=== PATIENT | male | born 1940 | race Caucasian/White ===

== ENCOUNTER 2023-01-20 12:44 | Inpatient (IN) ==
[2023-01-20] MEDS ORDERED: SODIUM CHLORIDE 0.9% 1000ML 1,000 ML IV SCH (13:30)
--- NOTE | 2023-01-20 13:36 | Emergency Department Note ---
Impression & Plan AMS (altered mental status), Hypothermia, Bilateral pleural effusion, Pulmonary edema, Thrombocytopenia ED Provider Note HISTORY OF PRESENT ILLNESS: Patient is an 82-year-old male presenting with altered mental status and hypothermia. Patient reportedly has had progressively worsening confusion over the last 2 to 3 days per family. He reportedly was found very confused today at his facility. Given his profound confusion today, they called 911. Patient was found to be hypothermic. Patient is alert to self. He has no complaints on arrival to the ER. No potential ingestions, as the facility gives him his medications. Per the medication list, he is not on any rate control medications. No reported falls or recent head injuries. ROS: as above PHYSICAL EXAM: Constitutional: Patient appears in no acute distress. Morbily obese HENT: Head: Normocephalic and atraumatic. Eyes: EOMI, PERRL Mouth/Throat: Mucous membranes moist. Neck: Trachea midline. Neck supple. Cardiovascular: Bradycardic with irregular rhythm. No murmurs, rubs or gallops. Intact distal pulses. Pulmonary/Chest: No respiratory distress. Breath sounds clear and equal bilaterally. No wheezes or rales Abdominal: Abdomen soft, no tenderness, rebound or guarding. Skin: Cool and dry. Neurological: Alert to self.. CN II-XII grossly intact MDM: - Vitals signs showed hypothermia and bradycardia. Patient was placed in a bear hugger and a temperature sensing Forbes catheter was placed. Transcutaneous pacing pads were placed on the patient prophylactically - History obtained via family, given patient's confusion. Patient presents with altered mental status. Patient reportedly has been having progressively worsening confusion over the last 2 to 3 days per family. He reportedly was significantly more altered today and the facility called 911. Family was alerted to patient's rapid decline and presented to the ER after him. Patient has no complaints on arrival to the ER. No potential ingestions, as the facility gives him his medications - Chronic conditions affecting care: AFib - Differential diagnoses include, but are not limited to: UTI; pneumonia; CVA; intracranial hemorrhage; electrolyte abnormality; ACS; overdose - Order placed for continuous cardiac monitoring. At this time, monitor showed rate of 61 bpm with irregular rhythm, per my interpretation. - External medical records reviewed. EMS run sheet reviewed. Patient was bradycardic in route. No medications were given prehospital. - EKG reviewed by myself showed atrial fibrillation. Noted to be bradycardic at a rate of 51 bpm. QTc 492. No acute ischemic changes. - Laboratory workup interpreted by myself showed leukopenia (WBC 2.92); thrombocytopenia (plt 125); slight hypernatremia (Na 146); elevated BUN (41); normal troponin; normal procalcitonin; negative salicylate/acetaminophen levels - UA negative for infection - VBG shows slight hypercarbia. - CXR shows pulmonary edema, per my interpretation. Noted to have layering pleural effusions with bibasilar consolidation - Blood cultures obtained. - CT head wo contrast negative for acute intracranial hemorrhage. - Patient initially given 1L NS in ER. - Empirically started on IV vancomycin and cefepime. - Discussion was had with social media editor about patient's case and need for admission - Hospitalist consulted for admission - Patient admitted to [facility] Hospitalist service for further evaluation and management. I provided 33 minutes of critical care time to this patient's care outside of billable procedures. ASSESSMENT AND PLAN: Diagnosis: altered mental status; hypothermia; pulmonary edema; bilateral pleural effusions; thrombocytopenia Plan: admit Past Med/Surg History Social History Smoking Status: Unknown if ever smoked Feels Safe at Home: Yes Allergies Allergies Allergy/AdvReac Type Severity Reaction Status Date / Time ceftriaxone Allergy Mild rash Verified 02/16/13 09:42 ertapenem AdvReac Intermediate hallucinati Unverified 02/16/13 10:42 ons Home Meds Home Medications Medication Instructions Recorded Confirmed ACETAMINOPHEN (TYLENOL) 1 - 2 tabs PO PRN #0 tabs 02/16/13 ATORVASTATIN (LIPITOR) 20 mg PO DAILY #0 tabs 02/16/13 DRONEDARONE HCL (MULTAQ) 400 mg PO BID ##0 02/16/13 NIFEDIPINE (NIFEDIPINE ER) 30 mg PO DAILY ##0 02/16/13 OXYCODONE/ACETAMINOPHEN 5MG/325MG 1 tab PO Q6 PRN ##0 02/16/13 (ROXICET 5MG/325MG) TARKA ER 2 - 240 mg PO DAILY ##0 02/16/13 TRIAMCINOLONE ACETONIDE (TOPIC 1 applic topical BID PRN ##0 02/16/13 (TRIAMCINOLONE ACET 0.025%) Previous Rx's Medication Instructions Recorded CIPRO 750 mg PO Q12 ##14 02/19/13 Results & Data (ED) Vital Signs Vital Signs - 24 hr 01/20/23 13:01 01/20/23 12:40 01/20/23 13:28 Temperature 30.9 C L Temperature Source Core Pulse Rate 46 L 45 L Pulse Rate [Finger] 62 Respiratory Rate 14 16 Respiratory Depth Normal Blood Pressure 116/64 Blood Pressure [Right Arm] 124/64 Blood Pressure Mean 81 Blood Pressure Mean [Right Arm] 84 Pulse Oximetry 94 94 Oxygen Delivery Method Room Air Room Air Sepsis Recent Fever Within 48 Hours No Sepsis New/Unexplained Change in Mental Status Yes Sepsis Action Taken by Nursing Physician Notified 01/20/23 13:39 01/20/23 13:46 01/20/23 14:18 Temperature Temperature Source Pulse Rate 52 L Pulse Rate [Finger] 40 L 48 L Respiratory Rate 16 16 20 Respiratory Depth Blood Pressure Blood Pressure [Right Arm] 116/55 L 120/66 Blood Pressure Mean Blood Pressure Mean [Right Arm] 75 84 Pulse Oximetry 93 93 94 Oxygen Delivery Method Sepsis Recent Fever Within 48 Hours Sepsis New/Unexplained Change in Mental Status Sepsis Action Taken by Nursing Laboratory Data 01/20/23 13:20 01/20/23 13:20 Lab Results 01/20/23 01/20/23 01/20/23 Range/Units 13:06 13:20 13:20 WBC 2.92 L (4.8-10.8) K/ul RBC 3.55 L (4.70-6.10) M/uL Hgb 11.0 L (14.0-18.0) g/dl Hct 34.3 L (42.0-52.0) % MCV 96.6 (80.0-100.0) fL MCH 31.0 (25.0-34.0) pg MCHC 32.1 (32.0-36.0) g/dL RDW Std Deviation 45.8 (36.4-46.3) fL RDW Coeff of Juanita 13.2 (11.5-14.5) % Plt Count 125 L (130-400) K/uL MPV 10.3 (9.4-12.4) fL Immature Gran % (Auto) 1.4 % Neut % (Auto) 65.7 % Lymph % (Auto) 20.9 % Gladwin % (Auto) 7.9 % Eos % (Auto) 3.4 % Baso % (Auto) 0.7 % Neut # (Auto) 1.92 (1.40-6.50) K/uL Lymph # (Auto) 0.61 L (1.2-3.4) K/uL Gladwin # (Auto) 0.23 (0.11-0.59) K/uL Eos # (Auto) 0.10 (0-0.50) K/uL Baso # (Auto) 0.02 (0-0.2) K/uL Immature Gran # (Auto) 0.04 (0.01-0.20) K/uL VBG pH (7.36-7.41) VBG pCO2 (38-50) mmHg VBG pO2 mmHg VBG HCO3 mmol/L VBG O2 Saturation % VBG Base Excess mEq/L Sodium (136-145) mmol/L Potassium (3.5-5.1) mmol/L Chloride (98-107) mmol/L Carbon Dioxide (21-32) mmol/L Anion Gap (3-11) BUN (6-23) mg/dl Creatinine (0.6-1.4) mg/dl Est Cr Clr Drug Dosing ml/min Est GFR ( Amer) ml/min Est GFR (Non-Af Amer) ml/min BUN/Creatinine Ratio (10-20) Glucose (70-99(Fasting)) mg/dl Lactate (0.4-2.0) mmol/L Calcium (8.6-10.3) mg/dl Magnesium (1.7-2.4) mg/dl Total Bilirubin (0.2-1.0) mg/dl Direct Bilirubin (0-0.2) mg/dl AST (13-39) U/L ALT (7-52) U/L Alkaline Phosphatase (34-104) U/L Troponin I High Sens (0-20) pg/ml Total Protein (6.0-8.3) gm/dl Albumin (3.4-5.0) gm/dl Procalcitonin (0-0.5) ng/ml Urine Color Yellow Urine Appearance Clear (Clear) Urine pH 5.0 (4.5-7.5) Ur Specific [place] 1.015 (1.000-1.030) Urine Protein Negative (Negative) Urine Glucose (UA) Negative (Negative) Urine Ketones Negative (Negative) Urine Blood Negative (Negative) Urine Nitrite Negative (Negative) Urine Bilirubin Negative (Negative) Urine Urobilinogen Negative (Negative) Ur Leukocyte Esterase Negative (Negative) Salicylates < 3.0 L (3.0-30) mg/dl Acetaminophen < 3 L (10-30) ug/ml 01/20/23 01/20/23 01/20/23 Range/Units 13:20 13:20 13:20 WBC (4.8-10.8) K/ul RBC (4.70-6.10) M/uL Hgb (14.0-18.0) g/dl Hct (42.0-52.0) % MCV (80.0-100.0) fL MCH (25.0-34.0) pg MCHC (32.0-36.0) g/dL RDW Std Deviation (36.4-46.3) fL RDW Coeff of Juanita (11.5-14.5) % Plt Count (130-400) K/uL MPV (9.4-12.4) fL Immature Gran % (Auto) % Neut % (Auto) % Lymph % (Auto) % Gladwin % (Auto) % Eos % (Auto) % Baso % (Auto) % Neut # (Auto) (1.40-6.50) K/uL Lymph # (Auto) (1.2-3.4) K/uL Gladwin # (Auto) (0.11-0.59) K/uL Eos # (Auto) (0-0.50) K/uL Baso # (Auto) (0-0.2) K/uL Immature Gran # (Auto) (0.01-0.20) K/uL VBG pH (7.36-7.41) VBG pCO2 (38-50) mmHg VBG pO2 mmHg VBG HCO3 mmol/L VBG O2 Saturation % VBG Base Excess mEq/L Sodium 146 H (136-145) mmol/L Potassium 3.7 (3.5-5.1) mmol/L Chloride 110 H (98-107) mmol/L Carbon Dioxide 30 (21-32) mmol/L Anion Gap 6 (3-11) BUN 41 H (6-23) mg/dl Creatinine 1.05 (0.6-1.4) mg/dl Est Cr Clr Drug Dosing 74.0 ml/min Est GFR ( Amer) 75.2 ml/min Est GFR (Non-Af Amer) 64.9 ml/min BUN/Creatinine Ratio 39.0 H (10-20) Glucose 73 (70-99(Fasting)) mg/dl Lactate 0.7 (0.4-2.0) mmol/L Calcium 9.5 (8.6-10.3) mg/dl Magnesium 2.0 (1.7-2.4) mg/dl Total Bilirubin 0.6 (0.2-1.0) mg/dl Direct Bilirubin 0.1 (0-0.2) mg/dl AST 29 (13-39) U/L ALT 22 (7-52) U/L Alkaline Phosphatase 83 (34-104) U/L Troponin I High Sens 6.3 (0-20) pg/ml Total Protein 6.6 (6.0-8.3) gm/dl Albumin 3.6 (3.4-5.0) gm/dl Procalcitonin < 0.05 (0-0.5) ng/ml Urine Color Urine Appearance (Clear) Urine pH (4.5-7.5) Ur Specific [place] (1.000-1.030) Urine Protein (Negative) Urine Glucose (UA) (Negative) Urine Ketones (Negative) Urine Blood (Negative) Urine Nitrite (Negative) Urine Bilirubin (Negative) Urine Urobilinogen (Negative) Ur Leukocyte Esterase (Negative) Salicylates (3.0-30) mg/dl Acetaminophen (10-30) ug/ml 01/20/23 Range/Units 14:49 WBC (4.8-10.8) K/ul RBC (4.70-6.10) M/uL Hgb (14.0-18.0) g/dl Hct (42.0-52.0) % MCV (80.0-100.0) fL MCH (25.0-34.0) pg MCHC (32.0-36.0) g/dL RDW Std Deviation (36.4-46.3) fL RDW Coeff of Juanita (11.5-14.5) % Plt Count (130-400) K/uL MPV (9.4-12.4) fL Immature Gran % (Auto) % Neut % (Auto) % Lymph % (Auto) % Gladwin % (Auto) % Eos % (Auto) % Baso % (Auto) % Neut # (Auto) (1.40-6.50) K/uL Lymph # (Auto) (1.2-3.4) K/uL Gladwin # (Auto) (0.11-0.59) K/uL Eos # (Auto) (0-0.50) K/uL Baso # (Auto) (0-0.2) K/uL Immature Gran # (Auto) (0.01-0.20) K/uL VBG pH 7.38 (7.36-7.41) VBG pCO2 51 H (38-50) mmHg VBG pO2 48 mmHg VBG HCO3 30 mmol/L VBG O2 Saturation 78.0 % VBG Base Excess 3.9 mEq/L Sodium (136-145) mmol/L Potassium (3.5-5.1) mmol/L Chloride (98-107) mmol/L Carbon Dioxide (21-32) mmol/L Anion Gap (3-11) BUN (6-23) mg/dl Creatinine (0.6-1.4) mg/dl Est Cr Clr Drug Dosing ml/min Est GFR ( Amer) ml/min Est GFR (Non-Af Amer) ml/min BUN/Creatinine Ratio (10-20) Glucose (70-99(Fasting)) mg/dl Lactate (0.4-2.0) mmol/L Calcium (8.6-10.3) mg/dl Magnesium (1.7-2.4) mg/dl Total Bilirubin (0.2-1.0) mg/dl Direct Bilirubin (0-0.2) mg/dl AST (13-39) U/L ALT (7-52) U/L Alkaline Phosphatase (34-104) U/L Troponin I High Sens (0-20) pg/ml Total Protein (6.0-8.3) gm/dl Albumin (3.4-5.0) gm/dl Procalcitonin (0-0.5) ng/ml Urine Color Urine Appearance (Clear) Urine pH (4.5-7.5) Ur Specific [place] (1.000-1.030) Urine Protein (Negative) Urine Glucose (UA) (Negative) Urine Ketones (Negative) Urine Blood (Negative) Urine Nitrite (Negative) Urine Bilirubin (Negative) Urine Urobilinogen (Negative) Ur Leukocyte Esterase (Negative) Salicylates (3.0-30) mg/dl Acetaminophen (10-30) ug/ml Administered Medications Discontinued Medications Sodium Chloride (Nss 1000ml) 1,000 mls @ 999 mls/hr IV .Q1H1M LISA Stop: 01/20/23 14:30 Last Infusion: 01/20/23 14:32 Dose: 0 mls/hr Documented By: Admin: 01/20/23 13:26 Dose: 999 mls/hr Documented By: KATHERIN Cefepime HCl (Maxipime) 2,000 mg in 20 mls @ 5 mls/min IV NOW STA; Protocol Stop: 01/20/23 14:54 Last Admin: 01/20/23 15:03 Dose: 5 mls/min Documented By: ASHLEY Imaging Data Radiologist's Impression: Chest X-Ray 01/20/23 13:23 XR chest 1V portable HISTORY: 82 years-old Male Sepsis acute sepsis COMPARISON: 02/16/2013 TECHNIQUE: AP view the chest FINDINGS: Cardiac silhouette is enlarged. Right IJ Bcxjrs-p-Losn catheter is unchanged. No pneumothorax. Pulmonary vascular congestion with interstitial coarsening. Right greater left layering pleural effusions with bibasilar consolidation. Bones appear grossly intact. IMPRESSION: 1. Cardiomegaly with pulmonary edema. 2. Layering pleural effusions with bibasilar consolidation. ACT 112: Negative or not required by law. The above report was generated using voice recognition software. It may contain grammatical, syntax or spelling errors. Electronically signed by: Kishan Brennan M.D. 01/20/2023 1:[address] 01/20/23 13:36 CT head/brain wo con CLINICAL HISTORY: 82 years-old Male with AMS. Acutely altered mental status TECHNIQUE: Multiple axial CT images of the head were obtained without contrast. A dose lowering technique was utilized adhering to the principles of ALARA. CT DOSE: 625.80 mGy.cm COMPARISON: None. FINDINGS: No acute intracranial hemorrhage, midline shift, intracranial mass, hydrocephalus, territorial ischemia or abnormal extra-axial collection. Involutional changes with chronic microvascular ischemic disease. The calvarium is intact. Prior bilateral lens repair. The paranasal sinuses, mastoid air cells, and middle ear cavities are clear. IMPRESSION: No acute intracranial abnormality. ACT 112: Negative or not required by law. The above report was generated using voice recognition software. It may contain grammatical, syntax or spelling errors. Electronically signed by: Kishan Brennan M.D. 01/20/2023 2:22 PM Discharge Plan Visit Data Chief Complaint: Illness Stated Complaint: FLUID RETENTION ED Provider: Shiloh Elizondo Discharge Problem: AMS (altered mental status), Hypothermia, Bilateral pleural effusion, Pulmonary edema, Thrombocytopenia Forms Stand Alone Forms: [facility] Prescriptions Prescriptions: No Action ACETAMINOPHEN (TYLENOL) 500 MG tablet 1 - 2 tabs PO PRN Qty: 0 ATORVASTATIN (LIPITOR) 20 MG tablet 20 mg PO DAILY Qty: 0 DRONEDARONE HCL (MULTAQ) 400 MG tablet 400 mg PO BID Qty: 0 NIFEDIPINE (NIFEDIPINE ER) 30 MG tablet 30 mg PO DAILY Qty: 0 OXYCODONE/ACETAMINOPHEN 5MG/325MG (ROXICET 5MG/325MG) 1 TAB tablet 1 tab PO Q6 PRNQty: 0 TARKA ER 2 - 240 mg PO DAILY Qty: 0 TRIAMCINOLONE ACETONIDE (TOPIC (TRIAMCINOLONE ACET 0.025%) 0.025 % LOT 1 applic Topical BID PRNQty: 0 CIPRO 750 mg PO Q12 Qty: 14 0RF [facility] -
[2023-01-20 13:41] LABS: Basophils # (auto) 0.02 K/uL (0-0.2); Basophils % (auto) 0.7 %; Eosinophils % (auto) 3.4 %; Hematocrit (blood only) 34.3 % (42.0-52.0); Immature Granulocytes # (auto) 0.04 K/uL (0.01-0.20); Immature Granulocytes % (auto) 1.4 %; Lymphocytes # (auto) 0.61 K/uL (1.2-3.4); Lymphocytes % (auto) 20.9 %; Mean Corpuscular Hgb Conc 32.1 g/dL (32.0-36.0); Mean Corpuscular Volume 96.6 fL (80.0-100.0); Mean Platelet Volume 10.3 fL (9.4-12.4); Monocytes # (auto) 0.23 K/uL (0.11-0.59); Monocytes % (auto) 7.9 %; Neutrophils # (auto) 1.92 K/uL (1.40-6.50); Neutrophils % (auto) 65.7 %; Platelet Count 125 K/uL (130-400); RDW Coefficient of Variation 13.2 % (11.5-14.5); RDW Standard Deviation 45.8 fL (36.4-46.3); Red Blood Count 3.55 M/uL (4.70-6.10); White Blood Count 2.92 K/ul (4.8-10.8)
--- NOTE | 2023-01-20 13:48 | XRay Report ---
XR chest 1V portable HISTORY: 82 years-old Male Sepsis acute sepsis COMPARISON: 02/16/2013 TECHNIQUE: AP view the chest FINDINGS: Cardiac silhouette is enlarged. Right IJ Lhtrqv-[id number]-Lwkt catheter is unchanged. No pneumothorax. Pulmon reyna vascular congestion with interstitial coarsening. Right greater left layering pleural effusions w ith bibasilar consolidation. Bones appear grossly intact. IMPRESSION: 1. Cardiomegaly with pulmonary edema. 2. Layering pleural effusions with bibasilar consolidation. ACT 112: Negative or not required by law. The above report was generated using voice recognition software. It may contain grammatical, syntax o r spelling errors. Electronically signed by: Kishan Brennan M.D. 01/20/2023 1:47 PM
[2023-01-20 13:52] LABS: Appearance Urine Clear (Clear); Bilirubin Urine Negative (Negative); Blood Urine Negative (Negative); Color Urine Yellow; Glucose Urine UA Negative (Negative); Ketones Urine Negative (Negative); Leukocyte Esterase Urine Negative (Negative); Nitrite Urine Negative (Negative); Protein Urine Negative (Negative); Specific Gravity Urine 1.015 (1.000-1.030); Urobilinogen Urine Negative (Negative)
[2023-01-20 13:54] LABS: Albumin Level 3.6 gm/dl (3.4-5.0); Bilirubin Direct 0.1 mg/dl (0-0.2); Bilirubin,Total 0.6 mg/dl (0.2-1.0); Calcium 9.5 mg/dl (8.6-10.3); Est GFR (African American) 75.2 ml/min; Est GFR (Non-African American) 64.9 ml/min; Potassium 3.7 mmol/L (3.5-5.1); Total Protein 6.6 gm/dl (6.0-8.3)
[2023-01-20 14:00] LABS: Troponin I High Sensitivity 6.3 pg/ml (0-20)
[2023-01-20 14:02] LABS: Acetaminophen < 3 ug/ml (10-30); Salicylate < 3.0 mg/dl (3.0-30)
--- NOTE | 2023-01-20 14:24 | CT Scan Report ---
CT head/brain wo con CLINICAL HISTORY: 82 years-old Male with AMS. Acutely altered mental status TECHNIQUE: Multiple axial CT images of the head were obtained without contrast. A dose lowering tech nique was utilized adhering to the principles of ALARA. CT DOSE: 625.80 mGy.cm COMPARISON: None. FINDINGS: No acute intracranial hemorrhage, midline shift, intracranial mass, hydrocephalus, territorial ischem ia or abnormal extra-axial collection. Involutional changes with chronic microvascular ischemic disea se. The calvarium is intact. Prior bilateral lens repair. The paranasal sinuses, mastoid air cells, and m iddle ear cavities are clear. IMPRESSION: No acute intracranial abnormality. ACT 112: Negative or not required by law. The above report was generated using voice recognition software. It may contain grammatical, syntax o r spelling errors. Electronically signed by: Kishan Brennan M.D. 01/20/2023 2:22 PM
[2023-01-20] MEDS ORDERED: VANCOMYCIN CONSULT ACTIVE PRN (14:51)
[2023-01-20] MEDS ORDERED: VANCOMYCIN HCL 2,750 MG in SODIUM CHLORIDE 0.9% 500 ML IV ONE (14:51)
[2023-01-20] MEDS ORDERED: CEFEPIME 2,000 MG/20 ML VIAL IV STA (14:51)
[2023-01-20 15:12] LABS: Base Excess VBG 3.9 mEq/L; HCO3 VBG 30 mmol/L; PCO2 VBG 51 mmHg (38-50); PO2 VBG 48 mmHg; pH VBG 7.38 (7.36-7.41)
--- NOTE | 2023-01-20 15:18 | History & Physical Report ---
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 Acute metabolic encephalopathy Hypothermia Possible Sepsis in setting of profound hypothermia, confusion and leukopenia admit to PCU continue jazzmine hugger warming system, anticipate HR will improve with re warming Biofire, urine negative CXR: pulm edema/pleural effusions ? 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/revision > 2 years ago Chronic lower ext lymphedema but does not appear overtly infected obtain CT a/p with IV contrast r/o intra abdominal infection hold on further IVF for now 2/2 volume overload obtain tsh, random cortisol Acute Heart failure, unknown EF Pulmonary edema reported weight gain, worsened lower ext edema, SOB pt with significant volume overload he does have chronic lymphedema but family states worsening and increased weight gain CXR: pulm edema, pleural effusions O2 saturations in low 90s will give 40mg IV lasix x 1 now, monitor response cautious diuresis in setting of sepsis concern, will re evaluate obtain echo, consult cardiology Chronic atrial fib chronic, on xarelto for stroke prophylaxis not on rate controlling agents, prior HR in 60s possible bradycardia in setting of hypothermia Cognitive impairment per family baseline is A and O x 3, oriented to family typically ambulates with walker with assistance but mostly in wheel chair per OP epic records appears pt may be looking at changing to SNF due to difficulty with mobility will need to get PT/OT when approp he is on donepezil and Namenda as OP, will hold for now NPO for now except meds til mental status improves FULL CODE confirmed by son at bedside DVT ppx: Xarelto PCP: Jon, pt at [facility] Dispo: Admit to PCU, consult PT/OT when appropriate, pt may not be candidate to return to [facility] and may need SNF Pt was seen and examined in collaboration with Dr. Whitley, please see addendum A total of 120 minutes was spent coordinating, documenting, and providing care for this patient excluding time spent in the performance of separately billed services. This included personally viewing all current laboratories and imaging studies, medication reconciliation, outpatient chart review, and discussion with specialists. Pt Medical Providers in [place] Rei Frank (PCP) [phone] [address], [address] Vamsi Chan [phone] [facility] Heme/Onc Pt from [place] and recently moved 2 months ago. Limited records available for review in [facility], will obtain from PCP in am.. History of Present Illness Chief Complaint: Worsening mental status x 3 days. 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 Son and [id number] are at bedside. They provide most of history. Patient is initially from [place] and moved to [facility] approximately 2 months ago. He currently resides in assisted living facility. Per family at bedside at baseline patient is alert and oriented x3, oriented to current events and family members. He is mostly in a wheelchair but can ambulate with assist with a walker. He does have chronic lower extremity lymphedema and swelling however this has worsened over the last month. Family at bedside notes significant increase in lower extremity swelling as well as weight gain. He has not yet established with cardiology in the area and they deny any prior history of congestive heart failure. He does have known chronic atrial fibrillation and is anticoagulated with Xarelto. Patient is hard of hearing and he does report that he is short of breath but otherwise ROS is not difficult. He does complain that he is in pain all over. 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 He currently has a port in his right chest wall secondary to requiring frequent antibiotics and this infection has since been cleared for approximately 2 years. Report from nursing facility is that he has had increased confusion over the last 3 days and today was unable to get patient out of bed. There is no reported fever. In ED patient was significantly hypothermic with a temp of 30.9 and bradycardic with a heart rate in the 40s. He is in atrial fibrillation. Lab work notable for slight neutropenia with a WBC at 2.92k which is lower from November when he had a reported white blood cell count of 7k in epic. He also has a new thrombocytopenia. Lab work does reveal elevated BUN and creatinine of 41 and 1.05. Urinalysis is negative. Bio fire is negative for any respiratory infection. Head CT negative for any acute abnormality. Chest x-ray positive for cardiomegaly with pulmonary edema along with layering pleural effusions and bibasilar consolidation. Allergies Allergy/AdvReac Type Severity Reaction Status Date / Time ceftriaxone Allergy Mild rash Verified 01/20/23 15:23 doxycycline Allergy Unknown ON Verified 01/20/23 15:23 [facility] LIST rifampin Allergy Unknown ON Verified 01/20/23 15[facility] Sulfa (Sulfonamide Allergy Unknown ON Verified 01/20/23 15:23 Antibiotics) [facility] ertapenem AdvReac Intermediate hallucinati Verified 01/20/23 15:23 ons Home Medications Medication Instructions Recorded Confirmed Type acetaminophen 325 mg tablet 650 mg PO Q4H PRN Pain 01/20/23 01/20/23 History (Tylenol) atorvastatin 20 mg tablet 20 mg PO DAILY 01/20/23 01/20/23 History cholecalciferol (vitamin D3) 50 50 mcg PO DAILY 01/20/23 01/20/23 History mcg (2,000 unit) capsule (Vitamin D3) cyclosporine 0.05 % eye drops 1 drp OPB Q12H 01/20/23 01/20/23 History donepezil 10 mg tablet 10 mg PO DAILY 01/20/23 01/20/23 History furosemide 20 mg tablet (Lasix) 20 mg PO DAILY 01/20/23 01/20/23 History furosemide 40 mg tablet (Lasix) 40 mg PO ONCE 01/20/23 01/20/23 History memantine 10 mg tablet 10 mg PO BID 01/20/23 01/20/23 History rivaroxaban 15 mg tablet (Xarelto) 15 mg PO DAILY 01/20/23 01/20/23 History silodosin 8 mg capsule 8 mg PO HS 01/20/23 01/20/23 History Past Med/Surg History Medical History (Updated 01/20/23 @ 17:10 by Delma Murdock PA-C) BPH (benign prostatic hyperplasia) Chronic atrial fibrillation CKD (chronic kidney disease) stage 3, GFR 30-59 ml/min Hx of long-term (current) use of anticoagulants Lymphedema MGUS (monoclonal gammopathy of unknown significance) Port-A-Cath in place Surgical History (Updated 01/20/23 @ 16:15 by Delma Murdock PA-C) 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 Family History (Updated 01/20/23 @ 16:15 by Delma Murdock PA-C) Other Family history non-contributory Social History (Updated 01/20/23 @ 16:16 by Delma Murdock PA-C) Smoking Status: Former smoker Hx Alcohol Use: Yes Hx Substance Use: No Preferred Language: Algerian Communication Ability Comment: TUSCARORA marital status: Single Current Living Situation: Personal Care Facility Feels Safe at Home: Yes Review of Systems Review of Systems: Unobtainable due to cognitive status Physical Exam Physical Exam: Constitutional: Elderly, morbidly obese M, A and O x 1, lethargic, appears acutely ill, vitals as above, NAD, sitting up in bed Head: Normocephalic, Atraumatic Eyes: PERRL, conjunctivae normal, anicteric sclerae ENMT: external ear and nose normal, oropharynx normal Neck: trachea midline, no thyromegaly normal visual inspection Respiratory: normal respiratory effort, diminished bs at bases, poor insp effort, no wheeze, rales, rhonchi. Normal insp/exp effort, no accessory muscle use Cardiovascular:wisam rate, irr rhythm, no murmur, b/l +2 pitted edema with Chronic venous stasis changes, no acute infectious appearance Vessels: no JVD or carotid bruit Chest: normal inspection of chest RACW medi port Abdomen: obese abd, normal bowel sounds, soft, nontender, no hepatosplenomegaly Musculoskeletal: no cyanosis or clubbing, AROM x 4 Skin: no rashes, warm and dry normal turgor Neurologic: PERRL, EOMI, accommodation nl, no face palsy, no dysarthria CN's II-XI intact bilaterally and moves all extremities Psychiatric: A+Ox1 self, euthymic affect Lymphatic: no cervical or axillary lymphadenopathy : deferred Results & Data Results & Data Vital Signs (Past 12 Hours) Vital Signs Temp Pulse Pulse Resp BP BP Pulse Ox 01/20/23 14:18 48 L 20 120/66 94 01/20/23 13:46 40 L 16 116/55 L 93 01/20/23 13:39 52 L 16 93 01/20/23 13:28 62 16 124/64 94 01/20/23 12:40 30.9 C L 45 L 14 116/64 94 01/20/23 13:01 46 L O2 Del Method 01/20/23 14:18 01/20/23 13:46 01/20/23 13:39 01/20/23 13:28 Room Air 01/20/23 12:40 Room Air 01/20/23 13:01 Diagnostic Findings Chest X-Ray 01/20/23 13:23 XR chest 1V portable HISTORY: 82 years-old Male Sepsis acute sepsis COMPARISON: 02/16/2013 TECHNIQUE: AP view the chest FINDINGS: Cardiac silhouette is enlarged. Right IJ Wbqhgr-i-Lrmi catheter is unchanged. No pneumothorax. Pulmonary vascular congestion with interstitial coarsening. Right greater left layering pleural effusions with bibasilar consolidation. Bones appear grossly intact. IMPRESSION: 1. Cardiomegaly with pulmonary edema. 2. Layering pleural effusions with bibasilar consolidation. ACT 112: Negative or not required by law. The above report was generated using voice recognition software. It may contain grammatical, syntax or spelling errors. Electronically signed by: Kishan Brennan M.D. 01/20/2023 1:[address] 01/20/23 13:36 CT head/brain wo con CLINICAL HISTORY: 82 years-old Male with AMS. Acutely altered mental status TECHNIQUE: Multiple axial CT images of the head were obtained without contrast. A dose lowering technique was utilized adhering to the principles of ALARA. CT DOSE: 625.80 mGy.cm COMPARISON: None. FINDINGS: No acute intracranial hemorrhage, midline shift, intracranial mass, hydrocephalus, territorial ischemia or abnormal extra-axial collection. Involutional changes with chronic microvascular ischemic disease. The calvarium is intact. Prior bilateral lens repair. The paranasal sinuses, mastoid air cells, and middle ear cavities are clear. IMPRESSION: No acute intracranial abnormality. ACT 112: Negative or not required by law. The above report was generated using voice recognition software. It may contain grammatical, syntax or spelling errors. Electronically signed by: Kishan Brennan M.D. 01/20/2023 2:22 PM Medications Administered Medication List Discontinued Medications Furosemide (Furosemide 40 Mg/4 Ml Vial) 40 mg IV NOW STA Stop: 01/20/23 15:42 Last Admin: 01/20/23 16:07 Dose: 40 mg Documented By: KATHERIN Sodium Chloride (Nss 1000ml) 1,000 mls @ 999 mls/hr IV .Q1H1M LISA Stop: 01/20/23 14:30 Last Infusion: 01/20/23 14:32 Dose: 0 mls/hr Documented By: Admin: 01/20/23 13:26 Dose: 999 mls/hr Documented By: KATHERIN Cefepime HCl (Maxipime) 2,000 mg in 20 mls @ 5 mls/min IV NOW STA; Protocol Stop: 01/20/23 14:54 Last Admin: 01/20/23 15:03 Dose: 5 mls/min Documented By: ASHLEY Ioversol (Ioversol 350 Mg 125ml Prefilled Syringe) 112 ml IV ONCE ONE Stop: 01/20/23 17:10 Last Admin: 01/20/23 17:10 Dose: 112 ml Documented By: BIA COVID-19 Results Results COVID-19 Adm Lab Results: RBC 3.55 M/uL (4.70-6.10) L 01/20/23 WBC 2.92 K/ul (4.8-10.8) L 01/20/23 Hgb 11.0 g/dl (14.0-18.0) L 01/20/23 Hct 34.3 % (42.0-52.0) L 01/20/23 Plt Count 125 K/uL (130-400) L 01/20/23 Neutrophils (%) (Auto) 65.7 % 01/20/23 Lymphocytes (%) (Auto) 20.9 % 01/20/23 Monocytes # (Auto) 0.23 K/uL (0.11-0.59) 01/20/23 Eosinophils # (Auto) 0.10 K/uL (0-0.50) 01/20/23 Immature Granulocyte % (Auto) 1.4 % 01/20/23 Neutrophils # (Auto) 1.92 K/uL (1.40-6.50) 01/20/23 Lymphocytes # (Auto) 0.61 K/uL (1.2-3.4) L 01/20/23 Monocytes # (Auto) 0.23 K/uL (0.11-0.59) 01/20/23 Eosinophils # (Auto) 0.10 K/uL (0-0.50) 01/20/23 Basophils # (Auto) 0.02 K/uL (0-0.2) 01/20/23 Immature Granulocyte # (Auto) 0.04 K/uL (0.01-0.20) 3 Na 146 mmol/L (136-145) H 01/20/23 K 3.7 mmol/L (3.5-5.1) 01/20/23 Cl 110 mmol/L (98-107) H 01/20/23 CO2 30 mmol/L (21-32) 01/20/23 Anion Gap 6 (3-11) 01/20/23 BUN 41 mg/dl (6-23) H 01/20/23 Creatinine 1.05 mg/dl (0.6-1.4) 01/20/23 BUN/Creatinine Ratio 39.0 (10-20) H 01/20/23 Glucose Level 73 mg/dl (70-99(Fasting)) 01/20/23 Ca 9.5 mg/dl (8.6-10.3) 01/20/23 Total Bilirubin 0.6 mg/dl (0.2-1.0) 01/20/23 Direct Bilirubin 0.1 mg/dl (0-0.2) 01/20/23 AST/SGOT 29 U/L (13-39) 01/20/23 ALT/SGPT 22 U/L (7-52) 01/20/23 Alkaline Phosphatase 83 U/L (34-104) 01/20/23 Total Protein 6.6 gm/dl (6.0-8.3) 01/20/23 Albumin 3.6 gm/dl (3.4-5.0) 01/20/23 Procalcitonin < 0.05 ng/ml (0-0.5) 01/20/23 Adenovirus (PCR) Pending 01/20/23 B. parapertussis DNA (PCR) Pending 01/20/23 B. pertussis DNA (PCR) Pending 01/20/23 C. pneumoniae DNA (PCR) Pending 01/20/23 Coronavirus Type OC43 (PCR) Pending 01/20/23 Coronavirus Type HKU1 (PCR) Pending 01/20/23 Coronavirus Type 229E (PCR) Pending 01/20/23 COVID-19 PCR Pending 01/20/23 Coronavirus Type NL63 (PCR) Pending 01/20/23 Human Metapneumovirus (PCR) Pending 01/20/23 Influenza Virus Type B (PCR) Pending 01/20/23 M. pneumoniae (PCR) Pending 01/20/23 Parainfluenza Type 1 (PCR) Pending 01/20/23 Parainfluenza Type 2 (PCR) Pending 01/20/23 Parainfluenza Type 3 (PCR) Pending 01/20/23 Parainfluenza Type 4 (PCR) Pending 01/20/23 RSV (PCR) Pending 01/20/23 Enterovirus/Rhinovirus (PCR) Pending 01/20/23 Chest X-Ray 01/20/23 Code Status & VTE Plan Code Status FULL CODE Supervising Physician Co-Signing Physician Notes I have seen and examined the patient and have discussed the case with the provider above. I agree with the assessment and plan as stated with the following exceptions. 82 yo M with a possible history of CHF presents with worsening confusion, weakness, hypothermia, bradycardia and confusion for the past several days. Poor PO intake reported by his son who is at bedside. Patient recently moved here from [place] and no records are available for review except for a recent PCP visit where he was establishing care with new provider. He lives at [facility]. Currently, he appears resuscitated after 1L IVF and temperature is improving. He is still bradycardic in the 50s with a baseline HR 66 from this outpatient visit. On exam he is morbidly obese and is lethargic but able to speak and tell me his name. He is able to follow commands but is generally weak. ROS is not able to be obtained 2/2 altered mental status. Cardiac exam reveals wisam rate and irregular rhythm. S1/2 heard without murmurs. There is 2+ pitting edema in his lower extremities throughout. There is erythema, scaliness and multiple areas of injury to his lower extremities but no evidence of pushpa infection or drainage. It was difficult to get him to take deep breaths or roll over so only anterior lung campos were evaluated and these were clear. Port to anterior chest wall. Jazzmine hugger in place. Family reports weight gain and swelling. Labwork reveals WBC 2.92 (normal WBC on outpatient labwork from November), anemia that is at his baseline. He appears to be dehydrated on labwork today. Renal function is at baseline. Procalcitonin negative. TSH WNL. Random cortisol pending. UA is negative. CT head reveals no acute intracranial abnormality. CXR reveals fluid overload with pulmonary layering pleural effusions with bibasilar consolidation. 1. Acute metabolic encephalopathy 2/2 sepsis 2. Possible pneumonia 3. Acute heart failure with bilateral pleural effusions on imaging 4. Morbid obesity 5. Hypothyroidism, chronic, stable. Hypothermia and bradycardia are likely related and possibly from sepsis picture. No clear respiratory symptoms reported but pneumonia is very possible. Doubt meningitis at this point without headache and mental status improving with initial resuscitation efforts. Hypothyroidism ruled out with normal TSH and adrenal insufficiency ruled out wtih normal cortisol level. Exposure not likely contributing as patient is elderly and in a SNF with warm summer temperatures outside. Not on betablockers and heart rate is improving as his temperature is returning to normal. No evidence of shock as no evidence of end organ damage (neg trop, normal renal function, normal BP). Cont broad spectrum antibiotics for sepsis pending culture results and clinical improvement. Volume status is difficult to determine at this point. He has not been eating and drinking well and appears dehydrated on labwork. He is typically on Lasix daily, also. However, there are signs and symptoms of progressive heart failure exacerbation over the past few weeks. He does have effusions but there is no hypoxia or evidence that he is working to breathe. Lasix 40mg IV was given in the ER when he reported starting to feel short of breath. For now will hold off on further Lasix or IVF until he improves more clinically, heart rate and temperature i mprove, and BP is stable without evidence of hypotension. Echo pending as no record of echo exists in our system. Appreciate cardiology consultation. I did receive history from his son at bedside who also gave me the names and numbers of his doc in [place]: Dr. Rei Frank, [place], [place] [phone] (PCP). Gutierrez,
[2023-01-20 15:31] LABS: Adenovirus PCR Not Detected (NotDetected); Bordetella parapertussis PCR Not Detected (NotDetected); Bordetella pertussis PCR Not Detected (NotDetected); Chlamydia pneumoniae PCR Not Detected (NotDetected); Coronavirus 229E PCR Not Detected (NotDetected); Coronavirus CoV-2 (COVID19)PCR Not Detected (NotDetected); Coronavirus HKU1 PCR Not Detected (NotDetected); Coronavirus NL63 PCR Not Detected (NotDetected); Coronavirus OC43PCR Not Detected (NotDetected); Human Metapneumovirus PCR Not Detected (NotDetected); Influenza A PCR Not Detected (NotDetected); Influenza B PCR Not Detected (NotDetected); Mycoplasma pneumoniae PCR Not Detected (NotDetected); Parainfluenza Virus 1 PCR Not Detected (NotDetected); Parainfluenza Virus 2 PCR Not Detected (NotDetected); Parainfluenza Virus 3 PCR Not Detected (NotDetected); Parainfluenza Virus 4 PCR Not Detected (NotDetected); Respiratory Syncytial VirusPCR Not Detected (NotDetected); Rhinovirus/Enterovirus PCR Not Detected (NotDetected)
[2023-01-20] MEDS ORDERED: FUROSEMIDE 40 MG/4 ML VIAL IV STA (15:41)
[2023-01-20 16:08] LABS: Lyme Ab IgG w/WB Rflx Negative (Negative); Lyme Ab IgM w/WB Rflx Negative (Negative)
[2023-01-20 16:11] LABS: Echinocytes 1+
[2023-01-20 16:15] LABS: Thyroid Stimulating Hormone 4.635 uIu/ml (0.300-4.500)
--- NOTE | 2023-01-20 16:25 | Communication Note ---
Date of Service: January 20, 2023 ATTENDING ADDENDUM TO H&P: 82 yo M with a possible history of CHF presents with worsening confusion, weakness, hypothermia, bradycardia and confusion for the past several days. Poor PO intake reported by his son who is at bedside. Patient recently moved here from [place] and no records are available for review except for a recent PCP visit where he was establishing care with new provider. He lives at [facility]. Currently, he appears resuscitated after 1L IVF and temperature is improving. He is still bradycardic in the 50s with a baseline HR 66 from this outpatient visit. On exam he is morbidly obese and is lethargic but able to speak and tell me his name. He is able to follow commands but is generally weak. ROS is not able to be obtained 2/2 altered mental status. Cardiac exam reveals wisam rate and irregular rhythm. S1/2 heard without murmurs. There is 2+ pitting edema in his lower extremities throughout. There is erythema, scaliness and multiple areas of injury to his lower extremities but no evidence of pushpa infection or drainage. It was difficult to get him to take deep breaths or roll over so only anterior lung campos were evaluated and these were clear. Port to anterior chest wall. Luana hugger in place. Family reports weight gain and swelling. Labwork reveals WBC 2.92 (normal WBC on outpatient labwork from November), anemia that is at his baseline. He appears to be dehydrated on labwork today. Renal function is at baseline. Procalcitonin negative. TSH WNL. Random cortisol pending. UA is negative. CT head reveals no acute intracranial abnormality. CXR reveals fluid overload with pulmonary layering pleural effusions with bibasilar consolidation. 1. Acute metabolic encephalopathy 2/2 sepsis 2. Possible pneumonia 3. Acute heart failure with bilateral pleural effusions on imaging 4. morbid obesity Hypothermia and bradycardia are likely related and possibly from sepsis picture. No clear respiratory symptoms reported but pneumonia is very possible. Doubt meningitis at this point without headache and mental status improving with initial resuscitation efforts. Hypothyroidism ruled out with normal TSH and adrenal insufficiency ruled out wtih normal cortisol level. Exposure not likely contributing as patient is elderly and in a SNF with warm summer temperatures outside. Not on betablockers and heart rate is improving as his temperature is returning to normal. No evidence of shock as no evidence of end organ damage (neg trop, normal renal function, normal BP). Cont broad spectrum antibiotics for sepsis pending culture results and clinical improvement. Volume status is difficult to determine at this point. He has not been eating and drinking well and appears dehydrated on labwork. He is typically on Lasix daily, also. However, there are signs and symptoms of progressive heart failure exacerbation over the past few weeks. He does have effusions but there is no hypoxia or evidence that he is working to breathe. Lasix 40mg IV was given in the ER when he reported starting to feel short of breath. For now will hold off on further Lasix or IVF until he improves more clinically, heart rate and temperature improve, and BP is stable without evidence of hypotension. Echo pending as no record of echo exists in our system. Appreciate cardiology consultation. I did receive history from his son at bedside who also gave me the names and numbers of his doc in [place]: Dr. Rei Frank, [place], [place] [phone] (PCP). Gutierrez,
[2023-01-20] MEDS ORDERED: IOVERSOL 350 MG 125mL Prefilled Syringe IV ONE (17:09)
--- NOTE | 2023-01-20 17:34 | CT Scan Report ---
CT SCAN OF THE ABDOMEN AND PELVIS WITH IV CONTRAST CLINICAL HISTORY: Sepsis. COMPARISON STUDY: No priors. TECHNIQUE: Following the IV administration of 112 cc of Optiray 350, CT scan of the abdomen and pelv is is performed from the lung bases to the proximal femora. Images are reviewed in the axial, sagitta l, and coronal planes. IV contrast was administered without complication. A dose lowering technique w as utilized adhering to the principles of ALARA. The examination is degraded by motion artifact, as w ell as by streak artifact from the arms which could not be elevated above the abdomen. There is also streak artifact in the body wall abutting the CT gantry. CT DOSE: 1778.26 mGy.cm FINDINGS: Lung bases: The heart is enlarged and without pericardial effusion. The coronary arteries are densely calcified. There are right larger than left pleural effusions with dependent consolidation. Liver: The contrast-enhanced liver is normal in size and heterogeneous in attenuation. Nodularity of the surface contour suggests early morphologic changes of cirrhosis. There is no intrahepatic biliary ductal dilatation. The hepatic veins and portal veins are patent. Gallbladder: Surgically absent noting clips in the gallbladder fossa. Spleen: Normal in size and attenuation. Pancreas: Atrophic and grossly unremarkable. Adrenal glands: Unremarkable. Kidneys: The contrast enhanced kidneys demonstrate cortical atrophy and/or without hydronephrosis. Th e kidneys enhance symmetrically. There are at least 2 nonobstructing right renal calculi which measur e up to 5 mm. No left renal calculi are clearly seen on this contrast-enhanced examination. Bilateral renal cysts measure up to 3.7 cm. Abdominal vasculature: The abdominal aorta is normal in course and caliber noting moderate atheroscle rotic calcification. Bowel: A large left internal hernia contains a segment of the sigmoid colon and a large right inguina l hernia contains the cecum and the distal ileum. No bowel obstruction is seen. A portion of the norm al appendix is seen in the right inguinal hernia on image #[id number]. This is incompletely visualized. Ther e is moderate colonic fecal retention. There is mild colonic diverticulosis without CT evidence of ac [place] diverticulitis. Peritoneum: There is trace perihepatic ascites. No intraperitoneal free air is seen. Lymphadenopathy: None. Pelvic viscera: The bladder is decompressed around a Forbes catheter and not well evaluated. The prost ate gland is grossly unremarkable. There are large bilateral inguinal hernias which contain bowel. Skeletal structures: The skeletal structures are osteopenic. There is moderate to advanced the sacral spondylosis as well as scoliosis. No lytic or blastic lesions are seen. Soft tissues: There is body wall edema. Small thick-walled fluid collections are seen in subcutaneous fat lateral to the right hip joint. These measure 3.2 cm and 2.3 cm as seen on images #294 and #290. IMPRESSION: 1. Streak and motion compromised examination. 2. Cardiomegaly. 3. Right larger than left pleural effusions with dependent consolidation. 4. Cirrhotic liver morphology and trace perihepatic ascites. 5. There are large bilateral inguinal hernias which contain nonobstructed segments of bowel. No bowel obstruction is seen. 6. Body wall edema. 7. There are 2 small thick-walled fluid collections in the subcutaneous fat lateral to the right hip. These measure up to 3.2 cm and are indeterminant, possibly presenting small hematomas or seromas. Th e sterility of this fluid cannot be assessed by imaging and clinical correlation will be required. 8. Right-sided nephrolithiasis. 9. Additional findings as above. ACT 112: Negative or not required by law. Electronically signed by: Walt Avila M.D. 01/20/2023 5:32 PM
[2023-01-20 17:35] LABS: T4 Free Thyroxine 0.91 ng/dl (0.61-1.60)
[2023-01-20] MEDS ORDERED: ALUMINUM/MAGNESIUM SUSP 30 ML UDC PO PRN (20:09)
[2023-01-20] MEDS ORDERED: ACETAMINOPHEN 325 MG TAB PO PRN (20:09)
[2023-01-20] MEDS ORDERED: MAGNESIUM HYDROXIDE SUSP 30 ML UDC PO PRN (20:09)
[2023-01-20] MEDS ORDERED: POLYETHYLENE (MIRALAX) 17 GM PACK PO PRN (20:09)
[2023-01-20] MEDS ORDERED: ARTIFICIAL TEARS OP PRN (20:30)
[2023-01-20] MEDS ORDERED: PIPERACILLIN/TAZOBACTAM 4.5 GM (over 30 mins) IV ONE (20:30)
[2023-01-21] MEDS: PIPERACILLIN/TAZOBACTAM 4.5 GM in DEXTROSE 5% 100 ML IV SCH ×3 (00:54→17:04)
[2023-01-21 08:04] LABS: Basophils # (auto) 0.02 K/uL (0-0.2); Basophils % (auto) 0.5 %; Eosinophils # (auto) 0.06 K/uL (0-0.50); Eosinophils % (auto) 1.5 %; Hematocrit (blood only) 32.5 % (42.0-52.0); Hemoglobin 10.4 g/dl (14.0-18.0); Immature Granulocytes # (auto) 0.05 K/uL (0.01-0.20); Immature Granulocytes % (auto) 1.2 %; Lymphocytes # (auto) 0.44 K/uL (1.2-3.4); Mean Corpuscular Volume 96.7 fL (80.0-100.0); Mean Platelet Volume 11.1 fL (9.4-12.4); Monocytes % (auto) 7.5 %; Neutrophils # (auto) 3.14 K/uL (1.40-6.50); Neutrophils % (auto) 78.3 %; Platelet Count 117 K/uL (130-400); RDW Coefficient of Variation 13.4 % (11.5-14.5); Red Blood Count 3.36 M/uL (4.70-6.10); White Blood Count 4.01 K/ul (4.8-10.8)
[2023-01-21 08:17] LABS: Albumin Globulin Ratio 1.1 (0.9-2); Albumin Level 3.3 gm/dl (3.4-5.0); Bilirubin,Total 0.8 mg/dl (0.2-1.0); Calcium 9.2 mg/dl (8.6-10.3); Creatinine Clr Calc Pharmacy 65.9 ml/min; Est GFR (Non-African American) 56.9 ml/min; Globulin 2.9 gm/dl (2.5-4.0); Magnesium 1.9 mg/dl (1.7-2.4); Potassium 3.8 mmol/L (3.5-5.1); Total Protein 6.2 gm/dl (6.0-8.3)
--- NOTE | 2023-01-21 11:10 | Cardiology Consultation ---
Date of Consultation January 21, 2023 Assessment & Plan (1) Volume overload: (2) Sepsis: (3) Acute metabolic encephalopathy: (4) Chronic atrial fibrillation: (5) Bradycardia: (6) Thrombocytopenia: (7) Pulmonary edema: (8) Bilateral pleural effusion: (9) Hypothermia: (10) AMS (altered mental status): Plan Complex 82-year-old male admitted with acute metabolic encephalopathy, marked hypothermia, probable sepsis. Cardiology consultation requested due to concern for acute congestive heart failure with volume overload appearing to be multifactorial in etiology -chronic lymphedema, hypoalbuminemia, anemia, and ? element of diastolic congestive heart failure though laboratory work and examination suggest intravascular volume depletion. Resting echocardiography with preserved LV systolic function. Patient with chronic atrial fibrillation; bradycardia heart rates have improved with improvement in hypothermia. Would hold off on administration of additional IV diuretic therapy at this point. Avoid AV kong blockers. No urgent indication for permanent pacemaker imp lantation which presently contraindicated noting probable infection. ? Need for A-Port removal? Supervising Physician Co-Signing Physician Notes Patient seen and examined at the bedside. Poor historian. Initial blood cultures suggesting gram-positive cocci in clusters. Initial presentation with metabolic encephalopathy, hypothermia, and bradycardia. Heart rate improved with warming. PE: VSS. Gen: NAD, AAO x3. Heart: Irregular rhythm, normal S1-S2. No murmur. Lungs: Diminished breath sounds at the bases bilateral. Abdomen: Soft, nontender. Extremities: 2+ edema. A/P: Agree with above PA-C history, physical exam, assessment and plan. 82-year-old patient presenting with sepsis, hypothermia, bradycardia. Initial blood cultures demonstrating gram-positive cocci in clusters. Source not well- defined at this time. ? related to A-port. Follow cultures. CT and x-ray demonstrating bilateral pleural effusions. Dilated IVC per echocardiogram. Recommend cautious diuresis, Lasix 20 mg IV now. Documented allergy to spironolactone. Monitor daily weight, fluid balance, electrolytes, and GFR. Antibiotics per internal medicine. Continue warming as per protocol. History of Present Illness Reason for Consultation: Acute congestive heart failure Requesting Physician: Mathieu Attending Physician: Dr. Jacobson History of Present Illness Patient seen and examined at approximately 9:15 this morning. History obtained from chart review. Patient unable to provide history due to mental status. Moved from [place] 1-2 months ago. Patient is currently a resident at [facility]. Increased confusion noted over the last 2-3 days. Patient referred to the ER via EMS on 01/20/2023 with altered mental status and hypothermia. Temperature on presentation was 30.9. Patient placed in a bear hugger, temperature sensing Forbes catheter inserted. Patient received 1 L normal saline in the ER and was empirically started on IV vancomycin and cefepime. EKG on presentation revealed atrial fibrillation with a ventricular rate of 51 bpm with patient notably markedly hypothermic on presentation. AV kong ruben therapy, previously prescribed calcium channel ruben therapy according to the limited documentation available from [place]. High-sensitivity troponin I normal at 6.3 pg/mL. Resting echocardiography revealed preserved LV systolic function, ejection fraction 55 to 60% without wall motion abnormality. The right ventricle was described as mildly dilated with normal function. Mild aortic and mitral insufficiency, moderate tricuspid regurgitation reported. Doppler findings do not suggest pulmonary hypertension. Head CT showed no acute intracranial abnormality. Chest x-ray was interpreted by the radiologist as revealing cardiomegaly with pulmonary edema, layering pleural effusions with bibasilar consolidation. Abdomen/pelvis CT as summarized below. Cardiology consultation requested by Delma Murdock, RE: acute congestive heart failure. Continuous monitoring manager reveals atrial fibrillation with rates in the 50s and 60s. Past Medical and Surgical History (as per chart review) Alzheimer disease Chart history of frequent falls History of recurrent cellulitis chronic atrial fibrillation Hypertension Hyperlipidemia History of CVA History of MRSA infection Stage III chronic kidney disease Anemia MGUS BPH History of tobacco abuse, reformed Obesity Lymphedema Neuropathy Detached retina, right eye Osteoarthritis Lumbar disc disease Tonsillectomy Left knee replacement Left knee I&D Status post left knee revision Status post right knee replacement Status post rotator cuff repair Status post resection of seroma Cholecystectomy Family History: Mother, father, maternal grandmother, maternal grandfather with heart disease, maternal grandfather with cancer. Social History: Reformed smoker having quit in 1980. No significant alcohol. No illegal drug use. . 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 Allergies Allergy/AdvReac Type Severity Reaction Status Date / Time ceftriaxone Allergy Mild rash Verified 01/20/23 15:23 doxycycline Allergy Unknown ON Verified 01/20/23 15:23 [facility] rifampin Allergy Unknown ON Verified 01/20/23 15:23 [facility] Sulfa (Sulfonamide Allergy Unknown ON Verified 01/20/23 15:23 Antibiotics) [facility] MED LIST ertapenem AdvReac Intermediate hallucinati Verified 01/20/23 15:23 ons Home Medications Medication Instructions Recorded Confirmed Type acetaminophen 325 mg tablet 650 mg PO Q4H PRN Pain 01/20/23 01/20/23 History (Tylenol) atorvastatin 20 mg tablet 20 mg PO DAILY 01/20/23 01/20/23 History cholecalciferol (vitamin D3) 50 50 mcg PO DAILY 01/20/23 01/20/23 History mcg (2,000 unit) capsule (Vitamin D3) cyclosporine 0.05 % eye drops 1 drp OPB Q12H 01/20/23 01/20/23 History donepezil 10 mg tablet 10 mg PO DAILY 01/20/23 01/20/23 History furosemide 20 mg tablet (Lasix) 20 mg PO DAILY 01/20/23 01/20/23 History furosemide 40 mg tablet (Lasix) 40 mg PO ONCE 01/20/23 01/20/23 History memantine 10 mg tablet 10 mg PO BID 01/20/23 01/20/23 History rivaroxaban 15 mg tablet (Xarelto) 15 mg PO DAILY 01/20/23 01/20/23 History silodosin 8 mg capsule 8 mg PO HS 01/20/23 01/20/23 History Patient History Medical History BPH (benign prostatic hyperplasia) Chronic atrial fibrillation CKD (chronic kidney disease) stage 3, GFR 30-59 ml/min Hx of long-term (current) use of anticoagulants Lymphedema MGUS (monoclonal gammopathy of unknown significance) Port-A-Cath in place Surgical History 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 Family History Other Family history non-contributory Social History Smoking Status: Former smoker Hx Alcohol Use: No Hx Substance Use: No Preferred Language: Amharic Communication Ability: Impaired Communication Ability Comment: [facility] Visual Aid Expert Required: No Beliefs That Will Affect Care: None marital status: Single Current Living Situation: Alone Other Information That Helps Us Care for You: No Feels Safe at Home: Yes Safety Concerns: Feels Safe At This Time Assistive Devices: Walker and Wheelchair Review of Systems Review of Systems: Chart history of Alzheimer disease A complete and accurate review of systems was unable to be obtained due to the patient's status. Physical Exam Physical Exam: General: Alert to person but not to place or time. NAD. HENT: Normocephalic. Atraumatic. Eyes: PER. Conjunctiva pink, sclera clear. Neck: No carotid bruits. Flat neck veins. No HJR. Heart: Irregular at 60 bpm. No murmur appreciated. No rub. Lungs: Clear to auscultation anteriorly. No wheeze. Abdomen: +BS. Soft. Nontender. No masses or organomegaly. Extremities: 2+ edema. Stasis changes. No clubbing. No cyanosis. Limited neurological examination is without focal deficits. Pulses: radial=1-2/4, posterior tibial=0/4. Results & Data Vital Signs (Past 12 Hours) Vital Signs Temp Pulse Pulse Resp BP Pulse Ox O2 Del Method 01/21/23 07:00 56 L 01/21/23 07:35 36.4 C L 94 H 19 110/58 L 92 Nasal Cannula 01/21/23 03:00 36.7 C 97 H 16 119/72 97 Nasal Cannula 01/20/23 23:20 34.8 C L 56 L 19 120/71 96 Nasal Cannula O2 Flow Rate 01/21/23 07:00 01/21/23 07:35 2 01/21/23 03:00 01/20/23 23:20 Laboratory Results Cardiac Enzymes 01/20/23 01/20/23 01/21/23 Range/Units 13:20 16:31 06:51 AST 29 30 (13-39) U/L Troponin I High Sens 6.3 (0-20) pg/ml B-Natriuretic Peptide 158 H (0-100) pg/ml Coagulation 01/20/23 Range/Units 16:31 B-Natriuretic Peptide 158 H (0-100) pg/ml CBC 01/20/23 01/21/23 Range/Units 13:20 06:51 WBC 2.92 L 4.01 L (4.8-10.8) K/ul RBC 3.55 L 3.36 L (4.70-6.10) M/uL Hgb 11.0 L 10.4 L (14.0-18.0) g/dl Hct 34.3 L 32.5 L (42.0-52.0) % Plt Count 125 L 117 L (130-400) K/uL Neut # (Auto) 1.92 3.14 (1.40-6.50) K/uL Lymph # (Auto) 0.61 L 0.44 L (1.2-3.4) K/uL [place] # (Auto) 0.23 0.30 (0.11-0.59) K/uL Eos # (Auto) 0.10 0.06 (0-0.50) K/uL Baso # (Auto) 0.02 0.02 (0-0.2) K/uL Comprehensive Metabolic Panel 01/20/23 01/21/23 Range/Units 13:20 06:51 Sodium 146 H 147 H (136-145) mmol/L Potassium 3.7 3.8 (3.5-5.1) mmol/L Chloride 110 H 110 H (98-107) mmol/L Carbon Dioxide 30 29 (21-32) mmol/L BUN 41 H 41 H (6-23) mg/dl Creatinine 1.05 1.17 (0.6-1.4) mg/dl Glucose 73 68 L (70-99(Fasting)) mg/dl Calcium 9.5 9.2 (8.6-10.3) mg/dl Direct Bilirubin 0.1 (0-0.2) mg/dl AST 29 30 (13-39) U/L ALT 22 23 (7-52) U/L Alkaline Phosphatase 83 74 (34-104) U/L Total Protein 6.6 6.2 (6.0-8.3) gm/dl Albumin 3.6 3.3 L (3.4-5.0) gm/dl Intake and Output 01/20/23 01/21/23 01/21/23 22:59 06:59 14:59 Intake Total 120 / 1240 120 / 1240 Output Total 1375 / 2125 750 / 2125 Balance -1255 / -885 -630 / -885 Intake: IV 120 / 1240 120 / 1240 Piperacillin/Tazobactam 4.5 gm 120 / 240 120 / 240 In Dextrose 5% 100 ml @ 30 mls/ hr IV Q8H [facility] Rx#:[id number] Output: Urine 900 / 900 Urine Amount (Catheter) 475 / 1225 750 / 1225 Forbes/Indwelling 475 / 1225 750 / 1225 Other: Weight 138.2 kg 138.3 kg Weight Measurement Method [facility] Diagnostic Findings EKG on presentation revealed atrial fibrillation with a slow ventricular response (51 bpm). Low voltage QRS. Cannot rule out Anterior infarct. QTc 492 ms. EKG in the AM of 01/21/2023 revealed atrial fibrillation at 64 bpm with a low voltage QRS and nonspecific T wave abnormality Telemetry: Atrial fibrillation in the 50's and 60's. January 21, 2023 TTE Interpretation Summary ([facility], Dr. Cespedes): Normal LV systolic function. EF 55-60%. Mildly dilated RV, with normal RV systolic function by tricuspid annular plan systolic excursion. Mild aortic regurgitation. Mild mitral regurgitation. Moderate tricuspid regurgitation. Doppler findings do not suggest pulmonary hypertension. Dilated IVC with normal inspiratory variation suggesting a right atrial pressure of 8 mmHg. January 20, 2023 CT Abdomen and Pelvis Lung bases: The heart is enlarged and without pericardial effusion. The coronary arteries are densely calcified. There are right larger than left pleural effusions with dependent consolidation. Liver: The contrast-enhanced liver is normal in size and heterogeneous in attenuation. Nodularity of the surface contour suggests early morphologic changes of cirrhosis. There is no intrahepatic biliary ductal dilatation. The hepatic veins and portal veins are patent. Gallbladder: Surgically absent noting clips in the gallbladder fossa. Spleen: Normal in size and attenuation. Pancreas: Atrophic and grossly unremarkable. Adrenal glands: Unremarkable. Kidneys: The contrast enhanced kidneys demonstrate cortical atrophy and/or without hydronephrosis. The kidneys enhance symmetrically. There are at least 2 nonobstructing right renal calculi which measure up to 5 mm. No left renal calculi are clearly seen on this contrast-enhanced examination. Bilateral renal cysts measure up to 3.7 cm. Abdominal vasculature: The abdominal aorta is normal in course and caliber noting moderate atherosclerotic calcification. Bowel: A large left internal hernia contains a segment of the sigmoid colon and a large right inguinal hernia contains the cecum and the distal ileum. No bowel obstruction is seen. A portion of the normal appendix is seen in the right inguinal hernia on image #[id number]. This is incompletely visualized. There is moderate colonic fecal retention. There is mild colonic diverticulosis without CT evidence of acute diverticulitis. Peritoneum: There is trace perihepatic ascites. No intraperitoneal free air is seen. Lymphadenopathy: None. Pelvic viscera: The bladder is decompressed around a Forbes catheter and not well evaluated. The prostate gland is grossly unremarkable. There are large bilateral inguinal hernias which contain bowel. Skeletal structures: The skeletal structures are osteopenic. There is moderate to advanced the sacral spondylosis as well as scoliosis. No lytic or blastic lesions are seen. Soft tissues: There is body wall edema. Small thick-walled fluid collections are seen in subcutaneous fat lateral to the right hip joint. These measure 3.2 cm and 2.3 cm as seen on images #294 and #290.
[2023-01-21 11:36] LABS: A calco-baum cmplx NotReported Not Detected (NotDetected); Bact fragilis Not Reported Not Detected (NotDetected); C auris Not Reported Not Detected (NotDetected); Calbicans Not Reported Not Detected (NotDetected); Candida glabrata Not Reported Not Detected (NotDetected); Candida krusei Not Reported Not Detected (NotDetected); Cneoformans/gatti Not Reported Not Detected (NotDetected); Cparapsilosis Not Reported Not Detected (NotDetected); Ctropicalis Not Reported Not Detected (NotDetected); E cloacae compx Not Reported Not Detected (NotDetected); Efaecalis Not Reported Not Detected (NotDetected); Efaecium Not Reported Not Detected (NotDetected); Enterobacterales Not Reported Not Detected (NotDetected); Escherichia coli Not Reported Not Detected (NotDetected); H influenzae Not Reported Not Detected (NotDetected); K aerogenes Not Reported Not Detected (NotDetected); Koxytoca Not Reported Not Detected (NotDetected); Kpneumoniae grp Not Reported Not Detected (NotDetected); Lmonocyt Not Reported Not Detected (NotDetected); N meningitidis Not Reported Not Detected (NotDetected); P aeruginosa Not Reported Not Detected (NotDetected); Proteus spp Not Reported Not Detected (NotDetected); Salmonella spp Not Reported Not Detected (NotDetected); Smarcescens Not Reported Not Detected (NotDetected); Staph lugdunensis Not Reported Not Detected (NotDetected); Staph spp. Not Reported DETECTED (NotDetected); Staphaureus Not Reported Not Detected (NotDetected); Staphepi Not Reported DETECTED (NotDetected); Staphylococcus epidermidis DETECTED (NotDetected); Stenmaltophilia Not Reported Not Detected (NotDetected); Strep agal(GrpB) Not Reported Not Detected (NotDetected); Strep pneum Not Reported Not Detected (NotDetected); Strep pyog (GrpA) Not Reported Not Detected (NotDetected); Strep spp Not Reported Not Detected (NotDetected); mecAC Resistant Gene Not Detected (NotDetected)
[2023-01-21 11:58] LABS: Staphylococcus spp. DETECTED (NotDetected)
[2023-01-21] MEDS ORDERED: VANCOMYCIN CONSULT ACTIVE PRN (12:08)
[2023-01-21] MEDS ORDERED: VANCOMYCIN HCL 2,750 MG in SODIUM CHLORIDE 0.9% 500 ML IV ONE (12:15)
--- NOTE | 2023-01-21 12:40 | Surgery Consultation ---
Date of Consultation January 21, 2023 Assessment & Plan (1) Acute metabolic encephalopathy: (2) Port-A-Cath in place: (3) Sepsis: + blood culture gram + cocci Port of right chest wall without any signs of infection externally Plan 82 year-old male presented to ED with increasing confusion for three days and hypothermia. Found to be neutropenic and CT scan of abdomen and pelvis showing small fluid collections just lateral to right hip in subcutaneous tissues. Positive blood culture today gram + cocci. No signs of right chest wall a-port infection externally. Plan: No evidence of drainable abscess on examination of the right lateral hip subcutaneous tissues. Would continue IV antibiotics. As for port removal given bacteremia. Can consider removing port once Xarelto held for 72 hours continue current medical management Dr. Gillespie was present during my examination and agrees with above. Supervising Physician Co-Signing Physician Notes Patient seen and examined. Agree with above documentation and plan. No abscess appreciated. Available to remove port if medicine deems necessary. History of Present Illness Reason for Consultation: Right hip abscesses, need for port removal, Bactermia Requesting Physician: Kyaw Jacobson MD Attending Physician: Kyaw Jacobson MD History of Present Illness History unable to be obtained from patient due to mental status. History obtained from chart. 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 Patient is initially from [place] and moved to [facility] approximately 2 months ago. He is mostly in a wheelchair but can ambulate with assist with a walker. He does have chronic lower extremity lymphedema and swelling however this has worsened over the last month. Family at bedside notes significant increase in lower extremity swelling as well as weight gain. He has not yet established with cardiology in the area and they deny any prior history of congestive heart failure. He does have known chronic atrial fibrillation and is anticoagulated with Xarelto. 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 He currently has a port in his right chest wall secondary to requiring frequent antibiotics and this infection has since been cleared for approximately 2 years. Report from nursing facility is that he has had increased confusion over the last 3 days and today was unable to get patient out of bed. There is no reported fever. In ED patient was significantly hypothermic with a temp of 30.9 and bradycardic with a heart rate in the 40s. He is in atrial fibrillation. Lab work notable for slight neutropenia with a WBC at 2.92k . CT scan of abdomen and pelvis obtained which showed 2 small thick-walled fluid collections in the subcutaneous fat lateral to the right hip. These measure up to 3.2 cm and are indeterminant, possibly presenting small hematomas or seromas. The sterility of this fluid cannot be assessed by imaging and clinical correlation will be required. Our services consulted for evaluation of right hip fluid collections as well as possible need for port removal given positive blood culture (gram positive cocci) Allergies Allergy/AdvReac Type Severity Reaction Status Date / Time ceftriaxone Allergy Mild rash Verified 01/20/23 15:23 doxycycline Allergy Unknown ON Verified 01/20/23 15:23 [facility]BR[facility] MED LIST rifampin Allergy Unknown ON Verified 01/20/23 15:23 CELEBR[facility] MED LIST Sulfa (Sulfonamide Allergy Unknown ON Verified 01/20/23 15:23 Antibiotics) CELEBRATION [facility] MED LIST ertapenem AdvReac Intermediate hallucinati Verified 01/20/23 15:23 ons Home Medications Medication Instructions Recorded Confirmed Type acetaminophen 325 mg tablet 650 mg PO Q4H PRN Pain 01/20/23 01/20/23 History (Tylenol) atorvastatin 20 mg tablet 20 mg PO DAILY 01/20/23 01/20/23 History cholecalciferol (vitamin D3) 50 50 mcg PO DAILY 01/20/23 01/20/23 History mcg (2,000 unit) capsule (Vitamin D3) cyclosporine 0.05 % eye drops 1 drp OPB Q12H 01/20/23 01/20/23 History donepezil 10 mg tablet 10 mg PO DAILY 01/20/23 01/20/23 History furosemide 20 mg tablet (Lasix) 20 mg PO DAILY 01/20/23 01/20/23 History furosemide 40 mg tablet (Lasix) 40 mg PO ONCE 01/20/23 01/20/23 History memantine 10 mg tablet 10 mg PO BID 01/20/23 01/20/23 History rivaroxaban 15 mg tablet (Xarelto) 15 mg PO DAILY 01/20/23 01/20/23 History silodosin 8 mg capsule 8 mg PO HS 01/20/23 01/20/23 History Patient History Medical History BPH (benign prostatic hyperplasia) Chronic atrial fibrillation CKD (chronic kidney disease) stage 3, GFR 30-59 ml/min Hx of long-term (current) use of anticoagulants Lymphedema MGUS (monoclonal gammopathy of unknown significance) Port-A-Cath in place Surgical History 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 Family History Other Family history non-contributory Social History Smoking Status: Former smoker Hx Alcohol Use: No Hx Substance Use: No Preferred Language: Nepalese Communication Ability: Impaired Communication Ability Comment: [facility] Health Services Information Specialist Required: No Beliefs That Will Affect Care: None marital status: Single Current Living Situation: Alone Other Information That Helps Us Care for You: No Feels Safe at Home: Yes Safety Concerns: Feels Safe At This Time Assistive Devices: Walker and Wheelchair Physical Exam Constitutional: + ill appearing, + morbidly obese, + altered mental status and + lethargic; no acute distress, not in distress and not diaphoretic Respiratory: normal respiratory effort; no respiratory distress Chest (Breasts): Chest: normal inspection of chest and + vascular access device or port (no surrounding/overlying erythema of right chest port, no induration) Musculoskeletal: Lower extremities: There is generalized lymphedema of the bilateral lower extremities from hips down. There is no evidence of focal erythema/induration or flucutance of the lateral right hip subcutaneous tissues. unable to palpate discrete fluid collections given lymphedema. Skin: no rashes, warm and dry Psychiatric: Orientation: alert and oriented to person; + not oriented x 3, + not oriented to place and + not oriented to time Results & Data Vital Signs (Past 12 Hours) Vital Signs Temp Pulse Pulse Resp BP Pulse Ox O2 Del Method 01/21/23 11:34 36.5 C 62 20 127/69 97 Nasal Cannula 01/21/23 07:00 56 L 08/04/23 07:35 36.4 C L 94 H 19 110/58 L 92 Nasal Cannula 01/21/23 03:00 36.7 C 97 H 16 119/72 97 Nasal Cannula O2 Flow Rate 01/21/23 11:34 2 01/21/23 07:00 01/21/23 07:35 2 01/21/23 03:00 Laboratory Results 01/21/23 01/21/23 01/21/23 Range/Units 11:33 06:51 06:51 WBC 4.01 L (4.8-10.8) K/ul RBC 3.36 L (4.70-6.10) M/uL Hgb 10.4 L (14.0-18.0) g/dl Hct 32.5 L (42.0-52.0) % MCV 96.7 (80.0-100.0) fL MCH 31.0 (25.0-34.0) pg MCHC 32.0 (32.0-36.0) g/dL RDW Std Deviation 47.0 H (36.4-46.3) fL RDW Coeff of Juanita 13.4 (11.5-14.5) % Plt Count 117 L (130-400) K/uL MPV 11.1 (9.4-12.4) fL Immature Gran % (Auto) 1.2 % Neut % (Auto) 78.3 % Lymph % (Auto) 11.0 % [place] % (Auto) 7.5 % Eos % (Auto) 1.5 % Baso % (Auto) 0.5 % Neut # (Auto) 3.14 (1.40-6.50) K/uL Lymph # (Auto) 0.44 L (1.2-3.4) K/uL [place] # (Auto) 0.30 (0.11-0.59) K/uL Eos # (Auto) 0.06 (0-0.50) K/uL Baso # (Auto) 0.02 (0-0.2) K/uL Immature Gran # (Auto) 0.05 (0.01-0.20) K/uL Echinocytes VBG pH (7.36-7.41) VBG pCO2 (38-50) mmHg VBG pO2 mmHg VBG HCO3 mmol/L VBG O2 Saturation % VBG Base Excess mEq/L Sodium 147 H (136-145) mmol/L Potassium 3.8 (3.5-5.1) mmol/L Chloride 110 H (98-107) mmol/L Carbon Dioxide 29 (21-32) mmol/L Anion Gap 8 (3-11) BUN 41 H (6-23) mg/dl Creatinine 1.17 (0.6-1.4) mg/dl Est Cr Clr Drug Dosing 65.9 ml/min Est GFR ( Amer) 66.0 ml/min Est GFR (Non-Af Amer) 56.9 ml/min BUN/Creatinine Ratio 35.0 H (10-20) Glucose 68 L (70-99(Fasting)) mg/dl POC Glucose 78 (70-99) mg/dl Lactate (0.4-2.0) mmol/L Calcium 9.2 (8.6-10.3) mg/dl Magnesium 1.9 (1.7-2.4) mg/dl Total Bilirubin 0.8 (0.2-1.0) mg/dl Direct Bilirubin (0-0.2) mg/dl AST 30 (13-39) U/L ALT 23 (7-52) U/L Alkaline Phosphatase 74 (34-104) U/L Troponin I High Sens (0-20) pg/ml B-Natriuretic Peptide (0-100) pg/ml Total Protein 6.2 (6.0-8.3) gm/dl Albumin 3.3 L (3.4-5.0) gm/dl Globulin 2.9 (2.5-4.0) gm/dl Albumin/Globulin Ratio 1.1 (0.9-2) Procalcitonin (0-0.5) ng/ml TSH (0.300-4.500) uIu/ml Free T4 (0.61-1.60) ng/dl Random Cortisol mcg/dl Urine Color Urine Appearance (Clear) Urine pH (4.5-7.5) Ur Specific [place] (1.000-1.030) Urine Protein (Negative) Urine Glucose (UA) (Negative) Urine Ketones (Negative) Urine Blood (Negative) Urine Nitrite (Negative) Urine Bilirubin (Negative) Urine Urobilinogen (Negative) Ur Leukocyte Esterase (Negative) Nasal Screen MRSA (PCR) (Negative) Salicylates (3.0-30) mg/dl Acetaminophen (10-30) ug/ml Adenovirus (PCR) (NotDetected) Anaplasma Smear A. phagocytophilum DNA B. pertussis DNA (PCR) (NotDetected) B.parapertussis DNA PCR (NotDetected) Lyme Disease IgG Ab (Negative) Lyme Disease IgM Ab (Negative) C. pneumoniae DNA (PCR) (NotDetected) Coronavirus OC43 (PCR) (NotDetected) Coronavirus HKU1 (PCR) (NotDetected) Coronavirus 229E (PCR) (NotDetected) SARS-CoV-2 (PCR) (NotDetected) Coronavirus NL63 (PCR) (NotDetected) Human Metapneumovir PCR (NotDetected) Influenza Type A (PCR) (NotDetected) Influenza Type B (PCR) (NotDetected) M. pneumoniae (PCR) (NotDetected) Parainfluenza 1 (PCR) (NotDetected) Parainfluenza 2 (PCR) (NotDetected) Parainfluenza 3 (PCR) (NotDetected) Parainfluenza 4 (PCR) (NotDetected) RSV (PCR) (NotDetected) Entero/Rhino (PCR) (NotDetected) Staphylococcus sp PCR (NotDetected) mecA/C-Methicil Resis Gene (NotDetected) Staph epidermidis (PCR) (NotDetected) Bld Cult ID Panel PCR (NotDetected) 01/21/23 01/20/23 01/20/23 Range/Units 05:35 Unknown 16:50 WBC (4.8-10.8) K/ul RBC (4.70-6.10) M/uL Hgb (14.0-18.0) g/dl Hct (42.0-52.0) % MCV (80.0-100.0) fL MCH (25.0-34.0) pg MCHC (32.0-36.0) g/dL RDW Std Deviation (36.4-46.3) fL RDW Coeff of Juanita (11.5-14.5) % Plt Count (130-400) K/uL MPV (9.4-12.4) fL Immature Gran % (Auto) % Neut % (Auto) % Lymph % (Auto) % [place] % (Auto) % Eos % (Auto) % Baso % (Auto) % Neut # (Auto) (1.40-6.50) K/uL Lymph # (Auto) (1.2-3.4) K/uL [place] # (Auto) (0.11-0.59) K/uL Eos # (Auto) (0-0.50) K/uL Baso # (Auto) (0-0.2) K/uL Immature Gran # (Auto) (0.01-0.20) K/uL Echinocytes VBG pH (7.36-7.41) VBG pCO2 (38-50) mmHg VBG pO2 mmHg VBG HCO3 mmol/L VBG O2 Saturation % VBG Base Excess mEq/L Sodium (136-145) mmol/L Potassium (3.5-5.1) mmol/L Chloride (98-107) mmol/L Carbon Dioxide (21-32) mmol/L Anion Gap (3-11) BUN (6-23) mg/dl Creatinine (0.6-1.4) mg/dl Est Cr Clr Drug Dosing ml/min Est GFR ( Amer) ml/min Est GFR (Non-Af Amer) ml/min BUN/Creatinine Ratio (10-20) Glucose (70-99(Fasting)) mg/dl POC Glucose 74 (70-99) mg/dl Lactate (0.4-2.0) mmol/L Calcium (8.6-10.3) mg/dl Magnesium (1.7-2.4) mg/dl Total Bilirubin (0.2-1.0) mg/dl Direct Bilirubin (0-0.2) mg/dl AST (13-39) U/L ALT (7-52) U/L Alkaline Phosphatase (34-104) U/L Troponin I High Sens (0-20) pg/ml B-Natriuretic Peptide (0-100) pg/ml Total Protein (6.0-8.3) gm/dl Albumin (3.4-5.0) gm/dl Globulin (2.5-4.0) gm/dl Albumin/Globulin Ratio (0.9-2) Procalcitonin (0-0.5) ng/ml TSH (0.300-4.500) uIu/ml Free T4 (0.61-1.60) ng/dl Random Cortisol mcg/dl Urine Color Urine Appearance (Clear) Urine pH (4.5-7.5) Ur Specific [place] (1.000-1.030) Urine Protein (Negative) Urine Glucose (UA) (Negative) Urine Ketones (Negative) Urine Blood (Negative) Urine Nitrite (Negative) Urine Bilirubin (Negative) Urine Urobilinogen (Negative) Ur Leukocyte Esterase (Negative) Nasal Screen MRSA (PCR) Negative Negative (Negative) Salicylates (3.0-30) mg/dl Acetaminophen (10-30) ug/ml Adenovirus (PCR) (NotDetected) Anaplasma Smear A. phagocytophilum DNA B. pertussis DNA (PCR) (NotDetected) B.parapertussis DNA PCR (NotDetected) Lyme Disease IgG Ab (Negative) Lyme Disease IgM Ab (Negative) C. pneumoniae DNA (PCR) (NotDetected) Coronavirus OC43 (PCR) (NotDetected) Coronavirus HKU1 (PCR) (NotDetected) Coronavirus 229E (PCR) (NotDetected) SARS-CoV-2 (PCR) (NotDetected) Coronavirus NL63 (PCR) (NotDetected) Human Metapneumovir PCR (NotDetected) Influenza Type A (PCR) (NotDetected) Influenza Type B (PCR) (NotDetected) M. pneumoniae (PCR) (NotDetected) Parainfluenza 1 (PCR) (NotDetected) Parainfluenza 2 (PCR) (NotDetected) Parainfluenza 3 (PCR) (NotDetected) Parainfluenza 4 (PCR) (NotDetected) RSV (PCR) (NotDetected) Entero/Rhino (PCR) (NotDetected) Staphylococcus sp PCR (NotDetected) mecA/C-Methicil Resis Gene (NotDetected) Staph epidermidis (PCR) (NotDetected) Bld Cult ID Panel PCR (NotDetected) 01/20/23 01/20/23 01/20/23 Range/Units 16:31 14:49 13:48 WBC (4.8-10.8) K/ul RBC (4.70-6.10) M/uL Hgb (14.0-18.0) g/dl Hct (42.0-52.0) % MCV (80.0-100.0) fL MCH (25.0-34.0) pg MCHC (32.0-36.0) g/dL RDW Std Deviation (36.4-46.3) fL RDW Coeff of Juanita (11.5-14.5) % Plt Count (130-400) K/uL MPV (9.4-12.4) fL Immature Gran % (Auto) % Neut % (Auto) % Lymph % (Auto) % [place] % (Auto) % Eos % (Auto) % Baso % (Auto) % Neut # (Auto) (1.40-6.50) K/uL Lymph # (Auto) (1.2-3.4) K/uL [place] # (Auto) (0.11-0.59) K/uL Eos # (Auto) (0-0.50) K/uL Baso # (Auto) (0-0.2) K/uL Immature Gran # (Auto) (0.01-0.20) K/uL Echinocytes VBG pH 7.38 (7.36-7.41) VBG pCO2 51 H (38-50) mmHg VBG pO2 48 mmHg VBG HCO3 30 mmol/L VBG O2 Saturation 78.0 % VBG Base Excess 3.9 mEq/L Sodium (136-145) mmol/L Potassium (3.5-5.1) mmol/L Chloride (98-107) mmol/L Carbon Dioxide (21-32) mmol/L Anion Gap (3-11) BUN (6-23) mg/dl Creatinine (0.6-1.4) mg/dl Est Cr Clr Drug Dosing ml/min Est GFR ( Amer) ml/min Est GFR (Non-Af Amer) ml/min BUN/Creatinine Ratio (10-20) Glucose (70-99(Fasting)) mg/dl POC Glucose (70-99) mg/dl Lactate (0.4-2.0) mmol/L Calcium (8.6-10.3) mg/dl Magnesium (1.7-2.4) mg/dl Total Bilirubin (0.2-1.0) mg/dl Direct Bilirubin (0-0.2) mg/dl AST (13-39) U/L ALT (7-52) U/L Alkaline Phosphatase (34-104) U/L Troponin I High Sens (0-20) pg/ml B-Natriuretic Peptide 158 H (0-100) pg/ml Total Protein (6.0-8.3) gm/dl Albumin (3.4-5.0) gm/dl Globulin (2.5-4.0) gm/dl Albumin/Globulin Ratio (0.9-2) Procalcitonin (0-0.5) ng/ml TSH (0.300-4.500) uIu/ml Free T4 (0.61-1.60) ng/dl Random Cortisol mcg/dl Urine Color Urine Appearance (Clear) Urine pH (4.5-7.5) Ur Specific [place] (1.000-1.030) Urine Protein (Negative) Urine Glucose (UA) (Negative) Urine Ketones (Negative) Urine Blood (Negative) Urine Nitrite (Negative) Urine Bilirubin (Negative) Urine Urobilinogen (Negative) Ur Leukocyte Esterase (Negative) Nasal Screen MRSA (PCR) (Negative) Salicylates (3.0-30) mg/dl Acetaminophen (10-30) ug/ml Adenovirus (PCR) Not Detected (NotDetected) Anaplasma Smear A. phagocytophilum DNA B. pertussis DNA (PCR) Not Detected (NotDetected) B.parapertussis DNA PCR Not Detected (NotDetected) Lyme Disease IgG Ab (Negative) Lyme Disease IgM Ab (Negative) C. pneumoniae DNA (PCR) Not Detected (NotDetected) Coronavirus OC43 (PCR) Not Detected (NotDetected) Coronavirus HKU1 (PCR) Not Detected (NotDetected) Coronavirus 229E (PCR) Not Detected (NotDetected) SARS-CoV-2 (PCR) Not Detected (NotDetected) Coronavirus NL63 (PCR) Not Detected (NotDetected) Human Metapneumovir PCR Not Detected (NotDetected) Influenza Type A (PCR) Not Detected (NotDetected) Influenza Type B (PCR) Not Detected (NotDetected) M. pneumoniae (PCR) Not Detected (NotDetected) Parainfluenza 1 (PCR) Not Detected (NotDetected) Parainfluenza 2 (PCR) Not Detected (NotDetected) Parainfluenza 3 (PCR) Not Detected (NotDetected) Parainfluenza 4 (PCR) Not Detected (NotDetected) RSV (PCR) Not Detected (NotDetected) Entero/Rhino (PCR) Not Detected (NotDetected) Staphylococcus sp PCR (NotDetected) mecA/C-Methicil Resis Gene (NotDetected) Staph epidermidis (PCR) (NotDetected) Bld Cult ID Panel PCR (NotDetected) 01/20/23 01/20/23 01/20/23 Range/Units 13:20 13:20 13:20 WBC (4.8-10.8) K/ul RBC (4.70-6.10) M/uL Hgb (14.0-18.0) g/dl Hct (42.0-52.0) % MCV (80.0-100.0) fL MCH (25.0-34.0) pg MCHC (32.0-36.0) g/dL RDW Std Deviation (36.4-46.3) fL RDW Coeff of Juanita (11.5-14.5) % Plt Count (130-400) K/uL MPV (9.4-12.4) fL Immature Gran % (Auto) % Neut % (Auto) % Lymph % (Auto) % [place] % (Auto) % Eos % (Auto) % Baso % (Auto) % Neut # (Auto) (1.40-6.50) K/uL Lymph # (Auto) (1.2-3.4) K/uL [place] # (Auto) (0.11-0.59) K/uL Eos # (Auto) (0-0.50) K/uL Baso # (Auto) (0-0.2) K/uL Immature Gran # (Auto) (0.01-0.20) K/uL Echinocytes VBG pH (7.36-7.41) VBG pCO2 (38-50) mmHg VBG pO2 mmHg VBG HCO3 mmol/L VBG O2 Saturation % VBG Base Excess mEq/L Sodium (136-145) mmol/L Potassium (3.5-5.1) mmol/L Chloride (98-107) mmol/L Carbon Dioxide (21-32) mmol/L Anion Gap (3-11) BUN (6-23) mg/dl Creatinine (0.6-1.4) mg/dl Est Cr Clr Drug Dosing ml/min Est GFR ( Amer) ml/min Est GFR (Non-Af Amer) ml/min BUN/Creatinine Ratio (10-20) Glucose (70-99(Fasting)) mg/dl POC Glucose (70-99) mg/dl Lactate (0.4-2.0) mmol/L Calcium (8.6-10.3) mg/dl Magnesium (1.7-2.4) mg/dl Total Bilirubin (0.2-1.0) mg/dl Direct Bilirubin (0-0.2) mg/dl AST (13-39) U/L ALT (7-52) U/L Alkaline Phosphatase (34-104) U/L Troponin I High Sens (0-20) pg/ml B-Natriuretic Peptide (0-100) pg/ml Total Protein (6.0-8.3) gm/dl Albumin (3.4-5.0) gm/dl Globulin (2.5-4.0) gm/dl Albumin/Globulin Ratio (0.9-2) Procalcitonin (0-0.5) ng/ml TSH 4.635 H (0.300-4.500) uIu/ml Free T4 0.91 (0.61-1.60) ng/dl Random Cortisol 18.06 mcg/dl Urine Color Urine Appearance (Clear) Urine pH (4.5-7.5) Ur Specific [place] (1.000-1.030) Urine Protein (Negative) Urine Glucose (UA) (Negative) Urine Ketones (Negative) Urine Blood (Negative) Urine Nitrite (Negative) Urine Bilirubin (Negative) Urine Urobilinogen (Negative) Ur Leukocyte Esterase (Negative) Nasal Screen MRSA (PCR) (Negative) Salicylates (3.0-30) mg/dl Acetaminophen (10-30) ug/ml Adenovirus (PCR) (NotDetected) Anaplasma Smear A. phagocytophilum DNA B. pertussis DNA (PCR) (NotDetected) B.parapertussis DNA PCR (NotDetected) Lyme Disease IgG Ab (Negative) Lyme Disease IgM Ab (Negative) C. pneumoniae DNA (PCR) (NotDetected) Coronavirus OC43 (PCR) (NotDetected) Coronavirus HKU1 (PCR) (NotDetected) Coronavirus 229E (PCR) (NotDetected) SARS-CoV-2 (PCR) (NotDetected) Coronavirus NL63 (PCR) (NotDetected) Human Metapneumovir PCR (NotDetected) Influenza Type A (PCR) (NotDetected) Influenza Type B (PCR) (NotDetected) M. pneumoniae (PCR) (NotDetected) Parainfluenza 1 (PCR) (NotDetected) Parainfluenza 2 (PCR) (NotDetected) Parainfluenza 3 (PCR) (NotDetected) Parainfluenza 4 (PCR) (NotDetected) RSV (PCR) (NotDetected) Entero/Rhino (PCR) (NotDetected) Staphylococcus sp PCR DETECTED A (NotDetected) mecA/C-Methicil Resis Gene Not Detected (NotDetected) Staph epidermidis (PCR) DETECTED A (NotDetected) Bld Cult ID Panel PCR See PCR Comment (NotDetected) 01/20/23 01/20/23 01/20/23 Range/Units 13:20 13:20 13:20 WBC (4.8-10.8) K/ul RBC (4.70-6.10) M/uL Hgb (14.0-18.0) g/dl Hct (42.0-52.0) % MCV (80.0-100.0) fL MCH (25.0-34.0) pg MCHC (32.0-36.0) g/dL RDW Std Deviation (36.4-46.3) fL RDW Coeff of Juanita (11.5-14.5) % Plt Count (130-400) K/uL MPV (9.4-12.4) fL Immature Gran % (Auto) % Neut % (Auto) % Lymph % (Auto) % [place] % (Auto) % Eos % (Auto) % Baso % (Auto) % Neut # (Auto) (1.40-6.50) K/uL Lymph # (Auto) (1.2-3.4) K/uL [place] # (Auto) (0.11-0.59) K/uL Eos # (Auto) (0-0.50) K/uL Baso # (Auto) (0-0.2) K/uL Immature Gran # (Auto) (0.01-0.20) K/uL Echinocytes VBG pH (7.36-7.41) VBG pCO2 (38-50) mmHg VBG pO2 mmHg VBG HCO3 mmol/L VBG O2 Saturation % VBG Base Excess mEq/L Sodium (136-145) mmol/L Potassium (3.5-5.1) mmol/L Chloride (98-107) mmol/L Carbon Dioxide (21-32) mmol/L Anion Gap (3-11) BUN (6-23) mg/dl Creatinine (0.6-1.4) mg/dl Est Cr Clr Drug Dosing ml/min Est GFR ( Amer) ml/min Est GFR (Non-Af Amer) ml/min BUN/Creatinine Ratio (10-20) Glucose (70-99(Fasting)) mg/dl POC Glucose (70-99) mg/dl Lactate (0.4-2.0) mmol/L Calcium (8.6-10.3) mg/dl Magnesium (1.7-2.4) mg/dl Total Bilirubin (0.2-1.0) mg/dl Direct Bilirubin (0-0.2) mg/dl AST (13-39) U/L ALT (7-52) U/L Alkaline Phosphatase (34-104) U/L Troponin I High Sens (0-20) pg/ml B-Natriuretic Peptide (0-100) pg/ml Total Protein (6.0-8.3) gm/dl Albumin (3.4-5.0) gm/dl Globulin (2.5-4.0) gm/dl Albumin/Globulin Ratio (0.9-2) Procalcitonin < 0.05 (0-0.5) ng/ml TSH (0.300-4.500) uIu/ml Free T4 (0.61-1.60) ng/dl Random Cortisol mcg/dl Urine Color Urine Appearance (Clear) Urine pH (4.5-7.5) Ur Specific [place] (1.000-1.030) Urine Protein (Negative) Urine Glucose (UA) (Negative) Urine Ketones (Negative) Urine Blood (Negative) Urine Nitrite (Negative) Urine Bilirubin (Negative) Urine Urobilinogen (Negative) Ur Leukocyte Esterase (Negative) Nasal Screen MRSA (PCR) (Negative) Salicylates (3.0-30) mg/dl Acetaminophen (10-30) ug/ml Adenovirus (PCR) (NotDetected) Anaplasma Smear A. phagocytophilum DNA Pending B. pertussis DNA (PCR) (NotDetected) B.parapertussis DNA PCR (NotDetected) Lyme Disease IgG Ab Negative (Negative) Lyme Disease IgM Ab Negative (Negative) C. pneumoniae DNA (PCR) (NotDetected) Coronavirus OC43 (PCR) (NotDetected) Coronavirus HKU1 (PCR) (NotDetected) Coronavirus 229E (PCR) (NotDetected) SARS-CoV-2 (PCR) (NotDetected) Coronavirus NL63 (PCR) (NotDetected) Human Metapneumovir PCR (NotDetected) Influenza Type A (PCR) (NotDetected) Influenza Type B (PCR) (NotDetected) M. pneumoniae (PCR) (NotDetected) Parainfluenza 1 (PCR) (NotDetected) Parainfluenza 2 (PCR) (NotDetected) Parainfluenza 3 (PCR) (NotDetected) Parainfluenza 4 (PCR) (NotDetected) RSV (PCR) (NotDetected) Entero/Rhino (PCR) (NotDetected) Staphylococcus sp PCR (NotDetected) mecA/C-Methicil Resis Gene (NotDetected) Staph epidermidis (PCR) (NotDetected) Bld Cult ID Panel PCR (NotDetected) 01/20/23 01/20/23 01/20/23 Range/Units 13:20 13:20 13:20 WBC 2.92 L (4.8-10.8) K/ul RBC 3.55 L (4.70-6.10) M/uL Hgb 11.0 L (14.0-18.0) g/dl Hct 34.3 L (42.0-52.0) % MCV 96.6 (80.0-100.0) fL MCH 31.0 (25.0-34.0) pg MCHC 32.1 (32.0-36.0) g/dL RDW Std Deviation 45.8 (36.4-46.3) fL RDW Coeff of Juanita 13.2 (11.5-14.5) % Plt Count 125 L (130-400) K/uL MPV 10.3 (9.4-12.4) fL Immature Gran % (Auto) 1.4 % Neut % (Auto) 65.7 % Lymph % (Auto) 20.9 % [place] % (Auto) 7.9 % Eos % (Auto) 3.4 % Baso % (Auto) 0.7 % Neut # (Auto) 1.92 (1.40-6.50) K/uL Lymph # (Auto) 0.61 L (1.2-3.4) K/uL [place] # (Auto) 0.23 (0.11-0.59) K/uL Eos # (Auto) 0.10 (0-0.50) K/uL Baso # (Auto) 0.02 (0-0.2) K/uL Immature Gran # (Auto) 0.04 (0.01-0.20) K/uL Echinocytes 1+ VBG pH (7.36-7.41) VBG pCO2 (38-50) mmHg VBG pO2 mmHg VBG HCO3 mmol/L VBG O2 Saturation % VBG Base Excess mEq/L Sodium 146 H (136-145) mmol/L Potassium 3.7 (3.5-5.1) mmol/L Chloride 110 H (98-107) mmol/L Carbon Dioxide 30 (21-32) mmol/L Anion Gap 6 (3-11) BUN 41 H (6-23) mg/dl Creatinine 1.05 (0.6-1.4) mg/dl Est Cr Clr Drug Dosing 74.0 ml/min Est GFR ( Amer) 75.2 ml/min Est GFR (Non-Af Amer) 64.9 ml/min BUN/Creatinine Ratio 39.0 H (10-20) Glucose 73 (70-99(Fasting)) mg/dl POC Glucose (70-99) mg/dl Lactate 0.7 (0.4-2.0) mmol/L Calcium 9.5 (8.6-10.3) mg/dl Magnesium 2.0 (1.7-2.4) mg/dl Total Bilirubin 0.6 (0.2-1.0) mg/dl Direct Bilirubin 0.1 (0-0.2) mg/dl AST 29 (13-39) U/L ALT 22 (7-52) U/L Alkaline Phosphatase 83 (34-104) U/L Troponin I High Sens 6.3 (0-20) pg/ml B-Natriuretic Peptide (0-100) pg/ml Total Protein 6.6 (6.0-8.3) gm/dl Albumin 3.6 (3.4-5.0) gm/dl Globulin (2.5-4.0) gm/dl Albumin/Globulin Ratio (0.9-2) Procalcitonin (0-0.5) ng/ml TSH (0.300-4.500) uIu/ml Free T4 (0.61-1.60) ng/dl Random Cortisol mcg/dl Urine Color Urine Appearance (Clear) Urine pH (4.5-7.5) Ur Specific [place] (1.000-1.030) Urine Protein (Negative) Urine Glucose (UA) (Negative) Urine Ketones (Negative) Urine Blood (Negative) Urine Nitrite (Negative) Urine Bilirubin (Negative) Urine Urobilinogen (Negative) Ur Leukocyte Esterase (Negative) Nasal Screen MRSA (PCR) (Negative) Salicylates (3.0-30) mg/dl Acetaminophen (10-30) ug/ml Adenovirus (PCR) (NotDetected) Anaplasma Smear See Comment A. phagocytophilum DNA B. pertussis DNA (PCR) (NotDetected) B.parapertussis DNA PCR (NotDetected) Lyme Disease IgG Ab (Negative) Lyme Disease IgM Ab (Negative) C. pneumoniae DNA (PCR) (NotDetected) Coronavirus OC43 (PCR) (NotDetected) Coronavirus HKU1 (PCR) (NotDetected) Coronavirus 229E (PCR) (NotDetected) SARS-CoV-2 (PCR) (NotDetected) Coronavirus NL63 (PCR) (NotDetected) Human Metapneumovir PCR (NotDetected) Influenza Type A (PCR) (NotDetected) Influenza Type B (PCR) (NotDetected) M. pneumoniae (PCR) (NotDetected) Parainfluenza 1 (PCR) (NotDetected) Parainfluenza 2 (PCR) (NotDetected) Parainfluenza 3 (PCR) (NotDetected) Parainfluenza 4 (PCR) (NotDetected) RSV (PCR) (NotDetected) Entero/Rhino (PCR) (NotDetected) Staphylococcus sp PCR (NotDetected) mecA/C-Methicil Resis Gene (NotDetected) Staph epidermidis (PCR) (NotDetected) Bld Cult ID Panel PCR (NotDetected) 01/20/23 01/20/23 Range/Units 13:20 13:06 WBC (4.8-10.8) K/ul RBC (4.70-6.10) M/uL Hgb (14.0-18.0) g/dl Hct (42.0-52.0) % MCV (80.0-100.0) fL MCH (25.0-34.0) pg MCHC (32.0-36.0) g/dL RDW Std Deviation (36.4-46.3) fL RDW Coeff of Juanita (11.5-14.5) % Plt Count (130-400) K/uL MPV (9.4-12.4) fL Immature Gran % (Auto) % Neut % (Auto) % Lymph % (Auto) % [place] % (Auto) % Eos % (Auto) % Baso % (Auto) % Neut # (Auto) (1.40-6.50) K/uL Lymph # (Auto) (1.2-3.4) K/uL [place] # (Auto) (0.11-0.59) K/uL Eos # (Auto) (0-0.50) K/uL Baso # (Auto) (0-0.2) K/uL Immature Gran # (Auto) (0.01-0.20) K/uL Echinocytes VBG pH (7.36-7.41) VBG pCO2 (38-50) mmHg VBG pO2 mmHg VBG HCO3 mmol/L VBG O2 Saturation % VBG Base Excess mEq/L Sodium (136-145) mmol/L Potassium (3.5-5.1) mmol/L Chloride (98-107) mmol/L Carbon Dioxide (21-32) mmol/L Anion Gap (3-11) BUN (6-23) mg/dl Creatinine (0.6-1.4) mg/dl Est Cr Clr Drug Dosing ml/min Est GFR ( Amer) ml/min Est GFR (Non-Af Amer) ml/min BUN/Creatinine Ratio (10-20) Glucose (70-99(Fasting)) mg/dl POC Glucose (70-99) mg/dl Lactate (0.4-2.0) mmol/L Calcium (8.6-10.3) mg/dl Magnesium (1.7-2.4) mg/dl Total Bilirubin (0.2-1.0) mg/dl Direct Bilirubin (0-0.2) mg/dl AST (13-39) U/L ALT (7-52) U/L Alkaline Phosphatase (34-104) U/L Troponin I High Sens (0-20) pg/ml B-Natriuretic Peptide (0-100) pg/ml Total Protein (6.0-8.3) gm/dl Albumin (3.4-5.0) gm/dl Globulin (2.5-4.0) gm/dl Albumin/Globulin Ratio (0.9-2) Procalcitonin (0-0.5) ng/ml TSH (0.300-4.500) uIu/ml Free T4 (0.61-1.60) ng/dl Random Cortisol mcg/dl Urine Color Yellow Urine Appearance Clear (Clear) Urine pH 5.0 (4.5-7.5) Ur Specific [place] 1.015 (1.000-1.030) Urine Protein Negative (Negative) Urine Glucose (UA) Negative (Negative) Urine Ketones Negative (Negative) Urine Blood Negative (Negative) Urine Nitrite Negative (Negative) Urine Bilirubin Negative (Negative) Urine Urobilinogen Negative (Negative) Ur Leukocyte Esterase Negative (Negative) Nasal Screen MRSA (PCR) (Negative) Salicylates < 3.0 L (3.0-30) mg/dl Acetaminophen < 3 L (10-30) ug/ml Adenovirus (PCR) (NotDetected) Anaplasma Smear A. phagocytophilum DNA B. pertussis DNA (PCR) (NotDetected) B.parapertussis DNA PCR (NotDetected) Lyme Disease IgG Ab (Negative) Lyme Disease IgM Ab (Negative) C. pneumoniae DNA (PCR) (NotDetected) Coronavirus OC43 (PCR) (NotDetected) Coronavirus HKU1 (PCR) (NotDetected) Coronavirus 229E (PCR) (NotDetected) SARS-CoV-2 (PCR) (NotDetected) Coronavirus NL63 (PCR) (NotDetected) Human Metapneumovir PCR (NotDetected) Influenza Type A (PCR) (NotDetected) Influenza Type B (PCR) (NotDetected) M. pneumoniae (PCR) (NotDetected) Parainfluenza 1 (PCR) (NotDetected) Parainfluenza 2 (PCR) (NotDetected) Parainfluenza 3 (PCR) (NotDetected) Parainfluenza 4 (PCR) (NotDetected) RSV (PCR) (NotDetected) Entero/Rhino (PCR) (NotDetected) Staphylococcus sp PCR (NotDetected) mecA/C-Methicil Resis Gene (NotDetected) Staph epidermidis (PCR) (NotDetected) Bld Cult ID Panel PCR (NotDetected) Diagnostic Findings CT SCAN OF THE ABDOMEN AND PELVIS WITH IV CONTRAST CLINICAL HISTORY: Sepsis. COMPARISON STUDY: No priors. TECHNIQUE: Following the IV administration of 112 cc of Optiray 350, CT scan of the abdomen and pelvis is performed from the lung bases to the proximal femora. Images are reviewed in the axial, sagittal, and coronal planes. IV contrast was administered without complication. A dose lowering technique was utilized adhering to the principles of ALARA. The examination is degraded by motion artifact, as well as by streak artifact from the arms which could not be elevated above the abdomen. There is also streak artifact in the body wall abutting the CT gantry. CT DOSE: 1778.26 mGy.cm FINDINGS: Lung bases: The heart is enlarged and without pericardial effusion. The coronary arteries are densely calcified. There are right larger than left pleural effusions with dependent consolidation. Liver: The contrast-enhanced liver is normal in size and heterogeneous in attenuation. Nodularity of the surface contour suggests early morphologic changes of cirrhosis. There is no intrahepatic biliary ductal dilatation. The hepatic veins and portal veins are patent. Gallbladder: Surgically absent noting clips in the gallbladder fossa. Spleen: Normal in size and attenuation. Pancreas: Atrophic and grossly unremarkable. Adrenal glands: Unremarkable. Kidneys: The contrast enhanced kidneys demonstrate cortical atrophy and/or without hydronephrosis. The kidneys enhance symmetrically. There are at least 2 nonobstructing right renal calculi which measure up to 5 mm. No left renal calculi are clearly seen on this contrast-enhanced examination. Bilateral renal cysts measure up to 3.7 cm. Abdominal vasculature: The abdominal aorta is normal in course and caliber noting moderate atherosclerotic calcification. Bowel: A large left internal hernia contains a segment of the sigmoid colon and a large right inguinal hernia contains the cecum and the distal ileum. No bowel obstruction is seen. A portion of the normal appendix is seen in the right inguinal hernia on image #[id number]. This is incompletely visualized. There is moderate colonic fecal retention. There is mild colonic diverticulosis without CT evidence of acute diverticulitis. Peritoneum: There is trace perihepatic ascites. No intraperitoneal free air is seen. Lymphadenopathy: None. Pelvic viscera: The bladder is decompressed around a Forbes catheter and not well evaluated. The prostate gland is grossly unremarkable. There are large bilateral inguinal hernias which contain bowel. Skeletal structures: The skeletal structures are osteopenic. There is moderate to advanced the sacral spondylosis as well as scoliosis. No lytic or blastic lesions are seen. Soft tissues: There is body wall edema. Small thick-walled fluid collections are seen in subcutaneous fat lateral to the right hip joint. These measure 3.2 cm and 2.3 cm as seen on images #294 and #290. IMPRESSION: 1. Streak and motion compromised examination. 2. Cardiomegaly. 3. Right larger than left pleural effusions with dependent consolidation. 4. Cirrhotic liver morphology and trace perihepatic ascites. 5. There are large bilateral inguinal hernias which contain nonobstructed segments of bowel. No bowel obstruction is seen. 6. Body wall edema. 7. There are 2 small thick-walled fluid collections in the subcutaneous fat lateral to the right hip. These measure up to 3.2 cm and are indeterminant, possibly presenting small hematomas or seromas. The sterility of this fluid cannot be assessed by imaging and clinical correlation will be required. 8. Right-sided nephrolithiasis. 9. Additional findings as above.
--- NOTE | 2023-01-21 14:23 | Hospitalist Progress Note ---
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 Acute metabolic encephalopathy Hypothermia Possible Sepsis in setting of profound hypothermia, confusion and leukopenia admitted to PCU continued jazzmine hugger warming system -> now temp normal and warming stopped , HR improved Biofire, urine negative CXR: pulm edema/pleural effusions ? underlying PNA received Cefepime 2g and 1L of IVF in ED MRSA - if positive with add vanco blood cultures - posit. 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 Streak and motion compromised examination. 2. Cardiomegaly. 3. Right larger than left pleural effusions with dependent consolidation. 4. Cirrhotic liver morphology and trace perihepatic ascites. 5. There are large bilateral inguinal hernias which contain nonobstructed segments of bowel. No bowel obstruction is seen. 6. Body wall edema. 7. There are 2 small thick-walled fluid collections in the subcutaneous fat lateral to the right hip. These measure up to 3.2 cm and are indeterminant, possibly presenting small hematomas or seromas. The sterility of this fluid cannot be assessed by imaging and clinical correlation will be required. 8. Right-sided nephrolithiasis. 9. Additional findings as above. 2 small thick-walled fluid collections in the subcutaneous fat lateral to the right hip - surgery consulted , as poss. abscess ? - appreciate their input - surgery also consulted for poss. port removal as blood cultx positive and port is not in active use -discussed w/ surgery - will need to hold xarelto if needed removed hold on further IVF for now 2/2 volume overload TSH 4.6, random cortisol 18.6 Acute Heart failure, unknown EF Pulmonary edema reported weight gain, worsened lower ext edema, SOB pt with significant volume overload he does have chronic lymphedema but family states worsening and increased weight gain CXR: pulm edema, pleural effusions O2 saturations in low 90s Received 40mg IV lasix x 1 on admission cautious diuresis in setting of sepsis concern, will re evaluate obtained echo -LV systolic function is normal. EF 55 to 60%. RV is mildly dilated. RV systolic function is normal. Mild aortic regurg. There is mild mitral regurg. There is moderate tricuspid regurg. Doppler findings do not suggest pulmonary hypertension. Dilated IVC with normal inspiratory variation suggesting right atrial pressure of 8 mmHg. Cardiology consulted Chronic atrial fib chronic, on xarelto for stroke prophylaxis not on rate controlling agents, prior HR in 60s possible bradycardia in setting of hypothermia, HR now improved Cognitive impairment Metabolic encephalopathy per family baseline is A and O x 3, oriented to family typically ambulates with walker with assistance but mostly in wheel chair per OP [facility] records appears pt may be looking at changing to SNF due to difficulty with mobility will need to get PT/OT when approp he is on donepezil and Namenda as OP, will hold for now NPO for now except meds til mental status improves FULL CODE confirmed by son at bedside DVT ppx: Xarelto PCP: Jon, pt at [facility] Dispo: Admit to PCU, consult PT/OT when appropriate, pt may not be candidate to return to [facility] and may need SNF Pt [facility] in [place] Rei Frank (PCP) [phone] [id number], [address] Vamsi Chan [phone] [facility] Heme/On[facility] Pt from [place] and recently moved 2 months ago. Limited records available for review in [facility], will obtain from PCP - HIM consulted. Admission and Anticipated Discharge Date Admission Date: January 20, 2023 Subjective Pt seen in follow up of altered mental status, secondary to sepsis (poss. pna, pl. effusion), acute CHF Today blood cultx posit. for staph epi Currently pt is laying in bed in NAD, however he is only able to answer some questions, he is quite lethargic Denies any discomfort or pain Denies chest pain or abd. pain Pt's son present at the bedside Discussed also w/ RN at the bedside Discussed w/ surgery - as abnormal CT (subcut poss. abscess lat to r hip). also blood cultx posit and pt w/ port which he is not currently using but which as accessed as outpt Cardiology also consulted - for CHF, pls. effusion Review of Systems Review of Systems: All systems reviewed & are unremarkable except as noted in Subjective and Unobtainable due to cognitive status Physical Exam Physical Exam: Constitutional: Elderly, morbidly obese M, lethargic, appears acutely ill, in NAD Head: Normocephalic, Atraumatic Eyes: PERRL, conjunctivae normal, anicteric sclerae ENMT: external ear and nose normal, oropharynx normal Neck: thick neck Respiratory: normal respiratory effort, diminished bs at bases, poor insp effort, no wheeze, rales, rhonchi.no accessory muscle use Cardiovascular: irr rhythm, no murmur, b/l +2 pitted edema with Chronic venous stasis changes, no acute infectious appearance Chest: normal inspection of chest RACW medi port Abdomen: obese abd, normal bowel sounds, soft, nontender Musculoskeletal:moves extremities Skin: warm and dry Neurologic: PERRL, EOMI, no face palsy, speech clear but slow, only able to answer some questions appropriately,moves all extremities Results & Data Results & Data Vital Signs (Past 12 Hours) Vital Signs Temp Pulse Pulse Resp BP Pulse Ox Pulse Ox 01/21/23 13:23 95 01/21/23 11:34 36.5 C 62 20 127/69 97 01/21/23 07:00 56 L 01/21/23 07:35 36.4 C L 94 H 19 110/58 L 92 01/21/23 03:00 36.7 C 97 H 16 119/72 97 O2 Del Method O2 Del Method O2 Flow Rate O2 Flow Rate 01/21/23 13:23 Nasal Cannula 2 01/21/23 11:34 Nasal Cannula 2 01/21/23 07:00 01/21/23 07:35 Nasal Cannula 2 01/21/23 03:00 Nasal Cannula
--- NOTE | 2023-01-21 14:28 | Pharmacy Report ---
Pharmacy PK ABX Note - Date of Service January 21, 2023 - Assessment and Plan Assessment * 82 year old M receiving Zosyn since 01/20 and vancomycin since 01/21 empirically for treatment of possible bacteremia and sepsis (unknown source). * Pertinent microbiologic data includes: * 01/20 blood cultures: 1 of 2 with Staph epi with no mec A/C detected (per BCID2) * 01/20 Negative MRSA Nasal Swab * 01/21 blood cultures: pending * SCr with a slight bump today - will need to reassess vancomycin tomorrow if changes significantly Plan Vancomycin * Loading dose: 2750 mg IV x 1 * Maintenance dose: 1250 mg IV every 24 hours * Regimen is predicted to achieve target AUC/KRISTA of 400-600 mg/L.hr * Random level ordered for 8/6 AM Pharmacy will continue to follow and will adjust dose/frequency as necessary. Thank you. Pharmacy has transitioned to AUC monitoring for vancomycin. AUC/KRISTA is the preferred PK/PD target and is associated with decreased risk of nephrotoxicity compared to traditional trough targets.
[2023-01-21] MEDS ORDERED: FUROSEMIDE INJ 20 MG/2 ML VIAL IV ONE (15:27)
[2023-01-21] MEDS ORDERED: POTASSIUM CHLORIDE 10 MEQ TABCR PO ONE (15:27)
[2023-01-21] MEDS ORDERED: RIVAROXABAN 20 MG TAB PO SCH (16:30)
[2023-01-21] MEDS: POTASSIUM CHLORIDE / WTR 10 MEQ/100 ML PLCT IV SCH ×2 (17:04→18:10)
--- NOTE | 2023-01-21 22:51 | Electrocardiogram Report ---
Test Reason : Blood Pressure : / mmHG Vent. Rate : 051 BPM Atrial Rate : 000 BPM P-R Int : 000 ms QRS Dur : 092 ms QT Int : 534 ms P-R-T Axes : 000 006 062 degrees QTc Int : 492 ms Atrial fibrillation with slow ventricular response Low voltage QRS Possible Anterior infarct , age undetermined Prolonged QT Abnormal ECG When compared with ECG of 16-FEB-2013 10:34, Atrial fibrillation has replaced Sinus rhythm Minimal criteria for Anterior infarct are now Present Criteria for Inferior infarct are no longer Present Nonspecific T wave abnormality now evident in Anterior leads Confirmed by Cristiano Nuñez ([id number]) on 01/21/2023 10:50:40 PM Referred By: José Manuel Teran Confirmed By:Cristiano Nuñez
--- NOTE | 2023-01-22 00:04 | Electrocardiogram Report ---
Test Reason : Blood Pressure : / mmHG Vent. Rate : 064 BPM Atrial Rate : 138 BPM P-R Int : 000 ms QRS Dur : 084 ms QT Int : 496 ms P-R-T Axes : 000 006 -47 degrees QTc Int : 512 ms Atrial fibrillation Low voltage QRS Nonspecific T wave abnormality Prolonged QT Abnormal ECG When compared with ECG of 20-JAN-2023 13:13, Minimal criteria for Anterior infarct are no longer Present Nonspecific T wave abnormality now evident in Lateral leads Confirmed by Cristiano Nuñez ([id number]) on 01/22/2023 12:03:56 AM Referred By: José Manuel Teran Confirmed By:Cristiano Nuñez
[2023-01-22] MEDS: PIPERACILLIN/TAZOBACTAM 4.5 GM in DEXTROSE 5% 100 ML IV SCH ×3 (01:02→17:06)
[2023-01-22 06:02] LABS: Hematocrit (blood only) 33.2 % (42.0-52.0); Hemoglobin 10.6 g/dl (14.0-18.0); Mean Corpuscular Hemoglobin 30.9 pg (25.0-34.0); Mean Corpuscular Hgb Conc 31.9 g/dL (32.0-36.0); Mean Corpuscular Volume 96.8 fL (80.0-100.0); Platelet Count 116 K/uL (130-400); RDW Coefficient of Variation 13.5 % (11.5-14.5); RDW Standard Deviation 47.7 fL (36.4-46.3); Red Blood Count 3.43 M/uL (4.70-6.10); White Blood Count 4.26 K/ul (4.8-10.8)
[2023-01-22 06:23] LABS: Albumin Globulin Ratio 1.2 (0.9-2); Albumin Level 3.4 gm/dl (3.4-5.0); BUN Creatinine Ratio 29.8 (10-20); Bilirubin,Total 1.1 mg/dl (0.2-1.0); Creatinine Clr Calc Pharmacy 58.2 ml/min; Est GFR (African American) 57.5 ml/min; Est GFR (Non-African American) 49.6 ml/min; Globulin 2.8 gm/dl (2.5-4.0); Magnesium 1.9 mg/dl (1.7-2.4); Phosphorus 3.4 mg/dl (2.5-4.9); Potassium 3.5 mmol/L (3.5-5.1); Total Protein 6.2 gm/dl (6.0-8.3)
--- NOTE | 2023-01-22 07:15 | Electrocardiogram Report ---
Test Reason : Blood Pressure : / mmHG Vent. Rate : 060 BPM Atrial Rate : 079 BPM P-R Int : 000 ms QRS Dur : 104 ms QT Int : 418 ms P-R-T Axes : 000 003 176 degrees QTc Int : 418 ms Poor data quality, interpretation may be adversely affected Atrial fibrillation Low voltage QRS Nonspecific T wave abnormality Abnormal ECG When compared with ECG of 21-JAN-2023 04:40, No significant change was found Confirmed by Alex Golden ([id number]) on 01/22/2023 7:15:26 AM Referred By: José Manuel Teran Confirmed By:Ellis Golden
[2023-01-22] MEDS ORDERED: POTASSIUM CHLORIDE CRTAB 20 MEQ TABCR PO STA (07:44)
--- NOTE | 2023-01-22 10:14 | Cardiology Progress Note ---
Date of Service January 22, 2023 Assessment & Plan (1) Volume overload: (2) Sepsis: (3) Acute metabolic encephalopathy: (4) Chronic atrial fibrillation: (5) Bradycardia: (6) Thrombocytopenia: (7) Pulmonary edema: (8) Bilateral pleural effusion: (9) Hypothermia: (10) AMS (altered mental status): Plan Complex 82-year-old male admitted with acute metabolic encephalopathy, marked hypothermia, probable sepsis. Cardiology consultation requested due to concern for acute congestive heart failure with volume overload appearing to be multifactorial in etiology - hypoalbuminemia, chronic lymphedema, status post knee replacement/chronic infection, anemia, and probably an element of diastolic congestive heart failure. Resting echocardiography with preserved LV systolic function. Patient with chronic atrial fibrillation. Bradycardia has improved with improvement in hypothermia. Telemetry with chronic atrial fibrillation in the 60's, otherwise benign. RECOMMENDATIONS: Supplement potassium. Patient unable to take PO. K riders ordered IV furosemide, 40 mg today, after potassium supplementation. Consider Pulmonary evaluation, RE: right sided pleural effusion, ? thoracentesis Avoid AV kong blockers. No indication for permanent pacemaker implantation which presently contraindicated noting probable infection. Maintain telemetry. Anticoagulation is on hold pending A-Port removal. Recommend low dose IV heparin, no bolus. Admission and Anticipated Discharge Date Admission Date: January 20, 2023 Supervising Physician Co-Signing Physician Notes Attending Staff: Pt seen and evaluated with [facility] staff. 82 yo man presenting with altered mental status Noted to be volume overloaded + Concerns for bacteremia Has a longstanding IV Port Port was accessed at [facility] - Shortly thereafter - noted to have a clinical decline Dx: Acute diastolic heart failure + bacteremia * Chronic Afib * On presentation - hypothermic + bradycardic * ECHOcardiogram with LVEF 55%; no major AI, MR - Moderate TR - no vegetations noted * Concerns for infected port * Started on ABX - Vnacomycin + Zosyn * Port to be removed once DOAC levels subside * DOAC - currently held * Heparin started - hgih risk of thrombosis * Thrombocytopenia noted - not >50% decrement * Diuresis initiated with goal of euvolemia (JVP elevated, + Abdominal wall edema, + Bilateral LE edema * Lasix 40 IV x 1 * Goal is - 2 Liters * K+ goal 4.5-5 * Mag goal> 2 * Hypernatremia noted - may need free water Paramjit Cardenas Subjective Patient seen and examined. Chart, medications, and telemetry reviewed. Son at bedside. Patient unable to provide any meaningful information. Son notes patient has a history of mild Alzheimer disease. He was conversant and minimally ambulatory with a walker one week ago. Knee issues were in the remote past, circa 10 years ago. A-Port recently accessed as an outpatient. I/O's: -885 mL's, -1990 mL's (- 2,875 mL's overall) EKG this AM revealed atrial fibrillation at 60 bpm with low voltage QRS, nonspecific T wave abnormality, QTc 418 ms. Telemetry: Atrial fibrillation in the 60's. Review of Systems Review of Systems: All systems reviewed & are unremarkable except as noted in HPI & below A complete and accurate review of systems was unable to be obtained due to the patient's status. Physical Exam Physical Exam: General: NAD. HENT: Normocephalic. Atraumatic. Eyes: PER. Conjunctiva pink, sclera clear. Neck: + JVD. Heart: Irregularly irregular in the 60's. No murmur appreciated. Lungs: Clear to auscultation anteriorly. Abdomen: +BS. Soft. Extremities: 1-2+ edema. Stasis changes. No clubbing. No cyanosis. Limited neurological examination is without focal deficits. Pulses: Posterior tibial=0/4. Results & Data Vital Signs (Past 12 Hours) Vital Signs Temp Pulse Pulse Resp BP Pulse Ox O2 Del Method 01/22/23 07:00 59 L 01/22/23 07:08 36.8 C 63 18 115/70 97 Nasal Cannula 01/22/23 03:12 36.6 C 58 L 18 116/66 96 Nasal Cannula 01/21/23 22:59 36.9 C 62 20 111/64 97 Nasal Cannula O2 Flow Rate 01/22/23 07:00 01/22/23 07:08 2 01/22/23 03:12 2 01/21/23 22:59 2 Laboratory Results Cardiac Enzymes 01/22/23 Range/Units 05:19 AST 28 (13-39) U/L CBC 01/22/23 Range/Units 05:19 WBC 4.26 L (4.8-10.8) K/ul RBC 3.43 L (4.70-6.10) M/uL Hgb 10.6 L (14.0-18.0) g/dl Hct 33.2 L (42.0-52.0) % Plt Count 116 L (130-400) K/uL Comprehensive Metabolic Panel 01/22/23 Range/Units 05:19 Sodium 146 H (136-145) mmol/L Potassium 3.5 (3.5-5.1) mmol/L Chloride 108 H (98-107) mmol/L Carbon Dioxide 30 (21-32) mmol/L BUN 39 H (6-23) mg/dl Creatinine 1.31 (0.6-1.4) mg/dl Glucose 70 (70-99(Fasting)) mg/dl Calcium 9.0 (8.6-10.3) mg/dl AST 28 (13-39) U/L ALT 21 (7-52) U/L Alkaline Phosphatase 75 (34-104) U/L Total Protein 6.2 (6.0-8.3) gm/dl Albumin 3.4 (3.4-5.0) gm/dl Intake and Output 01/21/23 01/22/23 01/22/23 22:59 06:59 14:59 Intake Total 320 / 560 120 / 560 Output Total 1200 / 2550 650 / 2550 Balance -880 / -1989 - Intake: IV 320 / 560 120 / 560 Piperacillin/Tazobactam 4.5 gm 120 / 360 120 / 360 In Dextrose 5% 100 ml @ 30 mls/ hr IV Q8H [facility] Rx#:[id number] Potassium Chloride / Wtr 10 meq 200 / 200 In 100 ml @ 100 mls/hr IV Q1H [facility] Rx#:[id number] Output: Urine Amount (Catheter) 1200 / 2550 650 / 2550 Forbes/Indwelling 1200 / 2550 650 / 2550 Other: Weight 135.6 kg Weight Measurement Method Built in [facility] Diagnostic Findings ECHOcardiogram: 01/21/2023 LVEF 55% Mild AI Mild MR Moderate TR
--- NOTE | 2023-01-22 11:47 | Hospitalist Progress Note ---
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 Acute metabolic encephalopathy Hypothermia Possible Sepsis in setting of profound hypothermia, confusion and leukopenia admitted to PCU continued jazzmine hugger warming system -> now temp normal and warming stopped , HR improved Biofire, urine negative CXR: pulm edema/pleural effusions ? underlying PNA received Cefepime 2g and 1L of IVF in ED MRSA - if positive with add vanco blood cultures - posit. for Staph epi one bottle, ? poss. 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 Streak and motion compromised examination. 2. Cardiomegaly. 3. Right larger than left pleural effusions with dependent consolidation. 4. Cirrhotic liver morphology and trace perihepatic ascites. 5. There are large bilateral inguinal hernias which contain nonobstructed segments of bowel. No bowel obstruction is seen. 6. Body wall edema. 7. There are 2 small thick-walled fluid collections in the subcutaneous fat lateral to the right hip. These measure up to 3.2 cm and are indeterminant, possibly presenting small hematomas or seromas. The sterility of this fluid cannot be assessed by imaging and clinical correlation will be required. 8. Right-sided nephrolithiasis. 9. Additional findings as above. 2 small thick-walled fluid collections in the subcutaneous fat lateral to the right hip - surgery consulted , as poss. abscess ? - appreciate their input - surgery also consulted for poss. port removal as blood cultx positive and port is not in active use -discussed w/ surgery - will need to hold xarelto if needed removed hold on further IVF for now 2/2 volume overload TSH 4.6, random cortisol 18.6 Acute Heart failure, unknown EF Pulmonary edema reported weight gain, worsened lower ext edema, SOB pt with significant volume overload he does have chronic lymphedema but family states worsening and increased weight gain CXR: pulm edema, pleural effusions O2 saturations in low 90s Received 40mg IV lasix x 1 on admission cautious diuresis in setting of sepsis concern, will re evaluate obtained echo -LV systolic function is normal. EF 55 to 60%. RV is mildly dilated. RV systolic function is normal. Mild aortic regurg. There is mild mitral regurg. There is moderate tricuspid regurg. Doppler findings do not suggest pulmonary hypertension. Dilated IVC with normal inspiratory variation suggesting right atrial pressure of 8 mmHg. Cardiology consulted - cont. w/ diuresis Chronic atrial fib chronic, on xarelto for stroke prophylaxis not on rate controlling agents, prior HR in 60s possible bradycardia in setting of hypothermia, HR now improved as pt in afib, and xarelto on hold for now, started iv heparin Cognitive impairment Metabolic encephalopathy per family baseline is A and O x 3, oriented to family typically ambulates with walker with assistance but mostly in wheel chair per OP epic records appears pt may be looking at changing to SNF due to difficulty with mobility will need to get PT/OT when approp he is on donepezil and Namenda as OP, will hold for now NPO for now except meds til mental status improves FULL CODE confirmed by son at bedside DVT ppx: Xarelto -> iv heparin [facility] Dispo: PC[facility], consult PT/OT when appropriate, pt may not be candidate to return to [facility] and may need SNF Pt Medical Providers in [place] Rei Frank (PCP) [phone] [address] [facility], [place], [address] Vamsi Dustin [phone] [facility] Heme/Onc Pt from [place] and recently moved 2 months ago. Limited records available for review in [facility], will obtain from PCP - HIM consulted. Admission and Anticipated Discharge Date Admission Date: January 20, 2023 Subjective Pt seen in follow up of altered mental status, secondary to sepsis (poss. pna, pl. effusion), acute CHF blood cultx posit. for staph epi - 1 bottle Currently pt is laying in bed in NAD, however he is only able to answer some questions, he is quite lethargic Denies any discomfort or pain Denies chest pain or abd. pain Discussed also w/ RN at the bedside Cardiology also consulted - cont. w/ diuresis, iv heparin (as xarelto on hold), pt in afib Review of Systems Review of Systems: Unobtainable due to cognitive status Physical Exam Physical Exam: Constitutional: Elderly, morbidly obese M, lethargic, appears acutely ill, in NAD Head: Normocephalic, Atraumatic Eyes: PERRL, conjunctivae normal, anicteric sclerae ENMT: external ear and nose normal, oropharynx normal Neck: thick neck Respiratory: normal respiratory effort, diminished bs at bases, poor insp effort, no wheeze, rales, rhonchi.no accessory muscle use Cardiovascular: irr rhythm, no murmur, b/l +2 pitted edema with Chronic venous stasis changes, no acute infectious appearance Chest: normal inspection of chest RACW medi port Abdomen: obese abd, normal bowel sounds, soft, nontender Musculoskeletal:moves extremities Skin: warm and dry Neurologic: PERRL, EOMI, no face palsy, speech clear but slow, only able to answer some questions appropriately,moves all extremities Results & Data Results & Data Vital Signs (Past 12 Hours) Vital Signs Temp Pulse Pulse Resp BP Pulse Ox O2 Del Method 01/22/23 11:08 37.0 C 67 20 131/74 96 Nasal Cannula 01/22/23 07:00 59 L 01/22/23 07:08 36.8 C 63 18 115/70 97 Nasal Cannula 01/22/23 03:12 36.6 C 58 L 18 116/66 96 Nasal Cannula O2 Flow Rate 01/22/23 11:08 1 01/22/23 07:00 01/22/23 07:08 2 01/22/23 03:12 2 Laboratory Results 01/22/23 01/22/23 01/21/23 Range/Units 05:19 05:19 15:51 WBC 4.26 L (4.8-10.8) K/ul RBC 3.43 L (4.70-6.10) M/uL Hgb 10.6 L (14.0-18.0) g/dl Hct 33.2 L (42.0-52.0) % MCV 96.8 (80.0-100.0) fL MCH 30.9 (25.0-34.0) pg MCHC 31.9 L (32.0-36.0) g/dL RDW Std Deviation 47.7 H (36.4-46.3) fL RDW Coeff of Juanita 13.5 (11.5-14.5) % Plt Count 116 L (130-400) K/uL MPV 11.0 (9.4-12.4) fL Sodium 146 H (136-145) mmol/L Potassium 3.5 (3.5-5.1) mmol/L Chloride 108 H (98-107) mmol/L Carbon Dioxide 30 (21-32) mmol/L Anion Gap 8 (3-11) BUN 39 H (6-23) mg/dl Creatinine 1.31 (0.6-1.4) mg/dl Est Cr Clr Drug Dosing 58.2 ml/min Est GFR ( Amer) 57.5 ml/min Est GFR (Non-Af Amer) 49.6 ml/min BUN/Creatinine Ratio 29.8 H (10-20) Glucose 70 (70-99(Fasting)) mg/dl Calcium 9.0 (8.6-10.3) mg/dl Phosphorus 3.4 (2.5-4.9) mg/dl Magnesium 1.9 (1.7-2.4) mg/dl Total Bilirubin 1.1 H (0.2-1.0) mg/dl AST 28 (13-39) U/L ALT 21 (7-52) U/L Alkaline Phosphatase 75 (34-104) U/L Ammonia 31.0 (18-72) umol/L Total Protein 6.2 (6.0-8.3) gm/dl Albumin 3.4 (3.4-5.0) gm/dl Globulin 2.8 (2.5-4.0) gm/dl Albumin/Globulin Ratio 1.2 (0.9-2) Staphylococcus sp PCR (NotDetected) mecA/C-Methicil Resis Gene (NotDetected) Staph epidermidis (PCR) (NotDetected) Bld Cult ID Panel PCR (NotDetected) 01/20/23 Range/Units 13:20 WBC (4.8-10.8) K/ul RBC (4.70-6.10) M/uL Hgb (14.0-18.0) g/dl Hct (42.0-52.0) % MCV (80.0-100.0) fL MCH (25.0-34.0) pg MCHC (32.0-36.0) g/dL RDW Std Deviation (36.4-46.3) fL RDW Coeff of Juanita (11.5-14.5) % Plt Count (130-400) K/uL MPV (9.4-12.4) fL Sodium (136-145) mmol/L Potassium (3.5-5.1) mmol/L Chloride (98-107) mmol/L Carbon Dioxide (21-32) mmol/L Anion Gap (3-11) BUN (6-23) mg/dl Creatinine (0.6-1.4) mg/dl Est Cr Clr Drug Dosing ml/min Est GFR ( Amer) ml/min Est GFR (Non-Af Amer) ml/min BUN/Creatinine Ratio (10-20) Glucose (70-99(Fasting)) mg/dl Calcium (8.6-10.3) mg/dl Phosphorus (2.5-4.9) mg/dl Magnesium (1.7-2.4) mg/dl Total Bilirubin (0.2-1.0) mg/dl AST (13-39) U/L ALT (7-52) U/L Alkaline Phosphatase (34-104) U/L Ammonia (18-72) umol/L Total Protein (6.0-8.3) gm/dl Albumin (3.4-5.0) gm/dl Globulin (2.5-4.0) gm/dl Albumin/Globulin Ratio (0.9-2) Staphylococcus sp PCR DETECTED A (NotDetected) mecA/C-Methicil Resis Gene Not Detected (NotDetected) Staph epidermidis (PCR) DETECTED A (NotDetected) Bld Cult ID Panel PCR See PCR Comment (NotDetected) Medications Administered Current Inpatient Medications Acetaminophen (Acetaminophen 325 Mg Tab) 650 mg PO Q4H PRN PRN Reason: Pain or Fever Stop: 02/19/23 20:08 Al Hydrox/Mg Hydrox/Simethicone (Aluminum/Magnesium Susp 30 Ml Udc) 15 ml PO Q4H PRN PRN Reason: Dyspepsia Stop: 02/19/23 20:08 Artificial Tears (Artificial Tears) 1 drops OP QID PRN PRN Reason: DRY EYES Stop: 02/19/23 20:29 Furosemide (Furosemide 40 Mg/4 Ml Vial) 40 mg IV ONE ONE Stop: 01/22/23 16:01 Piperacillin Sod/Tazobactam (Sod 4.5 gm/ Dextrose) 120 mls @ 30 mls/hr IV Q8H [facility]; Protocol Stop: 01/28/23 00:59 Last Admin: 01/22/23 08:59 Dose: 30 mls/hr Vancomycin HCl 1,250 mg/ (Sodium Chloride) 275 mls @ 200 mls/hr IV DAILY@1400 [facility] Stop: 02/05/23 13:59 Potassium Chloride (K Reggie / Wtr) 10 meq in 100 mls @ 100 mls/hr IV Q1H [facility] Stop: 01/22/23 15:14 Heparin Sodium/Dextrose (Heparin Sodium/Dextrose) 25,000 units in 500 mls @ 20 mls/hr IV .Q24H [facility]; Protocol Stop: 02/21/23 11:44 Magnesium Hydroxide (Magnesium Hydroxide Susp 30 Ml Udc) 30 ml PO Q12H PRN PRN Reason: Constipation Stop: 02/19/23 20:08 Miscellaneous Information (Vancomycin Consult Active) 1 each N/A UD PRN PRN Reason: Consult Stop: 02/20/23 12:07 Polyethylene Glycol (Polyethylene (Miralax) 17 Gm Pack) 17 gm PO DAILY PRN PRN Reason: Constipation Stop: 02/19/23 20:08 Rivaroxaban (Rivaroxaban 20 Mg Tab) 20 mg PO QDD [facility] Stop: 02/20/23 16:29 Last Admin: 01/21/23 14:06 Dose: Not Given
[2023-01-22] MEDS: Heparin IV Adult Wt-Based Low-Dose *NO* Bolus Protocol IV SCH ×2 (11:51→12:23)
[2023-01-22] MEDS: POTASSIUM CHLORIDE / WTR 10 MEQ/100 ML PLCT IV SCH ×4 (12:11→15:16)
[2023-01-22] MEDS: HEPARIN SODIUM/DEXTROSE 25,000 UNITS/500 ML BAG IV SCH (12:12)
--- NOTE | 2023-01-22 12:23 | Surgery Progress Note ---
Date of Service January 22, 2023 Assessment & Plan (1) Sepsis: Plan: con't abx for sepsis no drainable collection right hip can remove port early next week per medicine if requested Present on Admission?: Yes Admission and Anticipated Discharge Date Admission Date: January 20, 2023 Subjective still confused AF/VSS xarelto stopped Review of Systems Constitutional: no fever and no chills Respiratory: no dyspnea Cardiovascular: no chest pain Gastrointestinal: no abdominal pain Genitourinary: no dysuria Neurologic: + generalized weakness Physical Exam Constitutional: WD/WN, vitals as above Neck: trachea midline Respiratory: normal respiratory effort, lungs clear to auscultation Cardiovascular: RRR, no murmur, no edema Gastrointestinal (Abdomen): Inspection/Auscultation: abdomen normal to inspection and normal bowel sounds; abdomen not distended Percussion/Palpation: abdomen soft; abdomen nontender Musculoskeletal: no fluctuance right hip Skin: no rashes, warm and dry Results & Data Vital Signs (Past 12 Hours) Vital Signs Temp Pulse Pulse Resp BP Pulse Ox O2 Del Method 01/22/23 11:08 37.0 C 67 20 131/74 96 Nasal Cannula 01/22/23 07:00 59 L 01/22/23 07:08 36.8 C 63 18 115/70 97 Nasal Cannula 01/22/23 03:12 36.6 C 58 L 18 116/66 96 Nasal Cannula O2 Flow Rate 01/22/23 11:08 1 01/22/23 07:00 01/22/23 07:08 2 01/22/23 03:12 2
[2023-01-22] MEDS ORDERED: VANCOMYCIN HCL 1,250 MG in SODIUM CHLORIDE 0.9% 250 ML IV SCH (14:00)
[2023-01-22] MEDS ORDERED: FUROSEMIDE 40 MG/4 ML VIAL IV ONE (16:00)
[2023-01-22 19:33] LABS: Partial Thromboplastin Ratio 3.4
[2023-01-22 19:37] LABS: Partial Thromboplastin Time 95.2 Seconds (21.0-31.0)
[2023-01-23] MEDS: PIPERACILLIN/TAZOBACTAM 4.5 GM in DEXTROSE 5% 100 ML IV SCH ×3 (00:47→16:32)
[2023-01-23 03:21] LABS: Albumin Level 3.6 gm/dl (3.4-5.0); Bilirubin,Total 1.4 mg/dl (0.2-1.0); Magnesium 1.9 mg/dl (1.7-2.4); Potassium 3.7 mmol/L (3.5-5.1)
[2023-01-23 03:27] LABS: Albumin Globulin Ratio 1.2 (0.9-2); Creatinine Clr Calc Pharmacy 60.5 ml/min; Est GFR (African American) 60.3 ml/min; Globulin 3.1 gm/dl (2.5-4.0); Phosphorus 2.7 mg/dl (2.5-4.9); Total Protein 6.7 gm/dl (6.0-8.3)
[2023-01-23 03:43] LABS: Partial Thromboplastin Ratio 2.9
[2023-01-23 03:56] LABS: Hemoglobin 11.2 g/dl (14.0-18.0); Mean Corpuscular Hemoglobin 31.7 pg (25.0-34.0); Mean Corpuscular Hgb Conc 32.9 g/dL (32.0-36.0); Mean Corpuscular Volume 96.3 fL (80.0-100.0); Mean Platelet Volume 10.8 fL (9.4-12.4); Platelet Count 95 K/uL (130-400); Platelet Estimate Decreased (Normal); RDW Coefficient of Variation 13.4 % (11.5-14.5); Red Blood Count 3.53 M/uL (4.70-6.10); White Blood Count 6.81 K/ul (4.8-10.8)
[2023-01-23 03:58] LABS: Partial Thromboplastin Time 82.8 Seconds (21.0-31.0)
--- NOTE | 2023-01-23 09:11 | Surgery Progress Note ---
Date of Service January 23, 2023 Assessment & Plan (1) Sepsis: Plan: right flank hematomas without abscess port without obvious infection Present on Admission?: Yes Admission and Anticipated Discharge Date Admission Date: January 20, 2023 Subjective more alert but still confused Review of Systems Constitutional: no fever and no chills Respiratory: no dyspnea Cardiovascular: no chest pain Gastrointestinal: no abdominal pain Integumentary: + unusual bruising Neurologic: no localized weakness Hematologic / Lymphatic: + easy bleeding and + easy bruising Physical Exam Constitutional: well developed and well nourished Neck: trachea midline Respiratory: normal respiratory effort, lungs clear to auscultation Cardiovascular: RRR, no murmur, no edema Gastrointestinal (Abdomen): Inspection/Auscultation: + abdomen distended and normal bowel sounds Percussion/Palpation: abdomen soft; abdomen nontender Musculoskeletal: Head/Neck/Chest: normocephalic, head atraumatic and + abnormal palpation of chest wall (port without signs of infection) Hip: + ecchymosis (no fluctuance) Skin: no rashes, warm and dry Results & Data Vital Signs (Past 12 Hours) Vital Signs Temp Pulse Pulse Resp BP Pulse Ox O2 Del Method 01/23/23 07:00 50 L 01/23/23 07:22 36.7 C 62 16 138/73 93 Room Air 01/23/23 03:35 36.8 C 71 20 146/63 H 95 Nasal Cannula 01/22/23 22:56 36.5 C 69 20 143/74 H 99 Nasal Cannula O2 Flow Rate 01/23/23 07:00 01/23/23 07:22 01/23/23 03:35 1 01/22/23 22:56 1
--- NOTE | 2023-01-23 10:00 | Hospitalist Progress Note ---
Date of Service January 23, 2023 Assessment & Plan (1) Acute metabolic encephalopathy: (2) Hypothermia: (3) Pulmonary edema: (4) Chronic atrial fibrillation: (5) Thrombocytopenia: Plan This is an 82-year-old male who has a significant past medical history of chronic atrial fibrillation, CKD stage III, essential tremor, BPH, MGUS, lymphedema, hx of prior infected TKR with port in place due to requiring antibiotics who presents to ED secondary to altered mental status x 3 days. Acute metabolic encephalopathy Hypothermia Possible Sepsis in setting of profound hypothermia, confusion and leukopenia admitted to PCU continued jazzmine hugger warming system -> now temp normal and warming stopped , HR improved Biofire, urine negative CXR: pulm edema/pleural effusions ? underlying PNA received Cefepime 2g and 1L of IVF in ED MRSA - if positive with add vanco blood cultures - posit. for Staph epi one bottle, ? poss. 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 Streak and motion compromised examination. 2. Cardiomegaly. 3. Right larger than left pleural effusions with dependent consolidation. 4. Cirrhotic liver morphology and trace perihepatic ascites. 5. There are large bilateral inguinal hernias which contain nonobstructed s egments of bowel. No bowel obstruction is seen. 6. Body wall edema. 7. There are 2 small thick-walled fluid collections in the subcutaneous fat lateral to the right hip. These measure up to 3.2 cm and are indeterminant, possibly presenting small hematomas or seromas. The sterility of this fluid cannot be assessed by imaging and clinical correlation will be required. 8. Right-sided nephrolithiasis. 9. Additional findings as above. 2 small thick-walled fluid collections in the subcutaneous fat lateral to the right hip - surgery consulted , as poss. abscess ? - appreciate their input - surgery also consulted for poss. port removal as blood cultx positive and port is not in active use -discussed w/ surgery - will need to hold xarelto if needed removed hold on further IVF for now 2/2 volume overload TSH 4.6, random cortisol 18.6 Acute Heart failure, unknown EF Pulmonary edema reported weight gain, worsened lower ext edema, SOB pt with significant volume overload he does have chronic lymphedema but family states worsening and increased weight gain CXR: pulm edema, pleural effusions O2 saturations in low 90s Received 40mg IV lasix x 1 on admission cautious diuresis in setting of sepsis concern, will re evaluate obtained echo -LV systolic function is normal. EF 55 to 60%. RV is mildly dilated. RV systolic function is normal. Mild aortic regurg. There is mild mitral regurg. There is moderate tricuspid regurg. Doppler findings do not suggest pulmonary hypertension. Dilated IVC with normal inspiratory variation suggesting right atrial pressure of 8 mmHg. Cardiology consulted - cont. w/ diuresis Chronic atrial fib chronic, on xarelto for stroke prophylaxis not on rate controlling agents, prior HR in 60s possible bradycardia in setting of hypothermia, HR now improved as pt in afib, and xarelto on hold for now, cont. w/ iv heparin, monitor plt c ount as pt thrombocytopenic Cognitive impairment per family baseline is A and O x 3, oriented to family typically ambulates with walker with assistance but mostly in wheel chair per OP epic records appears pt may be looking at changing to SNF due to difficulty with mobility will need to get PT/OT when approp he is on donepezil and Namenda as OP, will hold for now Mental status somewhat improved, pt more awake however he does not answer appropriately FULL CODE confirmed by son at bedside, however pt's daughter is POA DVT ppx: Xarelto -> iv heparin PCP: Jon, pt at [facility] Dispo: PCU, consult PT/OT when appropriate, pt may not be candidate to return to [facility] and may need SNF Pt Medical Providers in [place] Rei Frank (PCP) [phone] [address], [address] Vamsi Boothesho [phone] [facility] Heme/Onc Pt from [place] and recently moved 2 months ago. Limited records available for review in [facility], will obtain from PCP - HIM consulted. Admission and Anticipated Discharge Date Admission Date: January 20, 2023 Subjective Pt seen in follow up of altered mental status, secondary to sepsis (poss. pna, pl. effusion), acute CHF blood cultx posit. for staph epi - 1 bottle Currently pt is laying in bed in NAD, he is much more awake today however confused he is only able to answer some questions appropriately Denies any discomfort or pain Denies chest pain or abd. pain Discussed also w/ RN at the bedside - plan to advance to clear liquids, cont. to closely monitor Will repeat CXR to eval pl. effusion/ poss. pna cardiology also following closely Review of Systems Review of Systems: Unobtainable due to cognitive status Physical Exam Physical Exam: Constitutional: Elderly, morbidly obese M, lethargic, appears acutely ill, in NAD Head: Normocephalic, Atraumatic Eyes: PERRL, conjunctivae normal, anicteric sclerae ENMT: external ear and nose normal, oropharynx normal Neck: thick neck Respiratory: normal respiratory effort, diminished bs at bases, poor insp effort, no wheeze, rales, rhonchi.no accessory muscle use Cardiovascular: irr rhythm, no murmur, b/l +2 pitted edema with Chronic venous stasis changes, no acute infectious appearance Chest: normal inspection of chest RACW medi port Abdomen: obese abd, normal bowel sounds, soft, nontender Musculoskeletal:moves extremities Skin: warm and dry Neurologic: PERRL, EOMI, no face palsy, speech clear but slow, only able to answer some questions appropriately,moves all extremities Results & Data Results & Data Vital Signs (Past 12 Hours) Vital Signs Temp Pulse Pulse Resp BP Pulse Ox O2 Del Method 01/23/23 07:00 50 L 01/23/23 07:22 36.7 C 62 16 138/73 93 Room Air 01/23/23 03:35 36.8 C 71 20 146/63 H 95 Nasal Cannula 01/22/23 22:56 36.5 C 69 20 143/74 H 99 Nasal Cannula O2 Flow Rate 01/23/23 07:00 01/23/23 07:22 01/23/23 03:35 1 01/22/23 22:56 1 Laboratory Results 01/23/23 01/23/23 01/23/23 Range/Units 09:36 02:46 02:46 WBC (4.8-10.8) K/ul RBC (4.70-6.10) M/uL Hgb (14.0-18.0) g/dl Hct (42.0-52.0) % MCV (80.0-100.0) fL MCH (25.0-34.0) pg MCHC (32.0-36.0) g/dL RDW Std Deviation (36.4-46.3) fL RDW Coeff of Juanita (11.5-14.5) % Plt Count (130-400) K/uL MPV (9.4-12.4) fL Platelet Estimate (Normal) APTT 60.4 H* 82.8 H* (21.0-31.0) Seconds PTT Ratio 2.1 2.9 Sodium 144 (136-145) mmol/L Potassium 3.7 (3.5-5.1) mmol/L Chloride 107 (98-107) mmol/L Carbon Dioxide 30 (21-32) mmol/L Anion Gap 7 (3-11) BUN 34 H (6-23) mg/dl Creatinine 1.26 (0.6-1.4) mg/dl Est Cr Clr Drug Dosing 60.5 ml/min Est GFR ( Amer) 60.3 ml/min Est GFR (Non-Af Amer) 52.0 ml/min BUN/Creatinine Ratio 27.0 H (10-20) Glucose 82 (70-99(Fasting)) mg/dl Calcium 9.0 (8.6-10.3) mg/dl Phosphorus 2.7 (2.5-4.9) mg/dl Magnesium 1.9 (1.7-2.4) mg/dl Total Bilirubin 1.4 H (0.2-1.0) mg/dl AST 30 (13-39) U/L ALT 21 (7-52) U/L Alkaline Phosphatase 82 (34-104) U/L Total Protein 6.7 (6.0-8.3) gm/dl Albumin 3.6 (3.4-5.0) gm/dl Globulin 3.1 (2.5-4.0) gm/dl Albumin/Globulin Ratio 1.2 (0.9-2) Random Vancomycin (10-20) mcg/ml 01/23/23 01/23/23 01/22/23 Range/Units 02:46 02:46 18:35 WBC 6.81 (4.8-10.8) K/ul RBC 3.53 L (4.70-6.10) M/uL Hgb 11.2 L (14.0-18.0) g/dl Hct 34.0 L (42.0-52.0) % MCV 96.3 (80.0-100.0) fL MCH 31.7 (25.0-34.0) pg MCHC 32.9 (32.0-36.0) g/dL RDW Std Deviation 47.0 H (36.4-46.3) fL RDW Coeff of Juanita 13.4 (11.5-14.5) % Plt Count 95 L (130-400) K/uL MPV 10.8 (9.4-12.4) fL Platelet Estimate Decreased L (Normal) APTT 95.2 H* (21.0-31.0) Seconds PTT Ratio 3.4 Sodium (136-145) mmol/L Potassium (3.5-5.1) mmol/L Chloride (98-107) mmol/L Carbon Dioxide (21-32) mmol/L Anion Gap (3-11) BUN (6-23) mg/dl Creatinine (0.6-1.4) mg/dl Est Cr Clr Drug Dosing ml/min Est GFR ( Amer) ml/min Est GFR (Non-Af Amer) ml/min BUN/Creatinine Ratio (10-20) Glucose (70-99(Fasting)) mg/dl Calcium (8.6-10.3) mg/dl Phosphorus (2.5-4.9) mg/dl Magnesium (1.7-2.4) mg/dl Total Bilirubin (0.2-1.0) mg/dl AST (13-39) U/L ALT (7-52) U/L Alkaline Phosphatase (34-104) U/L Total Protein (6.0-8.3) gm/dl Albumin (3.4-5.0) gm/dl Globulin (2.5-4.0) gm/dl Albumin/Globulin Ratio (0.9-2) Random Vancomycin 13.3 (10-20) mcg/ml Medications Administered Current Inpatient Medications Acetaminophen (Acetaminophen 325 Mg Tab) 650 mg PO Q4H PRN PRN Reason: Pain or Fever Stop: 02/19/23 20:08 Al Hydrox/Mg Hydrox/Simethicone (Aluminum/Magnesium Susp 30 Ml Udc) 15 ml PO Q4H PRN PRN Reason: Dyspepsia Stop: 02/19/23 20:08 Artificial Tears (Artificial Tears) 1 drops OP QID PRN PRN Reason: DRY EYES Stop: 02/19/23 20:29 Furosemide (Furosemide 40 Mg/4 Ml Vial) 40 mg IV DAILY [facility] Stop: 02/22/23 11:29 Last Admin: 01/23/23 12:08 Dose: 40 mg Piperacillin Sod/Tazobactam (Sod 4.5 gm/ Dextrose) 120 mls @ 30 mls/hr IV Q8H [facility]; Protocol Stop: 01/28/23 00:59 Last Admin: 01/23/23 09:26 Dose: 30 mls/hr Heparin Sodium/Dextrose (Heparin Sodium/Dextrose) 25,000 units in 500 mls @ 14 mls/hr IV .Q24H [facility]; Protocol Stop: 02/21/23 11:44 Last Titration: 01/23/23 10:57 Dose: 700 units/hr, 14 mls/hr Vancomycin HCl 1,000 mg/ (Sodium Chloride) 270 mls @ 200 mls/hr IV Q12H [facility] Stop: 02/06/23 09:59 Last Admin: 01/23/23 12:07 Dose: 200 mls/hr Magnesium Hydroxide (Magnesium Hydroxide Susp 30 Ml Udc) 30 ml PO Q12H PRN PRN Reason: Constipation Stop: 02/19/23 20:08 Miscellaneous Information (Vancomycin Consult Active) 1 each N/A UD PRN PRN Reason: Consult Stop: 02/20/23 12:07 Polyethylene Glycol (Polyethylene (Miralax) 17 Gm Pack) 17 gm PO DAILY PRN PRN Reason: Constipation Stop: 02/19/23 20:08 Potassium Chloride (Potassium Chloride Crtab 20 Meq Tabcr) 20 meq PO BID [facility] Stop: 02/22/23 11:29 Last Admin: 01/23/23 12:08 Dose: 20 meq Rivaroxaban (Rivaroxaban 20 Mg Tab) 20 mg PO QDD [facility] Stop: 02/20/23 16:29 Last Admin: 01/21/23 14:06 Dose: Not Given
--- NOTE | 2023-01-23 10:30 | XRay Report ---
XR chest 1V portable HISTORY: 82 years-old Male follow up pl. effusion, poss. pna acute shortness of breath COMPARISON: 01/20/2023 TECHNIQUE: AP view of the chest FINDINGS: Cardiac silhouette is enlarged. Right IJ [id number] catheter. No pneumothorax. Pulmonary vascular congestion with interstitial coarsening. Small left and moderate right pleural effusions with bibasil ar consolidation, similar to prior. Degenerative changes of the shoulders and spine. IMPRESSION: 1. Cardiomegaly with unchanged pulmonary edema. 2. Right greater than left layering pleural effusions with bibasilar consolidation again noted. ACT 112: Negative or not required by law. The above report was generated using voice recognition software. It may contain grammatical, syntax o r spelling errors. Electronically signed by: Kishan Brennan M.D. 01/23/2023 10:29 AM
[2023-01-23 10:44] LABS: Partial Thromboplastin Ratio 2.1
[2023-01-23 10:46] LABS: Partial Thromboplastin Time 60.4 Seconds (21.0-31.0)
--- NOTE | 2023-01-23 11:15 | Cardiology Progress Note ---
Date of Service January 23, 2023 Assessment & Plan (1) Acute metabolic encephalopathy: (2) Volume overload: (3) Sepsis: (4) Chronic atrial fibrillation: (5) Bradycardia: (6) Thrombocytopenia: (7) Pulmonary edema: (8) Bilateral pleural effusion: (9) Hypothermia: Plan 82-year-old male admitted with acute metabolic encephalopathy, marked hypothermia, possible sepsis, multifactorial volume overload including acute decompensated diastolic congestive heart failure (HFpEF). Resting echocardiography with preserved LV systolic function. Patient with chronic atrial fibrillation. Bradycardia has resolved with improvement in hypothermia. Patient improving with IV antibiotics and IV diuresis. RECOMMENDATIONS: Continue IV diuresis, furosemide 40 mg/day for now Supplement potassium orally, 20 mg twice a day. Avoid AV kong blockers. No indication for permanent pacemaker implantation which presently contraindicated noting the possible infection. Xarelto on hold, currently on low dose IV heparin, pending A-Port removal Admission and Anticipated Discharge Date Admission Date: January 20, 2023 Supervising Physician Co-Signing Physician Notes Attending Staff: Pt seen and evaluated with [facility] staff. 82 yo man presenting with altered mental status Noted to be volume overloaded + Concerns for bacteremia Has a longstanding IV Port Port was accessed at [facility] - Shortly thereafter - noted to have a clinical decline Dx: Acute diastolic heart failure + bacteremia Events overnight: * Gradual improvement in mental status * Moving all 4 extremities Plans * Chronic Afib * On presentation - hypothermic + bradycardic * ECHOcardiogram with LVEF 55%; no major AI, MR - Moderate TR - no vegetations noted * Concerns for infected port * + Staph Epi on Blood Culture * Started on ABX - Vnacomycin + Zosyn * Port to be removed once DOAC levels subside * DOAC - currently held * NPO Past MN for potential port removal on 01/24/2023 * Heparin continued - high risk of thrombosis * Thrombocytopenia noted - not >50% decrement * Diuresis initiated with goal of euvolemia (JVP elevated, + Abdominal wall edema, + Bilateral LE edema * Continue Lasix 40 IV per day * Goal is - 2 Liters * K+ goal 4.5-5 * Mag goal> 2 * Hypernatremia noted - may need free water Paramjit Cardenas Subjective Patient seen and examined. Chart, medications, and telemetry reviewed. Family at bedside. Patient unable to provide any meaningful information. I/O's: - 2,142 mL's the last 24 hours, - 4,975 mL's overall Telemetry: Atrial fibrillation in the 60's and 70's. No significant bradycardia. Review of Systems Review of Systems: A complete and accurate review of systems was unable to be obtained due to the patient's status. Physical Exam Physical Exam: General: NAD. HENT: Normocephalic. Atraumatic. Eyes: PER. Conjunctiva pink, sclera clear. Neck: + JVD. Heart: Irregularly irregular at 70 bpm. No murmur appreciated. Lungs: Clear anteriorly. Abdomen: +BS. Soft. Catheter Extremities: 1-2+ edema. Stasis changes. No clubbing. No cyanosis. Limited neurological examination is without focal deficits. Pulses: Posterior tibial=0/4. Results & Data Vital Signs (Past 12 Hours) Vital Signs Temp Pulse Pulse Resp BP Pulse Ox O2 Del Method 01/23/23 08:00 Nasal Cannula 01/23/23 07:00 50 L 01/23/23 07:22 36.7 C 62 16 138/73 93 Room Air 01/23/23 03:35 36.8 C 71 20 146/63 H 95 Nasal Cannula O2 Flow Rate 01/23/23 08:00 2 01/23/23 07:00 01/23/23 07:22 01/23/23 03:35 1 Laboratory Results Cardiac Enzymes 01/23/23 Range/Units 02:46 AST 30 (13-39) U/L Coagulation 01/22/23 01/23/23 01/23/23 Range/Units 18:35 02:46 09:36 APTT 95.2 H* 82.8 H* 60.4 H* (21.0-31.0) Seconds CBC 01/23/23 Range/Units 02:46 WBC 6.81 (4.8-10.8) K/ul RBC 3.53 L (4.70-6.10) M/uL Hgb 11.2 L (14.0-18.0) g/dl Hct 34.0 L (42.0-52.0) % Plt Count 95 L (130-400) K/uL Comprehensive Metabolic Panel 01/23/23 Range/Units 02:46 Sodium 144 (136-145) mmol/L Potassium 3.7 (3.5-5.1) mmol/L Chloride 107 (98-107) mmol/L Carbon Dioxide 30 (21-32) mmol/L BUN 34 H (6-23) mg/dl Creatinine 1.26 (0.6-1.4) mg/dl Glucose 82 (70-99(Fasting)) mg/dl Calcium 9.0 (8.6-10.3) mg/dl AST 30 (13-39) U/L ALT 21 (7-52) U/L Alkaline Phosphatase 82 (34-104) U/L Total Protein 6.7 (6.0-8.3) gm/dl Albumin 3.6 (3.4-5.0) gm/dl Intake and Output 01/22/23 01/23/23 01/23/23 22:59 06:59 14:59 Intake Total 744 / 1324.800 235.467 / 1324.800 97.3 / 97.3 Output Total 2124 750 / 3424 Balance -1381 / -2100.200 -514.533 / -2100.200 97.3 / 97.3 Intake: IV 744 / 1324.800 235.467 / 1324.800 97.3 / 97.3 Heparin Sodium/Dextrose 25,000 149 / 306.467 115.467 / 306.467 97.3 / 97.3 units In 500 ml @ 700 UNITS/HR 14 mls/hr IV .Q24H [facility] Rx#: [id number] Piperacillin/Tazobactam 4.5 gm 120 / 360 120 / 360 In Dextrose 5% 100 ml @ 30 mls/ hr IV Q8H [facility] Rx#:[id number] Potassium Chloride / Wtr 10 meq 200 / 383.333 In 100 ml @ 100 mls/hr IV Q1H [facility] Rx#:[id number] Vancomycin HCl 1,250 mg In 275 / 275 Sodium Chloride 0.9% 250 ml @ 200 mls/hr IV DAILY@1400 [facility] Rx #:[id number] Output: Urine Amount (Catheter) 2124 / 3424 Forbes/Indwelling 2124 Other: Weight 135.2 kg Weight Measurement Method Built in [facility]
[2023-01-23] MEDS: VANCOMYCIN HCL 1,000 MG in SODIUM CHLORIDE 0.9% 250 ML IV SCH ×2 (12:07→21:03)
[2023-01-23] MEDS: POTASSIUM CHLORIDE CRTAB 20 MEQ TABCR PO SCH ×2 (12:08→21:00)
[2023-01-23] MEDS: FUROSEMIDE 40 MG/4 ML VIAL IV SCH (12:08)
--- NOTE | 2023-01-23 15:33 | Pharmacy Report ---
Pharmacy PK ABX Note - Date of Service January 23, 2023 - Assessment and Plan Assessment 01/23 * 01/20 blood cultures updated: 06/21 with coag negative staph (previous identified as staph epi per BCID2) * 01/21 blood cultures negative at 48 hours * SCR 1.26 this AM, random level 13.3 which predicts an AUC/KRISTA below 400, will increase dose today 01/21 * 82 year old M receiving Zosyn since 01/20 and vancomycin since 01/21 empirically for treatment of possible bacteremia and sepsis (unknown source). * Pertinent microbiologic data includes: * 01/20 blood cultures: 1 of 2 with Staph epi with no mec A/C detected (per BCID2) * 01/20 Negative MRSA Nasal Swab * 01/21 blood cultures: pending * SCr with a slight bump today - will need to reassess vancomycin tomorrow if changes significantly Plan 01/23 * Adjust maintenance dose to 1000 mg q12H * Regimen is predicted to achieve target AUC/KRISTA of 400-600 mg/L.hr * Random level to be ordered in 1-2 days if continued. 01/21 Vancomycin * Loading dose: 2750 mg IV x 1 * Maintenance dose: 1250 mg IV every 24 hours * Regimen is predicted to achieve target AUC/KRISTA of 400-600 mg/L.hr * Random level ordered for 8 AM Pharmacy will continue to follow and will adjust dose/frequency as necessary. Thank you. Pharmacy has transitioned to AUC monitoring for vancomycin. AUC/KRISTA is the preferred PK/PD target and is associated with decreased risk of nephrotoxicity compared to traditional trough targets.
[2023-01-23] MEDS: HEPARIN SODIUM/DEXTROSE 25,000 UNITS/500 ML BAG IV SCH (21:00)
[2023-01-24] MEDS: PIPERACILLIN/TAZOBACTAM 4.5 GM in DEXTROSE 5% 100 ML IV SCH ×3 (01:39→16:51)
--- NOTE | 2023-01-24 07:10 | Cardiology Progress Note ---
Date of Service January 24, 2023 Assessment & Plan (1) Acute metabolic encephalopathy: (2) Volume overload: (3) Sepsis: (4) Chronic atrial fibrillation: (5) Bradycardia: (6) Thrombocytopenia: (7) Pulmonary edema: (8) Bilateral pleural effusion: (9) Hypothermia: Plan 82-year-old male admitted with acute metabolic encephalopathy, marked hypothermia, possible sepsis, multifactorial volume overload including acute decompensated diastolic congestive heart failure (HFpEF). Resting echocardiography with preserved LV systolic function. Patient with chronic atrial fibrillation. Bradycardia has resolved with improvement in hypothermia. Patient improving with IV antibiotics and IV diuresis. RECOMMENDATIONS: Continue IV diuresis, furosemide 40 mg/day for now Supplement potassium orally, 20 mg twice a day. Avoid AV kong blockers. No indication for permanent pacemaker implantation which presently contraindicated noting the possible infection. Xarelto on hold, currently on low dose IV heparin, pending A-Port removal Admission and Anticipated Discharge Date Admission Date: January 20, 2023 Supervising Physician Co-Signing Physician Notes Attending Staff: Pt seen and evaluated with [facility] staff. 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 Noted to be volume overloaded + Concerns for bacteremia Has a longstanding IV Port Port [facility] - Shortly thereafter - noted to have a clinical decline Dx: Acute diastolic heart failure + bacteremia Plans * Chronic Afib * On presentation - hypothermic (resolved) + bradycardic * ECHOcardiogram with LVEF 55%; no major AI, MR - Moderate TR - no vegetations noted * Concerns for infected port * + Staph Epi on Blood Culture * Started on ABX - Vnacomycin + Zosyn * Consider Streamline ABX as per ID * Port to be removed once DOAC levels subside * DOAC - currently held * NPO except for meds- potential port removal on 01/24/2023 * Heparin continued - high risk of thrombosis * Thrombocytopenia noted - not >50% decrement - likely discontinued post procedure and transition back to DOAC when bleeding risk resolves * Diuresis initiated with goal of euvolemia (JVP elevated, + Abdominal wall edema, + Bilateral LE edema * Continue Lasix 40 IV per day * Goal is - 2 Liters * K+ goal 4.5-5 * IV KCL repletion * Mag goal> 2 * Hypernatremia noted - may need free water * + Encephalopathy - pt minimally interractive Paramjit Cardenas Subjective Pt seen in follow up of altered mental status, secondary to sepsis (poss. pna, pl. effusion), acute CHF Events overnight: Review of Systems Review of Systems: All systems reviewed & are unremarkable except as noted in HPI & below A complete and accurate review of systems was unable to be obtained due to the patient's status. Physical Exam Physical Exam: Obese man in NAD JVP 12 CM H20 S1S2 2/6 Systolic Murmur CTA B on anterior exam + 1 LE edema Chronic venous stasis changes Mental Status - awake, minimally interactive - non focal Results & Data Vital Signs (Past 12 Hours) Vital Signs Temp Pulse Pulse Resp BP Pulse Ox O2 Del Method 01/24/23 03:03 37.4 C 53 L 20 145/73 H 95 Nasal Cannula 01/23/23 22:52 37.0 C 54 L 18 146/79 H 93 Room Air 01/23/23 22:15 54 L 01/23/23 23:19 Nasal Cannula 01/23/23 20:09 01/23/23 19:24 36.9 C 66 18 143/97 H 94 Room Air O2 Del Method O2 Flow Rate 01/24/23 03:03 1.5 01/23/23 22:52 01/23/23 22:15 01/23/23 23:19 2 01/23/23 20:09 Room Air 01/23/23 19:24 Laboratory Results Cardiac Enzymes 01/24/23 Range/Units 07:27 AST 25 (13-39) U/L Coagulation 01/23/23 01/24/23 Range/Units 09:36 07:27 APTT 60.4 H* 56.7 H* (21.0-31.0) Seconds CBC 01/24/23 Range/Units 07:27 WBC 8.10 (4.8-10.8) K/ul RBC 3.42 L (4.70-6.10) M/uL Hgb 10.7 L (14.0-18.0) g/dl Hct 32.7 L (42.0-52.0) % Plt Count 92 L (130-400) K/uL Comprehensive Metabolic Panel 01/24/23 Range/Units 07:27 Sodium 146 H (136-145) mmol/L Potassium 3.5 (3.5-5.1) mmol/L Chloride 108 H (98-107) mmol/L Carbon Dioxide 31 (21-32) mmol/L BUN 26 H (6-23) mg/dl Creatinine 1.00 (0.6-1.4) mg/dl Glucose 94 (70-99(Fasting)) mg/dl Calcium 9.0 (8.6-10.3) mg/dl AST 25 (13-39) U/L ALT 17 (7-52) U/L Alkaline Phosphatase 73 (34-104) U/L Total Protein 6.3 (6.0-8.3) gm/dl Albumin 3.3 L (3.4-5.0) gm/dl Intake and Output 01/23/23 01/24/23 01/24/23 22:59 06:59 14:59 Intake Total 628.233 / 1235.533 120 / 1235.533 141.867 / 141.867 Output Total 1000 / 2726 476 / 2726 Balance -371.767 / -1490.467 -356 / -1490.467 141.867 / 141.867 Intake: IV 528.233 / 1135.533 120 / 1135.533 141.867 / 141.867 Heparin Sodium/Dextrose 25,000 138.233 / 235.533 141.867 / 141.867 units In 500 ml @ 700 UNITS/HR 14 mls/hr IV .Q24H [facility] Rx#: [id number] Piperacillin/Tazobactam 4.5 gm 120 / 360 120 / 360 In Dextrose 5% 100 ml @ 30 mls/ hr IV Q8H [facility] Rx#:[id number] Vancomycin HCl 1,000 mg In 270 / 540 Sodium Chloride 0.9% 250 ml @ 200 mls/hr IV Q12H [facility] Rx#: [id number] Oral 100 / 100 Output: Urine Amount (Catheter) 999 / 5 475 / 2725 Forbes/Indwelling 999 / 5 475 / 2725 # Bowel Movements Other: # Bowel Movement Diapers 1 Weight 129.8 kg Weight Measurement Method Built in [facility] Diagnostic Findings Head CT: 01/20/2023 FINDINGS: No acute intracranial hemorrhage, midline shift, intracranial mass, hydrocephalus, territorial ischemia or abnormal extra-axial collection. Involutional changes with chronic microvascular ischemic disease. The calvarium is intact. Prior bilateral lens repair. The paranasal sinuses, mastoid air cells, and middle ear cavities are clear. IMPRESSION: No acute intracranial abnormality.
[2023-01-24 07:50] LABS: Hematocrit (blood only) 32.7 % (42.0-52.0); Hemoglobin 10.7 g/dl (14.0-18.0); Mean Corpuscular Hemoglobin 31.3 pg (25.0-34.0); Mean Corpuscular Hgb Conc 32.7 g/dL (32.0-36.0); Mean Corpuscular Volume 95.6 fL (80.0-100.0); Mean Platelet Volume 10.6 fL (9.4-12.4); Platelet Count 92 K/uL (130-400); RDW Coefficient of Variation 13.1 % (11.5-14.5); RDW Standard Deviation 44.8 fL (36.4-46.3); Red Blood Count 3.42 M/uL (4.70-6.10)
[2023-01-24 08:08] LABS: Albumin Globulin Ratio 1.1 (0.9-2); Albumin Level 3.3 gm/dl (3.4-5.0); Bilirubin,Total 1.5 mg/dl (0.2-1.0); Creatinine Clr Calc Pharmacy 74.4 ml/min; Est GFR (African American) 79.7 ml/min; Est GFR (Non-African American) 68.8 ml/min; Magnesium 1.8 mg/dl (1.7-2.4); Phosphorus 2.8 mg/dl (2.5-4.9); Potassium 3.5 mmol/L (3.5-5.1); Total Protein 6.3 gm/dl (6.0-8.3)
[2023-01-24 08:30] LABS: Partial Thromboplastin Time 56.7 Seconds (21.0-31.0)
--- NOTE | 2023-01-24 08:35 | Hospitalist Progress Note ---
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 Acute metabolic encephalopathy Hypothermia Possible Sepsis in setting of profound hypothermia, confusion and leukopenia admitted to PCU continued jazzmine hugger warming system -> now temp normal and warming stopped , HR improved Biofire, urine negative CXR: pulm edema/pleural effusions ? underlying PNA received Cefepime 2g and 1L of IVF in ED MRSA - if positive with add vanco blood cultures - posit. for Staph epi one bottle, ? poss. contaminant repeat blood cultx obtained and so far negative Pt has a port that is not in active use but was recently accessed ID consulted 01/24 Pt again more encephalopathic today ID consulted - I recommend LP w/ cell count, meningitis/encephalitis PCR panel, bacterial culture, Cryptococcal antigen, fungal culture, HSV/VZV CSF PCR (maybe more sensitive than the PCN panel - Consider staring acyclovir iv for r/o viral encephalitis - Consider stopping all anti-infectives if CSF findings are not suggestive of infection and blood cultures remain negative after 5 days of antibacterials - Consider repeating CT head or MRI brain to r/o developing stroke or infection - will repeat CT head now, start acyclovir,, and plan to obtain LP. 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 Streak and motion compromised examination. 2. Cardiomegaly. 3. Right larger than left pleural effusions with dependent consolidation. 4. Cirrhotic liver morphology and trace perihepatic ascites. 5. There are large bilateral inguinal hernias which contain nonobstructed segments of bowel. No bowel obstruction is seen. 6. Body wall edema. 7. There are 2 small thick-walled fluid collections in the subcutaneous fat lateral to the right hip. These measure up to 3.2 cm and are indeterminant, possibly presenting small hematomas or seromas. The sterility of this fluid cannot be assessed by imaging and clinical correlation will be required. 8. Right-sided nephrolithiasis. 9. Additional findings as above. 2 small thick-walled fluid collections in the subcutaneous fat lateral to the right hip - surgery consulted , as poss. abscess ? - appreciate their input - surgery also consulted for poss. port removal as blood cultx positive and port is not in active use -discussed w/ surgery - will need to hold xarelto if needed removed - will discuss this further w/ ID hold on further IVF for now 2/2 volume overload TSH 4.6, random cortisol 18.6 Acute Heart failure, unknown EF Pulmonary edema reported weight gain, worsened lower ext edema, SOB pt with significant volume overload he does have chronic lymphedema but family states worsening and increased weight gain CXR: pulm edema, pleural effusions O2 saturations in low 90s Received 40mg IV lasix x 1 on admission cautious diuresis in setting of sepsis concern, will re evaluate obtained echo -LV systolic function is normal. EF 55 to 60%. RV is mildly dilated. RV systolic function is normal. Mild aortic regurg. There is mild mitral regurg. There is moderate tricuspid regurg. Doppler findings do not suggest pulmonary hypertension. Dilated IVC with normal inspiratory variation suggesting right atrial pressure of 8 mmHg. Cardiology consulted - cont. w/ diuresis Chronic atrial fib chronic, on xarelto for stroke prophylaxis not on rate controlling agents, prior HR in 60s possible bradycardia in setting of hypothermia, HR now improved as pt in afib, and xarelto on hold for now, cont. w/ iv heparin, monitor plt count as pt thrombocytopenic Cognitive impairment per family baseline is A and O x 3, oriented to family typically ambulates with walker with assistance but mostly in wheel chair per OP epic records appears pt may be looking at changing to SNF due to difficulty with mobility will need to get PT/OT when approp he is on donepezil and Namenda as OP, will hold for now 8/6 - Mental status somewhat improved, pt more awake however he does not answer appropriately 8/7 Pt more lethargic today FULL CODE confirmed by son at bedside, however pt's daughter is POA - discussed w/ daughter, she will try to discuss w/ other family members. DVT ppx: Xarelto -> iv heparin PCP: [facility] at [facility] Dispo: PCU, consult PT/OT when appropriate, pt may not be candidate to return to [facility] and may need SNF Pt [facility]iders in [place] Rei Frank (PCP) [phone] [id number], [address] Vamsi Chan [phone] [facility] Pt from [place] and recently moved 2 months ago. Limited records available for review in [facility], will obtain from PCP - HIM consulted. Admission and Anticipated Discharge Date Admission Date: January 20, 2023 Subjective Pt seen in follow up of altered mental status, secondary to sepsis (poss. pna, pl. effusion), acute CHF blood cultx posit. for staph epi - 1 bottle Currently pt is laying in bed in NAD, yesterday was more awake however confused , today he is hardly answering any questions, he is quite encephalopathic Discussed also w/ RN at the bedside Will repeat CXR to eval pl. effusion/ poss. pna Cardiology also following closely Pulmonary medicine consulted - for pl. effusion - no procedure planned for now ID consulted - feel that bacteremia is likely contaminant and recommend to repe at CT head/ mri brain, and obtain LP w/ eval for poss. meningitis/encephalitis Discussed findings and recommendations w/ pt's daughter Raya Castañeda (also pt's POA). Review of Systems Review of Systems: Unobtainable due to cognitive status Physical Exam Physical Exam: Constitutional: Elderly, morbidly obese M, lethargic, appears acutely ill, in NAD Head: Normocephalic, Atraumatic Eyes: PERRL, conjunctivae normal, anicteric sclerae ENMT: external ear and nose normal, oropharynx normal Neck: thick neck Respiratory: normal respiratory effort, diminished bs at bases, poor insp effort, no wheeze, rales, rhonchi.no accessory muscle use Cardiovascular: irr rhythm, no murmur, b/l +2 pitted edema with Chronic venous stasis changes, no acute infectious appearance Chest: normal inspection of chest RACW medi port Abdomen: obese abd, normal bowel sounds, soft, nontender Musculoskeletal:moves extremities Skin: warm and dry Neurologic: PERRL, EOMI, no face palsy, speech more slurred today , pt appears more lethargic today,moves extremities Results & Data Results & Data Vital Signs (Past 12 Hours) Vital Signs Temp Pulse Pulse Resp BP Pulse Ox O2 Del Method 01/24/23 07:18 36.8 C 56 L 16 156/89 H 95 Nasal Cannula 01/24/23 03:03 37.4 C 53 L 20 145/73 H 95 Nasal Cannula 01/23/23 22:52 37.0 C 54 L 18 146/79 H 93 Room Air 01/23/23 22:15 54 L 01/23/23 23:19 Nasal Cannula O2 Flow Rate 01/24/23 07:18 1 01/24/23 03:03 1.5 01/23/23 22:52 01/23/23 22:15 01/23/23 23:19 2 Laboratory Results 01/24/23 01/24/23 01/24/23 Range/Units 15:39 07:27 07:27 WBC (4.8-10.8) K/ul RBC (4.70-6.10) M/uL Hgb (14.0-18.0) g/dl Hct (42.0-52.0) % MCV (80.0-100.0) fL MCH (25.0-34.0) pg MCHC (32.0-36.0) g/dL RDW Std Deviation (36.4-46.3) fL RDW Coeff of Juanita (11.5-14.5) % Plt Count (130-400) K/uL MPV (9.4-12.4) fL APTT 56.7 H* (21.0-31.0) Seconds PTT Ratio 2.0 ABG pH 7.49 H (7.35-7.45) ABG pCO2 40 (35-46) mmHg ABG pO2 125 H (80-95) mmHg ABG HCO3 31 H (19-24) mmol/L ABG O2 Saturation 98.3 H (90-95) % ABG Base Excess 6.6 H (-9-1.8) mEq/L Jonatan Test Pos (Pos) Oxygen Given 2 L Sodium 146 H (136-145) mmol/L Potassium 3.5 (3.5-5.1) mmol/L Chloride 108 H (98-107) mmol/L Carbon Dioxide 31 (21-32) mmol/L Anion Gap 7 (3-11) BUN 26 H (6-23) mg/dl Creatinine 1.00 (0.6-1.4) mg/dl Est Cr Clr Drug Dosing 74.4 ml/min Est GFR ( Amer) 79.7 ml/min Est GFR (Non-Af Amer) 68.8 ml/min BUN/Creatinine Ratio 26.0 H (10-20) Glucose 94 (70-99(Fasting)) mg/dl Calcium 9.0 (8.6-10.3) mg/dl Phosphorus 2.8 (2.5-4.9) mg/dl Magnesium 1.8 (1.7-2.4) mg/dl Total Bilirubin 1.5 H (0.2-1.0) mg/dl AST 25 (13-39) U/L ALT 17 (7-52) U/L Alkaline Phosphatase 73 (34-104) U/L Total Protein 6.3 (6.0-8.3) gm/dl Albumin 3.3 L (3.4-5.0) gm/dl Globulin 3.0 (2.5-4.0) gm/dl Albumin/Globulin Ratio 1.1 (0.9-2) 01/24/23 Range/Units 07:27 WBC 8.10 (4.8-10.8) K/ul RBC 3.42 L (4.70-6.10) M/uL Hgb 10.7 L (14.0-18.0) g/dl Hct 32.7 L (42.0-52.0) % MCV 95.6 (80.0-100.0) fL MCH 31.3 (25.0-34.0) pg MCHC 32.7 (32.0-36.0) g/dL RDW Std Deviation 44.8 (36.4-46.3) fL RDW Coeff of Juanita 13.1 (11.5-14.5) % Plt Count 92 L (130-400) K/uL MPV 10.6 (9.4-12.4) fL APTT (21.0-31.0) Seconds PTT Ratio ABG pH (7.35-7.45) ABG pCO2 (35-46) mmHg ABG pO2 (80-95) mmHg ABG HCO3 (19-24) mmol/L ABG O2 Saturation (90-95) % ABG Base Excess (-9-1.8) mEq/L Jonatan Test (Pos) Oxygen Given Sodium (136-145) mmol/L Potassium (3.5-5.1) mmol/L Chloride (98-107) mmol/L Carbon Dioxide (21-32) mmol/L Anion Gap (3-11) BUN (6-23) mg/dl Creatinine (0.6-1.4) mg/dl Est Cr Clr Drug Dosing ml/min Est GFR ( Amer) ml/min Est GFR (Non-Af Amer) ml/min BUN/Creatinine Ratio (10-20) Glucose (70-99(Fasting)) mg/dl Calcium (8.6-10.3) mg/dl Phosphorus (2.5-4.9) mg/dl Magnesium (1.7-2.4) mg/dl Total Bilirubin (0.2-1.0) mg/dl AST (13-39) U/L ALT (7-52) U/L Alkaline Phosphatase (34-104) U/L Total Protein (6.0-8.3) gm/dl Albumin (3.4-5.0) gm/dl Globulin (2.5-4.0) gm/dl Albumin/Globulin Ratio (0.9-2) Medications Administered Current Inpatient Medications Acetaminophen (Acetaminophen 325 Mg Tab) 650 mg PO Q4H PRN PRN Reason: Pain or Fever Stop: 02/19/23 20:08 Al Hydrox/Mg Hydrox/Simethicone (Aluminum/Magnesium Susp 30 Ml Udc) 15 ml PO Q4H PRN PRN Reason: Dyspepsia Stop: 02/19/23 20:08 Artificial Tears (Artificial Tears) 1 drops OP QID PRN PRN Reason: DRY EYES Stop: 02/19/23 20:29 Furosemide (Furosemide 40 Mg/4 Ml Vial) 40 mg IV DAILY LISA Stop: 02/22/23 11:29 Last Admin: 01/24/23 09:18 Dose: 40 mg Piperacillin Sod/Tazobactam (Sod 4.5 gm/ Dextrose) 120 mls @ 30 mls/hr IV Q8H [facility]IA; Protocol Stop: 01/28/23 00:59 Last Admin: 01/24/23 16:51 Dose: 30 mls/hr Heparin Sodium/Dextrose (Heparin Sodium/Dextrose) 25,000 units in 500 mls @ 14 mls/hr IV .Q24H LISA; Protocol Stop: 02/21/23 11:44 Last Admin: 01/24/23 11:08 Dose: 700 units/hr, 14 mls/hr Vancomycin HCl 1,000 mg/ (Sodium Chloride) 270 mls @ 200 mls/hr IV Q12H [facility] Stop: 02/06/23 09:59 Last Infusion: 01/24/23 10:45 Dose: Infused Magnesium Sulfate/Dextrose (Magnesium Sulfate / D5w) 1 gm in 100 mls @ 50 mls/hr IV ONE ONE Stop: 01/24/23 17:21 Last Admin: 01/24/23 16:51 Dose: 50 mls/hr Acyclovir Sodium 950 mg/ (Dextrose) 269 mls @ 250 mls/hr IV Q8H [facility] Stop: 02/03/23 17:14 Magnesium Hydroxide (Magnesium Hydroxide Susp 30 Ml Udc) 30 ml PO Q12H PRN PRN Reason: Constipation Stop: 02/19/23 20:08 Miscellaneous Information (Vancomycin Consult Active) 1 each N/A UD PRN PRN Reason: Consult Stop: 02/20/23 12:07 Polyethylene Glycol (Polyethylene (Miralax) 17 Gm Pack) 17 gm PO DAILY PRN PRN Reason: Constipation Stop: 02/19/23 20:08 Potassium Chloride (Potassium Chloride Crtab 20 Meq Tabcr) 20 meq PO BID [facility] Stop: 02/22/23 11:29 Last Admin: 01/24/23 09:18 Dose: Not Given Rivaroxaban (Rivaroxaban 20 Mg Tab) 20 mg PO QDD [facility] Stop: 02/20/23 16:29 Last Admin: 01/21/23 14:06 Dose: Not Given
[2023-01-24] MEDS: FUROSEMIDE 40 MG/4 ML VIAL IV SCH (09:18)
[2023-01-24] MEDS: POTASSIUM CHLORIDE CRTAB 20 MEQ TABCR PO SCH ×2 (09:18→21:17)
[2023-01-24] MEDS: VANCOMYCIN HCL 1,000 MG in SODIUM CHLORIDE 0.9% 250 ML IV SCH ×2 (09:20→22:02)
--- NOTE | 2023-01-24 10:04 | XRay Report ---
SINGLE VIEW CHEST CLINICAL HISTORY: Pleural effusions appear FINDINGS: An AP, portable, upright chest radiograph is compared to study dated 01/23/2023. A right inte rnal jugular central venous infusion port is unchanged from previous. The heart is enlarged noting at herosclerotic calcification of the thoracic aorta. There is pulmonary vascular congestion and evidenc e of interstitial edema. There are right larger than left pleural effusions with dependent consolidat ion. No pneumothorax is seen. The skeletal structures are osteopenic. The bony thorax is grossly inta ct. Arthritic change is noted in the shoulders. IMPRESSION: 1. Cardiomegaly with evidence of congestive failure and pulmonary edema. 2. Right larger than left pleural effusions with dependent consolidation. These are unchanged to mode stly increased in size from yesterday. ACT 112: Negative or not required by law. Electronically signed by: Walt Avila M.D. 01/24/2023 10:02 AM
[2023-01-24] MEDS: POTASSIUM CHLORIDE / WTR 10 MEQ/100 ML PLCT IV SCH ×4 (11:07→16:52)
[2023-01-24] MEDS: HEPARIN SODIUM/DEXTROSE 25,000 UNITS/500 ML BAG IV SCH (11:08)
--- NOTE | 2023-01-24 14:42 | Communication Note ---
Date of Service: January 24, 2023 Patient not examined, chart reviewed. Dr. Carranza and I Discussed with Dr. Jacobson with hospitalist service. Was doing much better regarding mental status y esterday but has declined again today. No leukocytosis. No signs of infection at port site since admission. Holding Xarelto. 1/2 positive blood cultures initially , repeat blood cultures x 2 negative. ID consulted, awaiting recommendations. Will wait to see what ID recommends as 1/2 blood cultures could be contaminant? Possibly underlying PNA? Continue current medical management.
[2023-01-24] MEDS ORDERED: MAGNESIUM SULFATE / D5W 1 GM/100 ML BAG IV ONE (15:22)
--- NOTE | 2023-01-24 15:38 | Pulmonary Consultation ---
Date of Consultation January 24, 2023 Assessment & Plan (1) Volume overload: (2) Bilateral pleural effusion: Plan Impression: 82-year-old male admitted with altered mental status and hypothermia. Pulmonary is consulted for bilateral pleural effusions. Recommendations: 1. Bilateral pleural effusions: Imaging was reviewed. The effusion on the right may be slightly larger compared to prior film a few days ago. I suspect this is related to underlying cardiovascular issues. He has responded favorably to initiation of diuretics. I have a low suspicion that these are infected. I discussed with the patient's son at bedside. He would like to avoid invasive procedures as he states his father has had complications with any procedures which have been undertaken. I reassured him that I do not think these are contributing to his overall decline or to the etiology of his altered mental status and recommended that the primary service continue to work that up. In addition, the patient is currently fully anticoagulated on heparin. Thoracentesis would require stopping his anticoagulation for at least 4 to 6 hours to decrease risk of bleeding. The patient's son has requested that we hold off for now (the patient is encephalopathic and unable to provide verbal or written consent) and see how he responds to continue diuretics. His serum creatinine has not budged and would recommend continuing diuresis with a net goal of 1 to 2 L negative per 24 hours. 2. Hypoxemia: Secondary to above. The patient has a minimal oxygen requirement currently. Suspect this would improve if he could participate in pulmonary toilet and incentive spirometry once his mental status clears. 3. Management of the patient's other medical issues is deferred to the primary admitting service. We will reassess over the next few days to see how he responds. If work of breathing increases or the patient has an increasing oxygen demand or his diuretic therapy is not acting quickly enough, could consider thoracentesis at that time. Thanks for the opportunity of participating in the care of this patient. Feel free to contact us with questions or concerns History of Present Illness Attending Physician: Kyaw Jacobson MD History of Present Illness Asked by hospitalist to evaluate this patient with bilateral pleural effusions. Patient is obtunded and unable to provide any history. History is obtained from review the electronic medical record as well as interview of the son at bedside. Patient is an 82-year-old male with a complicated medical history which has been delineated in his admission H&P. He was brought to the hospital for altered mental status. He has been found to have fluid overload. He was also hypothermic and there was concern about a potential infectious etiology. He has an indwelling port in place. 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 There is an ID consultation that is pending. His admission chest x-ray showed pleural effusions and follow-up chest x-ray showed persistent pleural effusions. He is been seen by cardiology and initiated on diuretic therapy. He has been net negative over the last 3 days. He is only on 1 L of oxygen. The patient is unable to provide any pulmonary complaints currently. His son feels that his encephalopathy is worse today. Allergies Allergy/AdvReac Type Severity Reaction Status Date / Time ceftriaxone Allergy Mild rash Verified 01/20/23 15:23 doxycycline Allergy Unknown ON Verified 01/20/23 15:23 [facility] rifampin Allergy Unknown ON Verified 01/20/23 15:23 [facility] Sulfa (Sulfonamide Allergy Unknown ON Verified 01/20/23 15:23 [facility] ertapenem AdvReac Intermediate hallucinati Verified 01/20/23 15:23 ons Home Medications Medication Instructions Recorded Confirmed Type acetaminophen 325 mg tablet 650 mg PO Q4H PRN Pain 01/20/23 01/20/23 History (Tylenol) atorvastatin 20 mg tablet 20 mg PO DAILY 01/20/23 01/20/23 History cholecalciferol (vitamin D3) 50 50 mcg PO DAILY 01/20/23 01/20/23 History mcg (2,000 unit) capsule (Vitamin D3) cyclosporine 0.05 % eye drops 1 drp OPB Q12H 01/20/23 01/20/23 History donepezil 10 mg tablet 10 mg PO DAILY 01/20/23 01/20/23 History furosemide 20 mg tablet (Lasix) 20 mg PO DAILY 01/20/23 01/20/23 History furosemide 40 mg tablet (Lasix) 40 mg PO ONCE 01/20/23 01/20/23 History memantine 10 mg tablet 10 mg PO BID 01/20/23 01/20/23 History rivaroxaban 15 mg tablet (Xarelto) 15 mg PO DAILY 01/20/23 01/20/23 History silodosin 8 mg capsule 8 mg PO HS 01/20/23 01/20/23 History Patient History Medical History BPH (benign prostatic hyperplasia) Chronic atrial fibrillation CKD (chronic kidney disease) stage 3, GFR 30-59 ml/min Hx of long-term (current) use of anticoagulants Lymphedema MGUS (monoclonal gammopathy of unknown significance) Port-A-Cath in place Surgical History 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 Family History Other Family history non-contributory Social History Smoking Status: Former smoker Hx Alcohol Use: No Hx Substance Use: No Preferred Language: Spanish Communication Ability: Impaired Communication Ability Comment: [facility] Machine Technician Required: No Beliefs That Will Affect Care: None marital status: Single Current Living Situation: Alone Other Information That Helps Us Care for You: No Feels Safe at Home: Yes Safety Concerns: Feels Safe At This Time Assistive Devices: Walker and Wheelchair Review of Systems Review of Systems: Unobtainable due to reduced consciousness Physical Exam Constitutional: + obese and + altered mental status; not in distress Neck: trachea midline Respiratory: no respiratory distress, no labored breathing, no cough and not tachypneic Auscultation: + diminished lung sounds and + rhonchi Bilateral bases Cardiovascular: RRR, no murmur, no edema Gastrointestinal (Abdomen): Inspection/Auscultation: + abdomen distended and normal bowel sounds Percussion/Palpation: abdomen soft; abdomen nontender Musculoskeletal: Head/Neck/Chest: normocephalic, head atraumatic and + abnormal palpation of chest wall (port without signs of infection) Hip: + ecchymosis (no fluctuance) Skin: no rashes, warm and dry Neurologic: Patient is altered. Speech is garbled Results & Data Results & Data Vital Signs (Past 12 Hours) Vital Signs Temp Pulse Resp BP BP Pulse Ox O2 Del Method 01/24/23 15:24 36.5 C 58 L 16 168/87 H Nasal Cannula 01/24/23 12:15 01/24/23 11:21 36.8 C 65 158/76 H 95 Nasal Cannula 01/24/23 08:00 Nasal Cannula 01/24/23 07:18 36.8 C 56 L 16 156/89 H 95 Nasal Cannula O2 Del Method O2 Flow Rate 01/24/23 15:24 2 01/24/23 12:15 Nasal Cannula 01/24/23 11:21 1 01/24/23 08:00 2 01/24/23 07:18 1 Critical Care Results & Data Vital Signs (Past 12 Hours) Vital Signs Temp Pulse Resp BP BP Pulse Ox O2 Del Method 01/24/23 15:24 36.5 C 58 L 16 168/87 H Nasal Cannula 01/24/23 12:15 01/24/23 11:21 36.8 C 65 158/76 H 95 Nasal Cannula 01/24/23 08:00 Nasal Cannula 01/24/23 07:18 36.8 C 56 L 16 156/89 H 95 Nasal Cannula O2 Del Method O2 Flow Rate 01/24/23 15:24 2 01/24/23 12:15 Nasal Cannula 01/24/23 11:21 1 01/24/23 08:00 2 01/24/23 07:18 1 Lab & Micro Results (Past 24 Hours) RBC 3.42 M/uL (4.70-6.10) L 01/24/23 WBC 8.10 K/ul (4.8-10.8) 01/24/23 Hgb 10.7 g/dl (14.0-18.0) L 01/24/23 Hct 32.7 % (42.0-52.0) L 01/24/23 MCV 95.6 fL (80.0-100.0) 01/24/23 MCH 31.3 pg (25.0-34.0) 01/24/23 MCHC 32.7 g/dL (32.0-36.0) 01/24/23 RDW Standard Deviation 44.8 fL (36.4-46.3) 01/24/23 RDW Coefficient of Variation 13.1 % (11.5-14.5) 01/24/23 Plt Count 92 K/uL (130-400) L 01/24/23 MPV 10.6 fL (9.4-12.4) 01/24/23 Na 146 mmol/L (136-145) H 01/24/23 K 3.5 mmol/L (3.5-5.1) 01/24/23 Cl 108 mmol/L (98-107) H 01/24/23 CO2 31 mmol/L (21-32) 01/24/23 Anion Gap 7 (3-11) 01/24/23 BUN 26 mg/dl (6-23) H 01/24/23 Creatinine 1.00 mg/dl (0.6-1.4) 01/24/23 Estimated GFR ( Amer) 79.7 ml/min 01/24/23 Estimated GFR (Non-Af Amer) 68.8 ml/min 01/24/23 BUN/Creatinine Ratio 26.0 (10-20) H 01/24/23 Glu 94 mg/dl (70-99(Fasting)) 01/24/23 Ca 9.0 mg/dl (8.6-10.3) 01/24/23 Phosphorus Level 2.8 mg/dl (2.5-4.9) 01/24/23 Total Bilirubin 1.5 mg/dl (0.2-1.0) H 01/24/23 AST 25 U/L (13-39) 01/24/23 ALT 17 U/L (7-52) 01/24/23 Alkaline Phosphatase 73 U/L (34-104) 01/24/23 TP 6.3 gm/dl (6.0-8.3) 01/24/23 Albumin 3.3 gm/dl (3.4-5.0) L 01/24/23 Globulin 3.0 gm/dl (2.5-4.0) 01/24/23 Albumin/Globulin Ratio 1.1 (0.9-2) 01/24/23 Mg 1.8 mg/dl (1.7-2.4) 01/24/23 07:27 Calcium Level 9.0 mg/dl (8.6-10.3) 01/24/23 07:27 Microbiology 01/21/23 12:09 Aerobic Blood Culture - Preliminary Blood No growth in Aerobic bottle after 48 hours. Anaerobic Blood Culture - Preliminary No growth in Anaerobic bottle after 48 hours. 01/21/23 12:09 Aerobic Blood Culture - Preliminary Blood No growth in Aerobic bottle after 48 hours. Anaerobic Blood Culture - Preliminary No growth in Anaerobic bottle after 48 hours. Diagnostic Findings (Past 24 Hours) Abdomen/Pelvis CT 01/20/23 16:36 CT SCAN OF THE ABDOMEN AND PELVIS WITH IV CONTRAST CLINICAL HISTORY: Sepsis. COMPARISON STUDY: No priors. TECHNIQUE: Following the IV administration of 112 cc of Optiray 350, CT scan of the abdomen and pelvis is performed from the lung bases to the proximal femora. Images are reviewed in the axial, sagittal, and coronal planes. IV contrast was administered without complication. A dose lowering technique was utilized adhering to the principles of ALARA. The examination is degraded by motion artifact, as well as by streak artifact from the arms which could not be elevated above the abdomen. There is also streak artifact in the body wall abutting the CT gantry. CT DOSE: 1778.26 mGy.cm FINDINGS: Lung bases: The heart is enlarged and without pericardial effusion. The coronary arteries are densely calcified. There are right larger than left pleural effusions with dependent consolidation. Liver: The contrast-enhanced liver is normal in size and heterogeneous in attenuation. Nodularity of the surface contour suggests early morphologic changes of cirrhosis. There is no intrahepatic biliary ductal dilatation. The hepatic veins and portal veins are patent. Gallbladder: Surgically absent noting clips in the gallbladder fossa. Spleen: Normal in size and attenuation. Pancreas: Atrophic and grossly unremarkable. Adrenal glands: Unremarkable. Kidneys: The contrast enhanced kidneys demonstrate cortical atrophy and/or without hydronephrosis. The kidneys enhance symmetrically. There are at least 2 nonobstructing right renal calculi which measure up to 5 mm. No left renal calculi are clearly seen on this contrast-enhanced examination. Bilateral renal cysts measure up to 3.7 cm. Abdominal vasculature: The abdominal aorta is normal in course and caliber noting moderate atherosclerotic calcification. Bowel: A large left internal hernia contains a segment of the sigmoid colon and a large right inguinal hernia contains the cecum and the distal ileum. No bowel obstruction is seen. A portion of the normal appendix is seen in the right inguinal hernia on image #356. This is incompletely visualized. There is moderate colonic fecal retention. There is mild colonic diverticulosis without CT evidence of acute diverticulitis. Peritoneum: There is trace perihepatic ascites. No intraperitoneal free air is seen. Lymphadenopathy: None. Pelvic viscera: The bladder is decompressed around a Forbes catheter and not well evaluated. The prostate gland is grossly unremarkable. There are large bilateral inguinal hernias which contain bowel. Skeletal structures: The skeletal structures are osteopenic. There is moderate to advanced the sacral spondylosis as well as scoliosis. No lytic or blastic lesions are seen. Soft tissues: There is body wall edema. Small thick-walled fluid collections are seen in subcutaneous fat lateral to the right hip joint. These measure 3.2 cm and 2.3 cm as seen on images #294 and #290. IMPRESSION: 1. Streak and motion compromised examination. 2. Cardiomegaly. 3. Right larger than left pleural effusions with dependent consolidation. 4. Cirrhotic liver morphology and trace perihepatic ascites. 5. There are large bilateral inguinal hernias which contain nonobstructed segments of bowel. No bowel obstruction is seen. 6. Body wall edema. 7. There are 2 small thick-walled fluid collections in the subcutaneous fat lateral to the right hip. These measure up to 3.2 cm and are indeterminant, possibly presenting small hematomas or seromas. The sterility of this fluid cannot be assessed by imaging and clinical correlation will be required. 8. Right-sided nephrolithiasis. 9. Additional findings as above. ACT 112: Negative or not required by law. Electronically signed by: Walt Avila M.D. 01/20/2023 5:32 PM Chest X-Ray 01/24/23 08:44 SINGLE VIEW CHEST CLINICAL HISTORY: Pleural effusions appear FINDINGS: An AP, portable, upright chest radiograph is compared to study dated 01/23/2023. A right internal jugular central venous infusion port is unchanged from previous. The heart is enlarged noting atherosclerotic calcification of the thoracic aorta. There is pulmonary vascular congestion and evidence of interstitial edema. There are right larger than left pleural effusions with dependent consolidation. No pneumothorax is seen. The skeletal structures are osteopenic. The bony thorax is grossly intact. Arthritic change is noted in the shoulders. IMPRESSION: 1. Cardiomegaly with evidence of congestive failure and pulmonary edema. 2. Right larger than left pleural effusions with dependent consolidation. These are unchanged to modestly increased in size from yesterday. ACT 112: Negative or not required by law. Electronically signed by: Walt Avila M.D. 01/24/2023 10:02 AM I & O Totals 24 Hours 01/23/23 01/24/23 01/25/23 06:59 06:59 06:59 Intake Total 1282.800 / 9883.491 1398.533 / 1235.533 769.534 / 769.534 Output Total 3425 / 3425 2726 / 2726 1800 / 1800 Balance -2142.200 / -2100.200 -1490.467 / -1490.467 -1030.466 / -1030.466 Cumulative 01/20/23 12:34 thru 01/24/23 14:00 Intake Total 5087.867 Output Total 33912 Balance -7538.133 RT Ventilator Mngmt (Last Documented) Ventilator Ordered Settings Respiratory Rate 16 01/24/23 15:24 Ventilator - PT Measurements Respiratory Rate 16 PG Care Time/CCT Total # of Minutes Spent Total Time Spent with Patient: Total time spent is greater than 50% in coordination of care (as documented) at patient's floor/unit and/or counseling patient: Coding Level of Care Code 71904 INT INP/OBS CARE 3/75MIN Diagnoses Volume overload E87.70 Bilateral pleural effusion J90
[2023-01-24 16:02] LABS: Base Excess ABG 6.6 mEq/L (-9-1.8); HCO3 ABG 31 mmol/L (19-24); Oxygen Saturation ABG 98.3 % (90-95); PCO2 ABG 40 mmHg (35-46); PO2 ABG 125 mmHg (80-95); pH ABG 7.49 (7.35-7.45)
[2023-01-24 16:08] LABS: Allen Test Pos (Pos)
[2023-01-24] MEDS: ACYCLOVIR SOD 950 MG in DEXTROSE 5% 250 ML IV SCH (18:25)
--- NOTE | 2023-01-24 18:28 | CT Scan Report ---
HEAD CT NONCONTRAST CT DOSE: 703.85 mGy.cm HISTORY: Altered mental status. encephalopathy, ? developing cva TECHNIQUE: Multiaxial CT images of the head were performed without the use of intravenous contrast. A utomated exposure control was utilized for this study. A dose lowering technique was utilized adheri ng to the principles of ALARA. Comparison: Head CT 01/20/2023. Findings: The paranasal sinuses and mastoid air cells are clear. The calvarium and skull base are int act. There is no mass, hematoma, midline shift, acute infarct. White matter hypodensity is nonspecifi c but suggestive of microvascular ischemic change. The ventricles and sulci demonstrate mild age-rela vee involutional changes. Mild motion artifact. Impression: No significant change compared to the prior study. No acute intracranial abnormality. ACT 112: Negative or not required by law. Electronically signed by: Karthik Cochran M.D. 01/24/2023 6:26 PM
[2023-01-24] MEDS ORDERED: CIPROFLOXACIN 500 MG TAB PO SCH (21:00)
[2023-01-25] MEDS ORDERED: HOLD ORDER ONE
[2023-01-25] MEDS: ACYCLOVIR SOD 950 MG in DEXTROSE 5% 250 ML IV SCH ×3 (01:24→17:31)
[2023-01-25] MEDS: PIPERACILLIN/TAZOBACTAM 4.5 GM in DEXTROSE 5% 100 ML IV SCH ×3 (01:24→17:31)
--- NOTE | 2023-01-25 06:42 | Cardiology Progress Note ---
Date of Service January 25, 2023 Assessment & Plan (1) Acute metabolic encephalopathy: (2) Volume overload: (3) Sepsis: (4) Chronic atrial fibrillation: (5) Bradycardia: (6) Thrombocytopenia: (7) Pulmonary edema: (8) Bilateral pleural effusion: (9) Hypothermia: Plan 82-year-old male admitted with acute metabolic encephalopathy, marked hypothermia, possible sepsis, multifactorial volume overload including acute decompensated diastolic congestive heart failure (HFpEF). Resting echocardiography with preserved LV systolic function. Patient with chronic atrial fibrillation. Bradycardia has resolved with improvement in hypothermia. Patient improving with IV antibiotics and IV diuresis. RECOMMENDATIONS: Continue IV diuresis, furosemide 40 mg/day for now Supplement potassium orally, 20 mg twice a day. Avoid AV kong blockers. No indication for permanent pacemaker implantation which presently contraindicated noting the possible infection. Xarelto on hold, currently on low dose IV heparin, pending A-Port removal Admission and Anticipated Discharge Date Admission Date: January 20, 2023 Supervising Physician Co-Signing Physician Notes Attending Staff: Pt seen and evaluated with [facility] staff. 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 with altered mental status Noted to be volume overloaded + Concerns for bacteremia Has a longstanding IV Port Port was accessed at [facility] - Shortly thereafter - noted to have a clinical decline Dx: Acute diastolic heart failure + bacteremia Plans * Chronic Afib * On presentation - hypothermic (resolved) + bradycardic * ECHOcardiogram with LVEF 55%; no major AI, MR - Moderate TR - no vegetations noted * Concerns for infected port * + Staph Epi on Blood Culture * No new blood culture data * Started on ABX - Vancomycin + Zosyn * Consider Streamline ABX as per ID * DOAC held in anticipation Port Removal * Heparin continued - high risk of thrombosis * Thrombocytopenia noted - not >50% decrement - likely discontinued post procedure and transition back to DOAC when bleeding risk resolves - CBC PENDING * Diuresis initiated with goal of euvolemia (JVP elevated, + Abdominal wall edema, + Bilateral LE edema * Pt appears close to euvolemia * May continue Lasix 40 IV per day until he can take oral medications * Once he can take oral Lasix, stop IV and Start Lasix 80 mg po per day * K+ goal 4.5-5 * IV KCL repletion * Mag goal> 2 * Hypernatremia - improving * + HTN * If SBP is consistently greater than 140 mmHg, consider Lisinopril 10 mg po per day * + Encephalopathy - pt's mental status markedly improving * Defer to ID re: SHOP TECH w/u * Please call back with any additional questions Paramjit Cardenas Subjective Events overnight: * Improvement in engagement and mental status * Speech garbled but intelligible * ID consultation Subjective: * No complaints Review of Systems Review of Systems: A complete and accurate review of systems was unable to be obtained due to the patient's status. Physical Exam Physical Exam: Obese man in NAD JVP 12 CM H20 S1S2 2/6 Systolic Murmur CTA B on anterior exam + 1 LE edema Chronic venous stasis changes Mental Status - awake, verbally engaging Results & Data Vital Signs (Past 12 Hours) Vital Signs Temp Pulse Pulse Resp BP Pulse Ox O2 Del Method 01/25/23 02:40 36.7 C 63 18 136/72 97 Nasal Cannula 01/24/23 23:28 72 01/24/23 22:49 36.9 C 67 20 177/97 H 96 Nasal Cannula 01/24/23 22:20 Nasal Cannula 01/24/23 20:00 01/24/23 20:02 36.6 C 78 20 148/83 H Nasal Cannula O2 Del Method O2 Flow Rate 01/25/23 02:40 2 01/24/23 23:28 01/24/23 22:49 2 01/24/23 22:20 2 01/24/23 20:00 Nasal Cannula 01/24/23 20:02 2 Laboratory Results CBC 01/25/23 Range/Units 07:21 WBC Cancelled RBC Cancelled Hgb Cancelled Hct Cancelled Plt Count Cancelled Comprehensive Metabolic Panel 01/24/23 01/24/23 01/25/23 Range/Units 18:47 20:52 07:21 Sodium 144 (136-145) mmol/L Potassium 3.4 L (3.5-5.1) mmol/L Chloride 106 (98-107) mmol/L Carbon Dioxide 32 (21-32) mmol/L BUN 21 (6-23) mg/dl Creatinine 0.92 (0.6-1.4) mg/dl Glucose Cancelled 112 H 98 Calcium 9.0 (8.6-10.3) mg/dl Intake and Output 01/24/23 01/25/23 01/25/23 22:59 06:59 14:59 Intake Total 689 / 2398.134 939.6 / 2398.134 269 / 269 Output Total 850 / 3151 501 / 3151 Balance -161 / -752.866 438.6 / -752.866 269 / 269 Intake: IV 689 / 2298.134 839.6 / 2298.134 269 / 269 Acyclovir Sod 950 mg In 269 / 538 269 / 538 269 / 269 Dextrose 5% 250 ml @ 250 mls/hr IV Q8H [facility] Rx#:[id number] Heparin Sodium/Dextrose 25,000 180.6 / 378.467 units In 500 ml @ 700 UNITS/HR 14 mls/hr IV .Q24H [facility] Rx#: [id number] Magnesium Sulfate / D5w 1 gm In 100 / 100 100 ml @ 50 mls/hr IV ONE ONE Rx#:[id number] Piperacillin/Tazobactam 4.5 gm 120 / 360 120 / 360 In Dextrose 5% 100 ml @ 30 mls/ hr IV Q8H [facility] Rx#:[id number] Potassium Chloride / Wtr 10 meq 200 / 200 In 100 ml @ 100 mls/hr IV Q1H [facility] Rx#:[id number] Vancomycin HCl 1,000 mg In 270 / 540 Sodium Chloride 0.9% 250 ml @ 200 mls/hr IV Q12H [facility] Rx#: [id number] Oral 100 / 100 Output: Urine Amount (Catheter) 850 / 3150 500 / 3150 Forbes/Indwelling 850 / 3150 500 / 3150 # Bowel Movements / Other: Other Intake Source NPO Weight 129.8 kg 129.8 kg Medications Administered Current Inpatient Medications Acetaminophen (Acetaminophen 325 Mg Tab) 650 mg PO Q4H PRN PRN Reason: Pain or Fever Stop: 02/19/23 20:08 Al Hydrox/Mg Hydrox/Simethicone (Aluminum/Magnesium Susp 30 Ml Udc) 15 ml PO Q4H PRN PRN Reason: Dyspepsia Stop: 02/19/23 20:08 Artificial Tears (Artificial Tears) 1 drops OP QID PRN PRN Reason: DRY EYES Stop: 02/19/23 20:29 Furosemide (Furosemide 40 Mg/4 Ml Vial) 40 mg IV DAILY [facility] Stop: 02/22/23 11:29 Last Admin: 01/25/23 08:07 Dose: 40 mg Piperacillin Sod/Tazobactam (Sod 4.5 gm/ Dextrose) 120 mls @ 30 mls/hr IV Q8H [facility]; Protocol Stop: 01/28/23 00:59 Last Admin: 01/25/23 08:05 Dose: 30 mls/hr Heparin Sodium/Dextrose (Heparin Sodium/Dextrose) 25,000 units in 500 mls @ 0 mls/hr IV .Q0M [facility]; Protocol Stop: 02/21/23 11:44 Last Titration: 01/25/23 00:02 Dose: 0 units/hr, 0 mls/hr Acyclovir Sodium 950 mg/ (Dextrose) 269 mls @ 250 mls/hr IV Q8H [facility] Stop: 02/03/23 17:14 Last Infusion: 01/25/23 09:43 Dose: Infused Vancomycin HCl 1,250 mg/ (Sodium Chloride) 275 mls @ 200 mls/hr IV Q18H [facility] Stop: 02/06/23 13:59 Potassium Chloride (K Reggie / Wtr) 10 meq in 100 mls @ 100 mls/hr IV Q1H [facility] Stop: 01/25/23 14:29 Magnesium Hydroxide (Magnesium Hydroxide Susp 30 Ml Udc) 30 ml PO Q12H PRN PRN Reason: Constipation Stop: 02/19/23 20:08 Miscellaneous Information (Vancomycin Consult Active) 1 each N/A UD PRN PRN Reason: Consult Stop: 02/20/23 12:07 Polyethylene Glycol (Polyethylene (Miralax) 17 Gm Pack) 17 gm PO DAILY PRN PRN Reason: Constipation Stop: 02/19/23 20:08 Potassium Chloride (Potassium Chloride Crtab 20 Meq Tabcr) 20 meq PO BID [facility] Stop: 02/22/23 11:29 Last Admin: 01/25/23 08:22 Dose: 20 meq Rivaroxaban (Rivaroxaban 20 Mg Tab) 20 mg PO QDD [facility] Stop: 02/20/23 16:29 Last Admin: 01/21/23 14:06 Dose: Not Given
[2023-01-25] MEDS: FUROSEMIDE 40 MG/4 ML VIAL IV SCH (08:07)
[2023-01-25 08:11] LABS: BUN Creatinine Ratio 22.8 (10-20); Creatinine Clr Calc Pharmacy 80.9 ml/min; Est GFR (African American) 88.2 ml/min; Est GFR (Non-African American) 76.1 ml/min; Phosphorus 2.5 mg/dl (2.5-4.9); Potassium 3.4 mmol/L (3.5-5.1)
[2023-01-25] MEDS: POTASSIUM CHLORIDE CRTAB 20 MEQ TABCR PO SCH ×2 (08:22→21:46)
--- NOTE | 2023-01-25 09:16 | Pharmacy Report ---
Pharmacy PK ABX Note - Date of Service January 25, 2023 - Assessment and Plan Assessment 01/25: * Renal function stable, repeat blood cultures (-) at 48h. 01/20 blood cultures (+) Staph epidermidis (methicillin sensitive). * Random vancomycin level this AM, 18.9mcg/mL which is predicted to achieve an AUCss of 574mg/L.hr, however with predicted toxicity of 20%. * Day # 5 vancomycin; pending ID recs. 01/23 * 01/20 blood cultures updated: 06/21 with coag negative staph (previous identified as staph epi per BCID2) * 01/21 blood cultures negative at 48 hours * SCR 1.26 this AM, random level 13.3 which predicts an AUC/KRISTA below 400, will increase dose today 01/21 * 82 year old M receiving Zosyn since 01/20 and vancomycin since 01/21 empirically for treatment of possible bacteremia and sepsis (unknown source). * Pertinent microbiologic data includes: * 01/20 blood cultures: 1 of 2 with Staph epi with no mec A/C detected (per BCID2) * 01/20 Negative MRSA Nasal Swab * 01/21 blood cultures: pending * SCr with a slight bump today - will need to reassess vancomycin tomorrow if changes significantly Plan 01/25: * Adjust maintenance dose to 1250mg IV q18 to prevent further accumulation * Regimen predicted to achieve target AUC/KRISTA of 494mg/L.hr * Will repeat a level in ~ 48h if vancomycin continues. Pharmacy will continue to follow and will adjust dose/frequency as necessary. Thank you. Pharmacy has transitioned to AUC monitoring for vancomycin. AUC/KRISTA is the preferred PK/PD target and is associated with decreased risk of nephrotoxicity compared to traditional trough targets.
--- NOTE | 2023-01-25 11:17 | Hospitalist Progress Note ---
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 Acute metabolic encephalopathy Hypothermia Possible Sepsis in setting of profound hypothermia, confusion and leukopenia admitted to PCU continued jazzmine hugger warming system -> now temp normal and warming stopped , HR improved Biofire, urine negative CXR: pulm edema/pleural effusions ? underlying PNA received Cefepime 2g and 1L of IVF in ED MRSA - if positive with add vanco blood cultures - posit. for Staph epi one bottle, ? poss. contaminant repeat blood cultx obtained and so far negative Pt has a port that is not in active use but was recently accessed ID consulted 01/24 Pt again more encephalopathic today ID consulted - I recommend LP w/ cell count, meningitis/encephalitis PCR panel, bacterial culture, Cryptococcal antigen, fungal culture, HSV/VZV CSF PCR (maybe more sensitive than the PCN panel - Consider staring acyclovir iv for r/o viral encephalitis - Consider stopping all anti-infectives if CSF findings are not suggestive of infection and blood cultures remain negative after 5 days of antibacterials - Consider repeating CT head or MRI brain to r/o developing stroke or infection - will repeat CT head now, start acyclovir,, and plan to obtain LP. 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 Streak and motion compromised examination. 2. Cardiomegaly. 3. Right larger than left pleural effusions with dependent consolidation. 4. Cirrhotic liver morphology and trace perihepatic ascites. 5. There are large bilateral inguinal hernias which contain nonobstructed segments of bowel. No bowel obstruction is seen. 6. Body wall edema. 7. There are 2 small thick-walled fluid collections in the subcutaneous fat lateral to the right hip. These measure up to 3.2 cm and are indeterminant, possibly presenting small hematomas or seromas. The sterility of this fluid cannot be assessed by imaging and clinical correlation will be required. 8. Right-sided nephrolithiasis. 9. Additional findings as above. 2 small thick-walled fluid collections in the subcutaneous fat lateral to the right hip - surgery consulted , as poss. abscess ? - appreciate their input - surgery also consulted for poss. port removal as blood cultx positive and port is not in active use -discussed w/ surgery - will need to hold xarelto if needed removed - will discuss this further w/ ID - blood cultx likely contaminant hold on further IVF for now 2/2 volume overload TSH 4.6, random cortisol 18.6 Acute Heart failure, unknown EF Pulmonary edema reported weight gain, worsened lower ext edema, SOB pt with significant volume overload he does have chronic lymphedema but family states worsening and increased weight gain CXR: pulm edema, pleural effusions O2 saturations in low 90s Received 40mg IV lasix x 1 on admission cautious diuresis in setting of sepsis concern, will re evaluate obtained echo -LV systolic function is normal. EF 55 to 60%. RV is mildly dilated. RV systolic function is normal. Mild aortic regurg. There is mild mi tral regurg. There is moderate tricuspid regurg. Doppler findings do not suggest pulmonary hypertension. Dilated IVC with normal inspiratory variation suggesting right atrial pressure of 8 mmHg. Cardiology consulted - cont. w/ diuresis Chronic atrial fib chronic, on xarelto for stroke prophylaxis not on rate controlling agents, prior HR in 60s possible bradycardia in setting of hypothermia, HR now improved as pt in afib, and xarelto on hold for now, cont. w/ iv heparin, monitor plt count as pt thrombocytopenic Cognitive impairment per family baseline is A and O x 3, oriented to family typically ambulates with walker with assistance but mostly in wheel chair per OP epic records appears pt may be looking at changing to SNF due to difficulty with mobility will need to get PT/OT when approp he is on donepezil and Namenda as OP, will hold for now 01/23 - Mental status somewhat improved, pt more awake however he does not answer appropriately 8/7 Pt more lethargic today 8/8 Pt more awake, and following commands, answers simple questions FULL CODE confirmed by son at bedside, however pt's daughter is POA - discussed w/ daughter, she will try to discuss w/ other family members. DVT ppx: Xarelto -> iv heparin PCP: Jon pt at [facility] Dispo: PCU, consult PT/OT when appropriate, pt may not be candidate to return to [facility] and may need SNF Pt Medical Providers in [place] Rei Frank (PCP) [phone] [id number] [facility], [place], [facility], [address] Vamsi Chan [phone] [facility] Heme/Onc Pt from [place] and recently moved 2 months ago. Limited records available for review in [facility], will obtain from PCP - HIM consulted. Admission and Anticipated Discharge Date Admission Date: January 20, 2023 Subjective Pt seen in follow up of altered mental status, secondary to sepsis (poss. pna, pl. effusion), acute CHF Currently pt is sitting up in bed in NAD, much more awake and able to answer simple questions Discussed w/ ID yesterday - head CT repeated - negative. will obtain brain MRI and will obtain LP. IV heparin on hold since midnight. Also started empiric acyclovir. Feel that bacteremia is likely contaminant Cardiology also following closely Pulmonary medicine consulted - for pl. effusion - no procedure planned for now Discussed findings and recommendations w/ pt's daughter Raya Castañeda (also pt's POA phone # [phone]) yesterday over the phone. Review of Systems Review of Systems: All systems reviewed & are unremarkable except as noted in Subjective Physical Exam Physical Exam: Constitutional: Elderly, morbidly obese M, in NAD, more awake today and able to answer some questions Head: Normocephalic, Atraumatic Eyes: PERRL, conjunctivae normal, anicteric sclerae ENMT: external ear and nose normal, oropharynx normal Neck: thick neck Respiratory: normal respiratory effort, diminished bs at bases, poor insp effort, no wheeze, rales, rhonchi.no accessory muscle use Cardiovascular: irr rhythm, no murmur, b/l +1 edema (improved) with Chronic venous stasis changes, no acute infectious appearance Chest: normal inspection of chest RACW medi port Abdomen: obese abd, normal bowel sounds, soft, nontender Musculoskeletal:moves extremities Skin: warm and dry Neurologic:awake and alert - much more awake today, able to answer simple questions, PERRL, EOMI, no face palsy,moves extremities, follows commands Results & Data Results & Data Vital Signs (Past 12 Hours) Vital Signs Temp Pulse Pulse Resp BP Pulse Ox O2 Del Method 01/25/23 07:25 36.7 C 57 L 20 151/81 H 99 Nasal Cannula 01/25/23 02:40 36.7 C 63 18 136/72 97 Nasal Cannula 01/24/23 23:28 72 O2 Flow Rate 01/25/23 07:25 2 01/25/23 02:40 2 01/24/23 23:28 Laboratory Results 01/25/23 01/25/23 01/25/23 Range/Units 11:02 09:07 07:21 WBC Pending Cancelled Cancelled RBC Pending Cancelled Cancelled Hgb Pending Cancelled Cancelled Hct Pending Cancelled Cancelled MCV Pending Cancelled Cancelled MCH Pending Cancelled Cancelled MCHC Pending Cancelled Cancelled RDW Std Deviation Cancelled Cancelled RDW Coeff of Juanita Cancelled Cancelled Plt Count Pending Cancelled Cancelled MPV Cancelled Cancelled Absolute Nucleated RBC Cancelled Cancelled Nucleated RBC % (auto) Cancelled Cancelled Platelet Estimate Cancelled Cancelled ABG pH (7.35-7.45) ABG pCO2 (35-46) mmHg ABG pO2 (80-95) mmHg ABG HCO3 (19-24) mmol/L ABG O2 Saturation (90-95) % ABG Base Excess (-9-1.8) mEq/L Jonatan Test (Pos) Oxygen Given Sodium (136-145) mmol/L Potassium (3.5-5.1) mmol/L Chloride (98-107) mmol/L Carbon Dioxide (21-32) mmol/L Anion Gap (3-11) BUN (6-23) mg/dl Creatinine (0.6-1.4) mg/dl Est Cr Clr Drug Dosing ml/min Est GFR ( Amer) ml/min Est GFR (Non-Af Amer) ml/min BUN/Creatinine Ratio (10-20) Glucose Calcium (8.6-10.3) mg/dl Phosphorus (2.5-4.9) mg/dl Magnesium (1.7-2.4) mg/dl Random Vancomycin (10-20) mcg/ml 01/25/23 01/25/23 01/24/23 Range/Units 07:21 07:21 20:52 WBC RBC Hgb Hct MCV MCH MCHC RDW Std Deviation RDW Coeff of Juanita Plt Count MPV Absolute Nucleated RBC Nucleated RBC % (auto) Platelet Estimate ABG pH (7.35-7.45) ABG pCO2 (35-46) mmHg ABG pO2 (80-95) mmHg ABG HCO3 (19-24) mmol/L ABG O2 Saturation (90-95) % ABG Base Excess (-9-1.8) mEq/L Jonatan Test (Pos) Oxygen Given Sodium 144 (136-145) mmol/L Potassium 3.4 L (3.5-5.1) mmol/L Chloride 106 (98-107) mmol/L Carbon Dioxide 32 (21-32) mmol/L Anion Gap 6 (3-11) BUN 21 (6-23) mg/dl Creatinine 0.92 (0.6-1.4) mg/dl Est Cr Clr Drug Dosing 80.9 ml/min Est GFR ( Amer) 88.2 ml/min Est GFR (Non-Af Amer) 76.1 ml/min BUN/Creatinine Ratio 22.8 H (10-20) Glucose 98 112 H Calcium 9.0 (8.6-10.3) mg/dl Phosphorus 2.5 (2.5-4.9) mg/dl Magnesium 2.0 (1.7-2.4) mg/dl Random Vancomycin 18.9 (10-20) mcg/ml 01/24/23 01/24/23 Range/Units 18:47 15:39 WBC RBC Hgb Hct MCV MCH MCHC RDW Std Deviation RDW Coeff of Juanita Plt Count MPV Absolute Nucleated RBC Nucleated RBC % (auto) Platelet Estimate ABG pH 7.49 H (7.35-7.45) ABG pCO2 40 (35-46) mmHg ABG pO2 125 H (80-95) mmHg ABG HCO3 31 H (19-24) mmol/L ABG O2 Saturation 98.3 H (90-95) % ABG Base Excess 6.6 H (-9-1.8) mEq/L Jonatan Test Pos (Pos) Oxygen Given 2 L Sodium (136-145) mmol/L Potassium (3.5-5.1) mmol/L Chloride (98-107) mmol/L Carbon Dioxide (21-32) mmol/L Anion Gap (3-11) BUN (6-23) mg/dl Creatinine (0.6-1.4) mg/dl Est Cr Clr Drug Dosing ml/min Est GFR ( Amer) ml/min Est GFR (Non-Af Amer) ml/min BUN/Creatinine Ratio (10-20) Glucose Cancelled Calcium (8.6-10.3) mg/dl Phosphorus (2.5-4.9) mg/dl Magnesium (1.7-2.4) mg/dl Random Vancomycin (10-20) mcg/ml Medications Administered Current Inpatient Medications Acetaminophen (Acetaminophen 325 Mg Tab) 650 mg PO Q4H PRN PRN Reason: Pain or Fever Stop: 02/19/23 20:08 Al Hydrox/Mg Hydrox/Simethicone (Aluminum/Magnesium Susp 30 Ml Udc) 15 ml PO Q 4H PRN PRN Reason: Dyspepsia Stop: 02/19/23 20:08 Artificial Tears (Artificial Tears) 1 drops OP QID PRN PRN Reason: DRY EYES Stop: 02/19/23 20:29 Furosemide (Furosemide 40 Mg/4 Ml Vial) 40 mg IV DAILY [facility] Stop: 02/22/23 11:29 Last Admin: 01/25/23 08:07 Dose: 40 mg Piperacillin Sod/Tazobactam (Sod 4.5 gm/ Dextrose) 120 mls @ 30 mls/hr IV Q8H LISA; Protocol Stop: 01/28/23 00:59 Last Admin: 01/25/23 08:05 Dose: 30 mls/hr Heparin Sodium/Dextrose (Heparin Sodium/Dextrose) 25,000 units in 500 mls @ 0 mls/hr IV .Q0M LISA; Protocol Stop: 02/21/23 11:44 Last Titration: 01/25/23 00:02 Dose: 0 units/hr, 0 mls/hr Acyclovir Sodium 950 mg/ (Dextrose) 269 mls @ 250 mls/hr IV Q8H LISA Stop: 02/03/23 17:14 Last Infusion: 01/25/23 09:43 Dose: Infused Vancomycin HCl 1,250 mg/ (Sodium Chloride) 275 mls @ 200 mls/hr IV Q18H [facility] Stop: 02/06/23 13:59 Potassium Chloride (K Reggie / Wtr) 10 meq in 100 mls @ 100 mls/hr IV Q1H [facility] Stop: 01/25/23 14:29 Potassium Chloride (K Reggie / Wtr) 10 meq in 100 mls @ 100 mls/hr IV Q1H [facility] Stop: 01/25/23 13:29 Magnesium Hydroxide (Magnesium Hydroxide Susp 30 Ml Udc) 30 ml PO Q12H PRN PRN Reason: Constipation Stop: 02/19/23 20:08 Miscellaneous Information (Vancomycin Consult Active) 1 each N/A UD PRN PRN Reason: Consult Stop: 02/20/23 12:07 Polyethylene Glycol (Polyethylene (Miralax) 17 Gm Pack) 17 gm PO DAILY PRN PRN Reason: Constipation Stop: 02/19/23 20:08 Potassium Chloride (Potassium Chloride Crtab 20 Meq Tabcr) 20 meq PO BID [facility] Stop: 02/22/23 11:29 Last Admin: 01/25/23 08:22 Dose: 20 meq Rivaroxaban (Rivaroxaban 20 Mg Tab) 20 mg PO QDD [facility] Stop: 02/20/23 16:29 Last Admin: 01/21/23 14:06 Dose: Not Given
[2023-01-25] MEDS: POTASSIUM CHLORIDE / WTR 10 MEQ/100 ML PLCT IV SCH ×4 (11:30→17:28)
[2023-01-25] MEDS ORDERED: POTASSIUM CHLORIDE / WTR 10 MEQ/100 ML PLCT IV SCH (11:30)
[2023-01-25 11:31] LABS: Hematocrit (blood only) 32.1 % (42.0-52.0); Hemoglobin 10.8 g/dl (14.0-18.0); Mean Corpuscular Hemoglobin 31.3 pg (25.0-34.0); Mean Corpuscular Hgb Conc 33.6 g/dL (32.0-36.0); Mean Platelet Volume 10.5 fL (9.4-12.4); Platelet Count 89 K/uL (130-400); RDW Coefficient of Variation 12.9 % (11.5-14.5); RDW Standard Deviation 43.2 fL (36.4-46.3); Red Blood Count 3.45 M/uL (4.70-6.10); White Blood Count 7.99 K/ul (4.8-10.8)
[2023-01-25 14:30] LABS: Total Protein CSF 75.5 mg/dl (15-45)
[2023-01-25 14:39] LABS: Appearance CSF Clear; CSF Count Tube # 3; CSF Xanthrochromic No xanthochromia; Color CSF Colorless
--- NOTE | 2023-01-25 14:45 | Magnetic Resonance Report ---
MR brain wo con CLINICAL HISTORY: encephalopathy TECHNIQUE: Multiplanar and multisequence MR images of the brain were obtained without intravenous con trast. Comparison: Comparison is made to CT head 873 FINDINGS: No abnormal restricted diffusion is identified. Foci of T2 and FLAIR hyperintensity are noted in the paraventricular areas consistent with chronic small vessel ischemic disease. Ex vacuo ventriculomegal y and sulcal enlargement is noted compatible with diffuse volume loss. No mass is seen. There is no m ass effect or midline shift. There is no evidence of acute intraparenchymal hemorrhage. No extra axia l fluid collections are seen. The corpus callosum, pituitary gland, and cerebellar tonsils appear henri ssly unremarkable. Flow voids of the major intracranial arterial vessels are identified. The imaged portions of the para nasal sinuses, mastoid air cells, and orbits are unremarkable. IMPRESSION: No acute abnormalities. ACT 112: Negative or not required by law. Electronically signed by: Jerome Love M.D. 01/25/2023 2:43 PM
[2023-01-25] MEDS: VANCOMYCIN HCL 1,250 MG in SODIUM CHLORIDE 0.9% 250 ML IV SCH (15:33)
[2023-01-25 15:48] LABS: Cryptococcus neoformans/ga PCR Not Detected (NotDetected); Cytomegalovirus PCR Not Detected (NotDetected); Enterovirus PCR Not Detected (NotDetected); Escherichia coli K1 PCR Not Detected (NotDetected); Haemophilius influenzae PCR Not Detected (NotDetected); Herpes Simplex Virus 1 PCR Not Detected (NotDetected); Herpes Simplex Virus 2 PCR Not Detected (NotDetected); Human Herpes Virus 6 PCR Not Detected (NotDetected); Human Parechovirus PCR Not Detected (NotDetected); Listeria monocytogenes PCR Not Detected (NotDetected); Neisseria meningitidis PCR Not Detected (NotDetected); Streptococcus agalactiae PCR Not Detected (NotDetected); Streptococcus pneumoniae PCR Not Detected (NotDetected); Varicella Zoster Virus PCR Not Detected (NotDetected)
--- NOTE | 2023-01-25 16:02 | Fluoroscopy Report ---
Lumbar puncture under fluoroscopy INDICATION: Encephalopathy PROCEDURE: Procedure and risks were explained. Informed consent was obtained over the phone. A final timeout was completed. The patient was placed prone on the fluoroscopic exam table. The lower lumbar region was prepped and draped in sterile fashion. 1% lidocaine was utilized for skin anesthesia. Utilizing fluoroscopic guidance, a 22-gauge spinal needle was advanced into the intrathecal space at the L3-4 disc space level. 2 spot images were obtained. Approximately 8 mL of clear CSF fluid was rem nicholas and sent to the lab for analysis. The needle was removed and Band-Aid applied. The patient inderjit ated the procedure well. Vital signs will be monitored postprocedure. IMPRESSION: Lumbar puncture as above. Performed, dictated, and signed by Aleks Aldana PA-C; to be co-signed by Dr. Karthik Cochran. Electronically signed by: Karthik Cochran M.D. 01/25/2023 4:02 PM
[2023-01-25 18:14] LABS: A calco-baum cmplx NotReported Not Detected (NotDetected); Bact fragilis Not Reported Not Detected (NotDetected); C auris Not Reported Not Detected (NotDetected); Calbicans Not Reported Not Detected (NotDetected); Candida glabrata Not Reported Not Detected (NotDetected); Candida krusei Not Reported Not Detected (NotDetected); Cneoformans/gatti Not Reported Not Detected (NotDetected); Cparapsilosis Not Reported Not Detected (NotDetected); Ctropicalis Not Reported Not Detected (NotDetected); E cloacae compx Not Reported Not Detected (NotDetected); Efaecalis Not Reported Not Detected (NotDetected); Efaecium Not Reported Not Detected (NotDetected); Enterobacterales Not Reported Not Detected (NotDetected); Escherichia coli Not Reported Not Detected (NotDetected); H influenzae Not Reported Not Detected (NotDetected); K aerogenes Not Reported Not Detected (NotDetected); Koxytoca Not Reported Not Detected (NotDetected); Kpneumoniae grp Not Reported Not Detected (NotDetected); Lmonocyt Not Reported Not Detected (NotDetected); N meningitidis Not Reported Not Detected (NotDetected); P aeruginosa Not Reported Not Detected (NotDetected); Proteus spp Not Reported Not Detected (NotDetected); Salmonella spp Not Reported Not Detected (NotDetected); Smarcescens Not Reported Not Detected (NotDetected); Staph lugdunensis Not Reported Not Detected (NotDetected); Staph spp. Not Reported Not Detected (NotDetected); Staphaureus Not Reported Not Detected (NotDetected); Staphepi Not Reported Not Detected (NotDetected); Stenmaltophilia Not Reported Not Detected (NotDetected); Strep agal(GrpB) Not Reported Not Detected (NotDetected); Strep pneum Not Reported Not Detected (NotDetected); Strep pyog (GrpA) Not Reported Not Detected (NotDetected); Strep spp Not Reported Not Detected (NotDetected)
[2023-01-26] MEDS: ACYCLOVIR SOD 950 MG in DEXTROSE 5% 250 ML IV SCH ×2 (00:34→08:47)
[2023-01-26] MEDS: PIPERACILLIN/TAZOBACTAM 4.5 GM in DEXTROSE 5% 100 ML IV SCH ×3 (01:31→18:17)
[2023-01-26 01:54] LABS: Partial Thromboplastin Ratio 1.5
[2023-01-26 01:58] LABS: Partial Thromboplastin Time 41.4 Seconds (21.0-31.0)
[2023-01-26] MEDS: HEPARIN SODIUM/DEXTROSE 25,000 UNITS/500 ML BAG IV SCH (06:31)
[2023-01-26 07:28] LABS: Hematocrit (blood only) 30.7 % (42.0-52.0); Hemoglobin 10.2 g/dl (14.0-18.0); Mean Corpuscular Hemoglobin 31.4 pg (25.0-34.0); Mean Corpuscular Hgb Conc 33.2 g/dL (32.0-36.0); Mean Corpuscular Volume 94.5 fL (80.0-100.0); Mean Platelet Volume 11.1 fL (9.4-12.4); Platelet Count 102 K/uL (130-400); RDW Coefficient of Variation 12.7 % (11.5-14.5); Red Blood Count 3.25 M/uL (4.70-6.10); White Blood Count 6.28 K/ul (4.8-10.8)
[2023-01-26 07:41] LABS: BUN Creatinine Ratio 22.2 (10-20); Creatinine Clr Calc Pharmacy 91.1 ml/min; Est GFR (African American) 94.6 ml/min; Est GFR (Non-African American) 81.6 ml/min; Magnesium 1.8 mg/dl (1.7-2.4); Phosphorus 2.7 mg/dl (2.5-4.9); Potassium 3.4 mmol/L (3.5-5.1)
[2023-01-26] MEDS: VANCOMYCIN HCL 1,250 MG in SODIUM CHLORIDE 0.9% 250 ML IV SCH (08:43)
[2023-01-26] MEDS: FUROSEMIDE 40 MG/4 ML VIAL IV SCH (08:50)
--- NOTE | 2023-01-26 09:15 | Pulmonology Progress Note ---
Date of Service January 26, 2023 Assessment & Plan (1) Volume overload: (2) Bilateral pleural effusion: Plan Attending: Dr. Moore Impression: This is an 82-year-old male admitted with altered mental status and hypothermia. Unable to obtain any medical or social history patient. Suspected sepsis from [facility] access. Pulmonary is consulted for bilateral pleural effusions. No significant hypoxia. Patient only on 1 and half liters per minute of supplemental oxygen by nasal cannula. No acute pulmonary distress noted. Recommendations: 1. Bilateral pleural effusions: * CT abdomen pelvis as well as chest x-ray reviewed. Patient with bilateral pleural effusions. Right greater than left. * No significant hypoxia or pulmonary distress * Suspect that effusions are probably secondary to fluid overload from a cardiology perspective. Patient is currently having diuretics adjusted * Difficult to get good imaging due to body habitus and poor positioning so would not rely on imaging direct care. * Discussed with patient's hospitalist, Dr. Mercado. Doubtful that this is empyema based on presentation of bilateral findings. * Infectious disease note reviewed. No suggestion of benefit from sampling of pleural effusion at this time * Continue supportive care as patient is anticoagulated with atrial fibrillation and would have difficult approach secondary to body habitus and BMI of 40.4 kg/m. 2. Hypoxemia: * Multifactorial to morbid obesity, metabolic encephalopathy, bilateral pleural effusions. * No hypercapnia on ABG or serum CO2. * Patient will probably tolerate room air. Suggest that patient be placed on on continuous pulse oximetry as he is unable to alert nursing if he is short of breath. * Recommend pulmonary toileting and incentive spirometry once his mental status clears. 3. Management of the patient's other medical issues is deferred to the primary admitting service. We will reassess over the next few days to see how he responds. If work of breathing increases or the patient has an increasing oxygen demand or his diuretic therapy is not acting quickly enough, could consider thoracentesis at that time. Thank you for including us in the care of this patient. The pulmonary service will sign off at this time. Please feel free to call or reconsult as needed. Admission and Anticipated Discharge Date Admission Date: January 20, 2023 Subjective Attending: Dr. Moore Patient seen and examined at bedside in room 218. Patient mated for altered mental status secondary to metabolic encephalopathy. Was recently transferred to [place] from [place] and in a senior living. Review of notes indicates that [facility] was accessed and patient began to have altered mental status. On admission, patient had CT abdomen pelvis done which revealed bilateral pleural effusions right greater than left. Follow-up chest x-ray shows persistent pleural effusions. Patient has a history of atrial fibrillation and is chronically anticoagulated with Xarelto. This was held on admission and patient was started on heparin drip. Patient is mildly hypoxic and is currently saturating the mid to upper 90s on 1-1/2 L/min via nasal cannula. Patient has no use of accessory muscles or respiratory distress on examination. Imaging does suggest fluid overload. Patient is being followed by cardiology and diuretics have been increased. From a pulmonary perspective, patient's arterial blood gas did not show any hypercapnia. Chemistries have been reviewed and patient has no increase in serum CO2. Some crackles at bilateral bases but otherwise no evidence of pulmonary distress. Patient is currently on acyclovir, Zosyn, and vancomycin. Review of Systems Review of Systems: Unobtainable due to cognitive status Patient is awake but unable to provide any history. He takes breath with request but follows no other simple commands. Physical Exam Physical Exam: GENERAL : No acute distress EYES: No icterus, gaze conjugate NOSE: No evidence of epistaxis MOUTH: No lesions or candidiasis NECK: Supple LUNGS: Basal crackles. Unable to take deep breaths to command. Breath sounds are distant secondary to obesity HEART: Regular, rate controlled ABDOMEN: Soft, NT, ND, BS Present EXTREMITIES: No LE edema, pedal pulses intact NEURO: A&OX3 Results & Data Results & Data Vital Signs (Past 12 Hours) Vital Signs Temp Pulse Pulse Resp BP Pulse Ox O2 Del Method 01/26/23 07:28 36.5 C 57 L 19 152/81 H 95 Nasal Cannula 01/26/23 03:39 36.5 C 62 22 144/70 H 98 Nasal Cannula 01/26/23 00:00 62 01/25/23 23:03 36.5 C 58 L 22 148/81 H 98 Room Air O2 Flow Rate 01/26/23 07:28 1.5 01/26/23 03:39 1 01/26/23 00:00 01/25/23 23:03 Critical Care Results & Data Vital Signs (Past 12 Hours) Vital Signs Temp Pulse Pulse Resp BP Pulse Ox O2 Del Method 01/26/23 07:28 36.5 C 57 L 19 152/81 H 95 Nasal Cannula 01/26/23 03:39 36.5 C 62 22 144/70 H 98 Nasal Cannula 01/26/23 00:00 62 01/25/23 23:03 36.5 C 58 L 22 148/81 H 98 Room Air O2 Flow Rate 01/26/23 07:28 1.5 01/26/23 03:39 1 01/26/23 00:00 01/25/23 23:03 Lab & Micro Results (Past 24 Hours) RBC 3.25 M/uL (4.70-6.10) L 01/26/23 WBC 6.28 K/ul (4.8-10.8) 01/26/23 Hgb 10.2 g/dl (14.0-18.0) L 01/26/23 Hct 30.7 % (42.0-52.0) L 01/26/23 MCV 94.5 fL (80.0-100.0) 01/26/23 MCH 31.4 pg (25.0-34.0) 01/26/23 MCHC 33.2 g/dL (32.0-36.0) 01/26/23 RDW Standard Deviation 44.0 fL (36.4-46.3) 01/26/23 RDW Coefficient of Variation 12.7 % (11.5-14.5) 01/26/23 Plt Count 102 K/uL (130-400) L 01/26/23 MPV 11.1 fL (9.4-12.4) 01/26/23 Na 142 mmol/L (136-145) 01/26/23 K 3.4 mmol/L (3.5-5.1) L 01/26/23 Cl 103 mmol/L (98-107) 01/26/23 CO2 32 mmol/L (21-32) 01/26/23 Anion Gap 7 (3-11) 01/26/23 BUN 18 mg/dl (6-23) 01/26/23 Creatinine 0.81 mg/dl (0.6-1.4) 01/26/23 Estimated GFR ( Amer) 94.6 ml/min 01/26/23 Estimated GFR (Non-Af Amer) 81.6 ml/min 01/26/23 BUN/Creatinine Ratio 22.2 (10-20) H 01/26/23 Glu 94 mg/dl (70-99(Fasting)) 01/26/23 Ca 9.0 mg/dl (8.6-10.3) 01/26/23 Phosphorus Level 2.7 mg/dl (2.5-4.9) 01/26/23 Mg 1.8 mg/dl (1.7-2.4) 01/26/23 06:41 Calcium Level 9.0 mg/dl (8.6-10.3) 01/26/23 06:41 Microbiology 01/20/23 14:49 Aerobic Blood Culture - Final Blood No growth in Aerobic bottle after 5 days. Anaerobic Blood Culture - Final No growth in Anaerobic bottle after 5 days. 01/20/23 13:20 Aerobic Blood Culture - Preliminary Blood Coag neg staph not lugdunensis Coag neg staph not lugdunensis#2 Anaerobic Blood Culture - Preliminary Gram positive bacilli 01/25/23 13:50 Gram Stain - Final Cerebral Spinal Fluid Diagnostic Findings (Past 24 Hours) Brain MRI 01/25/23 00:00 MR brain wo con CLINICAL HISTORY: encephalopathy TECHNIQUE: Multiplanar and multisequence MR images of the brain were obtained without intravenous contrast. Comparison: Comparison is made to CT head 873 FINDINGS: No abnormal restricted diffusion is identified. Foci of T2 and FLAIR hyperintensity are noted in the paraventricular areas consistent with chronic small vessel ischemic disease. Ex vacuo ventriculomegaly and sulcal enlargement is noted compatible with diffuse volume loss. No mass is seen. There is no mass effect or midline shift. There is no evidence of acute intraparenchymal hemorrhage. No extra axial fluid collections are seen. The corpus callosum, pituitary gland, and cerebellar tonsils appear grossly unremarkable. Flow voids of the major intracranial arterial vessels are identified. The imaged portions of the paranasal sinuses, mastoid air cells, and orbits are unremarkable. IMPRESSION: No acute abnormalities. ACT 112: Negative or not required by law. Electronically signed by: Jerome Love M.D. 01/25/2023 2:43 PM Lumbar Puncture 01/25/23 18:31 Lumbar puncture under fluoroscopy INDICATION: Encephalopathy PROCEDURE: Procedure and risks were explained. Informed consent was obtained over the phone. A final timeout was completed. The patient was placed prone on the fluoroscopic exam table. The lower lumbar region was prepped and draped in sterile fashion. 1% lidocaine was utilized for skin anesthesia. Utilizing fluoroscopic guidance, a 22-gauge spinal needle was advanced into the intrathecal space at the L3-4 disc space level. 2 spot images were obtained. Approximately 8 mL of clear CSF fluid was removed and sent to the lab for analysis. The needle was removed and Band-Aid applied. The patient tolerated the procedure well. Vital signs will be monitored postprocedure. IMPRESSION: Lumbar puncture as above. Performed, dictated, and signed by Aleks Aldana PA-C; to be co-signed by Dr. Karthik Cochran. Electronically signed by: Karthik Cochran M.D. 01/25/2023 4:02 PM I & O Totals 24 Hours 01/25/23 01/26/23 01/27/23 06:59 06:59 06:59 Intake Total 2398.134 / 2398.134 2121.600 / 2121.600 Output Total 3151 / 3151 2176 / 2176 Balance -752.866 / -752.866 -54.400 / -54.400 Cumulative 01/20/23 12:34 thru 01/26/23 06:31 Intake Total 8838.067 Output Total 38212 Balance -7314.933 RT Ventilator Mngmt (Last Documented) Ventilator Ordered Settings Respiratory Rate 19 01/26/23 07:28 Ventilator - PT Measurements Respiratory Rate 19 PG Care Time/CCT Total # of Minutes Spent Total Time Spent with Patient: Total time spent is greater than 50% in coordination of care (as documented) at patient's floor/unit and/or counseling patient:30 minutes including discussion with hospitalist Coding Level of Care Code 00830 SUB INP/OBS CARE 1/25MIN Diagnoses Volume overload E87.70 Bilateral pleural effusion J90 Time Spent (min) 30
[2023-01-26] MEDS: POTASSIUM CHLORIDE CRTAB 20 MEQ TABCR PO SCH ×2 (09:30→22:15)
--- NOTE | 2023-01-26 17:06 | XRay Report ---
XR KUB/Abdomen 1 view CLINICAL HISTORY: FEEDNG TUBE PLACEMENT TECHNIQUE: 1 view of the abdomen was obtained. Comparison: Comparison is made to CT abdomen pelvis 01/20/2023 FINDINGS: Enteric tube terminates in the stomach. Moderate right and small left pleural effusions are seen. IMPRESSION: Satisfactory appearance of enteric tube. ACT 112: Negative or not required by law. Electronically signed by: Jerome Love M.D. 01/26/2023 5:05 PM
[2023-01-26] MEDS: PEPTAMEN INTENSE VHP 1.0 CAL 1,000 ML BAG GT SCH (17:52)
[2023-01-26] MEDS: TUBE FEEDING WATER FLUSH NG SCH ×2 (17:53→21:28)
--- NOTE | 2023-01-26 20:51 | Hospitalist Progress Note ---
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 Acute metabolic encephalopathy Hypothermia Possible Sepsis in setting of profound hypothermia, confusion and leukopenia admitted to PCU continued jazzmine hugger warming system -> now temp normal and warming stopped , HR improved Biofire, urine negative CXR: pulm edema/pleural effusions ? underlying PNA received Cefepime 2g and 1L of IVF in ED MRSA - if positive with add vanco blood cultures - posit. for Staph epi one bottle, ? poss. contaminant repeat blood cultx obtained and so far negative Pt has a port that is not in active use but was recently accessed ID consulted 01/24 Pt again more encephalopathic today ID consulted - I recommend LP w/ cell count, meningitis/encephalitis PCR panel, bacterial culture, Cryptococcal antigen, fungal culture, HSV/VZV CSF PCR (maybe more sensitive than the PCN panel - Consider staring acyclovir iv for r/o viral encephalitis - Consider stopping all anti-infectives if CSF findings are not suggestive of infection and blood cultures remain negative after 5 days of antibacterials - Consider repeating CT head or MRI brain to r/o developing stroke or infection - will repeat CT head now, start acyclovir,, and plan to obtain LP. 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 Streak and motion compromised examination. 2. Cardiomegaly. 3. Right larger than left pleural effusions with dependent consolidation. 4. Cirrhotic liver morphology and trace perihepatic ascites. 5. There are large bilateral inguinal hernias which contain nonobstructed segments of bowel. No bowel obstruction is seen. 6. Body wall edema. 7. There are 2 small thick-walled fluid collections in the subcutaneous fat lateral to the right hip. These measure up to 3.2 cm and are indeterminant, possibly presenting small hematomas or seromas. The sterility of this fluid cannot be assessed by imaging and clinical correlation will be required. 8. Right-sided nephrolithiasis. 9. Additional findings as above. 2 small thick-walled fluid collections in the subcutaneous fat lateral to the right hip - surgery consulted , as poss. abscess ? - appreciate their input - surgery also consulted for poss. port removal as blood cultx positive and port is not in active use -discussed w/ surgery - will need to hold xarelto if needed removed - will discuss this further w/ ID - blood cultx likely contaminant hold on further IVF for now 2/2 volume overload TSH 4.6, random cortisol 18.6 Acute Heart failure, unknown EF Pulmonary edema reported weight gain, worsened lower ext edema, SOB pt with significant volume overload he does have chronic lymphedema but family states worsening and increased weight gain CXR: pulm edema, pleural effusions O2 saturations in low 90s Received 40mg IV lasix x 1 on admission cautious diuresis in setting of sepsis concern, will re evaluate obtained echo -LV systolic function is normal. EF 55 to 60%. RV is mildly dila vee. RV systolic function is normal. Mild aortic regurg. There is mild mitral regurg. There is moderate tricuspid regurg. Doppler findings do not suggest pulmonary hypertension. Dilated IVC with normal inspiratory variation suggesting right atrial pressure of 8 mmHg. Cardiology consulted - cont. w/ diuresis 01/26 continue IV lasix Chronic atrial fib chronic, on xarelto for stroke prophylaxis not on rate controlling agents, prior HR in 60s possible bradycardia in setting of hypothermia, HR now improved on Heparin drip Cognitive impairment per family baseline is A and O x 3, oriented to family typically ambulates with walker with assistance but mostly in wheel chair per OP epic records appears pt may be looking at changing to SNF due to difficulty with mobility will need to get PT/OT when approp he is on donepezil and Namenda as OP, will hold for now 01/23 - Mental status somewhat improved, pt more awake however he does not answer appropriately 8/7 Pt more lethargic today 8/8 Pt more awake, and following commands, answers simple questions 8/9 drowsy, mostly confused FULL CODE confirmed by son at bedside, however pt's daughter is POA - discussed w/ daughter, she will try to discuss w/ other family members. DVT ppx: Xarelto -> iv heparin PCP: Jon, pt at [facility] Dispo: PCU, consult PT/OT when appropriate, pt may not be candidate to return to [facility] and may need SNF Admission and Anticipated Discharge Date Admission Date: January 20, 2023 Subjective ff up for encephalopathy, etc seen resting in bed, comfortable drowsy, tries to speak, speech mostly unclear somewhat confused no dyspnea, chest pain no other symptoms Review of Systems Review of Systems: all noted and negative except for above Physical Exam Physical Exam: General- oriented x 1-2, not in distress, speaks in sentences with no effort or accessory muscle use Eyes- anicteric Neck- no JVD Lungs- decreased BS on the right, clear on the left Heart- normal rate, regular rhythm; no murmurs Abdomen- normal bowel sounds, nondistended, soft, nontender Extremities- grade 1 lower ext edema dry skin mild warmth R >L mild erythema Neuro- drowsy, oriented x 1-2; no other gross focal neurologic deficits Skin- warm & dry Results & Data Results & Data Vital Signs (Past 12 Hours) Vital Signs Temp Pulse Pulse Resp BP Pulse Ox Pulse Ox 01/26/23 19:00 36.8 C 60 18 145/70 H 100 01/26/23 19:39 69 01/26/23 15:56 36.3 C L 61 16 159/59 H 97 01/26/23 13:00 96 01/26/23 10:26 36.3 C L 60 18 150/92 H 97 O2 Del Method O2 Del Method O2 Flow Rate O2 Flow Rate 01/26/23 19:00 Nasal Cannula 1 01/26/23 19:39 01/26/23 15:56 Nasal Cannula 1 01/26/23 13:00 Nasal Cannula 1 01/26/23 10:26 Nasal Cannula 1 all noted and reviewed including below
[2023-01-26] MEDS: POTASSIUM CHLORIDE PWD 20 MEQ PACK GT SCH (22:56)
[2023-01-27] MEDS: PIPERACILLIN/TAZOBACTAM 4.5 GM in DEXTROSE 5% 100 ML IV SCH ×2 (00:21→08:58)
[2023-01-27] MEDS: TUBE FEEDING WATER FLUSH NG SCH ×6 (01:48→20:15)
[2023-01-27 06:59] LABS: Hematocrit (blood only) 32.4 % (42.0-52.0); Hemoglobin 10.8 g/dl (14.0-18.0); Mean Corpuscular Hemoglobin 31.3 pg (25.0-34.0); Mean Corpuscular Hgb Conc 33.3 g/dL (32.0-36.0); Mean Corpuscular Volume 93.9 fL (80.0-100.0); Platelet Count 135 K/uL (130-400); RDW Coefficient of Variation 12.8 % (11.5-14.5); RDW Standard Deviation 43.6 fL (36.4-46.3); Red Blood Count 3.45 M/uL (4.70-6.10); White Blood Count 7.02 K/ul (4.8-10.8)
[2023-01-27 07:08] LABS: Est GFR (African American) 92.7 ml/min
[2023-01-27 07:27] LABS: Partial Thromboplastin Ratio 1.4; Partial Thromboplastin Time 38.7 Seconds (21.0-31.0)
[2023-01-27] MEDS: POTASSIUM CHLORIDE PWD 20 MEQ PACK GT SCH ×2 (08:58→20:15)
[2023-01-27] MEDS: FUROSEMIDE 40 MG/4 ML VIAL IV SCH (09:00)
[2023-01-27 10:22] LABS: Calcium 9.2 mg/dl (8.6-10.3); Potassium 3.4 mmol/L (3.5-5.1)
[2023-01-27 11:47] LABS: Base Excess ABG 9.4 mEq/L (-9-1.8); HCO3 ABG 32 mmol/L (19-24); Oxygen Saturation ABG 95.4 % (90-95); PCO2 ABG 37 mmHg (35-46); PO2 ABG 68 mmHg (80-95)
[2023-01-27 11:53] LABS: pH ABG 7.55 (7.35-7.45)
--- NOTE | 2023-01-27 11:57 | XRay Report ---
XR chest 1V portable CLINICAL HISTORY: ff up pleural effusion TECHNIQUE: Single frontal radiograph of the chest was obtained. Comparison: Comparison is made to chest radiograph 01/24/2023 FINDINGS: A port catheter is seen. Cardiomegaly is noted. The aortic arch is calcified. The lungs are clear. Mo derate right and small left pleural effusion noted. Likely underlying airspace opacities. IMPRESSION: No significant change in bilateral pleural effusions. ACT 112: Negative or not required by law. Electronically signed by: Jerome Love M.D. 01/27/2023 11:56 AM
[2023-01-27 13:13] LABS: Allen Test POS (Pos)
--- NOTE | 2023-01-27 14:15 | CT Scan Report ---
CT SCAN OF THE BRAIN WITHOUT IV CONTRAST CLINICAL HISTORY: Change in mental status. COMPARISON STUDY: CT of the brain dated 01/24/2023. MRI of the brain dated 01/25/2023. TECHNIQUE: Unenhanced axial CT scan of the brain is performed from the vertex to the skull base. A do se lowering technique was utilized adhering to the principles of ALARA. The patient was scanned twice due to motion artifact. CT DOSE: 1195.57 mGy.cm FINDINGS: An enteric tube is noted on the marble ceiling installer tomogram. Brain parenchyma: There is age-related involutional change noting mild subcortical and periventricula r microangiopathic disease. There is no hemorrhage, mass effect, or evidence of acute territorial isc hemia by CT criteria. Segundo-white matter differentiation is preserved. No extra-axial fluid collection is seen. Ventricles, sulci, cisterns: Prominent secondary to involutional change. Intracranial vasculature: There is atherosclerotic calcification of the cavernous carotid and vertebr al arteries. Calvarium: Unremarkable. Sinuses and mastoids: The paranasal sinuses are clear. The mastoid air cells are well pneumatized. Orbits: The bony orbits are grossly intact. There are bilateral ocular lens implants and there has be en banding of the right globe. IMPRESSION: There is no hemorrhage, mass effect, or evidence of acute territorial ischemia by CT keit yeni noting a motion compromised examination. ACT 112: Negative or not required by law. Electronically signed by: Walt Avila M.D. 01/27/2023 2:13 PM
[2023-01-27] MEDS: HEPARIN SODIUM/DEXTROSE 25,000 UNITS/500 ML BAG IV SCH ×2 (14:17→19:21)
--- NOTE | 2023-01-27 15:04 | Neurology Consultation ---
Date of Consultation January 27, 2023 Assessment & Plan (1) Acute metabolic encephalopathy: Encephalopathy of unknown etiology. Structural and infectious causes have been appropriately evaluated and are negative. Fluctuations in mental status are common with dementia but would not expect the episode to be this severe or prolonged without cause. Possibilities include zosyn neurotoxicity or namenda or aricept withdrawal syndrome. Without a reversible cause like infection identified, I am concerned about his overall prognosis and discussed my concern with his family at bedside. At this point would discontinue zosyn as there has been no evidence of infection. In 48 hours, if no improvement would reintroduce namenda and aricept, if no improvement would then involve palliative care. -- Routine EEG -- Consider discontinuing zosyn, 48 hours of supportive care -- Then consider reintroducing namenda and/or aricept -- if no improvement or other cause identified in that time, I would introduce palliative care Telehealth Consultation Telehealth Information Telehealth Information: I performed this visit using a real-time telehealth connection between my location and the patients location ([facility]). After connecting through interactive tele-video, patient was identified by name and date of and/or wristband check.Patient (or authorized healthcare contact center representative) was informed that this was a telemedicine visit and it was being conducted confidentially over secure lines. My office door was closed and no one else was present in the room with me.Patient (or authorized healthcare contact center representative) provided consent to proceed with the visit, expressed an understanding of privacy and security of the telemedicine visit, and gave permission to have a hospital contact center representative in the room in order to assist with the visit and to conduct portions of the visit, as needed. I informed the patient (or authorized healthcare contact center representative) that I reviewed their record and presented the opportunity for them to ask any questions regarding the visit today. The patient agreed to participate. History of Present Illness Reason for Consultation: Encephalopathy Requesting Physician: Dr. Mercado Attending Physician: Denilson Mercado MD History of Present Illness Angel Oreilly is an 82 yo M presenting with altered mental status that has been persistent for the past 9 days. The patient is unable to contribute to the history due to the altered mental status. His children report that he began to decline at his assisted living a few days before they brought him to the hospital. He has a history of dementia on aricept and namenda though they would classify it as mild as most days he is able to converse and function independently. He has had episodes of encephalopathy in the past during periods of infection and they note that he takes a very long time to recover from these episodes. Otherwise since admission they note that he initially made some mild improvement before worsening over the last 2-3 days. He has not been alert and has been unable to swallow any PO medications safely. No cause for this episode of delirium has been identified. Allergies Allergy/AdvReac Type Severity Reaction Status Date / Time ceftriaxone Allergy Mild rash Verified 01/20/23 15:23 doxycycline Allergy Unknown ON Verified 01/20/23 15:23 [facility] rifampin Allergy Unknown ON Verified 01/20/23 15:23 [facility] Sulfa (Sulfonamide Allergy Unknown ON Verified 01/20/23 15:23 Antibiotics) [facility] ertapenem AdvReac Intermediate hallucinati Verified 01/20/23 15:23 ons Home Medications Medication Instructions Recorded Confirmed Type acetaminophen 325 mg tablet 650 mg PO Q4H PRN Pain 01/20/23 01/20/23 History (Tylenol) atorvastatin 20 mg tablet 20 mg PO DAILY 01/20/23 01/20/23 History cholecalciferol (vitamin D3) 50 50 mcg PO DAILY 01/20/23 01/20/23 History mcg (2,000 unit) capsule (Vitamin D3) cyclosporine 0.05 % eye drops 1 drp OPB Q12H 01/20/23 01/20/23 History donepezil 10 mg tablet 10 mg PO DAILY 01/20/23 01/20/23 History furosemide 20 mg tablet (Lasix) 20 mg PO DAILY 01/20/23 01/20/23 History furosemide 40 mg tablet (Lasix) 40 mg PO ONCE 01/20/23 01/20/23 History memantine 10 mg tablet 10 mg PO BID 01/20/23 01/20/23 History rivaroxaban 15 mg tablet (Xarelto) 15 mg PO DAILY 01/20/23 01/20/23 History silodosin 8 mg capsule 8 mg PO HS 01/20/23 01/20/23 History Patient History Medical History BPH (benign prostatic hyperplasia) Chronic atrial fibrillation CKD (chronic kidney disease) stage 3, GFR 30-59 ml/min Hx of long-term (current) use of anticoagulants Lymphedema MGUS (monoclonal gammopathy of unknown significance) Port-A-Cath in place Surgical History 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 Family History Other Family history non-contributory Social History Smoking Status: Former smoker Hx Alcohol Use: No Hx Substance Use: No Preferred Language: Bhutanese Communication Ability: Impaired Communication Ability Comment: [facility] [employer] Required: No Beliefs That Will Affect Care: None marital status: Single Current Living Situation: Alone Other Information That Helps Us Care for You: No Feels Safe at Home: Yes Safety Concerns: Feels Safe At This Time Assistive Devices: Walker and Wheelchair Review of Systems Unable to obtain Physical Exam Alerts briefly to voice and tactile stimuli. Able to answer some questions with one word answers before becoming unresponsive. Facial grimace is symmetric. No clear motor asymmetries, no abnormal movements noted. Results & Data Vital Signs (Past 12 Hours) Vital Signs Temp Pulse Pulse Resp BP Pulse Ox O2 Del Method 01/27/23 11:18 36.6 C 65 16 168/80 H 91 Nasal Cannula 01/27/23 07:20 Room Air 01/27/23 07:53 69 01/27/23 07:43 37.2 C 58 L 16 160/82 H 96 Nasal Cannula 01/27/23 04:00 37.0 C 62 18 159/77 H 100 Nasal Cannula O2 Flow Rate 01/27/23 11:18 1 01/27/23 07:20 01/27/23 07:53 01/27/23 07:43 1 01/27/23 04:00 1 Laboratory Results Abnormal lab results 01/26/23 01/27/23 01/27/23 Range/Units 23:48 06:12 06:12 RBC (4.70-6.10) M/uL Hgb (14.0-18.0) g/dl Hct (42.0-52.0) % APTT 38.7 H (21.0-31.0) Seconds ABG pH (7.35-7.45) ABG pO2 (80-95) mmHg ABG HCO3 (19-24) mmol/L ABG O2 Saturation (90-95) % ABG Base Excess (-9-1.8) mEq/L Potassium 3.4 L (3.5-5.1) mmol/L POC Glucose 104 H (70-99) mg/dl 01/27/23 01/27/23 01/27/23 Range/Units 06:12 11:40 12:01 RBC 3.45 L (4.70-6.10) M/uL Hgb 10.8 L (14.0-18.0) g/dl Hct 32.4 L (42.0-52.0) % APTT (21.0-31.0) Seconds ABG pH 7.55 H* (7.35-7.45) ABG pO2 68 L (80-95) mmHg ABG HCO3 32 H (19-24) mmol/L ABG O2 Saturation 95.4 H (90-95) % ABG Base Excess 9.4 H (-9-1.8) mEq/L Potassium (3.5-5.1) mmol/L POC Glucose 113 H (70-99) mg/dl Diagnostic Findings MRI brain - unremarkable CT head 01/27 - Unremarkable
[2023-01-27 16:15] LABS: Partial Thromboplastin Ratio 1.4
[2023-01-27 16:19] LABS: Partial Thromboplastin Time 40.8 Seconds (21.0-31.0)
--- NOTE | 2023-01-27 17:09 | Hospitalist Progress Note ---
Date of Service January 27, 2023 Assessment & Plan (1) Acute metabolic encephalopathy: (2) Hypothermia: (3) Pulmonary edema: (4) Chronic atrial fibrillation: (5) Thrombocytopenia: Plan This is an 82-year-old male who has a significant past medical history of chronic atrial fibrillation, CKD stage III, essential tremor, BPH, MGUS, lymphedema, hx of prior infected TKR with port in place due to requiring antibiotics who presents to ED secondary to altered mental status x 3 days. Acute metabolic encephalopathy Hypothermia Possible Sepsis in setting of profound hypothermia, confusion and leukopenia Biofire, urine negative CXR: pulm edema/pleural effusions blood cultures - posit. for Staph epi one bottle, likely contaminant Repeat blood culture Pt has a port that is not in active use but was recently accessed ID consulted repeat CT head - negative Brain MRI -unremarkable LP ordered -negative Patient more drowsy today, nonverbal Repeat CT head: Unremarkable Neurologist consulted-discussed with Dr. Luo Possible encephalopathy secondary to Zosyn, memantine withdrawal DC Zosyn, supportive care If no improvement within 48 hrs., consider palliative care consultation Acute Heart failure Pulmonary edema reported weight gain, worsened lower ext edema, SOB pt with significant volume overload he does have chronic lymphedema but family states worsening and increased weight gain CXR: pulm edema, pleural effusions obtained echo -LV systolic function is normal. EF 55 to 60%. RV is mildly dilated. RV systolic function is normal. Mild aortic regurg. There is mild mitral regurg. There is moderate tricuspid regurg. Doppler findings do not suggest pulmonary hypertension. Dilated IVC with normal inspiratory variation suggesting right atrial pressure of 8 mmHg. Cardiology consulted -on Lasix 40 mg IV daily Chronic atrial fibrillation chronic, on xarelto for stroke prophylaxis not on rate controlling agents, prior HR in 60s possible bradycardia in setting of hypothermia, HR now improved Currently on heparin drip, Xarelto on hold in light of poor mental status, n.p.o. status Transition to Lovenox SQ twice daily FULL CODE DVT ppx: Xarelto -> iv heparin PCP: [facility] Dispo: Pending plan of care discussed with patient's children Raya and Gamal at the bedside in detail and at length all questions answered they are understanding, agreeable, comfortable with the plan of care Admission and Anticipated Discharge Date Admission Date: January 20, 2023 Subjective Follow-up for encephalopathy, etc. Seen resting in bed Very drowsy, barely opens eyes to stimuli Moans occasionally Patient joined the bedside visiting Tube feeding in progress, no issues No signs of pain, discomfort or shortness of breath No other new symptoms Review of Systems Review of Systems: all noted and negative except for above Physical Exam Physical Exam: General-very drowsy, not in distress, breathing with no effort or accessory muscle use Eyes- anicteric Neck- no JVD Lungs-mild decreased breath sounds on the right base, clear on the left Heart- normal rate, regular rhythm; no murmurs Abdomen- normal bowel sounds, nondistended, soft, nontender Extremities-mild lower extremity edema, mild erythema bilaterally right more than left, mild warmth bilaterally Neuro-very drowsy, seems to move extremities equally although minimal Skin- warm & dry Results & Data Results & Data Vital Signs (Past 12 Hours) Vital Signs Temp Pulse Pulse Resp BP Pulse Ox Pulse Ox 01/27/23 16:58 56 L 01/27/23 15:47 37.7 C H 48 L 12 153/93 H 94 01/27/23 13:00 96 01/27/23 11:18 36.6 C 65 16 168/80 H 91 01/27/23 07:20 01/27/23 07:53 69 01/27/23 07:43 37.2 C 58 L 16 160/82 H 96 O2 Del Method O2 Del Method O2 Flow Rate O2 Flow Rate 01/27/23 16:58 01/27/23 15:47 Nasal Cannula 1 01/27/23 13:00 Nasal Cannula 1 01/27/23 11:18 Nasal Cannula 1 01/27/23 07:20 Room Air 01/27/23 07:53 01/27/23 07:43 Nasal Cannula 1 all noted and reviewed including below
[2023-01-27] MEDS: ENOXAPARIN INJ 120 MG/0.8 ML SYR SQ SCH (19:00)
[2023-01-28] MEDS: TUBE FEEDING WATER FLUSH NG SCH ×6 (00:26→21:24)
[2023-01-28] MEDS: ENOXAPARIN INJ 120 MG/0.8 ML SYR SQ SCH ×2 (06:07→18:28)
[2023-01-28] MEDS: PEPTAMEN INTENSE VHP 1.0 CAL 1,000 ML BAG GT SCH (07:58)
[2023-01-28] MEDS: POTASSIUM CHLORIDE PWD 20 MEQ PACK GT SCH ×2 (08:01→21:25)
[2023-01-28] MEDS: FUROSEMIDE 40 MG/4 ML VIAL IV SCH (08:01)
[2023-01-28 10:25] LABS: Anion Gap 6 (3-11); BUN Creatinine Ratio 28.4 (10-20); Blood Urea Nitrogen 23 mg/dl (6-23); Calcium 9.2 mg/dl (8.6-10.3); Carbon Dioxide 31 mmol/L (21-32); Chloride 100 mmol/L (98-107); Creatinine Clr Calc Pharmacy 90.2 ml/min; Est GFR (African American) 94.6 ml/min; Est GFR (Non-African American) 81.6 ml/min; Glucose 110 mg/dl (70-99(Fasting)); Sodium 137 mmol/L (136-145)
--- NOTE | 2023-01-28 13:29 | Electroencephalogram ---
EEG Procedure Note Date of Service January 28, 2023 Start / End Times Start Time: 12:01 End Time: 12:22 Referring Physician Denilson Christensen MD History An 82-year-old male with encephalopathy. EEG performed for evaluation of epileptiform activity. Home Medication List Medication Instructions Recorded Confirmed Type acetaminophen 325 mg tablet 650 mg PO Q4H PRN Pain 01/20/23 01/20/23 History (Tylenol) atorvastatin 20 mg tablet 20 mg PO DAILY 01/20/23 01/20/23 History cholecalciferol (vitamin D3) 50 50 mcg PO DAILY 01/20/23 01/20/23 History mcg (2,000 unit) capsule (Vitamin D3) cyclosporine 0.05 % eye drops 1 drp OPB Q12H 01/20/23 01/20/23 History donepezil 10 mg tablet 10 mg PO DAILY 01/20/23 01/20/23 History furosemide 20 mg tablet (Lasix) 20 mg PO DAILY 01/20/23 01/20/23 History furosemide 40 mg tablet (Lasix) 40 mg PO ONCE 01/20/23 01/20/23 History memantine 10 mg tablet 10 mg PO BID 01/20/23 01/20/23 History rivaroxaban 15 mg tablet (Xarelto) 15 mg PO DAILY 01/20/23 01/20/23 History silodosin 8 mg capsule 8 mg PO HS 01/20/23 01/20/23 History Inpatient Medication List Enoxaparin Sodium (Enoxaparin Inj 120 Mg/0.8 Ml Syr) 120 mg SQ Q12H LISA Stop: 02/26/23 18:59 Last Admin: 01/28/23 06:07 Dose: 120 mg Documented By: Admin: 01/27/23 19:00 Dose: 120 mg Documented By: OO Furosemide (Furosemide 40 Mg/4 Ml Vial) 40 mg IV DAILY LISA Stop: 02/22/23 11:29 Last Admin: 01/28/23 08:01 Dose: 40 mg Documented By: Admin: 01/27/23 09:00 Dose: 40 mg Documented By: ODeshaun Admin: 01/26/23 08:50 Dose: 40 mg Documented By: ODeshaun Admin: 01/25/23 08:07 Dose: 40 mg Documented By: Admin: 01/24/23 09:18 Dose: 40 mg Documented By: Admin: 01/23/23 12:08 Dose: 40 mg Documented By: VANESSA Nutritional Formula (Peptamen Intense Vhp 1.0 Edwin 1,000 Ml Bag) 0 ml GT UD LISA; Protocol Stop: 02/25/23 16:44 Last Admin: 01/28/23 07:58 Dose: 1,000 ml Documented By: Admin: 01/26/23 17:52 Dose: 1,000 ml Documented By: ODeshaun Potassium Chloride (Potassium Chloride Pwd 20 Meq Pack) 20 meq GT BID LISA Stop: 02/25/23 21:59 Last Admin: 01/28/23 08:01 Dose: 20 meq Documented By: Admin: 01/27/23 20:15 Dose: 20 meq Documented By: Admin: 01/27/23 08:58 Dose: 20 meq Documented By: ODeshaun Admin: 01/26/23 22:56 Dose: 20 meq Documented By: LELO(2) Rivaroxaban (Rivaroxaban 20 Mg Tab) [address] [facility] Stop: 02/20/23 16:29 Last Admin: 01/21/23 14:06 Dose: Not Given Documented By: VANESSA Sterile Water (Tube Feeding Water Flush) 30 ml NG Q4H LISA Stop: 02/25/23 16:59 Last Admin: 01/28/23 13:17 Dose: 30 ml Documented By: Admin: 01/28/23 08:02 Dose: 30 ml Documented By: Admin: 01/28/23 06:05 Dose: 30 ml Documented By: Admin: 01/28/23 00:26 Dose: 30 ml Documented By: Admin: 01/27/23 20:15 Dose: 30 ml Documented By: Admin: 01/27/23 17:00 Dose: 30 ml Documented By: Admin: 01/27/23 13:30 Dose: 30 ml Documented By: ODeshaun Admin: 01/27/23 08:59 Dose: 30 ml Documented By: ODeshaun Admin: 01/27/23 05:40 Dose: 30 ml Documented By: CM(2) Admin: 01/27/23 01:48 Dose: 30 ml Documented By: CM(2) Admin: 01/26/23 21:28 Dose: 30 ml Documented By: CM(2) Admin: 01/26/23 17:53 Dose: 30 ml Documented By: OO Discontinued Medications Furosemide (Furosemide 40 Mg/4 Ml Vial) 40 mg IV NOW STA Stop: 01/20/23 15:42 Last Admin: 01/20/23 16:07 Dose: 40 mg Documented By: KATHERIN Furosemide (Furosemide Inj 20 Mg/2 Ml Vial) 20 mg IV ONE ONE Stop: 01/21/23 15:28 Last Admin: 01/21/23 17:04 Dose: 20 mg Documented By: VANESSA Furosemide (Furosemide 40 Mg/4 Ml Vial) 40 mg IV ONE ONE Stop: 01/22/23 16:01 Last Admin: 01/22/23 15:13 Dose: 40 mg Documented By: VANESSA Heparin Sodium/Dextrose (Heparin Iv Adult Wt-Based Low-Dose *No* Bolus Protocol) 1 each IV Q15M LISA; Protocol Stop: 01/22/23 12:01 Last Admin: 01/22/23 12:23 Dose: Not Given Documented By: Admin: 01/22/23 12:23 Dose: Not Given Documented By: Admin: 01/22/23 11:51 Dose: Not Given Documented By: VANESSA Sodium Chloride (Nss 1000ml) 1,000 mls @ 999 mls/hr IV .Q1H1M LISA Stop: 01/20/23 14:30 Last Infusion: 01/20/23 14:32 Dose: 0 mls/hr Documented By: Admin: 01/20/23 13:26 Dose: 999 mls/hr Documented By: KATHERIN Vancomycin HCl 2,750 mg/ (Sodium Chloride) 555 mls @ 200 mls/hr IV NOW ONE Stop: 01/20/23 17:37 Last Admin: 01/20/23 20:52 Dose: Not Given Documented By: CHLOÉ Cefepime HCl (Maxipime) 2,000 mg in 20 mls @ 5 mls/min IV NOW STA; Protocol Stop: 01/20/23 14:54 Last Admin: 01/20/23 15:03 Dose: 5 mls/min Documented By: ASHLEY Piperacillin Sod/Tazobactam (Sod 4.5 gm/ Dextrose) 120 mls @ 30 mls/hr IV Q8H LISA; Protocol Stop: 01/28/23 00:59 Last Infusion: 01/27/23 13:15 Dose: 0 mls/hr Documented By: Admin: 01/27/23 08:58 Dose: 30 mls/hr Documented By: Infusion: 01/27/23 04:28 Dose: 0 mls/hr Documented By: CM(2) Admin: 01/27/23 00:21 Dose: 30 mls/hr Documented By: CM(2) Infusion: 01/26/23 22:16 Dose: 0 mls/hr Documented By: CM(2) Admin: 01/26/23 18:17 Dose: 30 mls/hr Documented By: Infusion: 01/26/23 13:02 Dose: 0 mls/hr Documented By: Admin: 01/26/23 08:43 Dose: 30 mls/hr Documented By: Infusion: 01/26/23 06:20 Dose: 0 mls/hr Documented By: Admin: 01/26/23 01:31 Dose: 30 mls/hr Documented By: Infusion: 01/25/23 21:37 Dose: 0 mls/hr Documented By: Admin: 01/25/23 17:31 Dose: 30 mls/hr Documented By: Infusion: 01/25/23 12:31 Dose: 0 mls/hr Documented By: Admin: 01/25/23 08:05 Dose: 30 mls/hr Documented By: Infusion: 01/25/23 05:24 Dose: 0 mls/hr Documented By: Admin: 01/25/23 01:24 Dose: 30 mls/hr Documented By: Infusion: 01/24/23 20:51 Dose: 0 mls/hr Documented By: Admin: 01/24/23 16:51 Dose: 30 mls/hr Documented By: Infusion: 01/24/23 13:37 Dose: 0 mls/hr Documented By: Admin: 01/24/23 09:19 Dose: 30 mls/hr Documented By: Infusion: 01/24/23 05:39 Dose: 0 mls/hr Documented By: Admin: 01/24/23 01:39 Dose: 30 mls/hr Documented By: Infusion: 01/23/23 20:32 Dose: 0 mls/hr Documented By: Admin: 01/23/23 16:32 Dose: 30 mls/hr Documented By: Infusion: 01/23/23 13:31 Dose: 0 mls/hr Documented By: Admin: 01/23/23 09:26 Dose: 30 mls/hr Documented By: Infusion: 01/23/23 04:50 Dose: 0 mls/hr Documented By: Admin: 01/23/23 00:47 Dose: 30 mls/hr Documented By: Infusion: 01/22/23 21:01 Dose: 0 mls/hr Documented By: Admin: 01/22/23 17:06 Dose: 30 mls/hr Documented By: Infusion: 01/22/23 13:07 Dose: 0 mls/hr Documented By: Admin: 01/22/23 08:59 Dose: 30 mls/hr Documented By: Infusion: 01/22/23 05:02 Dose: 0 mls/hr Documented By: Admin: 01/22/23 01:02 Dose: 30 mls/hr Documented By: Infusion: 01/21/23 21:04 Dose: 0 mls/hr Documented By: Admin: 01/21/23 17:04 Dose: 30 mls/hr Documented By: Infusion: 01/21/23 12:44 Dose: 0 mls/hr Documented By: Admin: 01/21/23 08:30 Dose: 30 mls/hr Documented By: Infusion: 01/21/23 05:07 Dose: 0 mls/hr Documented By: Admin: 01/21/23 00:54 Dose: 30 mls/hr Documented By: CHLOÉ Piperacillin Sod/Tazobactam (Sod 4.5 gm/ Dextrose) 120 mls @ 240 mls/hr IV NOW ONE; Protocol Stop: 01/20/23 20:59 Last Infusion: 01/20/23 21:39 Dose: 0 mls/hr Documented By: Admin: 01/20/23 21:03 Dose: 240 mls/hr Documented By: CHLOÉ Vancomycin HCl 2,750 mg/ (Sodium Chloride) 555 mls @ 200 mls/hr IV NOW ONE Stop: 01/21/23 15:01 Last Admin: 01/21/23 14:10 Dose: 200 mls/hr Documented By: VANESSA Vancomycin HCl 1,250 mg/ (Sodium Chloride) 275 mls @ 200 mls/hr IV DAILY@1400 LISA Stop: 02/05/23 13:59 Last Infusion: 01/22/23 16:44 Dose: 0 mls/hr Documented By: Admin: 01/22/23 15:13 Dose: 200 mls/hr Documented By: VANESSA Potassium Chloride (K Reggie / Wtr) 10 meq in 100 mls @ 100 mls/hr IV Q1H LISA Stop: 01/21/23 18:14 Last Infusion: 01/21/23 19:10 Dose: 0 mls/hr Documented By: Admin: 01/21/23 18:10 Dose: 100 mls/hr Documented By: Infusion: 01/21/23 18:04 Dose: 100 mls/hr Documented By: Admin: 01/21/23 17:04 Dose: 100 mls/hr Documented By: VANESSA Potassium Chloride (K Reggie / Wtr) 10 meq in 100 mls @ 100 mls/hr IV Q1H LISA Stop: 01/22/23 15:14 Last Infusion: 01/22/23 16:33 Dose: 0 mls/hr Documented By: Admin: 01/22/23 15:16 Dose: 100 mls/hr Documented By: Infusion: 01/22/23 15:01 Dose: 100 mls/hr Documented By: Admin: 01/22/23 14:01 Dose: 100 mls/hr Documented By: Infusion: 01/22/23 14:01 Dose: 100 mls/hr Documented By: Admin: 01/22/23 13:07 Dose: 100 mls/hr Documented By: Infusion: 01/22/23 13:07 Dose: 100 mls/hr Documented By: Admin: 01/22/23 12:11 Dose: 100 mls/hr Documented By: VANESSA Heparin Sodium/Dextrose (Heparin Sodium/Dextrose) 25,000 units in 500 mls @ 16 mls/hr IV .Q24H LISA; Protocol Stop: 01/27/23 18:59 Last Admin: 01/27/23 19:21 Dose: Not Given Documented By: Titration: 01/27/23 18:59 Dose: 0 units/hr, 0 mls/hr Documented By: OO Co-signed By: AMM Titration: 01/27/23 14:17 Dose: 800 units/hr, 16 mls/hr Documented By: OO Co-signed By: ENS Admin: 01/27/23 14:17 Dose: 800 units/hr, 16 mls/hr Documented By: OO Co-signed By: ENS Titration: 01/27/23 07:56 Dose: 800 units/hr, 16 mls/hr Documented By: OO Co-signed By: ENS Titration: 01/26/23 19:29 Dose: 700 units/hr, 14 mls/hr Documented By: CM(2) Co-signed By: OO Admin: 01/26/23 06:31 Dose: 700 units/hr, 14 mls/hr Documented By: LMP Co-signed By: AMW Titration: 01/26/23 06:31 Dose: 700 units/hr, 14 mls/hr Documented By: LMP Co-signed By: AMW Titration: 01/26/23 02:00 Dose: 700 units/hr, 14 mls/hr Documented By: LMP Co-signed By: ANTOINE Titration: 01/25/23 19:25 Dose: 700 units/hr, 14 mls/hr Documented By: OO Co-signed By: LMP Titration: 01/25/23 18:17 Dose: 700 units/hr, 14 mls/hr Documented By: OO Co-signed By: EP Titration: 01/25/23 00:02 Dose: 0 units/hr, 0 mls/hr Documented By: AMW Co-signed By: LELO(2) Admin: 01/24/23 11:08 Dose: 700 units/hr, 14 mls/hr Documented By: CM Co-signed By: ALN Titration: 01/24/23 11:08 Dose: 700 units/hr, 14 mls/hr Documented By: CM Co-signed By: ALN Titration: 01/24/23 07:08 Dose: 700 units/hr, 14 mls/hr Documented By: AMW Co-signed By: CM Admin: 01/23/23 21:00 Dose: 700 units/hr, 14 mls/hr Documented By: AMW Co-signed By: GH Titration: 01/23/23 20:50 Dose: 700 units/hr, 14 mls/hr Documented By: AMW Co-signed By: GH Titration: 01/23/23 19:19 Dose: 700 units/hr, 14 mls/hr Documented By: CA Co-signed By: TIFFANY Titration: 01/23/23 10:57 Dose: 700 units/hr, 14 mls/hr Documented By: VANESSA Co-signed By: WS Titration: 01/23/23 07:00 Dose: 700 units/hr, 14 mls/hr Documented By: EW Co-signed By: VANESSA Titration: 01/23/23 04:00 Dose: 700 units/hr, 14 mls/hr Documented By: EW Co-signed By: GH Titration: 01/22/23 20:47 Dose: 800 units/hr, 16 mls/hr Documented By: EW Co-signed By: GH Titration: 01/22/23 19:39 Dose: 0 units/hr, 0 mls/hr Documented By: EW Co-signed By: PAH Admin: 01/22/23 12:12 Dose: 1,000 units/hr, 20 mls/hr Documented By: VANESSA Co-signed By: Vancomycin HCl 1,000 mg/ (Sodium Chloride) 270 mls @ 200 mls/hr IV Q12H LISA Stop: 02/06/23 09:59 Last Infusion: 01/24/23 23:23 Dose: 0 mls/hr Documented By: AMNikolas Admin: 01/24/23 22:02 Dose: 200 mls/hr Documented By: Infusion: 01/24/23 10:45 Dose: 0 mls/hr Documented By: Admin: 01/24/23 09:20 Dose: 200 mls/hr Documented By: Infusion: 01/23/23 22:24 Dose: 0 mls/hr Documented By: Admin: 01/23/23 21:03 Dose: 200 mls/hr Documented By: Infusion: 01/23/23 13:31 Dose: 0 mls/hr Documented By: Admin: 01/23/23 12:07 Dose: 200 mls/hr Documented By: VANESSA Potassium Chloride (K Reggie / Wtr) 10 meq in 100 mls @ 100 mls/hr IV Q1H LISA Stop: 01/24/23 12:59 Last Infusion: 01/24/23 13:37 Dose: 0 mls/hr Documented By: Admin: 01/24/23 11:56 Dose: 100 mls/hr Documented By: Infusion: 01/24/23 11:56 Dose: 100 mls/hr Documented By: Admin: 01/24/23 11:07 Dose: 100 mls/hr Documented By: LELO Potassium Chloride (K Reggie / Wtr) 10 meq in 100 mls @ 100 mls/hr IV Q1H LISA Stop: 01/24/23 15:59 Last Infusion: 01/24/23 18:25 Dose: 0 mls/hr Documented By: Admin: 01/24/23 16:52 Dose: 100 mls/hr Documented By: Infusion: 01/24/23 16:03 Dose: 100 mls/hr Documented By: Admin: 01/24/23 15:03 Dose: 100 mls/hr Documented By: LELO Magnesium Sulfate/Dextrose (Magnesium Sulfate / D5w) 1 gm in 100 mls @ 50 mls/hr IV ONE ONE Stop: 01/24/23 17:21 Last Infusion: 01/24/23 18:40 Dose: 0 mls/hr Documented By: Admin: 01/24/23 16:51 Dose: 50 mls/hr Documented By: LELO Acyclovir Sodium 950 mg/ (Dextrose) 269 mls @ 250 mls/hr IV Q8H LISA Stop: 02/03/23 17:14 Last Infusion: 01/26/23 10:06 Dose: 0 mls/hr Documented By: Admin: 01/26/23 08:47 Dose: 250 mls/hr Documented By: Infusion: 01/26/23 01:41 Dose: 0 mls/hr Documented By: Admin: 01/26/23 00:34 Dose: 250 mls/hr Documented By: Infusion: 01/25/23 19:29 Dose: 0 mls/hr Documented By: Admin: 01/25/23 17:31 Dose: 250 mls/hr Documented By: Infusion: 01/25/23 09:43 Dose: 0 mls/hr Documented By: Admin: 01/25/23 08:23 Dose: 250 mls/hr Documented By: Infusion: 01/25/23 02:52 Dose: 0 mls/hr Documented By: Admin: 01/25/23 01:24 Dose: 250 mls/hr Documented By: Infusion: 01/24/23 19:30 Dose: 0 mls/hr Documented By: Admin: 01/24/23 18:25 Dose: 250 mls/hr Documented By: LELO Vancomycin HCl 1,250 mg/ (Sodium Chloride) 275 mls @ 200 mls/hr IV Q18H LISA Stop: 02/06/23 13:59 Last Infusion: 01/26/23 10:47 Dose: 0 mls/hr Documented By: Admin: 01/26/23 08:43 Dose: 200 mls/hr Documented By: Infusion: 01/25/23 17:37 Dose: 0 mls/hr Documented By: Admin: 01/25/23 15:33 Dose: 200 mls/hr Documented By: OO Potassium Chloride (K Reggie / Wtr) 10 meq in 100 mls @ 100 mls/hr IV Q1H LISA Stop: 01/25/23 14:29 Last Infusion: 01/25/23 19:29 Dose: 0 mls/hr Documented By: Admin: 01/25/23 17:28 Dose: 100 mls/hr Documented By: Infusion: 01/25/23 16:33 Dose: 100 mls/hr Documented By: Admin: 01/25/23 15:33 Dose: 100 mls/hr Documented By: Infusion: 01/25/23 15:33 Dose: 0 mls/hr Documented By: Infusion: 01/25/23 13:20 Dose: 0 mls/hr Documented By: Admin: 01/25/23 12:30 Dose: 100 mls/hr Documented By: Infusion: 01/25/23 12:30 Dose: 100 mls/hr Documented By: Admin: 01/25/23 11:30 Dose: 100 mls/hr Documented By: OO Ioversol (Ioversol 350 Mg 125ml Prefilled Syringe) 112 ml IV ONCE ONE Stop: 01/20/23 17:10 Last Admin: 01/20/23 17:10 Dose: 112 ml Documented By: BIA Perez (Hold Order) 1 each N/A ONE ONE Stop: 01/25/23 00:01 Last Admin: 01/25/23 00:02 Dose: 1 each Documented By: TIFFANY Perez (Stop Order) 1 each N/A ONE ONE Stop: 01/27/23 19:00 Last Admin: 01/27/23 18:59 Dose: 1 each Documented By: OO Potassium Chloride (Potassium Chloride 10 Meq Tabcr) 30 meq PO NOW ONE Stop: 01/21/23 15:28 Last Admin: 01/21/23 16:53 Dose: Not Given Documented By: VANESSA Potassium Chloride (Potassium Chloride Crtab 20 Meq Tabcr) 40 meq PO NOW STA Stop: 01/22/23 07:45 Last Admin: 01/22/23 11:17 Dose: Not Given Documented By: VANESSA Potassium Chloride (Potassium Chloride Crtab 20 Meq Tabcr) 20 meq PO BID LISA Stop: 02/22/23 11:29 Last Admin: 01/26/23 22:15 Dose: Not Given Documented By: LELO(2) Admin: 01/26/23 09:30 Dose: 20 meq Documented By: Admin: 01/25/23 21:46 Dose: 20 meq Documented By: Admin: 01/25/23 08:22 Dose: 20 meq Documented By: Admin: 01/24/23 21:17 Dose: Not Given Documented By: Admin: 01/24/23 09:18 Dose: Not Given Documented By: Admin: 01/23/23 21:00 Dose: 20 meq Documented By: Admin: 01/23/23 12:08 Dose: 20 meq Documented By: VANESSA Description This is a 21 electrode EEG with a single channel dedicated to limited EKG. The electrodes were placed in accordance with the International 10-20 system. REPORT: At the onset of the EEG the patient is in an altered mental state. The background is symmetric and continuous. The posterior dominant rhythm is not seen. There is a loss of the normal anterior to posterior gradient. The background consists of generalized polymorphic 2-3 hertz delta activity with some intermixed faster frequencies likely artifactual. No stage 2 sleep transients are seen. No epileptiform discharges are seen. Interpretation IMPRESSION: This is an abnormal routine EEG in a patient with altered mentation due to moderate to severe generalized background slowing suggestive of a nonspecific encephalopathy. No electrographic seizures or epileptiform activity is seen.
--- NOTE | 2023-01-28 16:01 | Hospitalist Progress Note ---
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 Acute metabolic encephalopathy Hypothermia Possible Sepsis in setting of profound hypothermia, confusion and leukopenia Biofire, urine negative CXR: pulm edema/pleural effusions blood cultures - posit. for Staph epi one bottle, likely contaminant Repeat blood culture Pt has a port that is not in active use but was recently accessed ID consulted repeat CT head - negative Brain MRI -unremarkable LP ordered -negative Patient more drowsy today, nonverbal Repeat CT head: Unremarkable Neurologist consulted-discussed with Dr. Luo Possible encephalopathy secondary to Zosyn, memantine withdrawal DC Zosyn, supportive care If no improvement within 48 hrs., consider palliative care consultation 01/28 Patient waking up more today compared to yesterday Tries to answer some questions EEG: Nonspecific slowing of waveforms, no seizure or epileptiform activity Continue supportive care Continue to monitor closely Acute Heart failure Pulmonary edema reported weight gain, worsened lower ext edema, SOB pt with significant volume overload he does have chronic lymphedema but family states worsening and increased weight gain CXR: pulm edema, pleural effusions obtained echo -LV systolic function is normal. EF 55 to 60%. RV is mildly dilated. RV systolic function is normal. Mild aortic regurg. There is mild mi tral regurg. There is moderate tricuspid regurg. Doppler findings do not suggest pulmonary hypertension. Dilated IVC with normal inspiratory variation suggesting right atrial pressure of 8 mmHg. Cardiology consulted -on Lasix 40 mg IV daily Chronic atrial fibrillation chronic, on xarelto for stroke prophylaxis not on rate controlling agents, prior HR in 60s possible bradycardia in setting of hypothermia, HR now improved Currently on heparin drip, Xarelto on hold in light of poor mental status, n.p.o. status Transitioned to Lovenox 120 mg SQ twice daily FULL CODE DVT ppx: On Lovenox subcu twice daily PCP: Jon pt at [facility] Dispo: Pending plan of care discussed with patient's daughter Bj at the bedside all questions answered she is understanding, agreeable, comfortable with the plan of care Admission and Anticipated Discharge Date Admission Date: January 20, 2023 Subjective Follow-up for encephalopathy, etc. Seen resting in bed, sleeping but easily awakened Able to open eyes more, answering more questions Oriented to place and person, can state his birthday Able to name his daughter and his son States he feels okay Denies shortness of breath, abdominal pain No other issues identified Reevaluated in the afternoon with patient's daughter at the bedside Patient appears more tired, but tries to answer some questions Review of Systems Review of Systems: all noted and negative except for above Physical Exam Physical Exam: General- oriented x 1-2, not in distress, speaks in sentences with no effort or accessory muscle use Eyes- anicteric Neck- no JVD Lungs- mild crackles R base, clear on the left Heart- normal rate, regular rhythm; no murmurs Abdomen- normal bowel sounds, nondistended, soft, nontender Extremities-mild lower extremity edema, less erythema, no calf tenderness Neuro- alert, oriented x 3; no gross focal neurologic deficits Skin- warm & dry Results & Data Results & Data Vital Signs (Past 12 Hours) Vital Signs Temp Pulse Pulse Resp BP BP Pulse Ox 01/28/23 15:45 36.3 C L 67 19 150/85 H 97 01/28/23 15:24 67 01/28/23 10:27 37.3 C 59 L 18 149/77 H 100 01/28/23 07:50 61 01/28/23 07:50 01/28/23 07:07 36.7 C 57 L 21 143/80 H 96 O2 Del Method O2 Flow Rate 01/28/23 15:45 Nasal Cannula 1 01/28/23 15:24 01/28/23 10:27 Nasal Cannula 1 01/28/23 07:50 01/28/23 07:50 Nasal Cannula 2 01/28/23 07:07 Nasal Cannula 2 all noted and reviewed including below
[2023-01-29] MEDS: TUBE FEEDING WATER FLUSH NG SCH ×6 (02:56→20:15)
[2023-01-29] MEDS: PEPTAMEN INTENSE VHP 1.0 CAL 1,000 ML BAG GT SCH ×2 (03:33→22:20)
[2023-01-29 05:59] LABS: Hematocrit (blood only) 30.6 % (42.0-52.0); Hemoglobin 10.1 g/dl (14.0-18.0); Mean Corpuscular Hemoglobin 30.9 pg (25.0-34.0); Mean Corpuscular Volume 93.6 fL (80.0-100.0); Mean Platelet Volume 10.7 fL (9.4-12.4); Platelet Count 185 K/uL (130-400); RDW Coefficient of Variation 13.1 % (11.5-14.5); RDW Standard Deviation 44.2 fL (36.4-46.3); Red Blood Count 3.27 M/uL (4.70-6.10); White Blood Count 10.04 K/ul (4.8-10.8)
[2023-01-29 06:10] LABS: Creatinine Clr Calc Pharmacy 94.9 ml/min; Est GFR (African American) 96.6 ml/min; Est GFR (Non-African American) 83.3 ml/min
[2023-01-29] MEDS: ENOXAPARIN INJ 120 MG/0.8 ML SYR SQ SCH ×2 (06:10→18:30)
[2023-01-29] MEDS: hydrALAZINE HCL 20 MG/ML VIAL IV PRN (07:54)
[2023-01-29] MEDS: FUROSEMIDE 40 MG/4 ML VIAL IV SCH (07:55)
[2023-01-29] MEDS: POTASSIUM CHLORIDE PWD 20 MEQ PACK GT SCH ×2 (07:55→20:15)
[2023-01-29 09:41] LABS: BUN Creatinine Ratio 35.1 (10-20); Calcium 9.3 mg/dl (8.6-10.3); Potassium 3.1 mmol/L (3.5-5.1)
[2023-01-29] MEDS: DONEPEZIL HCL 10 MG TAB NG SCH (14:43)
[2023-01-29] MEDS: MEMANTINE HCL 10 MG TAB NG SCH ×2 (14:43→20:23)
--- NOTE | 2023-01-29 15:19 | Hospitalist Progress Note ---
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 Acute metabolic encephalopathy Hypothermia Possible Sepsis in setting of profound hypothermia, confusion and leukopenia Biofire, urine negative CXR: pulm edema/pleural effusions blood cultures - posit. for Staph epi one bottle, likely contaminant Repeat blood culture Pt has a port that is not in active use but was recently accessed ID consulted repeat CT head - negative Brain MRI -unremarkable LP ordered -negative Patient more drowsy today, nonverbal Repeat CT head: Unremarkable Neurologist consulted-discussed with Dr. Luo Possible encephalopathy secondary to Zosyn, memantine withdrawal DC Zosyn, supportive care If no improvement within 48 hrs., consider palliative care consultation EEG: Nonspecific slowing of waveforms, no seizure or epileptiform activity 01/29 Patient mostly drowsy again today, this afternoon, not conversant Following neurology recommendations, will resume memantine and tenderness to p.o. today for possible memantine withdrawal leading to encephalopathy Monitor response Continue supportive care Continue to monitor closely Acute Heart failure Pulmonary edema reported weight gain, worsened lower ext edema, SOB pt with significant volume overload he does have chronic lymphedema but family states worsening and increased weight gain CXR: pulm edema, pleural effusions obtained echo -LV systolic function is normal. EF 55 to 60%. RV is mildly dilated. RV systolic function is normal. Mild aortic regurg. There is mild mitral regurg. There is moderate tricuspid regurg. Doppler findings do not suggest pulmonary hypertension. Dilated IVC with normal inspiratory variation suggesting right atrial pressure of 8 mmHg. Cardiology consulted -on Lasix 40 mg IV daily--> hold for now, reevaluate tomorrow, repeat chest x-ray tomorrow Chronic atrial fibrillation chronic, on xarelto for stroke prophylaxis not on rate controlling agents, prior HR in 60s possible bradycardia in setting of hypothermia, HR now improved Currently on heparin drip, Xarelto on hold in light of poor mental status, n.p.o. status Transitioned to Lovenox 120 mg SQ twice daily FULL CODE DVT ppx: On Lovenox subcu twice daily PCP: Jon pt at [facility] Dispo: Pending plan of care discussed with patient's daughter Raya at the bedside all questions answered she is understanding, agreeable, comfortable with the plan of care Admission and Anticipated Discharge Date Admission Date: January 20, 2023 Subjective Follow-up for encephalopathy, etc. Seen with patient's daughter at the bedside visiting Patient is sleeping, not in distress Per daughter, patient was somewhat alert this morning, able to answer some questions But still appears weak This afternoon he is mostly sleeping, not really conversant Still requiring suctioning No other new issues noted Review of Systems Review of Systems: all noted and negative except for above Physical Exam Physical Exam: General-very drowsy, not in distress, breathing with no effort or accessory muscle use Eyes- anicteric Neck- no JVD Lungs-decreased breath sounds right base, clear on the left Heart- normal rate, regular rhythm; no murmurs Abdomen- normal bowel sounds, nondistended, soft, nontender Extremities-mild lower extremity edema, mild erythema/warmth, dry skin Neuro-very drowsy, no new gross focal motor deficits noted Skin- warm & dry Results & Data Results & Data Vital Signs (Past 12 Hours) Vital Signs Temp Pulse Pulse Resp BP Pulse Ox O2 Del Method 01/29/23 14:48 121/62 01/29/23 10:46 36.6 C 79 19 167/81 H 94 Nasal Cannula 01/29/23 08:00 62 01/29/23 08:00 Nasal Cannula 01/29/23 08:55 159/77 H 01/29/23 07:30 36.6 C 63 24 183/93 H 99 Nasal Cannula 01/29/23 03:39 147/82 H O2 Flow Rate 01/29/23 14:48 01/29/23 10:46 1 01/29/23 08:00 01/29/23 08:00 1 01/29/23 08:55 01/29/23 07:30 1 01/29/23 03:39 all noted and reviewed including below
[2023-01-29 20:47] LABS: Cryptococcal Antigen Not Detected (Not Detected); Lyme IgG Band Pattern CSF DNR; Lyme IgG CSF NO BANDS DETECTED; Lyme IgM Band Pattern CSF DNR; Lyme IgM CSF NO BANDS DETECTED; Source CSF
[2023-01-30] MEDS: TUBE FEEDING WATER FLUSH NG SCH ×6 (01:38→21:24)
[2023-01-30] MEDS: ENOXAPARIN INJ 120 MG/0.8 ML SYR SQ SCH ×2 (05:53→17:49)
[2023-01-30] MEDS: MEMANTINE HCL 10 MG TAB NG SCH ×2 (08:10→21:24)
[2023-01-30] MEDS: DONEPEZIL HCL 10 MG TAB NG SCH (08:10)
[2023-01-30] MEDS: POTASSIUM CHLORIDE PWD 20 MEQ PACK GT SCH ×2 (08:10→21:24)
[2023-01-30] MEDS: FUROSEMIDE 40 MG/4 ML VIAL IV SCH (09:16)
[2023-01-30 09:32] LABS: BUN Creatinine Ratio 49.3 (10-20); Calcium 9.4 mg/dl (8.6-10.3); Creatinine Clr Calc Pharmacy 104.7 ml/min; Est GFR (Non-African American) 87.2 ml/min; Magnesium 1.9 mg/dl (1.7-2.4); Potassium 3.3 mmol/L (3.5-5.1)
--- NOTE | 2023-01-30 14:32 | Hospitalist Progress Note ---
Date of Service January 30, 2023 Assessment & Plan (1) Acute metabolic encephalopathy: (2) Hypothermia: (3) Pulmonary edema: (4) Chronic atrial fibrillation: (5) Thrombocytopenia: Plan This is an 82-year-old male who has a significant past medical history of chronic atrial fibrillation, CKD stage III, essential tremor, BPH, MGUS, lymphedema, hx of prior infected TKR with port in place due to requiring antibiotics who presents to ED secondary to altered mental status x 3 days. Acute metabolic encephalopathy Hypothermia Possible Sepsis in setting of profound hypothermia, confusion and leukopenia Biofire, urine negative CXR: pulm edema/pleural effusions blood cultures - posit. for Staph epi one bottle, likely contaminant Repeat blood culture Pt has a port that is not in active use but was recently accessed ID consulted repeat CT head - negative Brain MRI -unremarkable LP ordered -negative Patient more drowsy today, nonverbal Repeat CT head: Unremarkable Neurologist consulted-discussed with Dr. Luo Possible encephalopathy secondary to Zosyn, memantine withdrawal DC Zosyn, supportive care If no improvement within 48 hrs., consider palliative care consultation EEG: Nonspecific slowing of waveforms, no seizure or epileptiform activity 01/30 Patient still mostly drowsy, not conversant Continue memantine and donepezil Monitor closely Continue supportive care Acute Heart failure Pulmonary edema reported weight gain, worsened lower ext edema, SOB pt with significant volume overload he does have chronic lymphedema but family states worsening and increased weight gain CXR: pulm edema, pleural effusions obtained echo -LV systolic function is normal. EF 55 to 60%. RV is mildly dilated. RV systolic function is normal. Mild aortic regurg. There is mild mitral regurg. There is moderate tricuspid regurg. Doppler findings do not suggest pulmonary hypertension. Dilated IVC with normal inspiratory variation suggesting right atrial pressure of 8 mmHg. Cardiology consulted -on Lasix 40 mg IV daily Repeat chest x-ray showing persistent right pleural effusion Chronic atrial fibrillation chronic, on xarelto for stroke prophylaxis not on rate controlling agents, prior HR in 60s possible bradycardia in setting of hypothermia, HR now improved Currently on heparin drip, Xarelto on hold in light of poor mental status, n.p.o. status Transitioned to Lovenox 120 mg SQ twice daily FULL CODE DVT ppx: On Lovenox subcu twice daily PCP: Jon pt at [facility] Dispo: Pending Admission and Anticipated Discharge Date Admission Date: January 20, 2023 Subjective Follow-up for encephalopathy, etc. Seen resting in bed, sleeping, easily awakened Tries to open his eyes, tries to converse but speech is garbled States he feels okay No shortness of breath No signs of distress, pain ROS difficult to perform due to patient's mental status Still requiring frequent suctioning per extruder of Systems Review of Systems: Unobtainable due to cognitive status Physical Exam Physical Exam: General-not oriented not in distress, breathing with no effort or accessory muscle use Eyes- anicteric Neck- no JVD Lungs-decreased breath sounds right base, with no crackles or wheezing clear on the left Heart- normal rate, regular rhythm; no murmurs Abdomen- normal bowel sounds, nondistended, soft, nontender Extremities- no pretibial edema, no calf tenderness Neuro- alert, not oriented; no gross focal neurologic deficits Skin- warm & dry Results & Data Results & Data Vital Signs (Past 12 Hours) Vital Signs Temp Pulse Pulse Resp BP BP Pulse Ox 01/30/23 10:34 36.3 C L 69 16 143/86 H 96 01/30/23 07:45 60 01/30/23 07:45 01/30/23 07:51 37.0 C 66 16 147/77 H 98 01/30/23 03:47 37.2 C 71 22 139/74 96 O2 Del Method O2 Flow Rate 01/30/23 10:34 Nasal Cannula 1 01/30/23 07:45 01/30/23 07:45 Nasal Cannula 1 01/30/23 07:51 Nasal Cannula 1 01/30/23 03:47 Nasal Cannula 1 all noted and reviewed including below
[2023-01-30] MEDS: PEPTAMEN INTENSE VHP 1.0 CAL 1,000 ML BAG GT SCH (14:54)
--- NOTE | 2023-01-30 17:37 | XRay Report ---
XR chest 1V portable CLINICAL HISTORY: Follow-up pleural effusion TECHNIQUE: Single frontal radiograph of the chest was obtained. Comparison: Comparison is made to chest radiograph 01/27/2023 FINDINGS: A port catheter is seen. An enteric tube is seen. The cardiomediastinal silhouette is normal. The chang gs are clear. Bilateral pleural effusions are again seen, similar in size to prior exam. IMPRESSION: Stable bilateral pleural effusions. ACT 112: Negative or not required by law. Electronically signed by: Jerome Love M.D. 01/30/2023 5:36 PM
[2023-01-31] MEDS: TUBE FEEDING WATER FLUSH NG SCH ×6 (04:19→21:16)
[2023-01-31] MEDS: ENOXAPARIN INJ 120 MG/0.8 ML SYR SQ SCH ×2 (08:01→18:18)
[2023-01-31] MEDS: hydrALAZINE HCL 20 MG/ML VIAL IV PRN (08:01)
[2023-01-31] MEDS: MEMANTINE HCL 10 MG TAB NG SCH ×2 (08:01→21:16)
[2023-01-31] MEDS: FUROSEMIDE 40 MG/4 ML VIAL IV SCH (08:01)
[2023-01-31] MEDS: DONEPEZIL HCL 10 MG TAB NG SCH (08:02)
[2023-01-31] MEDS: POTASSIUM CHLORIDE PWD 20 MEQ PACK GT SCH ×2 (08:02→21:16)
[2023-01-31] MEDS: AZTREONAM 2,000 MG in DEXTROSE 5% 100 ML IV SCH ×2 (10:28→16:47)
[2023-01-31 10:29] LABS: Basophils # (auto) 0.05 K/uL (0-0.2); Basophils % (auto) 0.4 %; Eosinophils # (auto) 0.09 K/uL (0-0.50); Eosinophils % (auto) 0.8 %; Hematocrit (blood only) 32.7 % (42.0-52.0); Hemoglobin 10.5 g/dl (14.0-18.0); Immature Granulocytes # (auto) 0.05 K/uL (0.01-0.20); Immature Granulocytes % (auto) 0.4 %; Lymphocytes # (auto) 0.83 K/uL (1.2-3.4); Lymphocytes % (auto) 7.2 %; Mean Corpuscular Hgb Conc 32.1 g/dL (32.0-36.0); Mean Corpuscular Volume 96.5 fL (80.0-100.0); Mean Platelet Volume 10.2 fL (9.4-12.4); Monocytes # (auto) 0.81 K/uL (0.11-0.59); Neutrophils # (auto) 9.72 K/uL (1.40-6.50); Neutrophils % (auto) 84.2 %; Platelet Count 333 K/uL (130-400); RDW Coefficient of Variation 13.2 % (11.5-14.5); RDW Standard Deviation 45.9 fL (36.4-46.3); Red Blood Count 3.39 M/uL (4.70-6.10); White Blood Count 11.55 K/ul (4.8-10.8)
[2023-01-31 10:39] LABS: BUN Creatinine Ratio 44.2 (10-20); Calcium 9.3 mg/dl (8.6-10.3); Est GFR (African American) 96.6 ml/min; Est GFR (Non-African American) 83.3 ml/min; Potassium 3.3 mmol/L (3.5-5.1)
--- NOTE | 2023-01-31 11:43 | XRay Report ---
XR chest 1V portable HISTORY: Follow-up pleural effusion. COMPARISON: Chest 01/30/2023. FINDINGS: No pneumothorax. A right jugular Port-A-Cath terminates in the SVC. A nasogastric tube term inates below the diaphragm. This remains unchanged. The heart remains enlarged. Cardiomegaly and mild pulmonary edema persists. Small to moderate bilateral pleural effusions and bibasilar densities are also unchanged. IMPRESSION: 1. Cardiomegaly with mild interstitial pulmonary edema. This is similar to the prior study. 2. Small to moderate bilateral pleural effusions and bibasilar densities persist. 3. Satisfactory support line placement. ACT 112: Negative or not required by law. Electronically signed by: Karthik Cochran M.D. 01/31/2023 11:41 AM
[2023-01-31] MEDS ORDERED: Nursing to Pharmacy Communication SCH (12:15)
[2023-01-31 12:17] LABS: Appearance Urine Cloudy (Clear); Bacteria Urine Automated Negative (Negative); Bilirubin Urine Negative (Negative); Blood Urine Trace (Negative); Color Urine Yellow; Glucose Urine UA Negative (Negative); Ketones Urine Negative (Negative); Leukocyte Esterase Urine Negative (Negative); Nitrite Urine Negative (Negative); Protein Urine Trace (Negative); Specific Gravity Urine 1.017 (1.000-1.030); Urobilinogen Urine Negative (Negative)
[2023-01-31] MEDS: metroNIDAZOLE 500 MG/100 ML BAG IV SCH ×2 (12:27→21:04)
--- NOTE | 2023-01-31 17:35 | Hospitalist Progress Note ---
Date of Service January 31, 2023 Assessment & Plan (1) Acute metabolic encephalopathy: (2) Hypothermia: (3) Pulmonary edema: (4) Chronic atrial fibrillation: (5) Thrombocytopenia: Plan This is an 82-year-old male who has a significant past medical history of chronic atrial fibrillation, CKD stage III, essential tremor, BPH, MGUS, lymphedema, hx of prior infected TKR with port in place due to requiring antibiotics who presents to ED secondary to altered mental status x 3 days. Acute metabolic encephalopathy Hypothermia Possible Sepsis in setting of profound hypothermia, confusion and leukopenia Biofire, urine negative CXR: pulm edema/pleural effusions blood cultures - posit. for Staph epi one bottle, likely contaminant Repeat blood culture Pt has a port that is not in active use but was recently accessed ID consulted repeat CT head - negative Brain MRI -unremarkable LP ordered -negative Patient more drowsy today, nonverbal Repeat CT head: Unremarkable Neurologist consulted-discussed with Dr. Luo Possible encephalopathy secondary to Zosyn, memantine withdrawal DC Zosyn, supportive care If no improvement within 48 hrs., consider palliative care consultation EEG: Nonspecific slowing of waveforms, no seizure or epileptiform activity 01/31 Day 2 since memantine and donepezil resume More alert this morning, trying to answer some questions Continue memantine and donepezil Monitor closely Continue supportive care Recurrence of fever Chest x-ray: Bilateral pleural effusion right more than left, similar to previous Repeat blood cultures: Pending Urine culture: Pending Aztreonam plus Flagyl ordered Monitor Acute Heart failure Pulmonary edema reported weight gain, worsened lower ext edema, SOB pt with significant volume overload he does have chronic lymphedema but family states worsening and increased weight gain CXR: pulm edema, pleural effusions obtained echo -LV systolic function is normal. EF 55 to 60%. RV is mildly dilated. RV systolic function is normal. Mild aortic regurg. There is mild mitral regurg. There is moderate tricuspid regurg. Doppler findings do not suggest pulmonary hypertension. Dilated IVC with normal inspiratory variation suggesting right atrial pressure of 8 mmHg. Cardiology consulted -on Lasix 40 mg IV daily Repeat chest x-ray showing persistent right pleural effusion Chronic atrial fibrillation chronic, on xarelto for stroke prophylaxis not on rate controlling agents, prior HR in 60s possible bradycardia in setting of hypothermia, HR now improved Xarelto on hold--> cannot be given through feeding tube Transitioned to Lovenox 120 mg SQ twice daily FULL CODE DVT ppx: On Lovenox subcu twice daily PCP: Jon pt at [facility] Dispo: Pending plan of care discussed with patient's son Gamal in detail and at length all questions answered he is understanding, agreeable, comfortable with the plan of care Admission and Anticipated Discharge Date Admission Date: January 20, 2023 Subjective Follow-up encephalopathy, etc. Seen with patient's son Gamal at the bedside visiting Patient is sleeping, not in distress As per son, patient was more alert this morning, trying to hold a conversation with him Noon time, patient got tired and mostly sleeping Patient is easily awakened Tries to open his eyes, tries to answer questions Denies pain, shortness of breath This morning, patient required suctioning, some tube feeding was able to be suctioned No other new symptoms Review of Systems Review of Systems: all noted and negative except for above Physical Exam Physical Exam: General-drowsy, easily awakens, oriented to person, not in distress, speaks in sentences with minimal effort but no accessory muscle use Eyes- anicteric Neck- no JVD Lungs-positive mild rales on the right, clear on the left Heart- normal rate, regular rhythm; no murmurs Abdomen- normal bowel sounds, nondistended, soft, nontender Extremities-mild pretibial edema, no calf tenderness Neuro- mostly drowsy, no new gross focal neurologic deficits Skin- warm & dry Results & Data Results & Data Vital Signs (Past 12 Hours) Vital Signs Temp Pulse Pulse Resp BP Pulse Ox O2 Del Method 01/31/23 15:55 36.3 C L 65 16 135/81 95 Nasal Cannula 01/31/23 16:01 56 L 01/31/23 10:45 36.4 C L 69 16 129/77 98 Nasal Cannula 01/31/23 08:30 60 01/31/23 08:30 Nasal Cannula 01/31/23 07:49 36.7 C 64 15 185/78 H 96 Nasal Cannula O2 Flow Rate 01/31/23 15:55 2 01/31/23 16:01 01/31/23 10:45 2 01/31/23 08:30 01/31/23 08:30 01/31/23 07:49 2 all noted and reviewed including below
[2023-02-01] MEDS: TUBE FEEDING WATER FLUSH NG SCH ×5 (01:42→17:33)
[2023-02-01] MEDS: AZTREONAM 2,000 MG in DEXTROSE 5% 100 ML IV SCH ×3 (02:02→17:33)
[2023-02-01] MEDS: metroNIDAZOLE 500 MG/100 ML BAG IV SCH ×3 (04:46→21:42)
[2023-02-01] MEDS: ENOXAPARIN INJ 120 MG/0.8 ML SYR SQ SCH ×2 (06:08→18:27)
[2023-02-01 07:57] LABS: Creatinine Clr Calc Pharmacy 102.1 ml/min; Est GFR (African American) 100.4 ml/min; Est GFR (Non-African American) 86.7 ml/min
[2023-02-01 08:01] LABS: Hematocrit (blood only) 30.9 % (42.0-52.0); Hemoglobin 9.8 g/dl (14.0-18.0); Mean Corpuscular Hemoglobin 30.4 pg (25.0-34.0); Mean Corpuscular Hgb Conc 31.7 g/dL (32.0-36.0); Mean Platelet Volume 10.1 fL (9.4-12.4); Platelet Count 342 K/uL (130-400); RDW Coefficient of Variation 13.2 % (11.5-14.5); Red Blood Count 3.22 M/uL (4.70-6.10); White Blood Count 8.61 K/ul (4.8-10.8)
[2023-02-01] MEDS: DONEPEZIL HCL 10 MG TAB NG SCH (08:39)
[2023-02-01] MEDS: MEMANTINE HCL 10 MG TAB NG SCH (08:39)
[2023-02-01] MEDS: POTASSIUM CHLORIDE PWD 20 MEQ PACK GT SCH (08:39)
[2023-02-01] MEDS: FUROSEMIDE 40 MG/4 ML VIAL IV SCH (08:40)
[2023-02-01 09:21] LABS: BUN Creatinine Ratio 45.7 (10-20); Potassium 3.1 mmol/L (3.5-5.1)
[2023-02-01] MEDS: PEPTAMEN INTENSE VHP 1.0 CAL 1,000 ML BAG GT SCH (09:32)
[2023-02-01] MEDS: hydrALAZINE HCL 20 MG/ML VIAL IV PRN (10:45)
[2023-02-01] MEDS: POLYETHYLENE (MIRALAX) 17 GM PACK PO SCH (13:42)
[2023-02-01] MEDS ORDERED: POTASSIUM CHLORIDE PWD 20 MEQ PACK PO ONE (13:51)
[2023-02-01 17:52] LABS: CSF, LDH 23 U/L (<=25); EBV DNA Quant PCR Not Detected copies/mL; EBV DNA Quant Source CSF; Lyme DNA PCR CSF or Synovial Not Detected (Not Detected); Lyme DNA Source CSF; VDRL Qualitative CSF Nonreactive (Nonreactive); West Nile Virus, PCR Source CSF; West Nile Virus, PCR, CSF NOT DETECTED (NOT DETECTED)
--- NOTE | 2023-02-01 23:06 | Hospitalist Progress Note ---
Date of Service February 01, 2023 delayed entry date of service noted above Assessment & Plan (1) Acute metabolic encephalopathy: (2) Hypothermia: (3) Pulmonary edema: (4) Chronic atrial fibrillation: (5) Thrombocytopenia: Plan This is an 82-year-old male who has a significant past medical history of chronic atrial fibrillation, CKD stage III, essential tremor, BPH, MGUS, lymphedema, hx of prior infected TKR with port in place due to requiring antibiotics who presents to ED secondary to altered mental status x 3 days. Acute metabolic encephalopathy Hypothermia POSSIBLE SEPSIS SECONDARY TO PNEUMONIA, BILATERAL LOWER EXTREMITY CELLULITIS in setting of profound hypothermia, confusion and leukopenia Biofire, urine negative CXR: pulm edema/pleural effusions blood cultures - posit. for Staph epi one bottle, likely contaminant Repeat blood culture -negative Pt has a port that is not in active use but was recently accessed repeat CT head - negative Brain MRI -unremarkable LP ordered -negative Neurologist consulted-discussed with Dr. Luo Possible encephalopathy secondary to Zosyn, memantine withdrawal Recommend to discontinue Zosyn, after 2 days restart memantine and donepezil, If no improvement, consider palliative care consultation EEG: Nonspecific slowing of waveforms, no seizure or epileptiform activity 02/01 Day 3 since memantine and donepezil resume More alert, oriented, answers more questions appropriately but still gets confused Continue memantine and donepezil Continue supportive care currently n.p.o. secondary to patient not being fully alert, will increase secretions noted Continue tube feeding If patient is more alert in the morning, consult speech therapy Recurrence of fever From bilateral pneumonia with parapneumonic effusion? Rule out bacteremia Chest x-ray: Bilateral pleural effusion right more than left, similar to previous Repeat blood cultures: Pending Urine culture: Pending Aztreonam plus Flagyl Day # 2 If patient continues to have fever episodes, needs to be discussed again with ID service and pulmonary service Acute Heart failure Pulmonary edema reported weight gain, worsened lower ext edema, SOB pt with significant volume overload he does have chronic lymphedema but family states worsening and increased weight gain CXR: pulm edema, pleural effusions obtained echo -LV systolic function is normal. EF 55 to 60%. RV is mildly dilated. RV systolic function is normal. Mild aortic regurg. There is mild mitral regurg. There is moderate tricuspid regurg. Doppler findings do not suggest pulmonary hypertension. Dilated IVC with normal inspiratory variation suggesting right atrial pressure of 8 mmHg. Cardiology consulted -on Lasix 40 mg IV daily Repeat chest x-ray showing persistent right pleural effusion Needs discussion with pulmonary service Chronic atrial fibrillation chronic, on xarelto for stroke prophylaxis not on rate controlling agents, prior HR in 60s possible bradycardia in setting of hypothermia, HR now improved Xarelto on hold--> cannot be given through feeding tube Transitioned to Lovenox 120 mg SQ twice daily FULL CODE DVT ppx: On Lovenox subcu twice daily [facility] Dispo: Pending plan of care discussed with patient's daughter Lindsye in detail and at length all questions answered she is understanding, agreeable, comfortable with the plan of care Admission and Anticipated Discharge Date Admission Date: January 20, 2023 Subjective Follow-up encephalopathy, etc. Seen sitting up in bed, awake, talking with her daughter Answers most questions appropriately, but also gets confused Oriented x2 Speech is still not that clear Daughter Lindsey visiting from [place] at the bedside Patient denies pain, shortness of breath Adamantly requesting to eat and drink Other than sips of water but coughing was noted after Otherwise, per RN, patient has been requiring less suctioning Review of Systems Review of Systems: all noted and negative except for above Physical Exam Physical Exam: General- oriented x 2, not in distress, speaks in sentences with no effort or accessory muscle use Try to converse more, but still has some drowsiness Eyes- anicteric Neck- no JVD Lungs-decreased breath sounds on the right, clear on the left Heart- normal rate, regular rhythm; no murmurs Abdomen- normal bowel sounds, nondistended, soft, nontender Extremities-mild pretibial edema, no erythema, no calf tenderness Neuro- alert, oriented x 2; no new gross focal neurologic deficits Skin- warm & dry Results & Data Results & Data Vital Signs (Past 12 Hours) Vital Signs Temp Pulse Pulse Resp BP Pulse Ox O2 Del Method 02/01/23 22:02 Nasal Cannula 02/01/23 19:26 38.2 C H 82 18 132/71 94 Nasal Cannula 02/01/23 16:14 74 02/01/23 16:11 36.4 C L 75 16 160/86 H 97 Nasal Cannula 02/01/23 12:56 162/70 H O2 Flow Rate 02/01/23 22:02 2 02/01/23 19:26 2 02/01/23 16:14 02/01/23 16:11 1.5 02/01/23 12:56
[2023-02-02] MEDS ORDERED: ACETAMINOPHEN 1,000 MG/100 ML VIAL IV PRN (00:27)
[2023-02-02] MEDS ORDERED: ALBUMIN 25% 25 GM/100 ML VIAL IV ONE (01:00)
[2023-02-02] MEDS: MEMANTINE HCL 10 MG TAB NG SCH ×4 (01:20→22:28)
[2023-02-02] MEDS: TUBE FEEDING WATER FLUSH NG SCH ×8 (01:20→22:28)
[2023-02-02] MEDS: POTASSIUM CHLORIDE PWD 20 MEQ PACK GT SCH ×4 (01:20→22:27)
[2023-02-02] MEDS: AZTREONAM 2,000 MG in DEXTROSE 5% 100 ML IV SCH ×3 (01:25→18:21)
[2023-02-02] MEDS: metroNIDAZOLE 500 MG/100 ML BAG IV SCH ×3 (06:04→21:35)
[2023-02-02] MEDS: ENOXAPARIN INJ 120 MG/0.8 ML SYR SQ SCH (06:06)
--- NOTE | 2023-02-02 07:30 | XRay Report ---
KUB HISTORY: Status post placement of an enteric tube ngt placement COMPARISON: KUB 01/26/2023 FINDINGS: Cardiomegaly with layering pleural effusions and bibasilar consolidation. Right IJ Infuse-a -Port catheter. Cholecystectomy clips. Distal tip of feeding tube is noted within the right abdomen i n the expected location of the distal stomach versus duodenal bulb. Air filled loops of bowel. The lo wer abdomen is excluded from the [id number]. No abnormal calcifications identified. No acute fract ure is seen. IMPRESSION: Distal tip of enteric tube noted within the expected location of the duodenal bulb versus distal stom ach. ACT 112: Negative or not required by law. The above report was generated using voice recognition software. It may contain grammatical, syntax o r spelling errors. Electronically signed by: Kishan Brennan M.D. 02/02/2023 7:29 AM
[2023-02-02 08:03] LABS: BUN Creatinine Ratio 52.8 (10-20); Calcium 8.8 mg/dl (8.6-10.3); Creatinine Clr Calc Pharmacy 98.8 ml/min; Est GFR (African American) 99.3 ml/min; Est GFR (Non-African American) 85.7 ml/min; Potassium 3.3 mmol/L (3.5-5.1)
[2023-02-02] MEDS: POLYETHYLENE (MIRALAX) 17 GM PACK PO SCH (08:31)
[2023-02-02] MEDS: DONEPEZIL HCL 10 MG TAB NG SCH (08:31)
[2023-02-02] MEDS: FUROSEMIDE 40 MG/4 ML VIAL IV SCH (08:48)
--- NOTE | 2023-02-02 11:55 | Hospitalist Progress Note ---
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 Acute metabolic encephalopathy Hypothermia POSSIBLE SEPSIS SECONDARY TO PNEUMONIA, BILATERAL LOWER EXTREMITY CELLULITIS in setting of profound hypothermia, confusion and leukopenia Biofire, urine negative CXR: pulm edema/pleural effusions blood cultures - posit. for Staph epi one bottle, likely contaminant Repeat blood culture -negative Pt has a port that is not in active use but was recently accessed repeat CT head - negative Brain MRI -unremarkable LP ordered -negative Neurologist consulted-discussed with Dr. Luo Possible encephalopathy secondary to Zosyn, memantine withdrawal Recommend to discontinue Zosyn, after 2 days restart memantine and donepezil, If no improvement, consider palliative care consultation EEG: Nonspecific slowing of waveforms, no seizure or epileptiform activity 02/01 Day 3 since memantine and donepezil resume More alert, oriented, answers more questions appropriately but still gets confused Continue memantine and donepezil Continue supportive care currently n.p.o. secondary to patient not being fully alert, will increase secretions noted Continue tube feeding If patient is more alert in the morning, consult speech therapy 02/02 Tube feeds on hold d/t gurgeling, need for suctioning pt awake but confused, speech still not clear Discussed w/ ID and pulmonary medicine palliative med also consulted per daughter request Recurrence of fever From bilateral pneumonia with parapneumonic effusion? Rule out bacteremia Chest x-ray: Bilateral pleural effusion right more than left, similar to previous Repeat blood cultures: Pending Urine culture: Pending Aztreonam plus Flagyl Day # 3 If patient continues to have fever episodes, needs to be discussed again with ID service and pulmonary service 02/02 Pt febrile overnight - pulmonary medicine and ID contacted pulm considering thoracentesis Per ID - will repeat CT abd/ pelvis, chest CT, will add vanco , obtain legionella Ag and sputum cultx (if can be obtained by resp. therapist) Acute Heart failure Pulmonary edema reported weight gain, worsened lower ext edema, SOB pt with significant volume overload he does have chronic lymphedema but family states worsening and increased weight gain CXR: pulm edema, pleural effusions obtained echo -LV systolic function is normal. EF 55 to 60%. RV is mildly dilated. RV systolic function is normal. Mild aortic regurg. There is mild mitral regurg. There is moderate tricuspid regurg. Doppler findings do not suggest pulmonary hypertension. Dilated IVC with normal inspiratory variation suggesting right atrial pressure of 8 mmHg. Cardiology consulted -on Lasix 40 mg IV daily Repeat chest x-ray showing persistent right pleural effusion Needs discussion with pulmonary service, as above Chronic atrial fibrillation chronic, on xarelto for stroke prophylaxis not on rate controlling agents, prior HR in 60s possible bradycardia in setting of hypothermia, HR now improved Xarelto on hold--> cannot be given through feeding tube Transitioned to Lovenox 120 mg SQ twice daily FULL CODE DVT ppx: On Lovenox subcu twice daily PCP: [facility] Dispo: Pending Admission and Anticipated Discharge Date Admission Date: January 20, 2023 Subjective Follow-up encephalopathy, etc. Seen sitting up in bed, awake, confused - able to answer some questions Speech is still not that clear Daughter Lindsey visiting from [place] at the bedside Patient denies pain, shortness of breath Notified by RN this Am that pt sounded congested and was suctioned with resp. therapist - tube feeds on hold now Updated pt's daughter Contacted pulm. medicine and ID re: recurrent fevers pulm considering thoracentesis Per ID - will repeat CT abd/ pelvis, chest CT, will add vanco , obtain legionella Ag and sputum cultx (if can be obtained by resp. therapist) Review of Systems Review of Systems: Unobtainable due to cognitive status Physical Exam Physical Exam: Constitutional: Elderly, morbidly obese M, in NAD Head: Normocephalic, Atraumatic Eyes: PERRL, conjunctivae normal, anicteric sclerae ENMT: external ear and nose normal, oropharynx normal Neck: thick neck Respiratory: normal respiratory effort, diminished bs at bases, poor insp effort, no wheeze, rales, rhonchi.no accessory muscle use Cardiovascular: irr rhythm, no murmur, b/l +1 edema (improved) with Chronic venous stasis changes, no acute infectious appearance Chest: normal inspection of chest RACW medi port Abdomen: obese abd, normal bowel sounds, soft, nontender Musculoskeletal:moves extremities Skin: warm and dry Neurologic:awake and alert but confused, speech not clear, PERRL, EOMI, no face palsy,moves extremities Results & Data Results & Data Vital Signs (Past 12 Hours) Vital Signs Temp Pulse Pulse Resp BP Pulse Ox O2 Del Method 02/02/23 11:53 63 02/02/23 11:30 36.5 C 64 20 121/61 95 Room Air 02/02/23 07:30 Nasal Cannula 02/02/23 07:55 37.4 C 56 L 18 114/55 L 91 Room Air 02/02/23 02:59 37.2 C 68 18 126/64 93 Room Air 02/02/23 01:56 95 Nasal Cannula 02/02/23 00:17 38.3 C H 94 Room Air O2 Flow Rate 02/02/23 11:53 02/02/23 11:30 02/02/23 07:30 2 02/02/23 07:55 02/02/23 02:59 02/02/23 01:56 1 02/02/23 00:17 Laboratory Results 02/02/23 02/02/23 02/02/23 Range/Units 11:14 07:45 07:10 Sodium 148 H (136-145) mmol/L Potassium 3.3 L (3.5-5.1) mmol/L Chloride 112 H (98-107) mmol/L Carbon Dioxide 31 (21-32) mmol/L Anion Gap 5 (3-11) BUN 38 H (6-23) mg/dl Creatinine 0.72 (0.6-1.4) mg/dl Est Cr Clr Drug Dosing 98.8 ml/min Est GFR ( Amer) 99.3 ml/min Est GFR (Non-Af Amer) 85.7 ml/min BUN/Creatinine Ratio 52.8 H (10-20) Glucose 116 H (70-99(Fasting)) mg/dl POC Glucose 132 H 117 H (70-99) mg/dl Calcium 8.8 (8.6-10.3) mg/dl Magnesium 2.0 (1.7-2.4) mg/dl Fld Lyme DNA (PCR) (Not Detected) CSF LDH (<=25) U/L CSF Lactate (10-22) mg/dL CSF VDRL (Nonreactive) CSF West Nile RNA (NOT DETECTED) Lyme Specimen Source Lyme DNA Comment West Nile Virus Source EBV Source EBV DNA, Quant Log cps/mL EBV DNA (PCR) copies/mL 02/02/23 02/02/23 02/01/23 Range/Units 06:07 00:22 19:14 Sodium (136-145) mmol/L Potassium (3.5-5.1) mmol/L Chloride (98-107) mmol/L Carbon Dioxide (21-32) mmol/L Anion Gap (3-11) BUN (6-23) mg/dl Creatinine (0.6-1.4) mg/dl Est Cr Clr Drug Dosing ml/min Est GFR ( Amer) ml/min Est GFR (Non-Af Amer) ml/min BUN/Creatinine Ratio (10-20) Glucose (70-99(Fasting)) mg/dl POC Glucose 129 H 110 H 125 H (70-99) mg/dl Calcium (8.6-10.3) mg/dl Magnesium (1.7-2.4) mg/dl Fld Lyme DNA (PCR) (Not Detected) CSF LDH (<=25) U/L CSF Lactate (10-22) mg/dL CSF VDRL (Nonreactive) CSF West Nile RNA (NOT DETECTED) Lyme Specimen Source Lyme DNA Comment West Nile Virus Source EBV Source EBV DNA, Quant Log cps/mL EBV DNA (PCR) copies/mL 02/01/23 01/25/23 Range/Units 13:17 13:50 Sodium (136-145) mmol/L Potassium (3.5-5.1) mmol/L Chloride (98-107) mmol/L Carbon Dioxide (21-32) mmol/L Anion Gap (3-11) BUN (6-23) mg/dl Creatinine (0.6-1.4) mg/dl Est Cr Clr Drug Dosing ml/min Est GFR ( Amer) ml/min Est GFR (Non-Af Amer) ml/min BUN/Creatinine Ratio (10-20) Glucose (70-99(Fasting)) mg/dl POC Glucose 127 H (70-99) mg/dl Calcium (8.6-10.3) mg/dl Magnesium (1.7-2.4) mg/dl Fld Lyme DNA (PCR) Not Detected (Not Detected) CSF LDH 23 (<=25) U/L CSF Lactate 15.6 (10-22) mg/dL CSF VDRL Nonreactive (Nonreactive) CSF West Nile RNA NOT DETECTED (NOT DETECTED) Lyme Specimen Source CSF Lyme DNA Comment see note West Nile Virus Source CSF EBV Source CSF EBV DNA, Quant Not Detected Log cps/mL EBV DNA (PCR) Not Detected copies/mL Medications Administered Current Inpatient Medications Acetaminophen (Acetaminophen 325 Mg Tab) 650 mg PO Q4H PRN PRN Reason: Pain or Fever Stop: 02/19/23 20:08 Last Admin: 01/29/23 17:57 Dose: 650 mg Al Hydrox/Mg Hydrox/Simethicone (Aluminum/Magnesium Susp 30 Ml Udc) 15 ml PO Q4H PRN PRN Reason: Dyspepsia Stop: 02/19/23 20:08 Artificial Tears (Artificial Tears) 1 drops OP QID PRN PRN Reason: DRY EYES Stop: 02/19/23 20:29 Donepezil HCl (Donepezil Hcl 10 Mg Tab) 10 mg NG QAM [facility] Stop: 02/28/23 14:24 Last Admin: 02/02/23 08:31 Dose: 10 mg Enoxaparin Sodium (Enoxaparin Inj 120 Mg/0.8 Ml Syr) 120 mg SQ Q12H [facility] Stop: 02/26/23 18:59 Last Admin: 02/02/23 06:06 Dose: 120 mg Furosemide (Furosemide 40 Mg/4 Ml Vial) 40 mg IV DAILY [facility] Stop: 02/22/23 11:29 Last Admin: 02/02/23 08:48 Dose: 40 mg Hydralazine HCl (Hydralazine Hcl 20 Mg/Ml Vial) 5 mg IV Q6H PRN PRN Reason: systolic bp > 160 Stop: 02/28/23 07:42 Last Admin: 02/01/23 10:45 Dose: 5 mg Aztreonam 2,000 mg/ Dextrose 110 mls @ 100 mls/hr IV Q8H [facility]; Protocol Stop: 02/07/23 09:29 Last Infusion: 02/02/23 11:48 Dose: Infused Metronidazole (Flagyl) 500 mg in 100 mls @ 100 mls/hr IV Q8H [facility]; Protocol Stop: 02/07/23 09:29 Last Infusion: 02/02/23 07:43 Dose: Infused Acetaminophen (Ofirmev) 1,000 mg in 100 mls @ 400 mls/hr IV Q8H PRN PRN Reason: fever/pain Stop: 02/05/23 00:26 Last Infusion: 02/02/23 01:19 Dose: Infused Potassium Chloride (K Reggie / Wtr) 10 meq in 100 mls @ 100 mls/hr IV Q1H [facility] Stop: 02/02/23 13:59 Magnesium Hydroxide (Magnesium Hydroxide Susp 30 Ml Udc) 30 ml PO Q12H PRN PRN Reason: Constipation Stop: 02/19/23 20:08 Memantine (Memantine Hcl 10 Mg Tab) 10 mg NG BID [facility] Stop: 02/28/23 14:24 Last Admin: 02/02/23 08:31 Dose: 10 mg Nutritional Formula (Peptamen Intense Vhp 1.0 Edwin 1,000 Ml Bag) 0 ml GT UD [facility]; Protocol Stop: 02/25/23 16:44 Last Admin: 02/01/23 09:32 Dose: 1,000 ml Polyethylene Glycol (Polyethylene (Miralax) 17 Gm Pack) 17 gm PO DAILY PRN PRN Reason: Constipation Stop: 02/19/23 20:08 Polyethylene Glycol (Polyethylene (Miralax) 17 Gm Pack) 17 gm PO DAILY [facility] Stop: 03/03/23 12:59 Last Admin: 02/02/23 08:31 Dose: 17 gm Potassium Chloride (Potassium Chloride Pwd 20 Meq Pack) 40 meq GT BID [facility] Stop: 03/03/23 20:59 Last Admin: 02/02/23 08:35 Dose: 40 meq Rivaroxaban (Rivaroxaban 20 Mg Tab) 20 mg PO QDD [facility] Stop: 02/20/23 16:29 Last Admin: 01/21/23 14:06 Dose: Not Given Sterile Water (Tube Feeding Water Flush) 30 ml NG Q4H [facility] Stop: 02/25/23 16:59 Last Admin: 02/02/23 08:48 Dose: 30 ml
[2023-02-02] MEDS: POTASSIUM CHLORIDE / WTR 10 MEQ/100 ML PLCT IV SCH ×2 (13:04→14:07)
--- NOTE | 2023-02-02 15:13 | Pulmonology Progress Note ---
Date of Service February 02, 2023 Assessment & Plan (1) Volume overload: (2) Bilateral pleural effusion: Plan Attending: Dr. Moore Impression: This is an 82-year-old male admitted with altered mental status and hypothermia. Unable to obtain any medical or social history patient. Has been assessed for multiple possible sources of sepsis. No significant hypoxia. Pulmonary reconsulted for consideration of thoracentesis and fluid characterization as patient is with persistent fevers. Recommendations: 1. Bilateral pleural effusions: No imaging has been obtained in the last few days. We will place order for a.m. chest x-ray. We will hold the patient's Lovenox and repeat an APTT in the morning as he has been trending on the higher level. This does represent a difficult procedure in a confused patient with large body habitus and presenting with difficulty for approach. Discussed with the daughter at bedside. She will consider procedure overnight. Otherwise, we will prepare for planned thoracentesis tomorrow if able. 2. Hypoxemia - Multifactorial in the obese patient with altered mental status, generalized deconditioning, pleural effusions. 3. Defer to primary team for ongoing primary management. Thank you for allowing us to participate in the care of this patient. We will follow up tomorrow for thoracentesis if family consents. Admission and Anticipated Discharge Date Admission Date: January 20, 2023 Subjective Patient is an 82-year-old male who was initially admitted at this institution for altered mental status with concerns for infection with recurrent fevers. Pulmonary medicine was initially consulted in the setting of large pleural effusions. The patient was started on Lasix which did seem to help improve volume status. Patient has had an extensive evaluation including lumbar puncture and multiple forms of cultures. He has been evaluated by infectious disease and is currently receiving treatment at their direction. Patient's mental status continues to wane. He was more awake during conversation today, but provides no useful subjective information otherwise. Patient's daughter is present at the bedside and reports that this is slightly improved from yesterday. Review of Systems Review of Systems: Unable to obtain secondary to mental status. Physical Exam Physical Exam: VITAL SIGNS - Vital signs and nursing notes were reviewed. GENERAL - 82-year-old male appearing his stated age who is in no acute distress. Patient speaking nonsensically. LUNGS - Coarse breath sounds appreciated with limited inspiratory effort. CARDIAC - RRR with S1/S2. No murmur, rubs, or gallops appreciated. ABDOMEN - BS normoactive all four quadrants. No tenderness, palpable masses, or ascites noted. PSYCH - A&Ox3 and cooperates fully with examiner. Pt is very pleasant and interacts well with examiner. Results & Data Results & Data Vital Signs (Past 12 Hours) Vital Signs Temp Pulse Pulse Resp BP Pulse Ox O2 Del Method 02/02/23 11:53 63 02/02/23 11:30 36.5 C 64 20 121/61 95 Room Air 02/02/23 07:30 Nasal Cannula 02/02/23 07:55 37.4 C 56 L 18 114/55 L 91 Room Air O2 Flow Rate 02/02/23 11:53 02/02/23 11:30 02/02/23 07:30 2 02/02/23 07:55 PG Care Time/CCT Total # of Minutes Spent Total Time Spent with Patient: Total time spent is greater than 50% in coordination of care (as documented) at patient's floor/unit and/or counseling patient: Coding Level of Care Code 36145 SUB INP/OBS CARE 2/35MIN Diagnoses Volume overload E87.70 Bilateral pleural effusion J90
[2023-02-02] MEDS ORDERED: VANCOMYCIN CONSULT ACTIVE PRN (16:28)
[2023-02-02] MEDS ORDERED: VANCOMYCIN HCL 1,750 MG in SODIUM CHLORIDE 0.9% 500 ML IV ONE (17:00)
[2023-02-02] MEDS ORDERED: OPTIRAY 320 100ml IV ONE (17:53)
--- NOTE | 2023-02-02 20:03 | Pharmacy Report ---
Pharmacy PK ABX Note - Date of Service February 02, 2023 - Assessment and Plan Assessment Restarting VANC for pulmonary indication. Currently receiving AZTREONAM/METRONIDAZOLE IV. Plan 01/25: * VANC 1750mg IV load x 1, then 1250mg IV q12h * Regimen predicted to achieve target AUC/KRISTA of 518mg/L.hr * Probability of Nephrotoxicity at 13% Pharmacy will continue to follow and will adjust dose/frequency as necessary. Thank you. Pharmacy has transitioned to AUC monitoring for vancomycin. AUC/KRISTA is the preferred PK/PD target and is associated with decreased risk of nephrotoxicity compared to traditional trough targets.
--- NOTE | 2023-02-02 21:39 | CT Scan Report ---
CT abd pelvis IV con only CLINICAL HISTORY: fever, AMS TECHNIQUE: Helical axial images of the abdomen and pelvis were obtained and displayed. Automated dose lowering techniques and/or adjustment according to patient size were utilized for this exam. This e xam was performed with intravenous contrast. CT DOSE: 2346.71 mGy.cm COMPARISON: Comparison is made to CT abdomen pelvis 01/20/2023 FINDINGS: Lower chest: For findings above the diaphragm, please see CT chest performed same day. Liver: Unremarkable. No focal lesions are seen. Gallbladder and biliary tree: Surgical clips are seen in the gallbladder fossa however a small cystic lesion remains, possibly a gallbladder remnant. No intra- or extrahepatic biliary ductal dilation. Pancreas: Fatty replacement of the pancreas is seen. Spleen: Splenule is incidentally noted. Adrenals: Unremarkable. Kidneys and ureters: Renal cysts are seen. Bladder: Forbes catheter is seen. Reproductive organs: Unremarkable. Bowel: An enteric tube is seen terminating in the duodenum. Diverticulosis is seen without evidence o f diverticulitis. Lymph nodes Retroperitoneal: Unremarkable. Pelvic: Unremarkable. Mesenteric: Unremarkable. Peritoneum: Normal fat stranding is most prominent in the pelvic fat. Vessels: Atherosclerotic calcifications are seen. Abdominal wall: Bilateral fat and bowel containing inguinal hernias. Bones: Degenerative changes in the visualized spine. IMPRESSION: No abnormalities below the diaphragm. Incidental findings are seen as above. ACT 112: Negative or not required by law. Electronically signed by: Jerome Love M.D. 02/02/2023 9:36 PM
--- NOTE | 2023-02-02 21:40 | CT Scan Report ---
CT chest diagnostic wo con CLINICAL HISTORY: follow up pna/ pl. effusion TECHNIQUE: Multidetector row helical CT of the chest was performed. Coronal and sagittal reformations were obtained. Automated dose lowering techniques and/or adjustment according to patient size were u tilized for this exam. Comparison: None available at the time of this dictation. FINDINGS: Lungs and pleura: Moderate right and small left pleural effusions are seen. There are bilateral conso lidations in the lower lobes. A fissural nodule is seen in the right major fissure. Heart and pericardium: Cardiomegaly is seen with biatrial enlargement. Vessels: Severe atherosclerotic changes in the aorta and coronary arteries. Mediastinum and jeramy: Multiple enlarged lymph nodes measure up to 11 mm in diameter. Chest wall and lower neck: Unremarkable. Abdomen: For findings below the diaphragm, please refer to CT of the abdomen dated the same. Bones: Degenerative changes in the thoracic spine. IMPRESSION: Bilateral consolidations are seen which may represent pneumonia or aspiration. There is a moderate ri ght and small left pleural effusion. Reactive lymphadenopathy is seen. ACT 112: Negative or not required by law. Electronically signed by: Jerome Love M.D. 02/02/2023 9:39 PM
[2023-02-02] MEDS: VANCOMYCIN HCL 1,250 MG in SODIUM CHLORIDE 0.9% 250 ML IV SCH (23:54)
[2023-02-03] MEDS: TUBE FEEDING WATER FLUSH NG SCH ×11 (01:54→23:11)
[2023-02-03] MEDS: AZTREONAM 2,000 MG in DEXTROSE 5% 100 ML IV SCH ×3 (02:05→17:10)
[2023-02-03] MEDS: metroNIDAZOLE 500 MG/100 ML BAG IV SCH ×3 (04:34→21:33)
--- NOTE | 2023-02-03 07:01 | XRay Report ---
XR chest 1V portable HISTORY: pleural effusions COMPARISON: Chest CT 02/02/2023. FINDINGS: No pneumothorax. The heart is enlarged. There is mild pulmonary edema with bilateral pleura l effusions and bibasilar densities. This is similar to the prior study. A nasogastric tube terminate s below the diaphragm. The tip is not occluded on this study. A right central venous catheter termina mariano at the SVC. IMPRESSION: No change in the cardiomegaly, bilateral pleural effusions, and pulmonary edema. ACT 112: Negative or not required by law. Electronically signed by: Karthik Cochran M.D. 02/03/2023 7:00 AM
--- NOTE | 2023-02-03 07:29 | Hospitalist Progress Note ---
Date of Service February 03, 2023 Assessment & Plan (1) Acute metabolic encephalopathy: (2) Hypothermia: (3) Pulmonary edema: (4) Chronic atrial fibrillation: (5) Thrombocytopenia: Plan This is an 82-year-old male who has a significant past medical history of chronic atrial fibrillation, CKD stage III, essential tremor, BPH, MGUS, lymphedema, hx of prior infected TKR with port in place due to requiring antibiotics who presents to ED secondary to altered mental status x 3 days. Acute metabolic encephalopathy Hypothermia POSSIBLE SEPSIS SECONDARY TO PNEUMONIA, BILATERAL LOWER EXTREMITY CELLULITIS in setting of profound hypothermia, confusion and leukopenia Biofire, urine negative CXR: pulm edema/pleural effusions blood cultures - posit. for Staph epi one bottle, likely contaminant Repeat blood culture -negative Pt has a port that is not in active use but was recently accessed repeat CT head - negative Brain MRI -unremarkable LP ordered -negative Neurologist consulted-discussed with Dr. Luo Possible encephalopathy secondary to Zosyn, memantine withdrawal Recommend to discontinue Zosyn, after 2 days restart memantine and donepezil, If no improvement, consider palliative care consultation EEG: Nonspecific slowing of waveforms, no seizure or epileptiform activity 02/01 Day 3 since memantine and donepezil resume More alert, oriented, answers more questions appropriately but still gets confused Continue memantine and donepezil Continue supportive care currently n.p.o. secondary to patient not being fully alert, will increase secretions noted Continue tube feeding If patient is more alert in the morning, consult speech therapy 02/02 Tube feeds on hold d/t gurgeling, need for suctioning pt awake but confused, speech still not clear Discussed w/ ID and pulmonary medicine palliative med also consulted per daughter request 02/03 pt awake , follows commands but still confused and speech is not clear will involve speech to eval if pt able to have some po intake palliative med. consulted, pulm. - for poss. thoracentesis Recurrence of fever From bilateral pneumonia with parapneumonic effusion? Rule out bacteremia Chest x-ray: Bilateral pleural effusion right more than left, similar to previous Repeat blood cultures: Pending Urine culture: Pending Aztreonam plus Flagyl Day # 4 If patient continues to have fever episodes, needs to be discussed again with ID service and pulmonary service 02/02 Pt febrile overnight - pulmonary medicine and ID contacted pulm considering thoracentesis Per ID - will repeat CT abd/ pelvis, chest CT, will add vanco , obtain legionella Ag and sputum cultx (if can be obtained by resp. therapist) 02/03 cont. w/ fevers. cont. aztreonam, flagyl, vanco pulmonary medicine also involved for poss. thoracentesis Acute Heart failure Pulmonary edema reported weight gain, worsened lower ext edema, SOB pt with significant volume overload he does have chronic lymphedema but family states worsening and increased weight gain CXR: pulm edema, pleural effusions obtained echo -LV systolic function is normal. EF 55 to 60%. RV is mildly dilated. RV systolic function is normal. Mild aortic regurg. There is mild mitral regurg. There is moderate tricuspid regurg. Doppler findings do not suggest pulmonary hypertension. Dilated IVC with normal inspiratory variation suggesting right atrial pressure of 8 mmHg. Cardiology consulted -on Lasix 40 mg IV daily since admission- will place on hold now and will re-assess the fluid status daily (pt currently w/o any po intake and tube feeds on hold) Repeat chest x-ray showing persistent right pleural effusion Needs discussion with pulmonary service, as above Chronic atrial fibrillation chronic, on xarelto for stroke prophylaxis not on rate controlling agents, prior HR in 60s possible bradycardia in setting of hypothermia, HR now improved Xarelto on hold--> cannot be given through feeding tube Transitioned to Lovenox 120 mg SQ twice daily - on hold for poss. thoracentesis FULL CODE DVT ppx: On Lovenox subcu twice daily (on hold now for poss procedure) PCP: Jon pt at [facility] Dispo: Pending Admission and Anticipated Discharge Date Admission Date: January 20, 2023 Subjective Follow-up encephalopathy, etc. Seen sitting up in bed, awake, confused - able to answer some questions Speech is still not that clear Daughter Lindsey visiting from [place] at the bedside yesterday and updated (she plans to leave for [place] today) Patient denies pain, shortness of breath Discussed w/ RN at the bedside today Pt can follow simple commands - coughs, lifts arms, and legs, able to have an eye contact Also discussed w/ palliative med. - pt's daughter wishes to discuss w/ palliative Yesterday - Contacted pulm. medicine and ID re: recurrent fevers pulm considering thoracentesis Per ID - repeat CT abd/ pelvis, chest CT, added vanco , ordered legionella Ag and sputum cultx (if can be obtained by resp. therapist) Review of Systems Review of Systems: Unobtainable due to cognitive status Physical Exam Physical Exam: Constitutional: Elderly, morbidly obese M, in NAD Head: Normocephalic, Atraumatic Eyes: PERRL, conjunctivae normal, anicteric sclerae ENMT: external ear and nose normal, oropharynx normal Neck: thick neck Respiratory: normal respiratory effort, diminished bs at bases, poor insp effort, no wheeze, + rhonchi.no accessory muscle use Cardiovascular: irr rhythm, no murmur, b/l +1 edema (improved) with Chronic venous stasis changes, no acute infectious appearance Chest: normal inspection of chest RACW medi port Abdomen: obese abd, normal bowel sounds, soft, nontender Musculoskeletal:moves extremities Skin: warm and dry Neurologic:awake and alert but confused, speech not clear, PERRL, EOMI, no face palsy,moves extremities, able to follow simple commands Results & Data Results & Data Vital Signs (Past 12 Hours) Vital Signs Temp Pulse Pulse Resp BP Pulse Ox O2 Del Method 02/03/23 03:16 36.9 C 72 20 142/81 H 99 Nasal Cannula 02/02/23 22:04 82 02/02/23 23:40 36.6 C 73 20 137/67 99 Nasal Cannula 02/02/23 19:47 37.2 C 78 20 167/83 H 100 Nasal Cannula O2 Flow Rate 02/03/23 03:16 2 02/02/23 22:04 02/02/23 23:40 2 02/02/23 19:47 2 Laboratory Results 02/03/23 02/03/23 02/03/23 Range/Units 08:16 08:16 07:37 PT 13.3 H (9.0-12.0) Seconds INR 1.2 H (0.9-1.1) APTT 28.1 (21.0-31.0) Seconds PTT Ratio 1.0 Sodium 150 H (136-145) mmol/L Potassium 3.4 L (3.5-5.1) mmol/L Chloride 115 H (98-107) mmol/L Carbon Dioxide 28 (21-32) mmol/L Anion Gap 7 (3-11) BUN 31 H (6-23) mg/dl Creatinine 0.63 (0.6-1.4) mg/dl Est Cr Clr Drug Dosing 112.3 ml/min Est GFR ( Amer) 104.9 ml/min Est GFR (Non-Af Amer) 90.5 ml/min BUN/Creatinine Ratio 49.2 H (10-20) Glucose 102 H (70-99(Fasting)) mg/dl POC Glucose 107 H (70-99) mg/dl Calcium 8.8 (8.6-10.3) mg/dl Phosphorus 2.6 (2.5-4.9) mg/dl Magnesium 2.0 (1.7-2.4) mg/dl Urine Legionella Ag 02/03/23 02/02/23 02/02/23 Range/Units 05:53 Unknown 23:58 PT (9.0-12.0) Seconds INR (0.9-1.1) APTT (21.0-31.0) Seconds PTT Ratio Sodium (136-145) mmol/L Potassium (3.5-5.1) mmol/L Chloride (98-107) mmol/L Carbon Dioxide (21-32) mmol/L Anion Gap (3-11) BUN (6-23) mg/dl Creatinine (0.6-1.4) mg/dl Est Cr Clr Drug Dosing ml/min Est GFR ( Amer) ml/min Est GFR (Non-Af Amer) ml/min BUN/Creatinine Ratio (10-20) Glucose (70-99(Fasting)) mg/dl POC Glucose 124 H 107 H (70-99) mg/dl Calcium (8.6-10.3) mg/dl Phosphorus (2.5-4.9) mg/dl Magnesium (1.7-2.4) mg/dl Urine Legionella Ag Pending 02/02/23 Range/Units 11:14 PT (9.0-12.0) Seconds INR (0.9-1.1) APTT (21.0-31.0) Seconds PTT Ratio Sodium (136-145) mmol/L Potassium (3.5-5.1) mmol/L Chloride (98-107) mmol/L Carbon Dioxide (21-32) mmol/L Anion Gap (3-11) BUN (6-23) mg/dl Creatinine (0.6-1.4) mg/dl Est Cr Clr Drug Dosing ml/min Est GFR ( Amer) ml/min Est GFR (Non-Af Amer) ml/min BUN/Creatinine Ratio (10-20) Glucose (70-99(Fasting)) mg/dl POC Glucose 132 H (70-99) mg/dl Calcium (8.6-10.3) mg/dl Phosphorus (2.5-4.9) mg/dl Magnesium (1.7-2.4) mg/dl Urine Legionella Ag Medications Administered Current Inpatient Medications Acetaminophen (Acetaminophen 325 Mg Tab) 650 mg PO Q4H PRN PRN Reason: Pain or Fever Stop: 02/19/23 20:08 Last Admin: 01/29/23 17:57 Dose: 650 mg Al Hydrox/Mg Hydrox/Simethicone (Aluminum/Magnesium Susp 30 Ml Udc) 15 ml PO Q4H PRN PRN Reason: Dyspepsia Stop: 02/19/23 20:08 Artificial Tears (Artificial Tears) 1 drops OP QID PRN PRN Reason: DRY EYES Stop: 02/19/23 20:29 Donepezil HCl (Donepezil Hcl 10 Mg Tab) 10 mg NG QAM [facility] Stop: 02/28/23 14:24 Last Admin: 02/02/23 08:31 Dose: 10 mg Enoxaparin Sodium (Enoxaparin Inj 120 Mg/0.8 Ml Syr) 120 mg SQ Q12H [facility] Stop: 02/26/23 18:59 Last Admin: 02/02/23 06:06 Dose: 120 mg Furosemide (Furosemide 40 Mg/4 Ml Vial) 40 mg IV DAILY [facility] Stop: 02/22/23 11:29 Last Admin: 02/02/23 08:48 Dose: 40 mg Hydralazine HCl (Hydralazine Hcl 20 Mg/Ml Vial) 5 mg IV Q6H PRN PRN Reason: systolic bp > 160 Stop: 02/28/23 07:42 Last Admin: 02/01/23 10:45 Dose: 5 mg Aztreonam 2,000 mg/ Dextrose 110 mls @ 100 mls/hr IV Q8H [facility]; Protocol Stop: 02/07/23 09:29 Last Infusion: 02/03/23 03:11 Dose: Infused Metronidazole (Flagyl) 500 mg in 100 mls @ 100 mls/hr IV Q8H [facility]; Protocol Stop: 02/07/23 09:29 Last Infusion: 02/03/23 05:34 Dose: Infused Acetaminophen (Ofirmev) 1,000 mg in 100 mls @ 400 mls/hr IV Q8H PRN PRN Reason: fever/pain Stop: 02/05/23 00:26 Last Infusion: 02/02/23 01:19 Dose: Infused Vancomycin HCl 1,250 mg/ (Sodium Chloride) 275 mls @ 200 mls/hr IV Q12H [facility] Stop: 02/17/23 00:00 Last Infusion: 02/03/23 01:17 Dose: Infused Magnesium Hydroxide (Magnesium Hydroxide Susp 30 Ml Udc) 30 ml PO Q12H PRN PRN Reason: Constipation Stop: 02/19/23 20:08 Memantine (Memantine Hcl 10 Mg Tab) 10 mg NG BID [facility] Stop: 02/28/23 14:24 Last Admin: 02/02/23 22:28 Dose: 10 mg Miscellaneous Information (Vancomycin Consult Active) 1 each N/A UD PRN PRN Reason: Consult Stop: 03/04/23 16:27 Nutritional Formula (Peptamen Intense Vhp 1.0 Edwin 1,000 Ml Bag) 0 ml GT UD [facility]ISA; Protocol Stop: 02/25/23 16:44 Last Admin: 02/01/23 09:32 Dose: 1,000 ml Polyethylene Glycol (Polyethylene (Miralax) 17 Gm Pack) 17 gm PO DAILY PRN PRN Reason: Constipation Stop: 02/19/23 20:08 Polyethylene Glycol (Polyethylene (Miralax) 17 Gm Pack) 17 gm PO DAILY [facility] Stop: 03/03/23 12:59 Last Admin: 02/02/23 08:31 Dose: 17 gm Potassium Chloride (Potassium Chloride Pwd 20 Meq Pack) 40 meq GT BID [facility] Stop: 03/03/23 20:59 Last Admin: 02/02/23 22:27 Dose: 40 meq Rivaroxaban (Rivaroxaban 20 Mg Tab) 20 mg PO QDD [facility] Stop: 02/20/23 16:29 Last Admin: 01/21/23 14:06 Dose: Not Given Sterile Water (Tube Feeding Water Flush) 30 ml NG Q4H [facility] Stop: 02/25/23 16:59 Last Admin: 02/03/23 04:35 Dose: Not Given
[2023-02-03] MEDS: POTASSIUM CHLORIDE PWD 20 MEQ PACK GT SCH ×2 (08:55→21:06)
[2023-02-03] MEDS: DONEPEZIL HCL 10 MG TAB NG SCH (08:55)
[2023-02-03] MEDS: POLYETHYLENE (MIRALAX) 17 GM PACK PO SCH (08:56)
[2023-02-03] MEDS: FUROSEMIDE 40 MG/4 ML VIAL IV SCH (08:56)
[2023-02-03 09:00] LABS: BUN Creatinine Ratio 49.2 (10-20); Calcium 8.8 mg/dl (8.6-10.3); Creatinine Clr Calc Pharmacy 112.3 ml/min; Est GFR (African American) 104.9 ml/min; Est GFR (Non-African American) 90.5 ml/min; Phosphorus 2.6 mg/dl (2.5-4.9); Potassium 3.4 mmol/L (3.5-5.1)
[2023-02-03 09:09] LABS: INR 1.2 (0.9-1.1); Partial Thromboplastin Time 28.1 Seconds (21.0-31.0); Prothrombin Time 13.3 Seconds (9.0-12.0)
--- NOTE | 2023-02-03 09:47 | Palliative Care Consultation ---
Date of Consultation February 03, 2023 Assessment & Plan (1) AMS (altered mental status): (2) Weakness generalized: (3) Palliative care by specialist: Spoke with son Dannie, provided overview of Palliative Medicine, a subspecialty that provides specialized medical care for people living with a serious illness by offering a focus on quality of life. Palliative Medicine is often conflated with hospice: I advised patient/family that Palliative and hospice can be partners but we are not the same. It is important to understand the difference so that we may be informed, and not afraid. Palliative Medicine works to improve QOL through reduction of symptom burden/more control over their illness, for both the patient and family. Palliative medicine clinicians are board certified, specially-trained and another member of the patient's medical care team. We often provide an extra layer of support because our care is based on the needs of the patient, not the prognosis; as such, it's appropriate at any age/advancing stage of a serious illness and can be provided along with curative treatment. Palliative Medicine clinicians are also trained in advanced communication methodologies, to facilitate complex discussions about advanced illness planning, which are needed to help assure that the treatment choices match the patient's goals, aka delivering Goal Concordant care. Finally, we discussed that hospice is a visiting nurse service that focuses on care delivered at the very end of life for patients with terminal illness, with life expectancy less than 6 month. (4) Discussion about advance care planning held with family member: Spoke with Dannie. Family unavailable today. Sister returning to [place], other sister at work. Family meeting planned for tomorrow at noon, at bedside, Dannie will have sisters present by Facetime on his phone. Plan Family meeting for tomorrow at noon, confirmed with son. TS 75min Thank you for allowing us to participate in the ongoing care of this patient. Please don't hesitate to call or page with any additional concerns. Dr. Maryjane Lin DNP Director, Palliative Care History of Present Illness Reason for Consultation: "On 02/02/23 @ 14:00 Kyaw Jacobson Wrote To Cindy Dunne goals of care" Attending Physician: Kyaw Jacobson MD History of Present Illness joo Angeles is an 82yo gentleman admitted 01/20/23 with worsening confusion, weakness, hypothermia, bradycardia and confusionfor a few days prior, found to have acute metab enceph with hypothermia and sepsis. urine was neg, CXR ?pleural effusions - poss underlying PNA so he started cefepime and had a liter of IVF in the ED. Medically, he has lopez hx of chronic a fib, CKD III, BPH, MGUS, chronic lymphedema, essential tremor, prior infected TKR requiring port placement for intermediate Abtx. Reportedly recently moved from [place], no records available for review apart from his new PCP/establish care visit. He was found to have heart failure of unknown etiology with pulm edema. Positive blood culture today gram + cocci - surgery consulted for port removal ECHO: LV systolic function is normal. EF 55 to 60%. RV is mildly dilated. RV systolic function is normal. Mild aortic regurg. There is mild mitral regurg. There is moderate tricuspid regurg. Doppler findings do not suggest pulmonary hypertension. Dilated IVC with normal inspiratory variation suggesting right atrial pressure of 8 mmHg. family reported cognitive impairment for which it appears he is on donepezil and Namenda (now held); was prior known to be AAOx3 per family ambulated with walker on rare occasion, mostly in wheelchair ED Labwork: WBC 2.92 (normal WBC on outpatient labwork from November), anemia that is at his baseline. He appears to be dehydrated on labwork today. Renal function is at baseline. Procalcitonin negative. TSH WNL. Random cortisol pending. UA is negative. CT head reveals no acute intracranial abnormality. CXR reveals fluid overload with pulmonary layering pleural effusions with bibasilar consolidation. cardiology consult done 01/21/23 noted: Cardiology consultation requested due to concern for acute congestive heart failure with volume overload appearing to be multifactorial in etiology -chronic lymphedema, hypoalbuminemia, anemia, and ? element of diastolic congestive heart failure though laboratory work and examination suggest intravascular volume depletion. Resting echocardiography with preserved LV systolic function. Patient with chronic atrial fibrillation; bradycardia heart rates have improved with improvement in hypothermia. Would hold off on administration of additional IV diuretic therapy at this point. Avoid AV kong blockers. No urgent indication for permanent pacemaker implantation which presently contraindicated noting probable infection. ? Need for A-Port removal? he develooed right flank hematomas, no abscess Mental status seemed to improve but then again decline. HECTOR pompa noted remains confused dtr from [place] requested Palliative med consultation pulm edema may need thora, CXR and pulm med review this AM for more determination. Allergies Allergy/AdvReac Type Severity Reaction Status Date / Time ceftriaxone Allergy Mild rash Verified 01/20/23 15:23 doxycycline Allergy Unknown ON Verified 01/20/23 15:23 [facility] L[facility] rifampin Allergy Unknown ON Verified 01/20/23 15:23 [facility] L[facility] Sulfa (Sulfonamide Allergy Unknown ON Verified 01/20/23 15:23 Antibiotics) [facility] ertapenem AdvReac Intermediate hallucinati Verified 01/20/23 15:23 ons Home Medications Medication Instructions Recorded Confirmed Type acetaminophen 325 mg tablet 650 mg PO Q4H PRN Pain 01/20/23 01/20/23 History (Tylenol) atorvastatin 20 mg tablet 20 mg PO DAILY 01/20/23 01/20/23 History cholecalciferol (vitamin D3) 50 50 mcg PO DAILY 01/20/23 01/20/23 History mcg (2,000 unit) capsule (Vitamin D3) cyclosporine 0.05 % eye drops 1 drp OPB Q12H 01/20/23 01/20/23 History donepezil 10 mg tablet 10 mg PO DAILY 01/20/23 01/20/23 History furosemide 20 mg tablet (Lasix) 20 mg PO DAILY 01/20/23 01/20/23 History furosemide 40 mg tablet (Lasix) 40 mg PO ONCE 01/20/23 01/20/23 History memantine 10 mg tablet 10 mg PO BID 01/20/23 01/20/23 History rivaroxaban 15 mg tablet (Xarelto) 15 mg PO DAILY 01/20/23 01/20/23 History silodosin 8 mg capsule 8 mg PO HS 01/20/23 01/20/23 History Patient History Medical History BPH (benign prostatic hyperplasia) Chronic atrial fibrillation CKD (chronic kidney disease) stage 3, GFR 30-59 ml/min Hx of long-term (current) use of anticoagulants Lymphedema MGUS (monoclonal gammopathy of unknown significance) Port-A-Cath in place Surgical History 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 [employer] Required: No Beliefs That Will Affect Care: None marital status: Single Current Living Situation: Alone Other Information That Helps Us Care for You: No Feels Safe at Home: Yes Safety Concerns: Feels Safe At This Time Assistive Devices: Walker and Wheelchair Review of Systems Review of Systems: Unobtainable due to cognitive status Physical Exam Physical Exam: restless and confused exam deferred/pt fell asleep Results & Data Vital Signs (Past 12 Hours) Vital Signs Temp Pulse Pulse Resp BP Pulse Ox O2 Del Method 02/03/23 08:00 82 02/03/23 08:00 Nasal Cannula 02/03/23 08:07 38.3 C H 70 20 168/77 H 97 Nasal Cannula 02/03/23 03:16 36.9 C 72 20 142/81 H 99 Nasal Cannula 02/02/23 22:04 82 02/02/23 23:40 36.6 C 73 20 137/67 99 Nasal Cannula O2 Flow Rate 02/03/23 08:00 02/03/23 08:00 2 02/03/23 08:07 2 02/03/23 03:16 2 02/02/23 22:04 02/02/23 23:40 2 Laboratory Results data reviewed Diagnostic Findings data reviewed PG Care Time/CCT Total # of Minutes Spent Total Time Spent with Patient: Total time spent is greater than 50% in coordination of care (as documented) at patient's floor/unit and/or counseling patient: 20 min complex chart review, discussion with primary team 15min with pt 2o min d/w family 20min discussion with teams, nursing, [place] [address] IN/OBS CONSULT LVL 5,80M Patient Type New History Comprehensive Exam Expanded Problem Focused Medical Decision Making High Complexity Diagnoses AMS (altered mental status) R41.82 Weakness generalized R53.1 Palliative care by specialist Z51.5 Discussion about advance care planning held with family member Z71.0
--- NOTE | 2023-02-03 10:51 | Pulmonology Progress Note ---
Date of Service February 03, 2023 Assessment & Plan (1) Volume overload: (2) Bilateral pleural effusion: Plan Impression: This is an 82-year-old male admitted with altered mental status and hypothermia. Unable to obtain any medical or social history patient. Has been assessed for multiple possible sources of sepsis. No significant hypoxia. Pulmonary reconsulted for consideration of thoracentesis and fluid characterization as patient is with persistent fevers. Recommendations: 1. Bilateral pleural effusions: Chest x-ray shows persistence of effusion. Had extensive conversation with the patient's son and daughter at bedside today. We discussed utility of thoracentesis. We described this as a way to collect more information for the possibility of underlying infectious sources. Family is leaning towards palliative care measures at this point. I did perform bedside u ltrasound which shows a pocket for possible thoracentesis on the RIGHT-sided chest wall. Children are uncertain if they wish to put the father through the procedure at this point. We will reconvene this afternoon and see what their decision is moving forward. 2. Hypoxemia - Multifactorial in the obese patient with altered mental status, generalized deconditioning, pleural effusions. 3. Defer to primary team for ongoing primary management. Thank you for allowing us to participate in the care of this patient. We will follow up tomorrow for thoracentesis if family consents. Admission and Anticipated Discharge Date Admission Date: January 20, 2023 Supervising Physician Co-Signing Physician Notes Patient seen and examined. Discussed with son at bedside and with ZUNILDA. Agree with assessment plan as noted. The family has agreed to not undergo any invasive pleural procedures at this time. I do not think the pleural effusions are the etiology for the patient's altered mental status and failure to thrive. Thoracentesis would be complicated by the patient's body habitus and concomitant use of systemic anticoagulation. Cannot rule out infection although it appears less likely as recent imaging has demonstrated that the effusions are actually decreased in size. If thoracentesis is required, consideration for consultation with interventional radiology for sampling of the pleural fluid might be appropriate. Given that the patient and family are not interested in pursuing additional invasive procedures, pulmonary will sign off at this point in time. Feel free to contact us with additional questions or concerns. Subjective Patient seen and evaluated today. No changes overnight. Review of Systems Review of Systems: Unable to obtain secondary to mental status. Physical Exam Physical Exam: VITAL SIGNS - Vital signs and nursing notes were reviewed. GENERAL - 82-year-old male appearing his stated age who is in no acute distress. Patient speaking nonsensically. LUNGS - Coarse breath sounds appreciated with limited inspiratory effort. CARDIAC - RRR with S1/S2. No murmur, rubs, or gallops appreciated. ABDOMEN - BS normoactive all four quadrants. No tenderness, palpable masses, or ascites noted. PSYCH - A&Ox3 and cooperates fully with examiner. Pt is very pleasant and interacts well with examiner. Results & Data Results & Data Vital Signs (Past 12 Hours) Vital Signs Temp Pulse Pulse Resp BP Pulse Ox O2 Del Method 02/03/23 08:00 82 02/03/23 08:00 Nasal Cannula 02/03/23 08:07 38.3 C H 70 20 168/77 H 97 Nasal Cannula 02/03/23 03:16 36.9 C 72 20 142/81 H 99 Nasal Cannula 02/02/23 23:40 36.6 C 73 20 137/67 99 Nasal Cannula O2 Flow Rate 02/03/23 08:00 02/03/23 08:00 2 02/03/23 08:07 2 02/03/23 03:16 2 02/02/23 23:40 2 PG Care Time/CCT Total # of Minutes Spent Total Time Spent with Patient: Total time spent is greater than 50% in coordination of care (as documented) at patient's floor/unit and/or counseling patient: Coding Level of Care Code 47264 SUB INP/OBS CARE 2/35MIN Diagnoses Volume overload E87.70 Bilateral pleural effusion J90
[2023-02-03] MEDS ORDERED: D5W AND 1/2NSS + 20MEQ KCL 20 MEQ/1,000 ML BAG IV SCH (11:00)
[2023-02-03] MEDS: MEMANTINE HCL 10 MG TAB NG SCH ×2 (11:10→21:05)
[2023-02-03] MEDS: POTASSIUM CHLORIDE / WTR 10 MEQ/100 ML PLCT IV SCH ×2 (11:18→12:25)
[2023-02-03] MEDS: VANCOMYCIN HCL 1,250 MG in SODIUM CHLORIDE 0.9% 250 ML IV SCH (13:40)
--- NOTE | 2023-02-03 16:25 | XRay Report ---
XR KUB/Abdomen 1 view CLINICAL HISTORY: coresafe placement TECHNIQUE: 1 view of the abdomen was obtained. Comparison: Comparison is made to abdomen radiograph of 02/01/2023 FINDINGS: Enteric tube terminates in the mid duodenum. Cardiomegaly is seen. The osseous structures are grossly unremarkable. The bowel gas pattern is nonobstructive. A moderate amount of stool is noted within th e large bowel. IMPRESSION: Enteric tube terminates in the duodenum. ACT 112: Negative or not required by law. Electronically signed by: Jerome Love M.D. 02/03/2023 4:24 PM
[2023-02-03] MEDS ORDERED: METOCLOPRAMIDE HCL INJ 5 MG/ML 2 ML VIAL IV ONE (17:14)
[2023-02-03] MEDS ORDERED: bisacodyL 10 MG SUPP PR STA (17:17)
[2023-02-03 19:36] LABS: BUN Creatinine Ratio 46.9 (10-20); Calcium 8.4 mg/dl (8.6-10.3); Creatinine Clr Calc Pharmacy 110.5 ml/min; Est GFR (African American) 104.2 ml/min; Est GFR (Non-African American) 89.9 ml/min; Potassium 4.3 mmol/L (3.5-5.1)
[2023-02-03] MEDS: DEXTROSE 5% 1,000 ML IV SCH (20:44)
[2023-02-03] MEDS: ENOXAPARIN INJ 120 MG/0.8 ML SYR SQ SCH (22:23)
[2023-02-04] MEDS: VANCOMYCIN HCL 1,250 MG in SODIUM CHLORIDE 0.9% 250 ML IV SCH ×2 (00:29→12:59)
[2023-02-04] MEDS: TUBE FEEDING WATER FLUSH NG SCH ×11 (00:34→10:43)
[2023-02-04] MEDS: AZTREONAM 2,000 MG in DEXTROSE 5% 100 ML IV SCH ×2 (02:05→10:05)
[2023-02-04] MEDS: metroNIDAZOLE 500 MG/100 ML BAG IV SCH ×2 (04:16→12:59)
[2023-02-04 07:06] LABS: Hematocrit (blood only) 30.4 % (42.0-52.0); Hemoglobin 9.3 g/dl (14.0-18.0); Mean Corpuscular Hemoglobin 30.2 pg (25.0-34.0); Mean Corpuscular Hgb Conc 30.6 g/dL (32.0-36.0); Mean Corpuscular Volume 98.7 fL (80.0-100.0); Platelet Count 422 K/uL (130-400); RDW Coefficient of Variation 13.4 % (11.5-14.5); RDW Standard Deviation 47.6 fL (36.4-46.3); Red Blood Count 3.08 M/uL (4.70-6.10); White Blood Count 7.96 K/ul (4.8-10.8)
--- NOTE | 2023-02-04 08:02 | Hospitalist Progress Note ---
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 Acute metabolic encephalopathy Hypothermia POSSIBLE SEPSIS SECONDARY TO PNEUMONIA, BILATERAL LOWER EXTREMITY CELLULITIS in setting of profound hypothermia, confusion and leukopenia Biofire, urine negative CXR: pulm edema/pleural effusions blood cultures - posit. for Staph epi one bottle, likely contaminant Repeat blood culture -negative Pt has a port that is not in active use but was recently accessed repeat CT head - negative Brain MRI -unremarkable LP ordered -negative Neurologist consulted-discussed with Dr. Luo Possible encephalopathy secondary to Zosyn, memantine withdrawal Recommend to discontinue Zosyn, after 2 days restart memantine and donepezil, If no improvement, consider palliative care consultation EEG: Nonspecific slowing of waveforms, no seizure or epileptiform activity 02/01 Day 3 since memantine and donepezil resume More alert, oriented, answers more questions appropriately but still gets confused Continue memantine and donepezil Continue supportive care currently n.p.o. secondary to patient not being fully alert, will increase secretions noted Continue tube feeding If patient is more alert in the morning, consult speech therapy 02/02 Tube feeds on hold d/t gurgeling, need for suctioning pt awake but confused, speech still not clear Discussed w/ ID and pulmonary medicine palliative med also consulted per daughter request 02/03 pt awake , follows commands but still confused and speech is not clear will involve speech to eval if pt able to have some po intake palliative med. consulted, pulm. - for poss. thoracentesis 02/04 Pt awake but confused, speech is not clear. Family does not wish to proceed w/ thoracentesis and instead would like to discuss w/ palliative medicine. Meeting w/ palliative medicine today -> Family decided for Comfort care Recurrence of fever From bilateral pneumonia with parapneumonic effusion? Rule out bacteremia Chest x-ray: Bilateral pleural effusion right more than left, similar to previous Repeat blood cultures: Pending Urine culture: Pending Aztreonam plus Flagyl If patient continues to have fever episodes, needs to be discussed again with ID service and pulmonary service 02/02 Pt febrile overnight - pulmonary medicine and ID contacted pulm considering thoracentesis Per ID - will repeat CT abd/ pelvis, chest CT, will add vanco , obtain legionella Ag and sputum cultx (if can be obtained by resp. therapist) 02/03 cont. w/ fevers. cont. aztreonam, flagyl, vanco pulmonary medicine also involved for poss. thoracentesis 02/04 pt now on comfort care Acute Heart failure Pulmonary edema reported weight gain, worsened lower ext edema, SOB pt with significant volume overload he does have chronic lymphedema but family states worsening and increased weight gain CXR: pulm edema, pleural effusions obtained echo -LV systolic function is normal. EF 55 to 60%. RV is mildly dilated. RV systolic function is normal. Mild aortic regurg. There is mild mitral regurg. There is moderate tricuspid regurg. Doppler findings do not suggest pulmonary hypertension. Dilated IVC with normal inspiratory variation suggesting right atrial pressure of 8 mmHg. Cardiology consulted -on Lasix 40 mg IV daily since admission- placed on hold now and re-assess the fluid status daily (pt currently w/o any po intake and tube feeds on hold) Repeat chest x-ray showing persistent right pleural effusion Needs discussion with pulmonary service, as above -> family does not wish thoracentesis Pt now on comfort care Chronic atrial fibrillation chronic, on xarelto for stroke prophylaxis not on rate controlling agents, prior HR in 60s possible bradycardia in setting of hypothermia, HR now improved Xarelto on hold--> cannot be given through feeding tube Transitioned to Lovenox 120 mg SQ twice daily - on hold for poss. thoracentesis Anticoagulation now stopped as pt transitioned to comfort care CODE status changed now to DNR/DNI -> comfort care PCP: Jon pt at [facility] Dispo: Pending Admission and Anticipated Discharge Date Admission Date: January 20, 2023 Subjective Follow-up encephalopathy, etc. Seen sitting up in bed, awake, confused - able to answer some questions Speech is still not that clear Patient denies pain, shortness of breath Discussed w/ RN at the bedside today Pt can follow simple commands - coughs, lifts arms, and legs, able to have an eye contact Family not interested in procedures- thoracentesis, and would like to meet w/ palliative medicine to discuss further. Plan for meeting today. Update: Change to comfort care Review of Systems Review of Systems: Unobtainable due to cognitive status Physical Exam Physical Exam: Constitutional: Elderly, morbidly obese M, in NAD Head: Normocephalic, Atraumatic Eyes: PERRL, conjunctivae normal, anicteric sclerae ENMT: external ear and nose normal, oropharynx normal Neck: thick neck Respiratory: normal respiratory effort, diminished bs at bases, poor insp effort, no wheeze, + rhonchi.no accessory muscle use Cardiovascular: irr rhythm, no murmur, b/l +1 edema (improved) with Chronic venous stasis changes, no acute infectious appearance Chest: normal inspection of chest RACW medi port Abdomen: obese abd, normal bowel sounds, soft, nontender Musculoskeletal:moves extremities Skin: warm and dry Neurologic:awake and alert but confused, speech not clear, PERRL, EOMI, no face palsy,moves extremities, able to follow simple commands Results & Data Results & Data Vital Signs (Past 12 Hours) Vital Signs Temp Pulse Pulse Resp BP Pulse Ox O2 Del Method 02/04/23 06:56 37.4 C 85 20 158/89 H 95 Room Air 02/04/23 02:50 36.7 C 79 20 169/85 H 95 Room Air 02/04/23 00:12 36.9 C 77 20 147/81 H 100 Nasal Cannula 02/03/23 22:59 Nasal Cannula O2 Flow Rate 02/04/23 06:56 02/04/23 02:50 02/04/23 00:12 2 02/03/23 22:59 2 Laboratory Results 02/04/23 02/04/23 02/04/23 Range/Units 12:17 11:26 06:34 WBC (4.8-10.8) K/ul RBC (4.70-6.10) M/uL Hgb (14.0-18.0) g/dl Hct (42.0-52.0) % MCV (80.0-100.0) fL MCH (25.0-34.0) pg MCHC (32.0-36.0) g/dL RDW Std Deviation (36.4-46.3) fL RDW Coeff of Juanita (11.5-14.5) % Plt Count (130-400) K/uL MPV (9.4-12.4) fL Sodium 147 H (136-145) mmol/L Potassium 3.6 (3.5-5.1) mmol/L Chloride 115 H (98-107) mmol/L Carbon Dioxide 25 (21-32) mmol/L Anion Gap 7 (3-11) BUN 28 H (6-23) mg/dl Creatinine 0.63 (0.6-1.4) mg/dl Est Cr Clr Drug Dosing 112.7 ml/min Est GFR ( Amer) 104.9 ml/min Est GFR (Non-Af Amer) 90.5 ml/min BUN/Creatinine Ratio 44.4 H (10-20) Glucose 117 H (70-99(Fasting)) mg/dl POC Glucose 133 H (70-99) mg/dl Calcium 8.7 (8.6-10.3) mg/dl Phosphorus 2.5 (2.5-4.9) mg/dl Magnesium 2.1 (1.7-2.4) mg/dl Random Vancomycin 13.7 (10-20) mcg/ml Urine Legionella Ag 02/04/23 02/04/23 02/04/23 Range/Units 06:34 05:26 00:08 WBC 7.96 (4.8-10.8) K/ul RBC 3.08 L (4.70-6.10) M/uL Hgb 9.3 L (14.0-18.0) g/dl Hct 30.4 L (42.0-52.0) % MCV 98.7 (80.0-100.0) fL MCH 30.2 (25.0-34.0) pg MCHC 30.6 L (32.0-36.0) g/dL RDW Std Deviation 47.6 H (36.4-46.3) fL RDW Coeff of Juanita 13.4 (11.5-14.5) % Plt Count 422 H (130-400) K/uL MPV 10.0 (9.4-12.4) fL Sodium (136-145) mmol/L Potassium (3.5-5.1) mmol/L Chloride (98-107) mmol/L Carbon Dioxide (21-32) mmol/L Anion Gap (3-11) BUN (6-23) mg/dl Creatinine (0.6-1.4) mg/dl Est Cr Clr Drug Dosing ml/min Est GFR ( Amer) ml/min Est GFR (Non-Af Amer) ml/min BUN/Creatinine Ratio (10-20) Glucose (70-99(Fasting)) mg/dl POC Glucose 129 H 111 H (70-99) mg/dl Calcium (8.6-10.3) mg/dl Phosphorus (2.5-4.9) mg/dl Magnesium (1.7-2.4) mg/dl Random Vancomycin (10-20) mcg/ml Urine Legionella Ag 02/03/23 02/02/23 Range/Units 17:45 Unknown WBC (4.8-10.8) K/ul RBC (4.70-6.10) M/uL Hgb (14.0-18.0) g/dl Hct (42.0-52.0) % MCV (80.0-100.0) fL MCH (25.0-34.0) pg MCHC (32.0-36.0) g/dL RDW Std Deviation (36.4-46.3) fL RDW Coeff of Juanita (11.5-14.5) % Plt Count (130-400) K/uL MPV (9.4-12.4) fL Sodium 149 H (136-145) mmol/L Potassium 4.3 D (3.5-5.1) mmol/L Chloride 114 H (98-107) mmol/L Carbon Dioxide 25 (21-32) mmol/L Anion Gap 10 (3-11) BUN 30 H (6-23) mg/dl Creatinine 0.64 (0.6-1.4) mg/dl Est Cr Clr Drug Dosing 110.5 ml/min Est GFR ( Amer) 104.2 ml/min Est GFR (Non-Af Amer) 89.9 ml/min BUN/Creatinine Ratio 46.9 H (10-20) Glucose 107 H (70-99(Fasting)) mg/dl POC Glucose (70-99) mg/dl Calcium 8.4 L (8.6-10.3) mg/dl Phosphorus (2.5-4.9) mg/dl Magnesium (1.7-2.4) mg/dl Random Vancomycin (10-20) mcg/ml Urine Legionella Ag SEE NOTE Medications Administered Current Inpatient Medications Acetaminophen (Acetaminophen 325 Mg Tab) 650 mg PO Q4H PRN PRN Reason: Pain or Fever Stop: 02/19/23 20:08 Last Admin: 01/29/23 17:57 Dose: 650 mg Al Hydrox/Mg Hydrox/Simethicone (Aluminum/Magnesium Susp 30 Ml Udc) 15 ml PO Q4H PRN PRN Reason: Dyspepsia Stop: 02/19/23 20:08 Artificial Tears (Artificial Tears) 1 drops OP QID PRN PRN Reason: DRY EYES Stop: 02/19/23 20:29 Donepezil HCl (Donepezil Hcl 10 Mg Tab) 10 mg NG QAM LISA Stop: 02/28/23 14:24 Last Admin: 02/03/23 08:55 Dose: 10 mg Enoxaparin Sodium (Enoxaparin Inj 120 Mg/0.8 Ml Syr) 120 mg SQ Q12H LISA Stop: 02/26/23 18:59 Last Admin: 02/03/23 22:23 Dose: 120 mg Furosemide (Furosemide 40 Mg/4 Ml Vial) 40 mg IV DAILY LISA Stop: 02/22/23 11:29 Last Admin: 02/03/23 08:56 Dose: 40 mg Hydralazine HCl (Hydralazine Hcl 20 Mg/Ml Vial) 5 mg IV Q6H PRN PRN Reason: systolic bp > 160 Stop: 02/28/23 07:42 Last Admin: 02/01/23 10:45 Dose: 5 mg Aztreonam 2,000 mg/ Dextrose 110 mls @ 100 mls/hr IV Q8H LISA; Protocol Stop: 02/07/23 09:29 Last Infusion: 02/04/23 03:57 Dose: Infused Metronidazole (Flagyl) 500 mg in 100 mls @ 100 mls/hr IV Q8H LISA; Protocol Stop: 02/07/23 09:29 Last Infusion: 02/04/23 05:45 Dose: Infused Acetaminophen (Ofirmev) 1,000 mg in 100 mls @ 400 mls/hr IV Q8H PRN PRN Reason: fever/pain Stop: 02/05/23 00:26 Last Infusion: 02/02/23 01:19 Dose: Infused Vancomycin HCl 1,250 mg/ (Sodium Chloride) 275 mls @ 200 mls/hr IV Q12H [facility] Stop: 02/17/23 00:00 Last Infusion: 02/04/23 01:53 Dose: Infused Potassium Chloride/Dextrose/Sod Cl (D5w And 1/2nss + 20meq Kcl) 20 meq in 1,000 mls @ 80 mls/hr IV .[id number] [facility]; Protocol Stop: 03/05/23 10:59 Last Infusion: 02/03/23 20:36 Dose: Infused Dextrose (D5w) 1,000 mls @ 60 mls/hr IV .[id number] [facility] Stop: 03/05/23 19:59 Last Infusion: 02/04/23 07:51 Dose: 0 mls/hr Magnesium Hydroxide (Magnesium Hydroxide Susp 30 Ml Udc) 30 ml PO Q12H PRN PRN Reason: Constipation Stop: 02/19/23 20:08 Memantine (Memantine Hcl 10 Mg Tab) 10 mg NG BID [facility] Stop: 02/28/23 14:24 Last Admin: 02/03/23 21:05 Dose: 10 mg Miscellaneous Information (Vancomycin Consult Active) 1 each N/A UD PRN PRN Reason: Consult Stop: 03/04/23 16:27 Nutritional Formula (Peptamen Intense Vhp 1.0 Edwin 1,000 Ml Bag) 0 ml GT UD [facility]; Protocol Stop: 02/25/23 16:44 Last Admin: 02/01/23 09:32 Dose: 1,000 ml Polyethylene Glycol (Polyethylene (Miralax) 17 Gm Pack) 17 gm PO DAILY PRN PRN Reason: Constipation Stop: 02/19/23 20:08 Polyethylene Glycol (Polyethylene (Miralax) 17 Gm Pack) 17 gm PO DAILY LISA Stop: 03/03/23 12:59 Last Admin: 02/03/23 08:56 Dose: Not Given Potassium Chloride (Potassium Chloride Pwd 20 Meq Pack) 40 meq GT BID [facility] Stop: 03/03/23 20:59 Last Admin: 02/03/23 21:06 Dose: 40 meq Rivaroxaban (Rivaroxaban 20 Mg Tab) 20 mg PO QDD [facility] Stop: 02/20/23 16:29 Last Admin: 01/21/23 14:06 Dose: Not Given Sterile Water (Tube Feeding Water Flush) 30 ml NG Q1H LISA Stop: 03/05/23 19:59 Last Admin: 02/04/23 07:51 Dose: Not Given
[2023-02-04 08:07] LABS: Calcium 8.7 mg/dl (8.6-10.3); Magnesium 2.1 mg/dl (1.7-2.4); Potassium 3.6 mmol/L (3.5-5.1)
[2023-02-04 08:13] LABS: BUN Creatinine Ratio 44.4 (10-20); Creatinine Clr Calc Pharmacy 112.7 ml/min; Est GFR (African American) 104.9 ml/min; Est GFR (Non-African American) 90.5 ml/min; Phosphorus 2.5 mg/dl (2.5-4.9)
[2023-02-04] MEDS: ENOXAPARIN INJ 120 MG/0.8 ML SYR SQ SCH (08:27)
[2023-02-04] MEDS: DONEPEZIL HCL 10 MG TAB NG SCH (08:28)
[2023-02-04] MEDS: POLYETHYLENE (MIRALAX) 17 GM PACK PO SCH (08:28)
[2023-02-04] MEDS: MEMANTINE HCL 10 MG TAB NG SCH (08:28)
[2023-02-04] MEDS: POTASSIUM CHLORIDE PWD 20 MEQ PACK GT SCH (08:28)
[2023-02-04] MEDS ORDERED: CYANOCOBALAMIN 1000 MCG/ML VIAL IM ONE (08:38)
[2023-02-04] MEDS ORDERED: FOLIC ACID 1 MG in SYRINGE 9.8 ML IV SCH (09:00)
[2023-02-04] MEDS ORDERED: THIAMINE HCL 100 MG in SYRINGE 9 ML IV SCH (09:00)
[2023-02-04] MEDS ORDERED: TUBE FEEDING WATER FLUSH NG SCH (11:00)
[2023-02-04] MEDS ORDERED: VANCOMYCIN LEVEL ONE (11:30)
--- NOTE | 2023-02-04 12:48 | Nephrology Consultation ---
Date of Consultation February 04, 2023 Assessment & Plan (1) Disorder of fluid or electrolyte: improving hypernatremia lasix on hold History of Present Illness Reason for Consultation: fluid and electrolyte disorder Requesting Physician: Dr Jacobson Attending Physician: Kyaw Jacobson MD History of Present Illness 82 y/o M whom I'm asked to see for fluid and electrolyte disorders especially hypernatremia and volume overload was admitted here Allergies Allergy/AdvReac Type Severity Reaction Status Date / Time ceftriaxone Allergy Mild rash Verified 01/20/23 15:23 doxycycline Allergy Unknown ON Verified 01/20/23 15:23 [facility] rifampin Allergy Unknown ON Verified 01/20/23 15:23 [facility] Sulfa (Sulfonamide Allergy Unknown ON Verified 01/20/23 15:23 Antibiotics) [facility] ertapenem AdvReac Intermediate hallucinati Verified 01/20/23 15:23 ons Home Medications Medication Instructions Recorded Confirmed Type acetaminophen 325 mg tablet 650 mg PO Q4H PRN Pain 01/20/23 01/20/23 History (Tylenol) atorvastatin 20 mg tablet 20 mg PO DAILY 01/20/23 01/20/23 History cholecalciferol (vitamin D3) 50 50 mcg PO DAILY 01/20/23 01/20/23 History mcg (2,000 unit) capsule (Vitamin D3) cyclosporine 0.05 % eye drops 1 drp OPB Q12H 01/20/23 01/20/23 History donepezil 10 mg tablet 10 mg PO DAILY 01/20/23 01/20/23 History furosemide 20 mg tablet (Lasix) 20 mg PO DAILY 01/20/23 01/20/23 History furosemide 40 mg tablet (Lasix) 40 mg PO ONCE 01/20/23 01/20/23 History memantine 10 mg tablet 10 mg PO BID 01/20/23 01/20/23 History rivaroxaban 15 mg tablet (Xarelto) 15 mg PO DAILY 01/20/23 01/20/23 History silodosin 8 mg capsule 8 mg PO HS 01/20/23 01/20/23 History Patient History Medical History BPH (benign prostatic hyperplasia) Chronic atrial fibrillation CKD (chronic kidney disease) stage 3, GFR 30-59 ml/min Hx of long-term (current) use of anticoagulants Lymphedema MGUS (monoclonal gammopathy of unknown significance) Port-A-Cath in place Surgical History 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 Family History Other Family history non-contributory Social History Smoking Status: Former smoker Hx Alcohol Use: No Hx Substance Use: No Preferred Language: Jordanian Communication Ability: Impaired Communication Ability Comment: [facility] [place] Required: No Beliefs That Will Affect Care: None marital status: Single Current Living Situation: Alone Other Information That Helps Us Care for You: No Feels Safe at Home: Yes Safety Concerns: Feels Safe At This Time Assistive Devices: Walker and Wheelchair Results & Data Vital Signs (Past 12 Hours) Vital Signs Temp Pulse Resp BP Pulse Ox O2 Del Method O2 Flow Rate 02/04/23 11:08 37.2 C 79 20 171/82 H 92 Room Air 02/04/23 10:17 Nasal Cannula 2 02/04/23 06:56 37.4 C 85 20 158/89 H 95 Room Air 02/04/23 02:50 36.7 C 79 20 169/85 H 95 Room Air Laboratory Results 02/04/23 06:34 02/04/23 06:34 Diagnostic Findings cxr 02/03 FINDINGS: No pneumothorax. The heart is enlarged. There is mild pulmonary edema with bilateral pleural effusions and bibasilar densities. This is similar to the prior study. A nasogastric tube terminates below the diaphragm. The tip is not occluded on this study. A right central venous catheter terminates at the SVC. IMPRESSION: No change in the cardiomegaly, bilateral pleural effusions, and pulmonary edema.
[2023-02-04] MEDS ORDERED: LORazepam 2 MG/1 ML VIAL IV PRN (12:50)
[2023-02-04] MEDS: DEXTROSE 5% 1,000 ML IV SCH (12:59)
--- NOTE | 2023-02-04 16:22 | Palliative Care Progress Note ---
Date of Service February 04, 2023 Assessment & Plan (1) AMS (altered mental status): (2) Weakness generalized: (3) Dyspnea and respiratory abnormalities: (4) Palliative care by specialist: Plan: Met with family. Provided overview of Palliative Medicine, a subspecialty that provides specialized medical care for people living with a serious illness by offering a focus on quality of life. Palliative Medicine is often conflated with hospice: I advised patient/family that Palliative and hospice can be partners but we are not the same. It is important to understand the difference so that we may be informed, and not afraid. Palliative Medicine works to improve QOL through reduction of symptom burden/more control over their illness, for both the patient and family. Palliative medicine clinicians are board certified, specially-trained and another member of the patient's medical care team. We often provide an extra layer of support because our care is based on the needs of the patient, not the prognosis; as such, it's appropriate at any age/advancing stage of a serious illness and can be provided along with curative treatment. Palliative Medicine clinicians are also trained in advanced communication methodologies, to facilitate complex discussions about advanced illness planning, which are needed to help assure that the treatment choices match the patient's goals, aka delivering Goal Concordant care. Finally, we discussed that hospice is a visiting nurse service that focuses on care delivered at the very end of life for patients with terminal illness, with life expectancy less than 6 month. (5) Discussion about advance care planning held with family member: Plan: ACP meeting with pt mirna Gamal, son Bob/dtr Lindsey/dtr Vanesa on facetime (Gamal's ipad) x 60 min lengthy d/w family re pt prorated admission course, decline and general failure of meds and interventions to bring about desired outcomes. Everyone was given the opportunity to share their concerns. questions and thoughts on how to proceed. We reviewed pt is not swallowing safely. NGT was placed but not improving his condition. Family in agreement he is continuing to decline in spite of escalating therapies. We discussed what this means in the context of adv illness. We reviewed what pt wishes/goals would be and they shared he had completed an AD issuing guidance for adv care/EOL. He would not want CPR if in an EOL situation. He would not want prolonged or invasive efforts. 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 They acknowledge collectively he is suffering. They do not want to prolong that and ask what we can do to focus more on his comfort. We spoke about moving to a comfort plan of care, stopping non comfort/non essential interventions. they want to NGT removed. they would ideally like him to be able to take PO for pleasure so I told them we will ask ROAD CUTTER for bedside eval to see what might be best textures to use for comfort. They were very appreciative. We addressed code status with attention to CPR survival: Only about 10% of patients who have [id number] sudden cardiac arrest survive to hospital discharge, with many survivors having neurologic impairment. This rate is even lower among patients with serious coexisting conditions, ie chance of survival to hospital discharge for in-hospital CPR in older people is low to moderate (15%) and decreases with age, comorbidities, performance status and frailty: for pts > 70 yo, more than half of the patients who initially survived resuscitation in the hospital before hospital discharge. The pooled survival to discharge after in-hospital CPR was 18% for patients between 70 and 79 years old, 15% for patients between 80 and 89 years old and 11% for patients of 90 years and older. (Trav ANDRES, Manuel LJ, Jil F, et al. Trends in short- and long-term survival among [id number]-[id number] cardiac arrest patients alive at hospital arrival. Circulation 2014;130:1954-0903. AND Ming C, Adelso T, Matty R, et al. Performance of clinical risk scores to predict mortality and neurological outcome in cardiac arrest patients. Resuscitation 2019;136:21-29.) They are in agreement CPR will not help at this junction and agree to DNR/DNI. They would like him back at his [facility] if possible. LELO Cardoza L notified and son asked to speak with her - see her note for details. We spoke about end of life transition and using hospice to provide more support and resources. We discussed the goals of hospice as a patient service and the goals of care; we discussed EOL trajectories and transitions loi the emotional impact of realizing mortality as a concrete reality from prior abstract considerations. Pt was reassured that no matter where they are along this trajectory, they are not alone - their medical team will remain by their side through their journey. Discussed the pros/cons of accepting help when especially weakened and distressed by pain-which would also help provide relief/decrease caregiver burden/strain. I provided education about the hospice benefit: an interdisciplinary program offered by nurses, nurses aides, social workers, chaplains and a medical billing manager for patients with a terminal condition and a life expectancy of less than 6 months. This is covered by Medicare at 100%/no out of pocket expense to patient and all meds/supplies needed by patient for the reason they are on hospice are paid for/covered by hospice. The goal is assure quality of life of the patient in their home setting (home, detention, inpatient hospice setting) by providing symptoms management, psychosocial and spiritual support. However, they cannot offer 24 hours care and if the family is unable to provide that care, they will have to consider personal care with out of pocket cost vs. detention placement. We discussed the goals of hospice as a patient service and the goals of care; we discussed EOL trajectories and transitions loi the emotional impact of realizing mortality as a concrete reality from prior abstract considerations. Pt was reassured that no matter where they are along this trajectory, they are not alone - their medical team will remain by their side through their journey. Discussed the pros/cons of accepting help when especially weakened and distressed by pain-which would also help provide relief/decrease caregiver burden/strain. they would like hospice at [facility]. [facility] notified. Discussed changes pt may move through in the dying process including but not limited to sleeping more, disorientation when awake, restlessness, diminished senses/inability to respond to stimulus although ability to be aware of them remains intact longer, changes in body temperatures, skin changes/mottling/cyanosis, respiratory pattern changes, oral secretions. Family verbalized understanding. The goal is to assure a peaceful . Plan As per discussion above, move to comfort care. Code CDNR/DNI. orders written all teams , nursing and CM notified Thank you for allowing us to participate in the ongoing care of this patient. Please don't hesitate to call or page with any additional concerns. Dr. Maryjane Lin DNP Director, Palliative Care Admission and Anticipated Discharge Date Admission Date: January 20, 2023 Subjective pt semi reclined in bed agitated, moaning, no purposeful conversation generalized edema and NGT noted he is diaphoretic and disheveled, appears to be quite agitated and distressed [facility] +++ Review of Systems Review of Systems: Unobtainable due to cognitive status Physical Exam Physical Exam: restless and confused mumbling, speech unintelligible and garbled bronchitic cough, lung sounds with coarse rhonchi tachy, ild JVD +NGT diaphoretic abd distended, mild grimacing with palpation BLE + edema color pale Results & Data Vital Signs (Past 12 Hours) Vital Signs Temp Pulse Resp BP Pulse Ox O2 Del Method O2 Flow Rate 02/04/23 15:01 36.8 C 59 L 18 149/83 H 94 Room Air 02/04/23 11:08 37.2 C 79 20 171/82 H 92 Room Air 02/04/23 10:17 Nasal Cannula 2 02/04/23 06:56 37.4 C 85 20 158/89 H 95 Room Air Laboratory Results data reviewed Diagnostic Findings data reviewed PG Care Time/CCT Total # of Minutes Spent Total Time Spent: 125 Total Time Spent with Patient: Total time spent is greater than 50% in coordination of care (as documented) at patient's floor/unit and/or counseling patient: I spent 125 minutes overall addressing this very complicated case: 10 in medical data review/discussion with referring provider(s) and/or preparation for the visit 15 in direct interaction with the patient 60 Advance Care Planning/Goals of Care discussions as detailed above in note (must be >16min) 15 in subsequent review and synthesis of assessment and plan 25 in communicating with other providers regarding the patient's case:cm, primary team, nursing, ROAD CUTTER Prolonged Care Time Prolonged Care Time: Yes Advanced Care Planning 00715 Advanced Care Planning 30 Min 97754 Advanced Care Planning Additional 30 Min [place] [address] SUB INP/OBS CARE 3/50MIN Patient Type Established History Comprehensive Exam Comprehensive Medical Decision Making High Complexity Diagnoses AMS (altered mental status) R41.82 Weakness generalized R53.1 Dyspnea and respiratory abnormalities R06.00; R06.89 Palliative care by specialist Z51.5 Discussion about advance care planning held with family member Z71.0 Additional Codes Advanced Care Planning - 47493 Advanced Care Planning 30 Min: 51874 Advanced Care Planning 30 Min ([id number]) Advanced Care Planning - 80943 Advanced Care Planning Additional 30 Min: 28109 Advanced Care Planning Additional 30 Min ([id number]) Prolonged Care Time - Prolonged Care Time: Yes ([id number])
--- NOTE | 2023-02-04 19:48 | Communication Note ---
Date of Service: February 04, 2023 Nephro consult had been in progress but pt has in interval been made POULTRY INSEMINATOR; therefore c/s will be cx'd.
[2023-02-04] MEDS: MoRPHine SULFATE 2 MG/ML CARP IV PRN ×2 (21:59→23:13)
[2023-02-04] MEDS: GLYCOPYRROLATE 0.2 MG/ML VIAL IV PRN (23:11)
--- NOTE | 2023-02-05 08:18 | Hospitalist Progress Note ---
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 He was found hypothermic. Acute metabolic encephalopathy Hypothermia POSSIBLE SEPSIS SECONDARY TO PNEUMONIA, BILATERAL LOWER EXTREMITY CELLULITIS in setting of profound hypothermia, confusion and leukopenia Biofire, urine negative CXR: pulm edema/pleural effusions blood cultures - posit. for Staph epi one bottle, likely contaminant Repeat blood culture -negative Pt has a port that is not in active use but was recently accessed repeat CT head - negative Brain MRI -unremarkable LP ordered -negative Neurologist consulted-discussed with Dr. Luo Possible encephalopathy secondary to Zosyn, memantine withdrawal Recommend to discontinue Zosyn, after 2 days restart memantine and donepezil, If no improvement, consider palliative care consultation EEG: Nonspecific slowing of waveforms, no seizure or epileptiform activity Pt's mental status has not been significantly improving. Even when pt awake , he has been confused. He required suctioning and tube feeds as not able to swallow safely. Neurology, infectious disease involved closely. He continued to be febrile and therefore, ID and pulmonary medicine for possible thoracentesis were re-consulted. Repeated CT chest and abdomen/pelvis. Pulmonary medicine considered diagnostic thoracentesis but family declined and preferred to discuss w/ palliative medicine. Palliative medicine met with pt's family on 02/04/2023 and decided to pursue comfort care. Recurrence of fever From bilateral pneumonia with parapneumonic effusion? Rule out bacteremia Chest x-ray: Bilateral pleural effusion right more than left, similar to previous Repeat blood cultures: negative Urine culture: negative Aztreonam plus Flagyl If patient continues to have fever episodes, needs to be discussed again with ID service and pulmonary service 02/02 Pt febrile overnight - pulmonary medicine and ID contacted pulm considering thoracentesis Per ID - will repeat CT abd/ pelvis, chest CT, will add vanco , obtain legionella Ag and sputum cultx (if can be obtained by resp. therapist) sputum cultx - positive for staph, final culture pending 02/03 cont. w/ fevers. cont. aztreonam, flagyl, vanco pulmonary medicine also involved for poss. thoracentesis, family declined 02/04 Family decided for comfort care Acute Heart failure - diastolic Pulmonary edema reported weight gain, worsened lower ext edema, SOB pt with significant volume overload he does have chronic lymphedema but family states worsening and increased weight gain CXR: pulm edema, pleural effusions obtained echo -LV systolic function is normal. EF 55 to 60%. RV is mildly dilated. RV systolic function is normal. Mild aortic regurg. There is mild mitral regurg. There is moderate tricuspid regurg. Doppler findings do not suggest pulmonary hypertension. Dilated IVC with normal inspiratory variation suggesting right atrial pressure of 8 mmHg. Cardiology consulted -on Lasix 40 mg IV daily since admission- placed on hold now and re-assess the fluid status daily (pt currently w/o any po intake and tube feeds on hold) Repeat chest x-ray showing persistent right pleural effusion Needs discussion with pulmonary service, as above -> family does not wish thoracentesis Pt now on comfort care Chronic atrial fibrillation chronic, on xarelto for stroke prophylaxis not on rate controlling agents, prior HR in 60s possible bradycardia in setting of hypothermia, HR now improved Xarelto on hold--> cannot be given through feeding tube Transitioned to Lovenox 120 mg SQ twice daily - on hold for poss. thoracentesis Anticoagulation now stopped as pt transitioned to comfort care CODE status changed now to DNR/DNI -> comfort care PCP: Jon pt at [facility] Dispo: Pending Admission and Anticipated Discharge Date Admission Date: January 20, 2023 Subjective Follow-up encephalopathy, hypothermia likely secondary to sepsis from pna and acute diastolic CHF Yesterday pt was made comfort care after Palliative medicine meeting w/ the family. Currently pt is laying in bed , and appears tachypneic. Not responding to voice or tactile stimuli. Pt's son present at the bedside. Discussed w/ RN - pt received multiple doses of morphine today, nothing overnight though. Review of Systems Review of Systems: Unobtainable due to cognitive status Physical Exam Physical Exam: Constitutional: Elderly, morbidly obese M, in NAD Head: Normocephalic, Atraumatic Eyes: PERRL, conjunctivae normal, anicteric sclerae ENMT: external ear and nose normal, dry mucous membranes Neck: thick neck Respiratory:mildly tachypneic, diminished bs at bases, + rhonchi Cardiovascular: irr rhythm, no murmur, b/l +1 edema (improved) with Chronic venous stasis changes, no acute infectious appearance Chest: normal inspection of chest RACW medi port Abdomen: obese abd, normal bowel sounds, soft, nontender Musculoskeletal:moves extremities Skin: warm and dry Neurologic: drowsy, not responding to voice or tactile stimuli Results & Data Results & Data Vital Signs (Past 12 Hours) Vital Signs O2 Del Method 02/04/23 23:15 Room Air 02/04/23 20:28 Room Air Laboratory Results 02/04/23 02/04/23 02/02/23 Range/Units 12:17 11:26 Unknown POC Glucose 133 H (70-99) mg/dl Random Vancomycin 13.7 (10-20) mcg/ml Urine Legionella Ag SEE NOTE Medications Administered Current Inpatient Medications Artificial Tears (Artificial Tears) 1 drops OP QID PRN PRN Reason: DRY EYES Stop: 02/19/23 20:29 Glycopyrrolate (Glycopyrrolate 0.2 Mg/Ml Vial) 0.4 mg IV Q4H PRN PRN Reason: Secretions or Pulm Congestion Stop: 03/06/23 12:49 Last Admin: 02/04/23 23:11 Dose: 0.4 mg Lorazepam (Lorazepam 2 Mg/1 Ml Vial) 1 mg IV Q4H PRN PRN Reason: Anxiety/Agitation Stop: 03/06/23 12:49 Last Admin: 02/05/23 04:20 Dose: 1 mg Morphine Sulfate (Morphine Sulfate 2 Mg/Ml Carp) 2 mg IV Q30M PRN PRN Reason: Pain or Respiratory Distress Stop: 02/18/23 12:49 Last Admin: 02/04/23 23:13 Dose: 2 mg
[2023-02-05] MEDS: GLYCOPYRROLATE 0.2 MG/ML VIAL IV PRN ×2 (08:36→13:54)
[2023-02-05] MEDS: MoRPHine SULFATE 2 MG/ML CARP IV PRN ×10 (08:36→20:32)
[2023-02-05] MEDS: ATROPINE SULFATE 1% OP SOLN 5 ML BTL SL PRN ×2 (15:29→18:40)
[2023-02-06] MEDS: MoRPHine SULFATE 2 MG/ML CARP IV PRN ×4 (00:23→09:30)
--- NOTE | 2023-02-06 08:15 | Hospitalist Progress Note ---
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 He was found hypothermic. Acute metabolic encephalopathy Hypothermia LIKELY SEPSIS SECONDARY TO PNEUMONIA, BILATERAL LOWER EXTREMITY CELLULITIS in setting of profound hypothermia, confusion and leukopenia Biofire, urine negative CXR: pulm edema/pleural effusions blood cultures - posit. for Staph epi one bottle, likely contaminant Repeat blood culture -negative Pt has a port that is not in active use but was recently accessed repeat CT head - negative Brain MRI -unremarkable LP ordered -negative Neurologist consulted-discussed with Dr. Luo Possible encephalopathy secondary to Zosyn, memantine withdrawal Recommended to discontinue Zosyn, after 2 days restart memantine and donepezil, If no improvement, consider palliative care consultation EEG: Nonspecific slowing of waveforms, no seizure or epileptiform activity Pt's mental status has not been significantly improving. Even when pt awake , he has been confused. He required suctioning and tube feeds as not able to swallow safely. Neurology, infectious disease involved closely. He continued to be febrile and therefore, ID and pulmonary medicine for possible thoracentesis were re-consulted. Repeated CT chest and abdomen/pelvis. Pulmonary medicine considered diagnostic thoracentesis but family declined and preferred to discuss w/ palliative medicine. Palliative medicine met with pt's family on 02/04/2023 and decided to pursue comfort care. Recurrence of fever Likely from From bilateral pneumonia with parapneumonic effusion Rule out bacteremia Chest x-ray: Bilateral pleural effusion right more than left, similar to previous Repeat blood cultures: negative Urine culture: negative Aztreonam plus Flagyl If patient continues to have fever episodes, needs to be discussed again with ID service and pulmonary service 02/02 Pt febrile overnight - pulmonary medicine and ID contacted pulm considering thoracentesis Per ID - repeated CT abd/ pelvis, chest CT, added vanco , obtained legionella Ag and sputum cultx (if can be obtained by resp. therapist) sputum cultx - positive for staph, MRSA - however nasal swab obtained earlier was negative for MRSA 02/03 cont. w/ fevers. cont. aztreonam, flagyl, vanco pulmonary medicine also involved for poss. thoracentesis, family declined 02/04 Family decided for comfort care Acute Heart failure - diastolic Pulmonary edema reported weight gain, worsened lower ext edema, SOB pt with significant volume overload he does have chronic lymphedema but family states worsening and increased weight gain CXR: pulm edema, pleural effusions obtained echo -LV systolic function is normal. EF 55 to 60%. RV is mildly dilated. RV systolic function is normal. Mild aortic regurg. There is mild mitral regurg. There is moderate tricuspid regurg. Doppler findings do not suggest pulmonary hypertension. Dilated IVC with normal inspiratory variation suggesting right atrial pressure of 8 mmHg. Cardiology consulted -on Lasix 40 mg IV daily since admission- placed on hold now and re-assess the fluid status daily (pt currently w/o any po intake and tube feeds on hold) Repeat chest x-ray showing persistent right pleural effusion Needs discussion with pulmonary service, as above -> family does not wish thoracentesis Pt now on comfort care Chronic atrial fibrillation chronic, on xarelto for stroke prophylaxis not on rate controlling agents, prior HR in 60s possible bradycardia in setting of hypothermia, HR now improved Xarelto on hold--> cannot be given through feeding tube Transitioned to Lovenox 120 mg SQ twice daily - on hold for poss. thoracentesis Anticoagulation now stopped as pt transitioned to comfort care CODE status changed now to DNR/DNI -> comfort care PCP: Jon pt at [facility] Dispo: Pending Admission and Anticipated Discharge Date Admission Date: January 20, 2023 Subjective Follow-up encephalopathy, hypothermia likely secondary to sepsis from pna and acute diastolic CHF Pt was made comfort care after Palliative medicine meeting w/ the family. Currently pt is laying in bed , in NAD. Not responding to voice or tactile stimuli. Review of Systems Review of Systems: Unobtainable due to cognitive status Physical Exam Physical Exam: Constitutional: Elderly, morbidly obese M, in NAD Head: Normocephalic, Atraumatic Eyes: conjunctivae normal, anicteric sclerae ENMT: external ear and nose normal, dry mucous membranes Neck: thick neck Respiratory: diminished bs at bases, + rhonchi Cardiovascular: irr rhythm, no murmur, b/l +1 edema (improved) with Chronic venous stasis changes Chest: normal inspection of chest RACW medi port Abdomen: obese abd, normal bowel sounds, soft Skin: warm and dry Neurologic: drowsy, not responding to voice or tactile stimuli
[2023-02-06] MEDS: ATROPINE SULFATE 1% OP SOLN 5 ML BTL SL PRN ×2 (09:42→11:07)
--- NOTE | 2023-02-06 15:11 | Hospitalist Progress Note ---
Date of Service February 06, 2023 Assessment & Plan Admission and Anticipated Discharge Date Admission Date: January 20, 2023 Subjective NOTE Notified by nursing staff that pt ceased to breathe. On my evaluation, pt is not responding to voice or painful stimuli. There are no heart sounds, no breath sounds. There is no radial or carotid pulse. Pupils fixed and dilated. MD Kavon 12:09 02/06/2023 Results & Data Results & Data Vital Signs (Past 12 Hours) Vital Signs O2 Del Method 02/06/23 07:45 Room Air
--- NOTE | 2023-02-06 15:12 | Discharge Summary ---
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 Son and [id number] are at bedside. They provide most of history. Patient is initially from [place] and moved to [facility] approximately 2 months ago. He currently resides in assisted living facility. Per family at bedside at baseline patient is alert and oriented x3, oriented to current events and family members. He is mostly in a wheelchair but can ambulate with assist with a walker. He does have chronic lower extremity lymphedema and swelling however this has worsened over the last month. Family at bedside notes significant increase in lower extremity swelling as well as weight gain. He has not yet established with cardiology in the area and they deny any prior history of congestive heart failure. He does have known chronic atrial fibrillation and is anticoagulated with Xarelto. Patient is hard of hearing and he does report that he is short of breath but otherwise ROS is not difficult. He does complain that he is in pain all over. 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 He currently has a port in his right chest wall secondary to requiring frequent antibiotics and this infection has since been cleared for approximately 2 years. Report from nursing facility is that he has had increased confusion over the last 3 days and today was unable to get patient out of bed. There is no reported fever. In ED patient was significantly hypothermic with a temp of 30.9 and bradycardic with a heart rate in the 40s. He is in atrial fibrillation. Lab work notable for slight neutropenia with a WBC at 2.92k which is lower from November when he had a reported white blood cell count of 7k in [facility]. He also has a new thrombocytopenia. Lab work does reveal elevated BUN and creatinine of 41 and 1.05. Urinalysis is negative. Bio fire is negative for any respiratory infection. Head CT negative for any acute abnormality. Chest x-ray positive for cardiomegaly with pulmonary edema along with layering pleural effusions and bibasilar consolidation. Admission Exam Per Admitting Provider Constitutional: Elderly, morbidly obese M, A and O x 1, lethargic, appears acutely ill, vitals as above, NAD, sitting up in bed Head: Normocephalic, Atraumatic Eyes: PERRL, conjunctivae normal, anicteric sclerae ENMT: external ear and nose normal, oropharynx normal Neck: trachea midline, no thyromegaly normal visual inspection Respiratory: normal respiratory effort, diminished bs at bases, poor insp effort, no wheeze, rales, rhonchi. Normal insp/exp effort, no accessory muscle use Cardiovascular:wisam rate, irr rhythm, no murmur, b/l +2 pitted edema with Chronic venous stasis changes, no acute infectious appearance Vessels: no JVD or carotid bruit Chest: normal inspection of chest RACW medi port Abdomen: obese abd, normal bowel sounds, soft, nontender, no hepatosplenomegaly Musculoskeletal: no cyanosis or clubbing, AROM x 4 Skin: no rashes, warm and dry normal turgor Neurologic: PERRL, EOMI, accommodation nl, no face palsy, no dysarthria CN's II-XI intact bilaterally and moves all extremities Psychiatric: A+Ox1 self, euthymic affect Lymphatic: no cervical or axillary lymphadenopathy : deferred Principal Diagnosis Metabolic encephalopathy, hypothermia secondary to sepsis Sepsis, likely secondary to pneumonia Acute diastolic heart failure Discharge Exam pt is not responding to voice or painful stimuli. There are no heart sounds, no breath sounds. There is no radial or carotid pulse. Pupils fixed and dilated. time of : 12:09 02/06/2023 Discharge Data Allergies Allergy/AdvReac Type Severity Reaction Status Date / Time ceftriaxone Allergy Mild rash Verified 01/20/23 15:23 doxycycline Allergy Unknown ON Verified 01/20/23 15:23 [facility] LIST rifampin Allergy Unknown ON Verified 01/20/23 15:23 [facility] LIST Sulfa (Sulfonamide Allergy Unknown ON Verified 01/20/23 15:23 Antibiotics) [facility] MED LIST ertapenem AdvReac Intermediate hallucinati Verified 01/20/23 15:23 ons Consultations 01/20/23 15:06 ED Decision to Admit Stat 01/20/23 15:43 Consult Cardiology Routine 01/20/23 17:18 HIM [Consult Health Information Management] Routine 01/21/23 09:48 Consult General Surgery Routine 01/23/23 10:50 Consult Infectious Diseases Routine 01/24/23 14:40 Consult Pulmonology Routine 01/27/23 12:21 Consult Neurology Routine 02/02/23 13:58 Consult Palliative Care Routine Ordered Studies 01/20/23 13:36 CT head/brain wo con Stat 01/20/23 16:36 CT abd pelvis IV con only Stat 01/24/23 16:41 CT head/brain wo con Urgent 01/25/23 00:00 MR brain wo con Routine 01/25/23 18:31 IR lumbar puncture diagnostic Routine 01/27/23 12:43 CT head/brain wo con Stat 02/02/23 16:25 CT abd pelvis IV con only Routine CT chest diagnostic wo con Routine Hospital Course (1) Acute metabolic encephalopathy: (2) Hypothermia: (3) Pulmonary edema: (4) Chronic atrial fibrillation: (5) Thrombocytopenia: Plan This is an 82-year-old male who has a significant past medical history of chronic atrial fibrillation, CKD stage III, essential tremor, BPH, MGUS, ly mphedema, 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 He was found hypothermic. Acute metabolic encephalopathy Hypothermia LIKELY SEPSIS SECONDARY TO PNEUMONIA, BILATERAL LOWER EXTREMITY CELLULITIS in setting of profound hypothermia, confusion and leukopenia Biofire, urine negative CXR: pulm edema/pleural effusions blood cultures - posit. for Staph epi one bottle, likely contaminant Repeat blood culture -negative Pt has a port that is not in active use but was recently accessed repeat CT head - negative Brain MRI -unremarkable LP ordered -negative Neurologist consulted-discussed with Dr. Luo Possible encephalopathy secondary to Zosyn, memantine withdrawal Recommended to discontinue Zosyn, after 2 days restart memantine and donepezil, If no improvement, consider palliative care consultation EEG: Nonspecific slowing of waveforms, no seizure or epileptiform activity Pt's mental status has not been significantly improving. Even when pt awake , he has been confused. He required suctioning and tube feeds as not able to swallow safely. Neurology, infectious disease involved closely. He continued to be febrile and therefore, ID and pulmonary medicine for possible thoracentesis were re-consulted. Repeated CT chest and abdomen/pelvis. Pulmonary medicine considered diagnostic thoracentesis but family declined and preferred to discuss w/ palliative medicine. Palliative medicine met with pt's family on 02/04/2023 and decided to pursue comfort care. Recurrence of fever Likely from From bilateral pneumonia with parapneumonic effusion Rule out bacteremia Chest x-ray: Bilateral pleural effusion right more than left, similar to previous Repeat blood cultures: negative Urine culture: negative Aztreonam plus Flagyl If patient continues to have fever episodes, needs to be discussed again with ID service and pulmonary service 02/02 Pt febrile overnight - pulmonary medicine and ID contacted pulm considering thoracentesis Per ID - repeated CT abd/ pelvis, chest CT, added vanco , obtained legionella Ag and sputum cultx (if can be obtained by resp. therapist) sputum cultx - positive for staph, MRSA - however nasal swab obtained earlier was negative for MRSA 02/03 cont. w/ fevers. cont. aztreonam, flagyl, vanco pulmonary medicine also involved for poss. thoracentesis, family declined 02/04 Family decided for comfort care Acute Heart failure - diastolic Pulmonary edema reported weight gain, worsened lower ext edema, SOB pt with significant volume overload he does have chronic lymphedema but family states worsening and increased weight gain CXR: pulm edema, pleural effusions obtained echo -LV systolic function is normal. EF 55 to 60%. RV is mildly dilated. RV systolic function is normal. Mild aortic regurg. There is mild mitral regurg. There is moderate tricuspid regurg. Doppler findings do not suggest pulmonary hypertension. Dilated IVC with normal inspiratory variation suggesting right atrial pressure of 8 mmHg. Cardiology consulted -on Lasix 40 mg IV daily since admission- placed on hold now and re-assess the fluid status daily (pt currently w/o any po intake and tube feeds on hold) Repeat chest x-ray showing persistent right pleural effusion Needs discussion with pulmonary service, as above -> family does not wish thoracentesis Pt now on comfort care Chronic atrial fibrillation chronic, on xarelto for stroke prophylaxis not on rate controlling agents, prior HR in 60s possible bradycardia in setting of hypothermia, HR now improved Xarelto on hold--> cannot be given through feeding tube Transitioned to Lovenox 120 mg SQ twice daily - on hold for poss. thoracentesis Anticoagulation now stopped as pt transitioned to comfort care Total Time Total Time Spent Total Time Spent (In Minutes): 40 Discharge Plan Discharge Items Patient Disposition: Other Date/Time: 02/06/23 12:09
== END 2023-02-06 15:40 | disposition expired | DRG 871 ==
LOC: ED 12:44 → SUATTDRO 16:25 → EDINP 16:25 → 2S 18:41 → 3N 02-04 22:26